=== PATIENT | male | born 1950 | race Caucasian/White ===

== ENCOUNTER 2019-12-17 12:40 | Outpatient (CLI) | payer MEDICARE, OTHER, SELFPAY ==
--- NOTE | 2019-12-17 | ECHO_ITS ---
Patient Info Name: Aquilino Trujillo Jr Age: 69 years : 1950 Gender: Male Ht: 72 in Wt: 182 lbs BSA: 2.05 m2 HR: 65 bpm BP: 142 / 76 mmHg Heart Rhythm: Sinus Rhythm Technical Quality: Fair Exam Date: 12/17/2019 1:03 PM Exam Location: [facility] Patient Status: Outpatient Admit Date: 12/17/2019 Staff Ordering Physician: Braeden Reinoso MD Scaffold Builder: Marylin Croft RDCS Attending Provider: Braeden Reinoso MD Exam Type: CA echo doppler color flow Study Info Indications R01.1 - Cardiac murmur, unspecified Complete two-dimensional, color flow and Doppler transthoracic echocardiogram is performed. Summary 1. Left ventricular chamber dimension is mildly enlarged. 2. There is moderate concentric increased left ventricular wall thickness. 3. Left ventricular systolic function is normal, estimated at 55-60%. 4. There is mild aortic valve sclerosis. 5. Very mild aortic stenosis valve area 1.7. Left Ventricle Left ventricular chamber dimension is mildly enlarged. Left ventricular systolic function is normal, estimated at 55-60%. There is moderate concentric increased left ventricular wall thickness. The left ventricular diastolic function is grade I diastolic dysfunction. Right Ventricle Right ventricular chamber dimension is normal. Left Atria Left atrial chamber dimension is mildly enlarged. Right Atria Right atrial chamber dimension is mildly enlarged. Aortic Valve The aortic valve is trileaflet. There is mild aortic valve sclerosis. Very mild aortic stenosis valve area 1.7. Pulmonic Valve The pulmonic valve is not well visualized. Mitral Valve The mitral valve has normal leaflets. Tricuspid Valve The tricuspid valve leaflets are normal. Pericardium/Pleural The pericardium appears normal. Aorta The aortic root size at the sinus of Valsalva is normal. Left Ventricular Outflow Tract Name Value Normal LVOT 2D LVOT Diameter 2.0 cm LVOT Doppler LVOT Peak Gradient 6 mmHg LVOT Mean Gradient 4 mmHg LVOT VTI 24 cm LVOT VTI/AV VTI Ratio 0.7 LVOT Stroke Volume 76 ml LVOT CO 4.5 l/min LVOT CI 2.2 l/min/m2 Pulmonic Valve Name Value Normal RVOT Doppler RVOT Peak Gradient 5 mmHg PV Doppler PV Peak Gradient 7 mmHg Mitral Valve Name Value Normal MV Doppler
== END 2019-12-17 12:41 | disposition home or self-care (01) ==
PROVIDERS: PCP Family Medicine; Visit Provider Psychiatry & Neurology Neurology
DX: R01.1 Cardiac murmur, unspecified (principal); I51.7 Cardiomegaly
CPT/HCPCS: 93306

== ENCOUNTER 2020-01-14 00:30 | Outpatient (CLI) | payer MEDICARE, OTHER, SELFPAY ==
[2020-01-14 16:39] LABS: SARS-CoV-2 RNA PCR Negative
== END 2020-01-14 00:31 | disposition home or self-care (01) ==
LOC: ANHCOVIDDT 00:31
PROVIDERS: PCP Family Medicine; Visit Provider Internal Medicine Gastroenterology
DX: Z01.812 Encounter for preprocedural laboratory examination (principal); Z11.59 Encounter for screening for other viral diseases
CPT/HCPCS: 87635; C9803; U0003

== ENCOUNTER 2020-01-16 01:31 | Day surgery (SDC) | payer MEDICARE, OTHER, SELFPAY ==
[2020-01-08 14:34] VITALS: BMI 24.5
--- NOTE | 2020-01-15 17:58 | WPDANESEPP ---
Anes - Eval Pre Procedure Procedure: Operation Date: 01/16/20 07:30 Proposed Procedures p Screening Colonoscopy - Macario Abarca MD Date/Time: 01/15/20 17:58 Pre Op Diagnosis: screening, hx of polyps Patient Data Age: 69 Gender: M Height: 6 ft Weight: 82 kg Allergies Allergy/AdvReac Type Severity Reaction Status Date / Time No Known Allergies Allergy Verified 01/08/20 14:40 Home Medications Medication Instructions Recorded Confirmed Type amlodipine 5 mg PO .BEDTIME 01/08/20 01/08/20 History aspirin [Aspirin Low Dose] 81 mg PO DAILY 01/08/20 01/08/20 History carbidopa-levodopa 1 tablet PO QID 01/08/20 01/08/20 History lisinopril 40 mg PO DAILY 01/08/20 01/08/20 History loratadine [Claritin] 10 mg PO DAILY 01/08/20 01/08/20 History Patient hx anesthesia problems: none Family hx anesthesia problems: none PMFSH Past Medical History Medical History Hypertension Kidney stones Non-Hodgkin lymphoma in remission Parkinsons Surgical History Surgical History S/P total knee arthroplasty Social History Social History Smoking status: Never smoker Alcohol intake: never Gender identity (if verbalized by the patient): Male Spiritual care concerns: No Exam Day of Procedure 01/15/20 17:58
[2020-01-16 06:24] VITALS: BP 141/94; PULSE 76; RESP 16; TEMP 36.1; O2SAT 97; BMI 24.0
[2020-01-16] MEDS: LACTATED RINGERS 1,000 ML 150 ML IV CONT (06:37)
--- NOTE | 2020-01-16 07:02 | PM.HPGS ---
History of Present Illness History of Present Illness Consent: Risks, benefits, and alternatives have been discussed and questions answered. Patient agrees to proceed with procedure. Chief complaint: screening, hx of polyps Narrative: Aquilino Trujillo Jr. is a 69 year old male For screening colonoscopy [facility] Past Medical History Medical History Hypertension Kidney stones Non-Hodgkin lymphoma in remission Parkinsons Surgical History Surgical History S/P total knee arthroplasty Social History Social History Smoking status: Never smoker Alcohol intake: never Living arrangements: with family Gender identity (if verbalized by the patient): Male Spiritual care concerns: No Meds Home Medications and Allergies Home Medications Medication Instructions Recorded Confirmed Type amlodipine 5 mg PO .BEDTIME 01/08/20 01/08/20 History aspirin [Aspirin Low Dose] 81 mg PO DAILY 01/08/20 01/08/20 History carbidopa-levodopa 1 tablet PO QID 01/08/20 01/08/20 History lisinopril 40 mg PO DAILY 01/08/20 01/08/20 History loratadine [Claritin] 10 mg PO DAILY 01/08/20 01/08/20 History Allergies Allergy/AdvReac Type Severity Reaction Status Date / Time No Known Allergies Allergy Verified 01/16/20 06:23 Vital Signs Vital Signs - 24 hr 01/16/20 06:24 Temperature 36.1 C L Pulse Rate 76 Respiratory Rate 16 Blood Pressure 141/94 H Pulse Oximetry 97 Exam Resp: Auscultation: clear to auscultation bilaterally Cardio: Rate: regular rate Rhythm: regular rhythm GI: GI Palp: Yes Soft to palpation and No Tenderness to palpation present (GI) Assessment and Plan Assessment and plan (1) Colon cancer screening: Code(s): Z12.11 - Encounter for screening for malignant neoplasm of colon Status: Acute Assessment and Plan: Colonoscopy with possible biopsy or polypectomy or cautery or injection of substances.
--- NOTE | 2020-01-16 07:11 | WPDANESEPPF ---
Anes - Initial Pre Proc Eval Procedure: Operation Date: 01/16/20 07:30 Proposed Procedures p Screening Colonoscopy - Macario Abarca MD Date/Time: 01/16/20 07:11 Surgeon: Macario Abarca MD Pre Op Diagnosis: screening, hx of polyps Patient Data Age: 69 Gender: M Height: 6 ft Weight: 80.5 kg Last Vital Signs Temp 97.0 F L 01/16/20 06:24 Pulse 76 01/16/20 06:24 Resp 16 01/16/20 06:24 BP 141/94 H 01/16/20 06:24 Pulse Ox 97 01/16/20 06:24 Allergies Allergy/AdvReac Type Severity Reaction Status Date / Time No Known Allergies Allergy Verified 01/16/20 06:23 Home Medications Medication Instructions Recorded Confirmed Type amlodipine 5 mg PO .BEDTIME 01/08/20 01/08/20 History aspirin [Aspirin Low Dose] 81 mg PO DAILY 01/08/20 01/08/20 History carbidopa-levodopa 1 tablet PO QID 01/08/20 01/08/20 History lisinopril 40 mg PO DAILY 01/08/20 01/08/20 History loratadine [Claritin] 10 mg PO DAILY 01/08/20 01/08/20 History Patient hx anesthesia problems: none Family hx anesthesia problems: none PMFSH Past Medical History Medical History Hypertension Kidney stones Non-Hodgkin lymphoma in remission Parkinsons Surgical History Surgical History S/P total knee arthroplasty Social History Social History Smoking status: Never smoker Alcohol intake: never Living arrangements: with family Gender identity (if verbalized by the patient): Male Spiritual care concerns: No Anes - Eval Final PreProcedure Day of Procedure 01/16/20 07:11 Patient weight: overweight Heart: regular rate and rhythm Lungs: clear to auscultation Airway: Mallampati scale class II Neurological: alert and oriented Last oral intake: >/= 8 hours ASA classification: III Emergent: no Anesthetic plan: proceed Anesthesia type and monitoring: general GIVS and standard monitoring Informed Consent: The patient's anesthetic plan and its attendant risks and benefits were discussed with the patient/family/POA. Questions were solicited and answers provided to the satisfaction of the patient/family/POA.
[2020-01-16 07:35] VITALS: BP 117/70; PULSE 56; RESP 15; O2SAT 97
[2020-01-16 07:45] VITALS: BP 118/72; PULSE 54; RESP 13; O2SAT 97
[2020-01-16 07:55] VITALS: BP 130/78; PULSE 54; RESP 17; O2SAT 98
== END 2020-01-16 08:05 | disposition home or self-care (01) ==
PROVIDERS: PCP Family Medicine; Visit Provider Internal Medicine Gastroenterology
PROC: 0DJD8ZZ Inspection of Lower Intestinal Tract, Via Natural or Artificial Opening Endoscopic (ICD-10-PCS; CPT 45378; principal; 2020-01-16 07:30)
DX: Z12.11 Encounter for screening for malignant neoplasm of colon (principal); Z86.010 Personal history of colon polyps; I10 Essential (primary) hypertension; G20 Parkinson's disease; Z85.72 Personal history of non-Hodgkin lymphomas
CPT/HCPCS: G0105; J2704; J7120

== ENCOUNTER 2020-02-11 01:24 | Outpatient (CLI) | payer MEDICARE, OTHER, SELFPAY ==
[2020-02-11 18:16] LABS: SARS-CoV-2 RNA PCR Negative
== END 2020-02-11 01:25 | disposition home or self-care (01) ==
LOC: ANHCOVIDDT 01:24
PROVIDERS: PCP Family Medicine; Visit Provider Internal Medicine Gastroenterology
DX: Z01.812 Encounter for preprocedural laboratory examination (principal); Z20.828 Contact with and (suspected) exposure to other viral communicable diseases
CPT/HCPCS: 87635; C9803; U0003

== ENCOUNTER 2020-02-13 01:59 | Day surgery (SDC) | payer MEDICARE, BC, SELFPAY ==
[2020-02-06 13:24] VITALS: BMI 23.9
[2020-02-13 07:26] VITALS: BP 128/74; PULSE 58; RESP 18; TEMP 36.5; O2SAT 98
[2020-02-13] MEDS: LACTATED RINGERS 1,000 ML 150 ML IV CONT (07:35)
--- NOTE | 2020-02-13 07:48 | WPDANESEPPF ---
Anes - Initial Pre Proc Eval Procedure: Operation Date: 02/13/20 08:30 Proposed Procedures p Screening Colonoscopy - Macario Abarca MD Date/Time: 02/13/20 07:48 Surgeon: Macario Abarca MD Pre Op Diagnosis: hx of polyps Patient Data Age: 69 Gender: M Height: 6 ft Weight: 81.5 kg Last Vital Signs Temp 36.5 C 02/13/20 07:26 Pulse 58 L 02/13/20 07:26 Resp 18 02/13/20 07:26 BP 128/74 02/13/20 07:26 Pulse Ox 98 02/13/20 07:26 Allergies Allergy/AdvReac Type Severity Reaction Status Date / Time No Known Allergies Allergy Verified 02/13/20 07:25 Home Medications Medication Instructions Recorded Confirmed Type amlodipine 5 mg PO .BEDTIME 01/08/20 02/13/20 History aspirin [Aspirin Low Dose] 81 mg PO DAILY 01/08/20 02/13/20 History carbidopa-levodopa 1 tablet PO QID 01/08/20 02/13/20 History lisinopril 40 mg PO DAILY 01/08/20 02/13/20 History loratadine [Claritin] 10 mg PO DAILY 01/08/20 02/13/20 History Patient hx anesthesia problems: none Family hx anesthesia problems: none PMFSH Past Medical History Medical History Hypertension Kidney stones Non-Hodgkin lymphoma in remission Parkinsons Surgical History Surgical History S/P total knee arthroplasty Social History Social History Smoking status: Never smoker Alcohol intake: never Living arrangements: with family Gender identity (if verbalized by the patient): Male Spiritual care concerns: No Anes - Eval Final PreProcedure Day of Procedure 02/13/20 07:48 Patient weight: normal Heart: regular rate and rhythm Lungs: clear to auscultation Airway: Mallampati scale class II Neurological: other (alert) Last oral intake: >/= 8 hours ASA classification: III Emergent: no Anesthetic plan: proceed Anesthesia type and monitoring: general GIVS and standard monitoring Informed Consent: The patient's anesthetic plan and its attendant risks and benefits were discussed with the patient/family/POA. Questions were solicited and answers provided to the satisfaction of the patient/family/POA.
--- NOTE | 2020-02-13 08:25 | P.HP_ITS ---
History of Present Illness History of Present Illness Consent: Risks, benefits, and alternatives have been discussed and questions answered. Patient agrees to proceed with procedure. Chief complaint: hx of polyps Narrative: Aquilino Trujillo Jr. is a 69 year old male here for colon cancer screening. He has a history of polyps removed 5 years ago [facility] Past Medical History Medical History Hypertension Kidney stones Non-Hodgkin lymphoma in remission Parkinsons Surgical History Surgical History S/P total knee arthroplasty Social History Social History Smoking status: Never smoker Alcohol intake: never Living arrangements: with family Gender identity (if verbalized by the patient): Male Spiritual care concerns: No Meds Home Medications and Allergies Home Medications Medication Instructions Recorded Confirmed Type amlodipine 5 mg PO .BEDTIME 01/08/20 02/13/20 History aspirin [Aspirin Low Dose] 81 mg PO DAILY 01/08/20 02/13/20 History carbidopa-levodopa 1 tablet PO QID 01/08/20 02/13/20 History lisinopril 40 mg PO DAILY 01/08/20 02/13/20 History loratadine [Claritin] 10 mg PO DAILY 01/08/20 02/13/20 History Allergies Allergy/AdvReac Type Severity Reaction Status Date / Time No Known Allergies Allergy Verified 02/13/20 07:25 Vital Signs Vital Signs - 24 hr 02/13/20 07:26 Temperature 36.5 C Pulse Rate 58 L Respiratory Rate 18 Blood Pressure 128/74 Pulse Oximetry 98 Exam Resp: Auscultation: clear to auscultation bilaterally Cardio: Rate: regular rate Rhythm: regular rhythm GI: GI Palp: Yes Soft to palpation and No Tenderness to palpation present (GI)
[2020-02-13 09:14] VITALS: BP 113/74; PULSE 55; RESP 18; O2SAT 96
[2020-02-13 09:24] VITALS: BP 111/71; PULSE 55; RESP 28; O2SAT 99
[2020-02-13 09:34] VITALS: BP 124/50; PULSE 55; RESP 22; O2SAT 98
--- NOTE | 2020-02-13 09:52 | SUR.PHASEII ---
0920 Pt still drowsy/ sleepy. Dr Abarca to see pt when fully awake. [id number] Dr. Seay
== END 2020-02-13 10:05 | disposition home or self-care (01) ==
PROVIDERS: PCP Family Medicine; Visit Provider Internal Medicine Gastroenterology
PROC: 0DJD8ZZ Inspection of Lower Intestinal Tract, Via Natural or Artificial Opening Endoscopic (ICD-10-PCS; CPT 45378; principal; 2020-02-13 08:30)
DX: Z12.11 Encounter for screening for malignant neoplasm of colon (principal); D12.3 Benign neoplasm of transverse colon; I10 Essential (primary) hypertension; G20 Parkinson's disease; Z85.72 Personal history of non-Hodgkin lymphomas; Z79.82 Long term (current) use of aspirin
CPT/HCPCS: 45380; 88305; J7120

== ENCOUNTER 2020-11-30 19:59 | Emergency (ER) | payer MEDICARE, BC, SELFPAY ==
--- NOTE | ~2020-11-30 | CT_ITS ---
EXAMINATION: CT brain wo con DATE: 11/30/2020 21:46 INDICATION: Syncope and fall with head injury. TECHNIQUE: Computed tomography (CT) of the head was performed without intravenous contrast. Sagittal and coronal reconstructions were performed. The mA was adjusted according to patient size. Iterative reconstruction technique was employed. The dose-length product was 605.33 mGy-cm. COMPARISON: head CT dated and brain MR dated 04/13/2012 FINDINGS: Left parietal scalp hematoma. No fracture. No acute intracranial hemorrhage, acute infarction or abno rmal extra axial fluid collection. There is mild scattered white matter hypoattenuation consistent wi th chronic small vessel ischemic disease. Ventricles are normal and symmetric. No mass/mass effect. M ild mucosal thickening in the left maxillary and right ethmoid sinuses. The orbits and mastoid air ce lls are normal. IMPRESSION: 1. No fracture or acute intracranial process. 2. Mild scattered white matter hypoattenuation consistent with chronic small vessel ischemic disease. Reviewed, dictated and finalized at location A. IMPRESSION: 1. No fracture or acute intracranial process. 2. Mild scattered white matter hypoattenuation consistent with chronic small ve ssel ischemic disease.
--- NOTE | ~2020-11-30 | XR_ITS ---
EXAMINATION: XR chest 2V DATE: 11/30/2020 21:34 INDICATION: Syncopal episode. Hypertension. TECHNIQUE: frontal and lateral views of the chest were obtained. COMPARISON: Chest radiograph dated 02/24/2016 FINDINGS: The lungs remain clear with no focal airspace opacities, pulmonary edema, pleural effusion or pneumot horax. The cardiomediastinal silhouette is normal. Visualized bones and soft tissues are unremarkable . IMPRESSION: 1. No acute cardiopulmonary disease. Reviewed, dictated and finalized at location A.
--- NOTE | ~2020-11-30 | XR_ITS ---
EXAMINATION: XR elbow LT min 3V DATE: 11/30/2020 21:35 INDICATION: Posterior elbow pain and swelling post fall TECHNIQUE: Anteroposterior, two oblique and lateral views of the left elbow were obtained. COMPARISON: None. FINDINGS: Alignment is normal. No fracture or joint effusion. Mild osteoarthritis, primarily at the ulnotrochle ar articulation. Mild soft tissue swelling posterior to the olecranon. IMPRESSION: 1. No joint effusion or acute osseous abnormality. Reviewed, dictated and finalized at location A.
[2020-11-30 20:02] VITALS: BP 129/95; PULSE 90; RESP 16; TEMP 36; O2SAT 99
--- NOTE | 2020-11-30 21:17 | ECG_ITS ---
Measurements Intervals [place] Rate: 71 P: 256 MO: 197 QRS: -55 QRSD: 143 T: 152 QT: 435 QTc: 476 Interpretive Statements SINUS OR ECTOPIC ATRIAL RHYTHM LEFT BUNDLE BRANCH BLOCK BASELINE ARTIFACT- I, II, III, AVR, AVL, AVF, V1-V6 ABNORMAL ECG Electronically Signed On 12-01-2020 6:19:17 CDT by Virgil Lindsey D.O.
[2020-11-30 22:03] LABS: Basophils Percent Auto 0.3 % (0.2-1.2); Eosinophils Absolute Auto 0.1 K/mm3 (0-0.3); Eosinophils Percent Auto 0.9 % (0-4.4); Hematocrit 37.2 % (42.0-52.0); Hemoglobin 12.3 g/dL (14.0-18.0); Immature Granulocyte Absolute 0.02 K/mm3 (0.00-0.031); Immature Granulocyte Percent A 0.2 % (0-0.5); Lymphocytes Absolute Auto 1.78 K/mm3 (0.9-3.2); Lymphocytes Percent Auto 15.5 % (18.3-44.2); Mean Corpuscular HGB Conc 33.1 g/dl (32-36); Mean Corpuscular Hemoglobin 30.6 pg (26-34); Mean Corpuscular Volume 92.5 fl (80-100); Mean Platelet Volume 10.3 fl (7.4-10.4); Monocytes Absolute Auto 1.2 K/mm3 (0.1-0.6); Monocytes Percent Auto 10.8 % (2.6-8.5); Neutrophils Absolute Auto 8.3 K/mm3 (1.3-6.7); Neutrophils Percent Auto 72.3 % (45.5-73.1); Platelet Count Result 196 k/mm3 (150-375); Red Blood Count 4.02 M/mm3 (4.6-6.20); Red Cell Distribution Width 12.3 % (11.5-14.5); White Blood Count 11.5 K/mm3 (4.5-10.0)
[2020-11-30 22:12] VITALS: BP 119/78; PULSE 74; RESP 26; O2SAT 100
[2020-11-30 22:14] LABS: Anion Gap 9 mmol/L (8-16); Blood Urea Nitrogen 24 mg/dL (9-20); Calcium 9.5 mg/dL (8.4-10.2); Carbon Dioxide 27 mmol/L (22-30); Chloride 103 mmol/L (98-107); Estimated CRCL calculation 81 ml/min; Estimated Glomerular Filt Rate > 60; Glucose 101 mg/dL (65-110); Potassium 4.1 mmol/L (3.4-5.0); Sodium 139 mmol/L (137-145)
[2020-11-30] MEDS: SODIUM CHLORIDE 0.9% IV 1,000 ML 999 ML IV CONT (22:15)
[2020-11-30 22:26] LABS: Troponin I < 0.012 ng/mL (0.000-0.034)
--- NOTE | 2020-11-30 23:08 | ED.SYNCOPE ---
HPI - Syncope General Chief Complaint: Syncope Stated Complaint: blacked out - ams - did hit head Time Seen by Provider: 11/30/20 21:05 History of Present Illness HPI narrative: Patient is a 70-year-old male who presents ER with concerns for syncope. Occurred at around 6 PM. Patient was using the restroom at the [facility]. He reports waking up on the ground. Unknown how long he was unconscious but reports she went to check on him and he was walking out of the bathroom so it must not been very long. He has some pain and swelling to his left elbow. He is not on a blood thinner. No headache/nausea/vomiting/dizziness at this time. Related Data Home Medications Medication Instructions Recorded Confirmed aspirin [Aspirin Low Dose] 81 mg PO DAILY 01/08/20 10/14/20 loratadine [Claritin] 10 mg PO DAILY 01/08/20 10/14/20 Allergies Allergy/AdvReac Type Severity Reaction Status Date / Time diphenhydramine Allergy Unknown palpatation Verified 11/30/20 20:16 s Review of Systems Review of Systems: All systems reviewed & are unremarkable except as noted in HPI and below Constitutional: Constitutional: Denies chills, Denies fever(s) and Denies weakness Eyes: Eyes: Denies change in vision and Denies photophobia Respiratory: Respiratory: Denies cough and Denies dyspnea Gastrointestinal: Gastrointestinal: Denies abdominal pain, Denies nausea and Denies vomiting Musculoskeletal: Musculoskeletal: Reports arthralgias Neurologic: Reports syncope, Denies headache(s), Denies focal weakness and Denies numbness PMF Past Medical History Medical History Hypertension Kidney stones Non-Hodgkin lymphoma in remission Parkinson disease Parkinsons Surgical History Surgical History S/P total knee arthroplasty Social History Social History (Updated 10/14/20 @ 09:20 by Melania Lomax) Smoking status: Never smoker Second hand tobacco smoke exposure: No Alcohol intake: never Substance use: never Substance use type: does not use Gender identity (if verbalized by the patient): Male Spiritual care concerns: No Exam Narrative: GENERAL: Well-appearing, well-nourished, and in no acute distress. HEAD: Normocephalic, atraumatic. EYES: PERRL and EOMI. ENT: Mucous membranes moist. CHEST: Clear to auscultation. No respiratory distress. HEART: Regular rate and rhythm. Normal peripheral pulses. ABDOMEN: Soft, nontender, nondistended. EXTREMITIES: Normal range of motion. No edema. Swelling over left elbow with small abrasion, tender in this area. SKIN: Warm, dry, no rash. NEURO: No focal deficits. Resting tremor. Alert and oriented x3. PSYCH: Normal mood and affect. Course Course Emergency Course: Patient resting comfortably. BUN elevated. Likely dry causing micturition syncope. Old left bundle branch block. Asymptomatic here. Discharge home. Vital Signs Vital signs: Vital Signs Temperature 96.8 F L 11/30/20 20:02 Pulse Rate 90 11/30/20 20:02 Respiratory Rate 16 11/30/20 20:02 Blood Pressure 129/95 H 11/30/20 20:02 Pulse Oximetry 99 11/30/20 20:02 Temperature 96.8 F L 11/30/20 20:02 Pulse Rate 74 11/30/20 22:12 Respiratory Rate 26 H 11/30/20 22:12 Blood Pressure 119/78 11/30/20 22:12 Pulse Oximetry 100 11/30/20 22:12 MDM - Syncope Lab Data Result diagrams: 11/30/20 21:57 11/30/20 21:57 Labs: Lab Results 11/30/20 11/30/20 Range/Units 21:57 21:57 WBC 11.5 H (4.5-10.0) K/mm3 RBC 4.02 L (4.6-6.20) M/mm3 Hgb 12.3 L (14.0-18.0) g/dL Hct 37.2 L (42.0-52.0) % MCV 92.5 (80-100) fl MCH 30.6 (26-34) pg MCHC 33.1 (32-36) g/dl RDW 12.3 (11.5-14.5) % Plt Count 196 (150-375) k/mm3 MPV 10.3 (7.4-10.4) fl Immature Gran % (Auto) 0.2 (0-0.5) % Neut % (Auto) 72.3 (45.5
[2020-11-30 23:13] VITALS: BP 141/73; PULSE 66; RESP 16; O2SAT 99
[2020-11-30 23:32] VITALS: BP 136/77; PULSE 67; RESP 26; O2SAT 99
== END 2020-11-30 23:36 | disposition home or self-care (01) ==
PROVIDERS: Emergency Provider Emergency Medicine; PCP Family Medicine
DX: R55 Syncope and collapse (principal); E86.0 Dehydration; I10 Essential (primary) hypertension; Z87.442 Personal history of urinary calculi; G20 Parkinson's disease; Z85.72 Personal history of non-Hodgkin lymphomas; Z96.659 Presence of unspecified artificial knee joint; I44.7 Left bundle-branch block, unspecified
CPT/HCPCS: 36415; 70450; 71046; 73080; 80048; 84484; 85025; 93005; 96360; 99284; J7030

== ENCOUNTER 2020-12-09 15:59 | Emergency (ER) | payer MEDICARE, BC, SELFPAY ==
--- NOTE | ~2020-12-09 | XR_ITS ---
EXAMINATION: XR hand LT min 3V DATE: 12/09/2020 21:46 INDICATION: Hand pain and abrasions post fall TECHNIQUE: Posteroanterior, oblique and lateral views of the left hand were obtained. COMPARISON: None. FINDINGS: Alignment is normal. No fracture. Polyarticular osteoarthritis, moderate to severe at the first carpo metacarpal joint, moderate severity at the fifth proximal interphalangeal joint and mild at the dista l radioulnar, wrist and multiple additional interphalangeal joints. Soft tissues are unremarkable wit h no radiopaque foreign bodies. IMPRESSION: 1. 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 No acute osseous abnormal ity. Reviewed, dictated and finalized at location A. IMPRESSION: 1. 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 No acute osseous abnormality.
--- NOTE | ~2020-12-09 | CT_ITS ---
EXAMINATION: CT brain wo con DATE: 12/09/2020 17:27 INDICATION: Head injury. TECHNIQUE: Computed tomography (CT) of the head was performed without intravenous contrast. The mA wa s adjusted according to patient size. Iterative reconstruction technique was employed. The dose-lengt h product was 605.33 mGy-cm. COMPARISON: Head CT 11/30/2020 FINDINGS: There are scattered areas of low attenuation in the cerebral white matter. There is no intr acranial hemorrhage, acute infarction, or abnormal intracranial mass lesion. The ventricles are trevor l in size. The orbits are normal. There are fractures of the bilateral nasal bones. There is mild muc osal thickening in the paranasal sinuses. There is left posterior scalp soft tissue swelling. IMPRESSION: 1. Stable mild nonspecific cerebral white matter disease, which likely represents chronic small vesse l ischemic disease. 2. Acute bilateral nasal bone fractures. Reviewed, dictated and finalized at location A. IMPRESSION: 1. Stable mild nonspecific cerebral white matter disease, which likely represen ts chronic small vessel ischemic disease. 2. Acute bilateral nasal bone fractures.
--- NOTE | ~2020-12-09 | XR_ITS ---
EXAMINATION: XR wrist RT min 3V DATE: 12/09/2020 21:46 INDICATION: Right hand wounds post fall TECHNIQUE: Posteroanterior, ulnar deviation, oblique, and lateral views of the right wrist were obtai steve. COMPARISON: none FINDINGS: Bone alignment is normal. No fracture. Polyarticular osteoarthritis, mild to moderate severity at the first carpometacarpal and third metacarpophalangeal joints and mild at the distal radioulnar, trisca phe and second metacarpophalangeal joints. Soft tissues are unremarkable. No radiopaque foreign chinedu s. IMPRESSION: 1. Mild to moderate polyarticular osteoarthritis. No acute osseous abnormality. Reviewed, dictated and finalized at location A.
--- NOTE | ~2020-12-09 | CT_ITS ---
EXAMINATION: CT facial bones wo con DATE: 12/09/2020 17:27 INDICATION: Face injury. TECHNIQUE: Computed tomography (CT) of the facial bones and maxillofacial region was performed withou t intravenous contrast. Automated exposure control and iterative reconstruction technique were employ ed. The dose-length product was 287.02 mGy-cm. COMPARISON: Head CT 11/30/2020, neck CT 09/18/2018 FINDINGS: The orbits are normal. There is mild mucosal thickening in the paranasal sinuses. There are acute fractures of the nasal bones. There is a laceration of the ridge of the nose. There is a trans verse fracture of the alveolar process between the maxillary central incisors. The maxillary central incisors are displaced anteriorly within their sockets and are not covered by bone anteriorly. There are periapical lucencies of tooth 5. A right maxillary molar is broken. IMPRESSION: 1. Acute bilateral nasal bone fractures. 2. Fracture involving the sockets of the maxillary central incisors, which are loosened within their sockets. Reviewed, dictated and finalized at location A.
--- NOTE | ~2020-12-09 | XR_ITS ---
EXAMINATION: XR chest 2V DATE: 12/09/2020 21:46 INDICATION: Fall. Tachypnea. TECHNIQUE: frontal and lateral views of the chest were obtained. COMPARISON: Chest radiograph dated 11/30/2020 FINDINGS: The lungs remain clear with no focal airspace opacities, pulmonary edema, pleural effusion or pneumot horax. The cardiomediastinal silhouette is normal. Tortuous thoracic aorta. IMPRESSION: 1. No acute cardiopulmonary disease. Reviewed, dictated and finalized at location A.
[2020-12-09 16:11] VITALS: BP 124/66; PULSE 44; RESP 16; TEMP 36.2; O2SAT 94
[2020-12-09 18:40] VITALS: BP 122/65; PULSE 88; TEMP 36.8; O2SAT 99
--- NOTE | 2020-12-09 18:43 | PC.NURSE ---
pts up to desk numerous times. very rude to this rn about wait time. made aware of dept status on multiple occasions. propellant charge loader notified of her displeasure.
[2020-12-09 21:00] VITALS: BP 131/84; PULSE 82; RESP 16; RESP 25; O2SAT 99
--- NOTE | 2020-12-09 22:10 | ED.FALL ---
HPI - Fall General Chief Complaint: Fall Stated Complaint: fall/face injury Time Seen by Provider: 12/09/20 21:00 Source: patient and RN notes reviewed Mode of arrival: ambulatory Limitations: no limitations History of Present Illness HPI Narrative: This is a 70 year old male with history of Parkinson;s disease who presents for evaluation after a fall. Patient states he accidentally slipped on wet porch , and this caused him to fall face forward. He thinks he lost consciousness. He has a nose laceration and pain to his upper teeth. Patient denies neck pain. He reports left hand soreness , right wrist soreness and rib soreness. She denies nausea, vomiting or leg pain. He reports his last tetanus was several years ago. Related Data Home Medications Medication Instructions Recorded Confirmed aspirin [Aspirin Low Dose] 81 mg PO DAILY 01/08/20 10/14/20 loratadine [Claritin] 10 mg PO DAILY 01/08/20 10/14/20 Allergies Allergy/AdvReac Type Severity Reaction Status Date / Time diphenhydramine Allergy Unknown palpatation Verified 12/09/20 21:32 s Review of Systems Review of Systems: All systems reviewed & are unremarkable except as noted in HPI and below PMFSH Past Medical History Medical History Hypertension Kidney stones Non-Hodgkin lymphoma in remission Parkinson disease Parkinsons Surgical History Surgical History S/P total knee arthroplasty Social History Social History (Updated 10/14/20 @ 09:20 by Melania Lomax) Smoking status: Never smoker Second hand tobacco smoke exposure: No Alcohol intake: never Substance use: never Substance use type: does not use Gender identity (if verbalized by the patient): Male Spiritual care concerns: No Exam Const: General: alert Orientation/consciousness: patient oriented x3 HENMT: Head: other (abrasion to mid forehead) Ears: TM's normal bilaterally General nose exam: Other nasal findings present (irregular nasal bridge laceration, ) Face and sinus: other (upper lip swelling) Mouth: Yes moist mucous membranes and No trismus Teeth and gingiva: other (displaced tooth at 8) Eyes: Pupils: Equal, round and reactive pupils present EOM: EOMs intact bilaterally Neck: Neck: normal visual inspection Chest: Chest palpation & inspection: normal inspection of the chest Resp: Effort & Inspection: normal respiratory effort and no retractions Auscultation: clear to auscultation bilaterally Cardio: Rate: regular rate Rhythm: regular rhythm Heart sounds: no murmurs GI: GI Palp: Yes Soft to palpation, No Tenderness to palpation present (GI) and No Guarding due to palpation present (GI) Auscultation: normal bowel sounds Skin: Other: 2 cm nasal bridge laceration, abrasion to right forehead. abrasion to upper lip Neuro: General: patient oriented x3, moves all extremities and CN's II-XI intact bilaterally Other: moves all extremities Psych: Mental Status: mental status grossly normal Affect: normal affect Course Reevaluation(s) Reevaluation #1: I have discussed with patient and Ct findings of dental fracture he can follow up with oral surgery Date: 12/09/20 Time: 23:42 Vital Signs Vital signs: Vital Signs Temperature 97.1 F L 12/09/20 16:11 Pulse Rate 44 L 12/09/20 16:11 Respiratory Rate 16 12/09/20 16:11 Blood Pressure 124/66 12/09/20 16:11 Pulse Oximetry 94 12/09/20 16:11 Temperature 98.3 F 12/09/20 18:40 Pulse Rate 97 12/10/20 00:30 Respiratory Rate 14 12/10/20 00:30 Blood Pressure 135/79 12/10/20 00:30 Pulse Oximetry 98 12/10/20 00:30 MDM - Fall Imaging Data Radiologist's impression: ITS Impressions Head CT 12/09/20 17:31 IMPRESSION: 1. Stable mild nonspecific cerebral white matter disease, which likely represents chronic small vessel ischemic disease. 2. Acute bi
[2020-12-09] MEDS: ACETAMINOPHEN 500 MG TABLET 1000 MG PO (22:26)
[2020-12-09] MEDS: TETANUS,DIPHTHERIA,AC PERTUSSIS ADULT (0.5 ML) BOOSTRIX IM (22:27)
[2020-12-09 22:46] VITALS: BP 111/85; PULSE 75; RESP 13; O2SAT 98
[2020-12-10 00:30] VITALS: BP 135/79; PULSE 97; RESP 14; O2SAT 98
== END 2020-12-10 00:30 | disposition home or self-care (01) ==
PROVIDERS: Emergency Provider General Practice; PCP Family Medicine
DX: S02.2XXB Fracture of nasal bones, initial encounter for open fracture (principal); S02.42XA Fracture of alveolus of maxilla, initial encounter for closed fracture; S00.81XA Abrasion of other part of head, initial encounter; S02.5XXA Fracture of tooth (traumatic), initial encounter for closed fracture; I10 Essential (primary) hypertension; G20 Parkinson's disease; Z85.72 Personal history of non-Hodgkin lymphomas; Z79.82 Long term (current) use of aspirin; Z23 Encounter for immunization; M18.9 Osteoarthritis of first carpometacarpal joint, unspecified; M19.031 Primary osteoarthritis, right wrist; W01.0XXA Fall on same level from slipping, tripping and stumbling without subsequent striking against object, initial encounter
CPT/HCPCS: 70450; 70486; 71046; 73110; 73130; 90471; 90715; 99284; A9270

== ENCOUNTER 2021-10-29 00:53 | Day surgery (SDC) | payer MEDICARE, BC, SELFPAY ==
[2021-10-16 09:06] VITALS: BMI 25.4
--- NOTE | 2021-10-27 12:55 | PM.HPGS ---
History of Present Illness History of Present Illness Consent: Risks, benefits, and alternatives have been discussed and questions answered. Patient agrees to proceed with procedure. Chief complaint: hx of colon polyps Narrative: Aquilino Trujillo Jr. is a 71 year old male Referred for colon cancer screening. He has had polyps removed in a couple of occasions, including 2 polyps removed about 7 years ago Review of Systems Review of Systems: All systems reviewed & are unremarkable except as noted in HPI and below PMFSH Past Medical History Medical History Hypertension Kidney stones Non-Hodgkin lymphoma in remission Parkinson disease Parkinsons Surgical History Surgical History S/P total knee arthroplasty Social History Social History Smoking status: Never smoker Second hand tobacco smoke exposure: No Alcohol intake: never Substance use: never Substance use type: does not use Living arrangements: with family Gender identity (if verbalized by the patient): Male Sexual Orientation (if Verbalized by the Patient): Straight or Heterosexual Spiritual care concerns: No Meds Home Medications and Allergies Home Medications Medication Instructions Recorded Confirmed Type aspirin 81 mg tablet,delayed 81 mg PO DAILY 01/08/20 10/29/21 History release (Sherwin Low Dose Aspirin) loratadine 10 mg tablet (Claritin) 10 mg PO DAILY 01/08/20 10/29/21 History carbidopa 25 mg-levodopa 100 mg 1 tablet PO QID #120 tabs 10/14/20 10/16/21 Rx tablet (Sinemet) chlorhexidine gluconate 0.12 % 15 ml buccal BID #1,500 mL 12/09/20 10/29/21 Rx mouthwash (Peridex) lisinopril 40 mg tablet 40 mg PO DAILY #90 tabs 05/08/21 10/29/21 Rx amlodipine 5 mg tablet 5 mg PO .BEDTIME #90 tabs 05/22/21 10/29/21 Rx pravastatin 80 mg tablet 80 mg PO QHS #90 tabs 06/08/21 10/29/21 Rx polyethylene glycol 3350 17 17 g PO DAILY #238 grams 10/05/21 10/29/21 Rx gram/dose oral powder (Miralax) Allergies Allergy/AdvReac Type Severity Reaction Status Date / Time diphenhydramine Allergy Unknown palpatation Verified 10/29/21 09:26 s Exam Resp: Auscultation: clear to auscultation bilaterally Cardio: Rate: regular rate Rhythm: regular rhythm GI: GI Palp: Yes Soft to palpation and No Tenderness to palpation present (GI) Assessment and Plan Assessment and plan (1) Colon cancer screening: Code(s): Z12.11 - Encounter for screening for malignant neoplasm of colon Status: Acute Assessment and Plan: Colonoscopy with possible biopsy or polypectomy or cautery or injection of substances.
[2021-10-29 09:28] VITALS: BP 105/66; PULSE 71; RESP 16; TEMP 36.2; O2SAT 99; BMI 24.5
[2021-10-29] MEDS: LACTATED RINGERS 1,000 ML 150 ML IV CONT (09:30)
--- NOTE | 2021-10-29 09:49 | P.PNAN_ITS ---
Anes - Initial Pre Proc Eval Procedure: Operation Date: 10/29/21 10:30 Proposed Procedures p Screening Colonoscopy - Macario Abarca MD Date/Time: 10/29/21 09:49 Surgeon: Macario Abarca MD Pre Op Diagnosis: hx of colon polyps Patient Data Age: 71 Gender: M Height: 1.83 m Weight: 82 kg Last Vital Signs Temp 36.2 C L 10/29/21 09:28 Pulse 71 10/29/21 09:28 Resp 16 10/29/21 09:28 BP 105/66 10/29/21 09:28 Pulse Ox 99 10/29/21 09:28 O2 Del Method Room Air 10/29/21 09:28 Allergies Allergy/AdvReac Type Severity Reaction Status Date / Time diphenhydramine Allergy Unknown palpatation Verified 10/29/21 09:26 s Home Medications Medication Instructions Recorded Confirmed Type aspirin 81 mg tablet,delayed 81 mg PO DAILY 01/08/20 10/29/21 History release (Sherwin Low Dose Aspirin) loratadine 10 mg tablet (Claritin) 10 mg PO DAILY 01/08/20 10/29/21 History carbidopa 25 mg-levodopa 100 mg 1 tablet PO QID #120 tabs 10/14/20 10/16/21 Rx tablet (Sinemet) chlorhexidine gluconate 0.12 % 15 ml buccal BID #1,500 mL 12/09/20 10/29/21 Rx mouthwash (Peridex) lisinopril 40 mg tablet 40 mg PO DAILY #90 tabs 05/08/21 10/29/21 Rx amlodipine 5 mg tablet 5 mg PO .BEDTIME #90 tabs 05/22/21 10/29/21 Rx pravastatin 80 mg tablet 80 mg PO QHS #90 tabs 06/08/21 10/29/21 Rx polyethylene glycol 3350 17 17 g PO DAILY #238 grams 10/05/21 10/29/21 Rx gram/dose oral powder (Miralax) Patient hx anesthesia problems: none Family hx anesthesia problems: none Results Review: All pre-operative results and documents have been reviewed as part of the pre- operative evaluation. [facility] Past Medical History Medical History Hypertension Kidney stones Non-Hodgkin lymphoma in remission Parkinson disease Parkinsons Surgical History Surgical History S/P total knee arthroplasty Social History Social History Smoking status: Never smoker Second hand tobacco smoke exposure: No Alcohol intake: never Substance use: never Substance use type: does not use Living arrangements: with family Gender identity (if verbalized by the patient): Male Sexual Orientation (if Verbalized by the Patient): Straight or Heterosexual Spiritual care concerns: No Anes - Eval Final PreProcedure Day of Procedure 10/29/21 09:49 Patient weight: normal Heart: regular rate and rhythm Lungs: clear to auscultation Airway: Mallampati scale class II Neurological: alert and oriented Last oral intake: >/= 8 hours ASA classification: III Emergent: no Anesthetic plan: proceed Anesthesia type and monitoring: general GIVS and standard monitoring Results Review: All pre-operative results and documents have been reviewed as part of the pre- operative evaluation. Informed Consent: The patient's anesthetic plan and its attendant risks and benefits were discussed with the patient/family/POA. Questions were solicited and answers provided to the satisfaction of the patient/family/POA.
[2021-10-29 10:31] VITALS: BP 126/72; PULSE 53; RESP 13; O2SAT 100
[2021-10-29 10:41] VITALS: BP 142/88; PULSE 55; RESP 18; O2SAT 100
[2021-10-29 10:51] VITALS: BP 135/64; PULSE 61; RESP 20; O2SAT 100
== END 2021-10-29 11:01 | disposition home or self-care (01) ==
PROVIDERS: PCP Family Medicine; Visit Provider Internal Medicine Gastroenterology
PROC: 0DJD8ZZ Inspection of Lower Intestinal Tract, Via Natural or Artificial Opening Endoscopic (ICD-10-PCS; CPT 45378; principal; 2021-10-29 10:30)
DX: Z12.11 Encounter for screening for malignant neoplasm of colon (principal); D12.5 Benign neoplasm of sigmoid colon; C85.80 Other specified types of non-Hodgkin lymphoma, unspecified site; Z79.82 Long term (current) use of aspirin; I10 Essential (primary) hypertension; G20 Parkinson's disease
CPT/HCPCS: 45385; 88305; J2704; J7120

== ENCOUNTER 2022-09-05 19:34 | Observation (INO) | payer MEDICARE, BC, SELFPAY ==
--- NOTE | ~2022-09-05 | CT_ITS ---
EXAMINATION: CT brain wo con DATE: 09/05/2022 20:35 INDICATION: Mental status change. Weakness. TECHNIQUE: Computed tomography (CT) of the head was performed without intravenous contrast. The mA wa s adjusted according to patient size. Iterative reconstruction technique was employed. The dose-lengt h product was 681.00 mGy-cm. COMPARISON: Head CT 12/09/2020 FINDINGS: There are scattered areas of low attenuation in the cerebral white matter. There is no intr acranial hemorrhage, acute infarction, or abnormal intracranial mass lesion. The ventricles are trevor l in size. There is mild mucosal thickening in the paranasal sinuses. The orbits are normal. The mast oid air cells are normal. IMPRESSION: 1. Stable mild nonspecific cerebral white matter disease, which likely represents chronic small vesse l ischemic disease. Reviewed, dictated and finalized at location A. IMPRESSION: 1. Stable mild nonspecific cerebral white matter disease, which likely represen ts chronic small vessel ischemic disease.
--- NOTE | ~2022-09-05 | CT_ITS ---
EXAMINATION: CTA brain carotid DATE: 09/06/2022 10:17 INDICATION: Left facial weakness. TECHNIQUE: Computed tomographic angiography (CTA) of the head was performed without and with 100 mL O mnipaque-350 intravenous contrast. CTA of the neck was performed with intravenous contrast. Automated exposure control and iterative reconstruction technique were employed. The dose-length product was 1 688.43 mGy-cm. Maximum intensity projection and volume rendered 3D-reconstructions were created by violeta camarillo technologist on a separate workstation. COMPARISON: Head CT 09/05/2022 FINDINGS: HEAD CTA: There are scattered areas of low attenuation in the cerebral white matter. There is no intr acranial hemorrhage, acute infarction, or abnormal intracranial mass lesion. The ventricles are trevor l in size. There is mild mucosal thickening in the paranasal sinuses. The orbits are normal. The mast oid air cells are normal. The vertebral arteries are codominant. There is no significant stenosis of basilar artery or the posterior cerebral arteries. There is no significant stenosis of the intracrani al internal carotid arteries or anterior or middle cerebral arteries. Anterior communicating artery i s normal. The posterior communicating arteries are normal. There is no aneurysm. NECK CTA: There are no pathologically enlarged lymph nodes. There is no significant stenosis of the v ertebral arteries. There is plaque in the proximal internal carotid arteries. There is 0% stenosis of the proximal right internal carotid artery relative to normal distal artery lumen diameter (NASCET c riteria). There is 0% stenosis of the proximal left internal carotid artery relative to normal distal artery lumen diameter. There is severe cervical spondylosis. IMPRESSION: 1. Stable mild nonspecific cerebral white matter disease, which likely represents chronic small vesse l ischemic disease. 2. No aneurysm or significant intracranial internal stenosis. 3. 0% stenosis of the proximal internal carotid arteries relative to normal distal artery lumen diame ters (NASCET criteria). Reviewed, dictated and finalized at location A. IMPRESSION: 1. Stable mild nonspecific cerebral white matter disease, which likely represen ts chronic small vessel ischemic disease. 2. No aneurysm or significant intracranial internal stenosis. 3. 0% stenosis of the proximal internal carotid arteries relative to normal dis carol artery lumen diameters (NASCET criteria).
--- NOTE | ~2022-09-05 | MR_ITS ---
EXAMINATION: MR brain/brain stem wo/w con DATE: 09/06/2022 10:47 INDICATION: Altered mental status. Transient ischemic attack. TECHNIQUE: Magnetic resonance imaging (MRI) of the brain and brainstem was performed without and with 18 mL MultiHance intravenous contrast. COMPARISON: Brain MRI 04/13/2012, and CT 09/06/2022 FINDINGS: There are scattered areas of nonspecific increased T2-weighted signal intensity in the cere bral white matter. There is no intracranial hemorrhage, acute infarction, or abnormal intracranial ma ss lesion. The ventricles are normal in size. The paranasal sinuses are clear. Orbits are normal. The re is a trace left mastoid effusion. IMPRESSION: 1. Mild nonspecific cerebral white matter disease, which likely represents chronic small vessel ische kimberly disease. Reviewed, dictated and finalized at location A. IMPRESSION: 1. Mild nonspecific cerebral white matter disease, which likely represents roasterman jude small vessel ischemic disease.
[2022-09-05 19:45] VITALS: BP 126/68; PULSE 86; RESP 16; TEMP 37; O2SAT 98
[2022-09-05 20:13] VITALS: PULSE 83
[2022-09-05 20:21] LABS: Basophils Percent Auto 0.8 % (0.2-1.2); Eosinophils Percent Auto 0.4 % (0-4.4); Hematocrit 36.6 % (42.0-52.0); Hemoglobin 12.2 g/dL (14.0-18.0); Immature Granulocyte Absolute 0.02 K/mm3 (0.00-0.031); Immature Granulocyte Percent A 0.4 % (0-0.5); Lymphocytes Absolute Auto 0.67 K/mm3 (0.9-3.2); Lymphocytes Percent Auto 12.8 % (18.3-44.2); Mean Corpuscular HGB Conc 33.3 g/dl (32-36); Mean Corpuscular Hemoglobin 30.9 pg (26-34); Mean Corpuscular Volume 92.7 fl (80-100); Mean Platelet Volume 10.1 fl (7.4-10.4); Monocytes Absolute Auto 0.6 K/mm3 (0.1-0.6); Neutrophils Absolute Auto 3.9 K/mm3 (1.3-6.7); Neutrophils Percent Auto 73.6 % (45.5-73.1); Platelet Count Result 180 k/mm3 (150-375); Red Blood Count 3.95 M/mm3 (4.6-6.20); Red Cell Distribution Width 12.3 % (11.5-14.5); White Blood Count 5.3 K/mm3 (4.5-10.0)
[2022-09-05 20:32] LABS: INR 1.1; Prothrombin Time 14.3 Seconds (11.1-14.7)
[2022-09-05 20:33] LABS: Partial Thromboplastin Time 29.2 SECONDS (22.3-36.8)
[2022-09-05 20:37] LABS: Lactic Acid Reflex 1.4 mmol/L (0.7-2.0)
[2022-09-05 20:39] LABS: Alanine Aminotransferase 14 U/L (6-50); Albumin Level 4.4 g/dL (3.5-5.1); Alkaline Phosphatase 56 U/L (38-126); Anion Gap 9 mmol/L (8-16); Aspartate Amino Transferase 29 U/L (17-59); Bilirubin,Total 0.7 mg/dL (0.2-1.3); Blood Urea Nitrogen 22 mg/dL (9-20); Carbon Dioxide 26 mmol/L (22-30); Chloride 100 mmol/L (98-107); Estimated CRCL calculation 102 ml/min; Estimated Glomerular Filt Rate > 60; Glucose 115 mg/dL (65-110); Magnesium 1.9 mg/dL (1.6-2.3); Sodium 135 mmol/L (137-145)
[2022-09-05 20:48] LABS: Appearance Urine Clear (Clear); Bilirubin Urine Negative (Negative); Blood Urine Negative (Negative); Color Urine Yellow (Yellow); Glucose Urine UA Negative (Negative); Ketones Urine Trace mg/dL (Negative); Leukocyte Esterase Ur Negative LEU/UL (Negative); Nitrate Urine Negative (Negative); Protein Urine Negative (Negative); Specific Grav Ur 1.013 (1.001-1.035); pH Urine 5.5 (5.0-9.0)
[2022-09-05 20:51] LABS: Troponin I < 0.012 ng/mL (0.000-0.034)
[2022-09-05 20:54] LABS: Add Urine Microscopic? NO
[2022-09-05 20:55] LABS: Procalcitonin 0.1 ng/mL
--- NOTE | 2022-09-05 21:57 | ED.GENADULT ---
HPI - General Adult General Chief complaint: Neuro Symptoms/Deficit Stated complaint: disoriented X24 hours Time Seen by Provider: 09/05/22 20:01 History of Present Illness HPI narrative: Patient 72-year-old gentleman who presents the emergency department with chief complaint of altered mental status. Patient has history of Parkinson's and per the family since Tuesday he has been having some episodes where he becomes confused to where he is not fully able to identify things including losing his briefly the also noticed today he had an episode where his left eyelid was droopy or than normal but subsequently that symptoms lasted for about 45 minutes and have returned to normal at this time. He also notes he had some urinary frequency they deny fever family was concerned that he may have a UTI or may have worsening of his Parkinson's or could have had a stroke. Related Data Home Medications Medication Instructions Recorded Confirmed loratadine 10 mg tablet (Claritin) 10 mg PO DAILY 01/08/20 07/27/22 Allergies Allergy/AdvReac Type Severity Reaction Status Date / Time diphenhydramine Allergy Unknown palpatation Verified 09/05/22 20:30 s Review of Systems Review of Systems: A 10 system review of systems was completed on the patient and is negative except for what is stated in the HPI. Nursing and ancillary documentation was reviewed. [facility] Past Medical History Medical History Hypertension Kidney stones Non-Hodgkin lymphoma in remission Parkinson disease Parkinsons Surgical History Surgical History S/P total knee arthroplasty Social History Social History Smoking status: Never smoker Second hand tobacco smoke exposure: No Alcohol intake: never Substance use: never Substance use type: does not use Lack of Transportation: No Lack of Food: Never True Current Housing: I Have Housing Concerned About Future Housing: No Difficulty Paying Gas/Electric Bills: No Difficulty Paying for Meds: No Currently Unemployed: No Education: Trade/Vocational Certificate Difficulty w/ Childcare or Family Care: No Living arrangements: with family Occupation/Education: retired Gender identity (if verbalized by the patient): Male Sexual Orientation (if Verbalized by the Patient): Straight or Heterosexual Spiritual care concerns: No Exam Narrative: GENERAL: Well-appearing, well-nourished, and in no acute distress. HEAD: Normocephalic, atraumatic. EYES: PERRLA and EOMI. ENT: Nares clear, no rhinorrhea or epistaxis. Mucous membranes moist. NECK: Supple. CHEST: Clear to auscultation. No respiratory distress. HEART: Regular rate and rhythm. No murmur heard. Normal peripheral pulses. ABDOMEN: Soft, nontender, nondistended, normal active bowel sounds. EXTREMITIES: Normal range of motion. No edema. SKIN: Warm, dry, no rash. NEURO: No focal deficits. Alert and oriented x3. Parkinsonian tremor PSYCH: Normal mood and affect. Course Vital Signs Vital signs: Vital Signs Temperature 37.0 C 09/05/22 19:45 Pulse Rate 86 09/05/22 19:45 Respiratory Rate 16 09/05/22 19:45 Blood Pressure 126/68 09/05/22 19:45 Pulse Oximetry 98 09/05/22 19:45 Oxygen Delivery Room Air 09/05/22 19:45 Temperature 37.0 C 09/05/22 19:45 Pulse Rate 83 09/05/22 20:13 Respiratory Rate 16 09/05/22 19:45 Blood Pressure 126/68 09/05/22 19:45 Pulse Oximetry 98 09/05/22 19:45 Oxygen Delivery Room Air 09/05/22 19:45 Medical Decision Making [facility] Narrative Medical decision making narrative: Differential diagnosis includes UTI, metabolic encephalopathy, CVA, TIA CT head was obtained that showed no evidence of acute abnormality. Oratory studies were obtained which showed a no
--- NOTE | 2022-09-05 22:05 | PM.IMHP ---
H&P: HPI History of Present Illness Date/Time: 09/05/22 22:05 Chief Complaint: Face droop Narrative: This is a 72-year-old male with past medical history significant for Parkinson's disease, hypertension, dyslipidemia. Patient was brought to the emergency room for evaluation after he was noted to have left-sided drooping of his eyelid, intermittent episodes of confusion for the last 2 days or so. Patient has been in his usual state of health, denies any vision changes, no headaches, no syncope, no near syncope, no fevers, no rigors, no chills, no nausea, no vomiting, no diarrhea ,no abdominal pain, no leg swelling, no shortness of breath, no cough. Preliminary workup has been essentially nonrevealing. EXAMINATION: CT brain wo con DATE: 09/05/2022 20:35 INDICATION: Mental status change. Weakness. TECHNIQUE: Computed tomography (CT) of the head was performed without intravenous contrast. The mA was adjusted according to patient size. Iterative reconstruction technique was employed. The dose-length product was 681.00 mGy-cm. COMPARISON: Head CT 12/09/2020 FINDINGS: There are scattered areas of low attenuation in the cerebral white matter. There is no intracranial hemorrhage, acute infarction, or abnormal intracranial mass lesion. The ventricles are normal in size. There is mild mucosal thickening in the paranasal sinuses. The orbits are normal. The mastoid air cells are normal. IMPRESSION: 1. Stable mild nonspecific cerebral white matter disease, which likely represents chronic small vessel ischemic disease. Patient has been placed in observation for further evaluation management and treatment Review of Systems Review of Systems: Left eyelid drooping Constitutional: Constitutional: Denies chills, Denies fatigue, Denies fever(s), Denies frequent falls, Denies lethargy, Denies malaise, Denies night sweats, Denies poor appetite and Denies weakness Eyes: Eyes: Denies change in vision ENT: Denies dysphagia, Denies vertigo, Denies dizziness and Denies odynophagia Cardiovascular: Cardiovascular: Denies chest pain, Denies leg edema and Denies radiating jaw, neck or arm pain Respiratory: Respiratory: Denies cough and Denies excessive phlegm production Gastrointestinal: Gastrointestinal: Denies abdominal pain, Denies dyspepsia, Denies heartburn, Denies diarrhea, Denies nausea and Denies vomiting Genitourinary: Genitourinary: Denies dysuria Musculoskeletal: Musculoskeletal: Denies arthralgias and Denies muscle weakness Integumentary/Breasts: Skin/Breast: Denies rash Neurologic: Denies dizziness, Denies focal weakness, Denies Sensory deficit (Neuro) and Reports tremor(s) Psychiatric: Psychiatric: Reports no additional psychiatric complaints and Reports as per HPI Endocrine: Endocrine: Denies cold intolerance, Denies flushing, Denies heat intolerance, Denies polyphagia, Denies polydipsia and Denies palpitations Hematologic/Lymphatic: Hematologic/Lymphatic: Reports no additional hematologic/lymphatic complaints and Reports as per HPI Allergic/Immunologic: Allergic/Immunologic: Reports no additional allergic/immunologic complaints and Reports as per HPI PMFSH Past Medical History Medical History Hypertension Kidney stones Non-Hodgkin lymphoma in remission Parkinson disease Parkinsons Surgical History Surgical History S/P total knee arthroplasty Social History Social History Smoking status: Never smoker Second hand tobacco smoke exposure: No Alcohol intake: never Substance use: never Substance use type: does not use Lack of Transportation: No Lack of Food: Never True Current Housing: I Have Housing Concerned About Future Housing: No Difficulty Paying Gas/Electric Bills: No Difficulty Paying for Meds: No Curren
[2022-09-05 22:58] VITALS: BP 128/73; PULSE 80; RESP 18; O2SAT 97
[2022-09-05 23:36] VITALS: PULSE 80; RESP 18; O2SAT 97; BMI 26.3
[2022-09-06] VITALS: BP 146/76; PULSE 76; PULSE 81; RESP 18; TEMP 36.6; O2SAT 97
[2022-09-06 01:01] LABS: Troponin I < 0.012 ng/mL (0.000-0.034)
[2022-09-06 04:00] VITALS: PULSE 73
[2022-09-06 07:02] VITALS: BP 122/81; PULSE 77; RESP 21; TEMP 36.3; O2SAT 100
[2022-09-06 08:00] VITALS: PULSE 89
--- NOTE | 2022-09-06 08:18 | PM.IMPN ---
Progress Note: A&P Assessment and Plan (1) Brain TIA: Code(s): G45.9 - Transient cerebral ischemic attack, unspecified Status: Acute Assessment and Plan: Presented with left sided facial droop, and intermittent confusion Head CT did not show any acute findings CTA of head and neck 0% stenosis of the proximal internal carotid arteries Lipid panel cholesterol 156, triglycerides 186, LDL 83, HDL 30 Neuro checks Q4H MRI no specific cerebral white matter disease Neurology consulted Echo A1c 6.6 Consider PT/OT Start aspirin (2) Acute metabolic encephalopathy: Code(s): G93.41 - Metabolic encephalopathy Status: Acute Assessment and Plan: Reports of intermittent confusion appears resolved Could be from TIA UA appears ok Trend neuro status Neuro checks Q4H (3) HTN (hypertension), benign: Code(s): I10 - Essential (primary) hypertension Status: Acute Assessment and Plan: Current BP 122/81 Resume home meds amlodipine and lisinopril Trend BP Adjust therapy as indicated (4) Parkinson disease: Code(s): G20 - Parkinson's disease Status: Acute Assessment and Plan: Continue home carbidopa levodopa Supportive care Time Spent With Patient Time: 48 minutes Time with patient: Greater than 35 minutes Subjective Date/time seen: 09/06/22 113 Interval history: 09/06/221129 Patient is doing lot better today. states that his left eye is still slightly drooping. is also stated patient does have intermittent confusion and the other day he was confused for greater than 2 hours and did know where was. He did state that he is so weak and his knees to his ankles have been tingling however has not been doing that today. He currently denies any chest pain, shortness a breath, nausea, vomiting, diarrhea or constipation. 09/05/222204 This is a 72-year-old male with past medical history significant for Parkinson's disease, hypertension, dyslipidemia.? Patient was brought to the emergency room for evaluation after he was noted to have left-sided drooping of his eyelid, intermittent episodes of confusion for the last 2 days or so.? Patient has been in his usual state of health, denies any vision changes, no headaches, no syncope, no near syncope, no fevers, no rigors, no chills, no nausea, no vomiting, no diarrhea ,no abdominal pain, no leg swelling, no shortness of breath, no cough. Review of Systems Review of Systems: All systems reviewed & are unremarkable except as noted in HPI and below Exam Narrative: General: well-nourished, well-appearing 72-year-old male, laying in bed, comfortable, NARD Neuro: awake, alert and oriented x4, speech clear, no focal neuro deficits noted HEENMT: normocephalic, atraumatic, EOMI, sclerae anicteric, moist oral mucosa Respiratory: Clear to auscultation bilaterally without crackles, rhonchi or wheezes, nonlabored breathing Cardio: regular rate, regular rhythm with S1-S2 Abdomen: nondistended, normoactive bowel sounds, soft, nontender to palpation Extremities: no edema, erythema, or tenderness to palpation, DP pulses 2+ bilaterally Skin: no rashes or lesions, warm and dry Psych: appropriate mood and affect, judgment and insight intact Objective Data Vital Signs Vital Signs: Vital Signs - 24 hr 09/05/22 19:45 09/05/22 20:13 09/05/22 22:58 Temperature 98.6 F Pulse Rate 86 83 80 Respiratory Rate 16 18 Blood Pressure 126/68 128/73 Pulse Oximetry 98 97 Oxygen Delivery Room Air 09/05/22 23:36 09/06/22 00:00 09/06/22 00:00 Temperature 97.8 F Pulse Rate 80 81 76 Respiratory Rate 18 18 Blood Pressure 146/76 H Pulse Oximetry 97 97 Oxygen Delivery Room Air 09/06/22 04:00 09/06/22 07:02 Temperature 97.4 F L Pulse Rate 73 77 Respiratory Rate 21 H Blood Pressure 122/81 Pulse Oximetry 100 Oxygen Delivery
[2022-09-06] MEDS: ESCITALOPRAM OXALATE 10 MG TABLET PO (08:42)
[2022-09-06] MEDS: lisinopriL 20 MG TABLET 40 MG BY MOUTH (08:42)
[2022-09-06] MEDS: CARBIDOPA/LEVODOPA 25/100 MG TABLET 3 TABLET PO ×3 (08:42→16:28)
[2022-09-06] MEDS: CARBIDOPA/LEVODOPA 12.5/50 MG TABLET 1 TABLET PO ×3 (08:43→16:28)
[2022-09-06 09:12] LABS: Cholesterol 156 mg/dL (0-200); HDL Direct 30 mg/dL; Triglycerides 186 mg/dL (<150)
[2022-09-06 09:23] LABS: LDL Cholesterol Direct 83 mg/dL
[2022-09-06 09:38] LABS: Hemoglobin A1C 5.9 % (<5.7)
--- NOTE | 2022-09-06 11:12 | WPDNEURCNPN ---
Assessment and Plan Assessment and plan (1) Brain TIA: Code(s): G45.9 - Transient cerebral ischemic attack, unspecified Status: Acute (2) Parkinson disease: Code(s): G20 - Parkinson's disease Status: Acute (3) HTN (hypertension), benign: Code(s): I10 - Essential (primary) hypertension Status: Acute (4) IFG (impaired fasting glucose): Code(s): R73.01 - Impaired fasting glucose Status: Acute Plan Aquilino Trujillo Jr. is a 72 year old male with a history of Parkinson's disease, hyperlipidemia, prediabetes presenting for evaluation of confusion and left facial droop. Concern for possible TIA. MRI barin negative. - Surface echocardiogram - LDL is 83, goal is <70; adjust accordingly - Start Aspirin 81mg daily Consult date: 09/06/22 Reason for consult: TIA HPI: Aquilino Trujillo Jr. is a 72 year old male with a history of Parkinson's disease, hyperlipidemia, prediabetes presenting for evaluation of confusion and left facial droop. Family reports that patient has been having intermittent episodes of confusion for the past three days where he is unable to identify things and people that he would typically know. On the day of presentation, they also noted an episode of left eyelid drooping, which lasted about 45 minutes and self-resolved. Patient was taken to [place] ED where he had a CT head that showed no acute process. CTA showed no significant stenosis or occlusion. Blood pressure has been mostly in the 120s systolic. His EKG showed sinus or atrial rhythm. LDL is 83 and A1c is 5.9. He takes pravastatin 80mg daily. He takes Sinemet 25-100mg 3.5 tablets QID. MRI brain is negative. Family and patient both feel that he is back to his baseline. He denies any other complaints. Review of Systems Constitutional: Constitutional: Denies chills, Denies fever(s) and Denies weight loss Eyes: Eyes: Denies diplopia and Denies loss of vision ENT: Denies dizziness, Denies hearing loss and Denies tinnitus Cardiovascular: Cardiovascular: Denies chest pain, Denies syncope and Denies dyspnea Respiratory: Respiratory: Denies cough, Denies dyspnea and Denies wheezing Gastrointestinal: Gastrointestinal: Denies abdominal pain, Denies change in bowel habits and Denies vomiting Genitourinary: Genitourinary: Denies urinary incontinence Musculoskeletal: Musculoskeletal: Denies arthralgias and Denies joint swelling Integumentary/Breasts: Skin/Breast: Denies new lesions and Denies rash Neurologic: Reports as per HPI, Denies dizziness, Denies syncope and Denies loss of vision Psychiatric: Psychiatric: Denies anxiety and Denies depression Endocrine: Endocrine: Denies cold intolerance and Denies heat intolerance Hematologic/Lymphatic: Hematologic/Lymphatic: Denies easy bleeding and Denies easy bruising Allergic/Immunologic: Allergic/Immunologic: Denies no additional allergic/immunologic complaints and Denies wheezing PMFSH Past Medical History Medical History Hypertension Kidney stones Non-Hodgkin lymphoma in remission Parkinson disease Parkinsons Surgical History Surgical History S/P total knee arthroplasty Social History Social History Smoking status: Never smoker Second hand tobacco smoke exposure: No Alcohol intake: never Substance use: never Substance use type: does not use Lack of Transportation: No Lack of Food: Never True Current Housing: I Have Housing Concerned About Future Housing: No Difficulty Paying Gas/Electric Bills: No Difficulty Paying for Meds: No Currently Unemployed: No Education: Trade/Vocational Certificate Difficulty w/ Childcare or Family Care: No Living arrangements: with family Occupation/Education: retired Gender identity (if verbalized by the patient): Male Sexual Orientation (if Verb
--- NOTE | 2022-09-06 11:30 | PM.DS ---
DS: Admitting Diagnosis Discharge Date 09/06/22 1130 Admitting Diagnosis TIA DS: Discharge Diagnosis Discharge Diagnosis (1) Brain TIA: Code(s): G45.9 - Transient cerebral ischemic attack, unspecified Status: Acute Assessment and Plan: Presented with left sided facial droop, and intermittent confusion Head CT did not show any acute findings CTA of head and neck 0% stenosis of the proximal internal carotid arteries Lipid panel cholesterol 156, triglycerides 186, LDL 83, HDL 30 Neuro checks Q4H MRI no specific cerebral white matter disease Neurology consulted Echo A1c 6.6 Consider PT/OT Start aspirin No plavix per neurology (2) Acute metabolic encephalopathy: Code(s): G93.41 - Metabolic encephalopathy Status: Acute Assessment and Plan: Reports of intermittent confusion appears resolved Could be from TIA UA appears ok Trend neuro status Neuro checks Q4H (3) HTN (hypertension), benign: Code(s): I10 - Essential (primary) hypertension Status: Acute Assessment and Plan: Current BP 122/81 Resume home meds amlodipine and lisinopril Trend BP Adjust therapy as indicated (4) Parkinson disease: Code(s): G20 - Parkinson's disease Status: Acute Assessment and Plan: Continue home carbidopa levodopa Supportive care DS: Summary Hospital Course Hospital Course: Patient is a 72-year-old male with past medical history of Parkinson's disease, hypertension, hyperlipidemia who presented to the ED after it was noted that he had left-sided drooping of his eyelid and intermittent confusion for the last 2 [address] Head CT was performed and showed no acute findings. MRI was also performed and showed no strokes. CTA of the head and neck was done which did not show any stenosis bilaterally. Neurology was consulted and it was confirmed the patient denied have a stroke. Currently patient is stable and denies any chest pain, shortness a breath, nausea, vomiting, diarrhea constipation. Patient will follow-up with neurology in a couple weeks. Lipid panel did indicate LDLs higher than 70 and his statin drug has been changed to atorvastatin 80 mg. Aspirin has been also started as well. PT and OT as work with the patient the patient has been able to walk around well as well. Currently patient is stable for discharge for labs and vital signs. Patient for both okay with discharge at this time. Time Spent with Patient Time attestation: Total time spent providing and/or coordinating discharge services: Exam Narrative: General: well-nourished, well-appearing 72-year-old male, laying in bed, comfortable, NARD Neuro: awake, alert and oriented x4, speech clear, no focal neuro deficits noted HEENMT: normocephalic, atraumatic, EOMI, sclerae anicteric, moist oral mucosa Respiratory: Clear to auscultation bilaterally without crackles, rhonchi or wheezes, nonlabored breathing Cardio: regular rate, regular rhythm with S1-S2 Abdomen: nondistended, normoactive bowel sounds, soft, nontender to palpation Extremities: no edema, erythema, or tenderness to palpation, DP pulses 2+ bilaterally Skin: no rashes or lesions, warm and dry Psych: appropriate mood and affect, judgment and insight intact DS: Data Data Completed and Pending Labs on day of discharge: Labs from last 24 hours 09/06/22 09/06/22 09/05/22 00:26 00:25 20:43 WBC RBC Hgb Hct MCV MCH MCHC RDW Plt Count MPV Immature Gran % (Auto) Neut % (Auto) Lymph % (Auto) Preston % (Auto) Eos % (Auto) Baso % (Auto) Lymph # (Auto) Preston # (Auto) Eos # (Auto) Baso # (Auto) Abs Immat Gran (auto) Absolute Neuts (auto) Absolute Nucleated RBC Nucleated RBC % PT INR APTT Sodium Potassium Chloride Carbon Dioxide Anion Gap BUN
[2022-09-06 12:00] VITALS: PULSE 68
[2022-09-06 14:00] VITALS: BP 103/70; PULSE 66; RESP 16; TEMP 36.8; O2SAT 99
== END 2022-09-06 16:40 | disposition home or self-care (01) ==
LOC: ANHED 22:10 → ANH2MED 23:00
PROVIDERS: Nurse Practitioner; Admitting Provider Internal Medicine; Emergency Provider Emergency Medicine; PCP Family Medicine; Visit Provider Chiropractor
DX: G45.9 Transient cerebral ischemic attack, unspecified (principal); G93.41 Metabolic encephalopathy; I10 Essential (primary) hypertension; G20 Parkinson's disease; R73.01 Impaired fasting glucose; R41.82 Altered mental status, unspecified; H02.402 Unspecified ptosis of left eyelid; R35.0 Frequency of micturition; R73.03 Prediabetes; E78.5 Hyperlipidemia, unspecified; R53.1 Weakness; R90.82 White matter disease, unspecified; Z85.72 Personal history of non-Hodgkin lymphomas; Z79.899 Other long term (current) drug therapy
CPT/HCPCS: 36415; 70450; 70496; 70498; 70553; 80053; 80061; 81003; 83036; 83605; 83735; 84145; 84484; 85025; 85610; 85730; 99285; A9270; A9577; G0378; Q9967

== ENCOUNTER 2022-09-17 10:00 | Emergency (ER) | payer MEDICARE, BC, SELFPAY ==
[2022-09-17 10:12] VITALS: BP 121/68; PULSE 62; RESP 16; TEMP 36.4; O2SAT 99
--- NOTE | 2022-09-17 10:40 | ED.EYEPROB ---
HPI - Eye Problem General Chief complaint: Eye Problems Stated complaint: Bilateral Eye Irritation Time Seen by Provider: 09/17/22 10:35 Source: patient, family () and RN notes reviewed Mode of arrival: ambulatory Limitations: no limitations History of Present Illness HPI Narrative: Patient and present today with bilateral eye redness, itching, and irritation with yellow purulent discharge. Symptoms began in the right eye 5 days ago and spread to the left eye 2 days ago. Patient also has some nasal congestion and coughing for the past 2 days. They have been applying warm compresses to the eyes. Patient also has dry eye lubricating drops that he uses daily. He has also been taking DayQuil and Ofelia-[place] Plus for his congestion and cough symptoms. Related Data Home Medications Medication Instructions Recorded Confirmed loratadine 10 mg tablet (Claritin) 10 mg PO DAILY PRN Allergy Symptoms 01/08/20 09/17/22 carbidopa 25 mg-levodopa 100 mg 3.5 tablet PO QID 09/05/22 09/17/22 tablet (Sinemet) Allergies Allergy/AdvReac Type Severity Reaction Status Date / Time diphenhydramine AdvReac Intermediate palpatation Verified 09/17/22 10:06 s Review of Systems Review of Systems: CONSTITUTIONAL: Denies body aches, fever, chills, or sweats. EYES: Denies visual changes.+ bilateral eye redness, itching, irritation, drainage ENT: Denies rhinorrhea, sore throat, or otalgia.+ congestion CARDIOVASCULAR: Denies chest pain, palpitations, or edema. RESPIRATORY: Denies dyspnea.+ cough GASTROINTESTINAL: Denies abdominal pain, nausea, vomiting, or diarrhea. GENITOURINARY: Denies dysuria or hematuria. SKIN: Denies rash, itching, or wounds. MUSCULOSKELETAL: Denies back pain, joint pain, or myalgia. NEUROLOGIC: Denies headache, numbness, tingling, or weakness. PSYCH: Denies depression or anxiety. [facility] Past Medical History Medical History Hypertension Kidney stones Non-Hodgkin lymphoma in remission Parkinson disease Parkinsons Surgical History Surgical History S/P total knee arthroplasty Social History Social History Smoking status: Never smoker Second hand tobacco smoke exposure: No Alcohol intake: never Substance use: never Substance use type: does not use Lack of Transportation: No Lack of Food: Never True Current Housing: I Have Housing Concerned About Future Housing: No Difficulty Paying Gas/Electric Bills: No Difficulty Paying for Meds: No Currently Unemployed: No Education: Trade/Vocational Certificate Difficulty w/ Childcare or Family Care: No Living arrangements: with family Occupation/Education: retired Gender identity (if verbalized by the patient): Male Sexual Orientation (if Verbalized by the Patient): Straight or Heterosexual Spiritual care concerns: No Comments At time of signature, I have reviewed and agree with nursing past medical, surgical, social and family history unless otherwise noted. Please see nursing chart for further information. There is no relevant family history pertinent to the presenting complaint Exam Narrative: GENERAL: Well-appearing, well-nourished, and in no acute distress. HEAD: Normocephalic, atraumatic. EYES: EOMI. PERRL. Bilateral injected conjunctiva with mild chemosis and yellow purulent drainage and matting eye lashes. ENT: Mucous membranes pink and moist. Nares mildly congested No rhinorrhea. NECK: Normal AROM. CHEST: No respiratory distress. Clear to auscultation. HEART: Regular rate and rhythm. No murmur appreciated. Normal peripheral pulses. EXTREMITIES: Normal range of motion. No edema. SKIN: Warm, dry, no rash. Capillary refill normal. Normal skin turgor. NEURO: Alert and oriented x3. Parkinsonian tremors PSYCH: Normal affect
== END 2022-09-17 10:47 | disposition home or self-care (01) ==
PROVIDERS: Emergency Provider Nurse Practitioner; PCP Family Medicine
DX: H10.33 Unspecified acute conjunctivitis, bilateral (principal); I10 Essential (primary) hypertension; G20 Parkinson's disease; Z85.72 Personal history of non-Hodgkin lymphomas
CPT/HCPCS: 99213; G0463

== ENCOUNTER 2023-01-15 13:01 | Emergency (ER) | payer MEDICARE, BC, SELFPAY ==
--- NOTE | 2023-01-15 13:05 | ED.ABDPAIN ---
HPI - Abdominal Pain General Chief Complaint: Abdominal Pain Stated Complaint: eliot abd pain Time Seen by Provider: 01/15/23 13:05 Source: patient Mode of arrival: ambulatory Limitations: no limitations History of Present Illness HPI narrative: Guicho is a 72-year-old male patient presenting to the clinic today with complaints right lower abdomen pain/flank pain since about 3:00 a.m. this morning. He reports he got up to void and was only able to get out a little bit of urine. Also reports that he there may have been some blood in his urine. Last bowel movement was 2 hours prior to arrival and he states that the stool was very dark. No fever or chills. Denies any nausea, bloating, or vomiting. History of kidney stone in the past stool. States the pain is similar. Reports the pain is sharp and stabbing that comes and goes and rates it a 5/10 currently Related Data Home Medications Medication Instructions Recorded Confirmed loratadine 10 mg tablet (Claritin) 10 mg PO DAILY PRN Allergy Symptoms 01/08/20 09/17/22 carbidopa 25 mg-levodopa 100 mg 3.5 tablet PO QID 09/05/22 01/15/23 tablet (Sinemet) Allergies Allergy/AdvReac Type Severity Reaction Status Date / Time diphenhydramine AdvReac Intermediate palpatation Verified 01/15/23 13:12 s Review of Systems Review of Systems: Pertinent positives per HPI. Patient denies any fever, chills, rash, headache, visual changes, dizziness, cough, runny nose, sore throat, shortness of breath, chest pain, palpitations, nausea, vomiting, diarrhea, constipation PMFSH Past Medical History Medical History Hypertension Kidney stones Non-Hodgkin lymphoma in remission Parkinson disease Parkinsons Surgical History Surgical History S/P total knee arthroplasty Social History Social History Smoking status: Never smoker Second hand tobacco smoke exposure: No Alcohol intake: never Substance use: never Substance use type: does not use Lack of Transportation: No Lack of Food: Never True Current Housing: I Have Housing Concerned About Future Housing: No Difficulty Paying Gas/Electric Bills: No Difficulty Paying for Meds: No Currently Unemployed: No Education: Associate Degree Difficulty w/ Childcare or Family Care: No Living arrangements: with family Occupation/Education: retired Gender identity (if verbalized by the patient): Male Sexual Orientation (if Verbalized by the Patient): Straight or Heterosexual Spiritual care concerns: No Comments At the time of my signature, I reviewed and agree with the nursing past medical, surgical, social, and family history. There is no relevant family history pertinent to the patient complaint. Exam Narrative: General: Well-developed, well nourished, in no apparent distress. Head: Normocephalic, atraumatic. Cardio: Regular rate and rhythm, s1 and s2 normal, no murmur appreciated. Resp: Clear to auscultation bilaterally, no rhonchi, rales, wheezing or rubs. Abdomen: Soft, pliable, bowel sounds present in all quadrants, RUQ and RLQ tender to palpation, no organomegly, + right CVAT tenderness. Course Course Emergency Course: Portions of this record may have been created with voice recognition software. Level of Care: Express Care Visit Vital Signs Vital signs: Vital signs reviewed Transfer Transfered to: [place] Transportation: Other (Private car) Transfer rationale: Right upper quadrant and right lower quadrant abdominal pain with CVAT tenderness Accepting physician: Dr. Banks Transfer comments: Transfer via private car MDM - Abdominal Pain MDM Narrative Medical decision making narrative: At the time of visit patient is resting comfortably on exam table. Patient has right upper quadrant right lower q
[2023-01-15 13:14] VITALS: BP 113/74; PULSE 66; RESP 18; TEMP 36.3; O2SAT 99
== END 2023-01-15 13:49 | disposition short-term general hospital (02) ==
LOC: EXPTROY 13:07
PROVIDERS: Emergency Provider Nurse Practitioner Family; PCP Family Medicine
DX: R10.31 Right lower quadrant pain (principal); R10.12 Left upper quadrant pain; I10 Essential (primary) hypertension; G20 Parkinson's disease; Z85.72 Personal history of non-Hodgkin lymphomas; Z96.652 Presence of left artificial knee joint
CPT/HCPCS: 81003; 99212; G0463

== ENCOUNTER 2023-01-15 14:03 | Emergency (ER) | payer MEDICARE, BC, SELFPAY ==
[2023-01-15] VITALS (7 sets, daily range): BP systolic 116–148; BP diastolic 60–92; PULSE 59–68; RESP 15–28; TEMP 37; O2SAT 98–100
--- NOTE | ~2023-01-15 | XR_ITS ---
EXAMINATION: XR chest 2V DATE: 01/15/2023 14:47 INDICATION: Chest pain TECHNIQUE: PA and lateral views of the chest were obtained. COMPARISON: Chest radiograph dated 12/09/2020 FINDINGS: The lungs remain clear with no focal airspace opacities, pulmonary edema, pleural effusion or pneumot horax. Heart size is normal. Tortuous thoracic aorta. Mild to moderate degenerative skeletal changes in the thoracic spine and bilateral shoulders. IMPRESSION: 1. No acute cardiopulmonary disease. Reviewed, dictated and finalized at location A.
--- NOTE | ~2023-01-15 | CT_ITS ---
EXAMINATION: CT abdomen pelvis w con DATE: 01/15/2023 17:05 INDICATION: Right upper quadrant abdominal pain TECHNIQUE: Computed tomography (CT) of the abdomen and pelvis was performed with 100 mL Omnipaque-350 intravenous contrast. Automated exposure control and iterative reconstruction technique were employe d. The dose-length product was 532.29 mGy-cm. COMPARISON: None FINDINGS: Respiratory motion and mild dependent atelectasis in the bilateral lower lungs. Heart size is normal. Aortic valve calcification. No pericardial or pleural effusion. Liver, decompressed gallbladder, love creas and bilateral adrenal glands are normal. A few splenic calcifications and calcified small calci fications of a portacaval lymph node consistent with old granulomatous disease. A couple 1-2 mm calci fications at the lower pole the left kidney positioned peripheral to the renal calyx appearing to lie along the renal branch artery and favor atherosclerotic calcification is over nephrolithiasis. Mild bilateral caliectasis without baylee hydronephrosis or evident obstructing stone or mass. Mild urothel ial enhancement at the left renal pelvis which can be seen with ascending urinary tract infection. Bl adder is normal. Mild prostatomegaly measuring 4.6 x 3.4 cm. Moderate to large amount of scattered co lonic stool. Small bowel and appendix are normal. No free intraperitoneal gas or fluid. No pathologic ally enlarged abdominal or pelvic lymphadenopathy. There is scattered mild calcified atherosclerosis of the aorta and many of the other arteries without evident hemodynamically significant stenosis. Lik savanna physiologic mild anterior wedging at T11-L1. Moderate to severe lumbar and lower thoracic spondyl osis. IMPRESSION: 1. Bilateral mild caliectasis without baylee hydronephrosis or evident obstructing stone or mass which could be related to outlet obstruction from the enlarged prostate. There appears be mild urothelial enhancement at the left renal pelvis and could not exclude ascending urinary tract infection. Correla te with urinalysis. 2. A couple 1-2 mm calcifications at the lower pole of the right kidney which appear more likely athe rosclerotic than nephrolithiasis. Reviewed, dictated and finalized at location A. IMPRESSION: 1. Bilateral mild caliectasis without baylee hydronephrosis or evident obstructi ng stone or mass which could be related to outlet obstruction from the enlarged prostate. There appears be mild urothelial enhancement at the left renal pelvi s and could not exclude ascending urinary tract infection. Correlate with urina lysis. 2. A couple 1-2 mm calcifications at the lower pole of the right kidney which a ppear more likely atherosclerotic than nephrolithiasis.
--- NOTE | 2023-01-15 14:04 | ECG_ITS ---
Measurements Intervals [place] Rate: 55 P: 20 WA: 248 QRS: -55 QRSD: 153 T: 144 QT: 473 QTc: 454 Interpretive Statements SINUS BRADYCARDIA WITH FIRST DEGREE AV BLOCK LEFT AXIS DEVIATION LEFT BUNDLE BRANCH BLOCK BASELINE ARTIFACT- I, II, III, AVR, AVL, AVF, V1 ABNORMAL ECG COMPARED TO ECG 11/30/2020 22:04:38 SINUS BRADYCARDIA NOW PRESENT FIRST DEGREE AV BLOCK NOW PRESENT LEFT-AXIS DEVIATION NOW PRESENT Electronically Signed On 01-15-2023 17:02:24 CDT by Virgil Lindsey D.O.
[2023-01-15 14:49] LABS: Basophils Absolute Auto 0.1 K/mm3 (0.0-0.1); Basophils Percent Auto 0.7 % (0.2-1.2); Eosinophils Absolute Auto 0.1 K/mm3 (0-0.3); Eosinophils Percent Auto 1.2 % (0-4.4); Hematocrit 37.8 % (42.0-52.0); Hemoglobin 12.8 g/dL (14.0-18.0); Immature Granulocyte Absolute 0.02 K/mm3 (0.00-0.031); Immature Granulocyte Percent A 0.3 % (0-0.5); Lymphocytes Absolute Auto 1.54 K/mm3 (0.9-3.2); Lymphocytes Percent Auto 23.1 % (18.3-44.2); Mean Corpuscular HGB Conc 33.9 g/dl (32-36); Mean Corpuscular Hemoglobin 31.1 pg (26-34); Mean Platelet Volume 10.5 fl (7.4-10.4); Monocytes Absolute Auto 0.7 K/mm3 (0.1-0.6); Monocytes Percent Auto 10.9 % (2.6-8.5); Neutrophils Absolute Auto 4.3 K/mm3 (1.3-6.7); Neutrophils Percent Auto 63.8 % (45.5-73.1); Platelet Count Result 203 k/mm3 (150-375); Red Blood Count 4.11 M/mm3 (4.6-6.20); White Blood Count 6.7 K/mm3 (4.5-10.0)
[2023-01-15] MEDS: ASPIRIN 81 MG CHEWABLE TABLET 324 MG PO (14:59)
[2023-01-15 15:00] LABS: INR 1.1; Partial Thromboplastin Time 27.8 SECONDS (22.3-36.8); Prothrombin Time 14.2 Seconds (11.1-14.7)
[2023-01-15 15:03] LABS: Alanine Aminotransferase 11 U/L (6-50); Albumin Level 4.4 g/dL (3.5-5.1); Alkaline Phosphatase 63 U/L (38-126); Anion Gap 8 mmol/L (8-16); Aspartate Amino Transferase 28 U/L (17-59); Bilirubin,Total 0.5 mg/dL (0.2-1.3); Blood Urea Nitrogen 14 mg/dL (9-20); Carbon Dioxide 30 mmol/L (22-30); Chloride 95 mmol/L (98-107); Estimated CRCL calculation 102 ml/min; Estimated Glomerular Filt Rate > 60; Glucose 96 mg/dL (65-110); Lipase 21 U/L (23-300); Potassium 3.9 mmol/L (3.4-5.0); Sodium 133 mmol/L (137-145)
--- NOTE | 2023-01-15 15:04 | ED.CHESTPAIN ---
HPI - Chest Pain General Chief Complaint: Chest Pain Stated Complaint: Chest pain Time Seen by Provider: 01/15/23 14:50 Source: patient and family Mode of arrival: ambulatory Limitations: no limitations History of Present Illness HPI narrative: 72 years old white male came to the emergency room because of pain at the right lower ribs and right upper quadrant started at 3 AM associated with nausea and chills. He denies any vomiting, diarrhea, constipation. History of Parkinson and hypertension. Patient does not smoke or drink or uses drugs. Patient denies trouble breathing or radiation of pain. Patient denies aggravating or relieving factors, pain is intermittent last maximum 5 seconds at a time. Related Data Home Medications Medication Instructions Recorded Confirmed loratadine 10 mg tablet (Claritin) 10 mg PO DAILY PRN Allergy Symptoms 01/08/20 09/17/22 carbidopa 25 mg-levodopa 100 mg 3.5 tablet PO QID 09/05/22 01/15/23 tablet (Sinemet) Allergies Allergy/AdvReac Type Severity Reaction Status Date / Time diphenhydramine AdvReac Intermediate palpatation Verified 01/15/23 13:12 s Review of Systems Review of Systems: All systems reviewed & are unremarkable except as noted in HPI and below PMFSH Past Medical History Medical History Hypertension Kidney stones Non-Hodgkin lymphoma in remission Parkinson disease Parkinsons Surgical History Surgical History S/P total knee arthroplasty Social History Social History Smoking status: Never smoker Second hand tobacco smoke exposure: No Alcohol intake: never Substance use: never Substance use type: does not use Lack of Transportation: No Lack of Food: Never True Current Housing: I Have Housing Concerned About Future Housing: No Difficulty Paying Gas/Electric Bills: No Difficulty Paying for Meds: No Currently Unemployed: No Education: Associate Degree Difficulty w/ Childcare or Family Care: No Living arrangements: with family Occupation/Education: retired Gender identity (if verbalized by the patient): Male Sexual Orientation (if Verbalized by the Patient): Straight or Heterosexual Spiritual care concerns: No Exam Narrative: General appearance: Well-developed, well-nourished Skin: Normal color Head: Normocephalic, nontraumatic Eyes: Clear conjunctiva ENT: Oropharynx normal, ears normal, nose normal Neck: Supple, nontender Chest and respiratory: Airway patent, no respiratory distress, no accessory muscle use Heart: Regular rate/rhythm Abdomen: Soft, slight tenderness right upper quadrant and epigastric area, negative George sign, no guarding or rebound, no organomegaly, quiet bowel sounds Vascular: Normal peripheral pulses, normal capillary refill. Musculoskeletal: Normal range of motion, nontender back Neurologic: Alert and oriented ?3, CORE OV[employer] TENDER is normal as tested, no gross motor deficit, tremors Course Vital Signs Vital signs: Vital Signs Temperature 37.0 C 01/15/23 14:11 Pulse Rate 59 L 01/15/23 14:11 Respiratory Rate 20 01/15/23 14:11 Blood Pressure 124/73 01/15/23 14:11 Pulse Oximetry 100 01/15/23 14:11 Oxygen Delivery Room Air 01/15/23 14:11 Temperature 37.0 C 01/15/23 14:11 Pulse Rate 68 01/15/23 17:31 Respiratory Rate 18 01/15/23 17:31 Blood Pressure 146/87 H 01/15/23 17:31 Pulse Oximetry 98 01/15/23 17:31 Oxygen Delivery Room Air 01/15/23 14:11 MDM - Chest Pain MDM Narrative Medical decision making narrative: [place]
[2023-01-15 15:13] LABS: Troponin I < 0.012 ng/mL (0.000-0.034)
[2023-01-15] MEDS: SODIUM CHLORIDE 0.9% IV 1,000 ML 999 ML IV CONT (15:52)
[2023-01-15 17:42] LABS: Troponin I < 0.012 ng/mL (0.000-0.034)
[2023-01-15 18:40] LABS: Appearance Urine Clear (Clear); Bilirubin Urine Negative (Negative); Blood Urine Negative (Negative); Color Urine Yellow (Yellow); Glucose Urine UA Negative (Negative); Ketones Urine Negative (Negative); Leukocyte Esterase Ur Negative LEU/UL (Negative); Nitrate Urine Negative (Negative); Protein Urine Negative (Negative); Specific Grav Ur 1.019 (1.001-1.035); Urobilinogen Urine 0.2 mg/dL (<2.0)
[2023-01-15 18:44] LABS: Add Urine Microscopic? NO
== END 2023-01-15 19:29 | disposition home or self-care (01) ==
PROVIDERS: Emergency Provider Emergency Medicine; PCP Family Medicine
DX: R10.11 Right upper quadrant pain (principal); N28.89 Other specified disorders of kidney and ureter; R94.31 Abnormal electrocardiogram [ECG] [EKG]; I10 Essential (primary) hypertension; G20 Parkinson's disease; Z85.72 Personal history of non-Hodgkin lymphomas
CPT/HCPCS: 36415; 71046; 74177; 80053; 81003; 83690; 84484; 85025; 85610; 85730; 93005; 96360; 99284; A9270; J7030; Q9967

== ENCOUNTER → 2023-02-21 09:10 | Outpatient (CLI) | payer MEDICARE, BC, SELFPAY ==
--- NOTE | ~2023-02-21 | US_ITS ---
US retroperitoneal comp 02/21/2023 09:34 Procedure: Realtime transabdominal ultrasound of the kidneys and bladder. Indication: Hydronephrosis Comparison: CT dated 01/15/2023. Findings: Renal echotexture is normal bilaterally without hydronephrosis, contour deforming mass or r enal calculus. The right kidney measures 12.3 cm and left kidney measures 10.5 cm. Bladder within no rmal limits. Impression: 1: Unremarkable renal ultrasound. No stones, masses or hydronephrosis. Reviewed, dictated and finalized at location B. Impression: 1: Unremarkable renal ultrasound. No stones, masses or hydronephrosis.
== END ==
PROVIDERS: PCP Family Medicine; Visit Provider Urology
DX: N13.30 Unspecified hydronephrosis (principal)
CPT/HCPCS: 76770

== ENCOUNTER 2023-10-10 13:22 | Outpatient (CLI) | payer MEDICARE, SELFPAY ==
--- NOTE | ~2023-10-10 | PE_ITS ---
EXAMINATION: PET_PETPSMAST_PT DATE: 10/10/2023 15:34 INDICATION: Prostate cancer TECHNIQUE: 5.32 mCi of Locametz Ga-68([id number]) was administered i.v. Low dose computed portillo graphy (CT) images were acquired from the base of the brain to the base of the brain to the proximal thighs for attenuation correction and anatomic localization. Positron emission tomography (PET) image s were acquired in the same distribution beginning 99 minutes after injection. Images including fused PET/CT images were reconstructed in axial, coronal, and sagittal planes. Automated exposure control technique was employed. The dose-length product was 1026.15mGy-cm. COMPARISON: CT abdomen pelvis dated 01/15/2023, chest dated 03/19/[address] dated 09/06/2022 FINDINGS: Head/neck: Typical pattern of symmetric physiologic increased activity in the lacrimal, parotid and submandibula r glands as well as along the mucosa of the nasal and oral cavities, pharynx and hypopharynx. No path ologically enlarged cervical lymphadenopathy or suspicious foci of increased uptake in the visualized head or neck. Left otomastoiditis effusion new since 09/06/2022. Chest: Chronic small left upper lobe nodule consistent with old granulomatous disease. No new or enlarging p ulmonary nodules, pneumonia, pulmonary edema or pleural effusion. No interval change in a chronic lik savanna benign 6 mm nodules in the infrahilar left lower lobe which can be seen dating back to 2014. No n ew pulmonary nodules, pneumonia, pulmonary edema or pleural effusion. Heart size is normal. Small chi unt of atherosclerotic coronary artery calcific location. No pericardial effusion. Thoracic aorta is normal in caliber. No pathologically enlarged or PSMA avid thoracic lymphadenopathy. Abdomen/pelvis/proximal thighs: Physiologic renal accumulation and excretion of activity in the kidneys, bladder and along portions o f ureters. There is a small focus of still relatively mild uptake slightly to the right of midline at the anterior aspect of the enlarged prostate with maximal SUV of 4.1 which likely corresponds to the reported primary prostate cancer. Normal degree and slightly heterogenous pattern of increased uptak e throughout the liver and spleen without radiologic correlate or dominant PSMA avid lesion. Chronic splenic calcification consistent with old granulomatous disease. The gallbladder, pancreas and bilate ral adrenal glands are normal. Moderate uptake scattered throughout the bowels with typical duodenal and proximal jejunal predominance and without radiologic correlate, also likely physiologic. Normal a ppendix. No other abnormal foci of increased uptake or pathologically enlarged lymphadenopathy in the abdomen, pelvis or proximal thighs. Musculoskeletal: Moderate to severe spondylosis in the cervical and lumbar spine with mild to moderate intervening tho racic spondylosis. No suspicious lytic, blastic or abnormally PSMA avid bone lesions to suggest osseo us metastatic disease. IMPRESSION: 1. Small focus of relatively mild PSMA uptake at the anterior aspect the enlarged prostate which like ly represents the biopsy-proven primary prostate cancer. No evident metastatic disease. It is unclear whether the relatively low activity in the prostate reflects either limited amount of malignant tiss ue versus relatively low PSMA uptake, the latter which could decrease sensitivity for metastatic dise ase. Reviewed, dictated and finalized at location A. IMPRESSION: 1. Small focus of relatively mild PSMA uptake at the anterior aspect the enlarg ed prostate which likely represents the biopsy-proven primary prostate cancer. No evident metastatic disease. It is unclear whether the relatively low activit y in the prostate reflects either limited amount of malignant tissue
== END 2023-10-10 13:23 | disposition home or self-care (01) ==
PROVIDERS: PCP Family Medicine; Visit Provider Urology
DX: C61 Malignant neoplasm of prostate (principal)
CPT/HCPCS: 78815; A9596

== ENCOUNTER 2024-01-15 09:38 | Inpatient (IN) | payer MEDICARE, SELFPAY ==
[2024-01-15] VITALS (14 sets, daily range): BP systolic 80–141; BP diastolic 37–95; PULSE 29–116; RESP 9–19; TEMP 35.9–37.3; O2SAT 95–100; BMI 24.2
--- NOTE | ~2024-01-15 | XR_ITS ---
EXAMINATION: XR chest 1V portable DATE: 01/19/2024 10:06 INDICATION: Hypotension. TECHNIQUE: A single frontal view of the chest was obtained. COMPARISON: Chest 2 views 01/17/24 FINDINGS: There is no pneumonia, pleural effusion, or pneumothorax. The heart size is normal. There i s a left chest wall pacer with leads in the right atrium and right ventricle. IMPRESSION: 1. No acute cardiopulmonary disease. Reviewed, dictated and finalized at location A.
--- NOTE | ~2024-01-15 | XR_ITS ---
EXAMINATION: XR chest 1V portable DATE: 01/16/2024 13:38 INDICATION: Pacer placement. TECHNIQUE: A single frontal view of the chest was obtained. COMPARISON: Chest single view 01/15/2024 FINDINGS: There is no pneumonia, pleural effusion, or pneumothorax. The heart size is normal. There i s a left chest wall pacer with leads in the right atrium and right ventricle. IMPRESSION: 1. No acute cardiopulmonary disease. Reviewed, dictated and finalized at location A.
--- NOTE | ~2024-01-15 | XR_ITS ---
EXAMINATION: XR chest 2V DATE: 01/17/2024 13:09 INDICATION: Pacer placement. TECHNIQUE: Frontal and lateral views of the chest were obtained. COMPARISON: Chest single view 01/16/2024 FINDINGS: There is no pneumonia, pleural effusion, or pneumothorax. The heart size is normal. There i s a left chest wall pacer with leads in the right atrium and right ventricle. IMPRESSION: 1. No acute cardiopulmonary disease. Reviewed, dictated and finalized at location A.
--- NOTE | ~2024-01-15 | XR_ITS ---
EXAMINATION: XR chest 1V portable DATE: 01/15/2024 10:47 INDICATION: Loss of consciousness with multiple recent falls. Parkinson's disease. TECHNIQUE: frontal view of the chest was obtained. COMPARISON: Chest radiograph dated 01/15/2023 FINDINGS: The lungs remain clear with no focal airspace opacities, pulmonary edema, pleural effusion or pneumot horax. Heart size is normal. Tortuous thoracic aorta. IMPRESSION: 1. No acute cardiopulmonary disease. Reviewed, dictated and finalized at location A.
--- NOTE | ~2024-01-15 | CT_ITS ---
EXAMINATION: CT cervical spine wo con DATE: 01/15/2024 11:10 INDICATION: Fall with loss of consciousness TECHNIQUE: Computed tomography (CT) of the cervical spine was performed without intravenous contrast. Automated exposure control and iterative reconstruction technique were employed. The dose-length pro duct was 519.44 mGy-cm. COMPARISON: None FINDINGS: 2 mm anterolisthesis C2 on C3. Straightening of the normal cervical lordosis. Vertebral body heights are normal. No fracture. Severe disc height loss with degenerative endplate changes and severe uncove rtebral osteoarthritis at C5-C6. Moderate disc height loss also severe uncovertebral osteoarthritis a t C4-C5. Moderate disc height loss with severe left-sided and moderate right-sided uncovertebral oste oarthritis at C6-C7. Mild disc height loss at C2-C3 and C3-C4. There is severe facet osteoarthritis b ilaterally at C2-C3 and on the left at C3-C4. There is additional moderate and mild facet osteoarthri tis throughout the remainder of the cervical spine. Posterior endplate osteophytes contributing to mi ld central canal stenosis at C5-C6, minimal at C4-C5 and C6-C7. Moderate neural foraminal stenosis bi laterally at C5-C6 and on the right at C6-C7. Mild neural from stenosis at many of the remaining cerv ical levels. Visualized apices of lungs are clear. Small CHRONIC calcific location at the bilateral c arotid bulbs. Cervical soft tissues are otherwise unremarkable. IMPRESSION: 1. Moderate to severe cervical spondylosis with no acute osseous abnormality. Reviewed, dictated and finalized at location A.
--- NOTE | ~2024-01-15 | CT_ITS ---
EXAMINATION: CT brain wo con DATE: 01/15/2024 11:10 INDICATION: Loss of consciousness with multiple recent falls. Parkinson's disease. TECHNIQUE: Computed tomography (CT) of the head was performed without intravenous contrast. Sagittal and coronal reconstructions were performed. The mA was adjusted according to patient size. Iterative reconstruction technique was employed. The dose-length product was 605.33 mGy-cm. COMPARISON: head CT dated 09/05/2022 and MRI dated 09/06/2022 FINDINGS: No fracture. No acute intracranial hemorrhage, acute infarction or abnormal extra axial fluid collect ion. Unchanged mild scattered white matter hypoattenuation consistent with chronic small vessel ische kimberly disease. Ventricles are normal and symmetric. No mass/mass effect. Left otomastoiditis effusion. The orbits, paranasal sinuses and right mastoid air cells are normal. IMPRESSION: 1. No fracture or acute intracranial process. 2. Stable mild nonspecific scattered cerebral white matter hypoattenuation consistent with chronic sm all vessel ischemic disease. 2. Left otomastoiditis effusion. Reviewed, dictated and finalized at location A. IMPRESSION: 1. No fracture or acute intracranial process. 2. Stable mild nonspecific scattered cerebral white matter hypoattenuation cons istent with chronic small vessel ischemic disease. 2. Left otomastoiditis effusion.
--- NOTE | 2024-01-15 09:44 | ECG_ITS ---
Test Date: 2024-01-15 09:44:09 Measurements Intervals [place] Rate: 29 P: 0 [place]: 0 QRS: -78 QRSD: 144 T: -77 QT: 628 QTc: 438 Interpretive Statements SIGNIFICANT BASELINE ARTIFACT AFFECTS INTERPRETATION SLOW SINUS BRADYCARDIA RIGHT BUNDLE BRANCH BLOCK LEFT ANTERIOR FASCICULAR BLOCK ST-T WAVE ABNORMALITY IN ANTEROLATERAL LEADS- CONSIDER ISCHEMIA BASELINE ARTIFACT- I, II, III, AVR, AVL, AVF, V1-V6 ABNORMAL ECG No previous ECG available for comparison Electronically Signed On 01-15-2024 15:30:10 CDT by Virgil Lindsey D.O.
--- NOTE | 2024-01-15 09:54 | ECG_ITS ---
Test Date: 2024-01-15 10:28:56 Measurements Intervals [place] Rate: 29 P: 0 [place]: 0 QRS: -54 QRSD: 135 T: -87 QT: 612 QTc: 429 Interpretive Statements SINUS RHYTHM WITH COMPLETE HEART BLOCK SLOW JUNCTIONAL ESCAPE RHYTHM RIGHT BUNDLE BRANCH BLOCK LEFT ANTERIOR FASCICULAR BLOCK ST-T WAVE ABNORMALITY IN ANTEROLAT/INF LEADS- CONSIDER ISCHEMIA BASELINE ARTIFACT- I, II, III, AVR, AVL, AVF, V1-V6 ABNORMAL ECG No previous ECG available for comparison NO SIGNIFICANT CHANGE Electronically Signed On 01-15-2024 15:19:55 CDT by Virgil Lindsey D.O.
--- NOTE | 2024-01-15 10:03 | ED.FALL ---
HPI - Fall General Chief Complaint: Fall Stated Complaint: mult. falls, bradycardic Time Seen by Provider: 01/15/24 10:04 History of Present Illness HPI Narrative: 73-year-old Male presenting after multiple falls. history of Parkinson's and does sometimes fall but it was different today because he felt lightheaded and felt like he passed out. Complains of bilateral foot pain. States that he has been feeling a bit short of breath over the last couple days and he did have some chest pain earlier. Also complains of a cough. No fevers, vomiting. Currently undergoing radiation treatment for prostate cancer. Related Data Home Medications Medication Instructions Recorded Confirmed loratadine 10 mg tablet (Claritin) 10 mg PO DAILY PRN Allergy Symptoms 01/08/20 01/16/24 carbidopa 25 mg-levodopa 100 mg 3 tablet PO QID 09/05/22 01/16/24 tablet (Sinemet) oxybutynin chloride 15 mg 15 mg PO DAILY 03/29/23 01/16/24 tablet,extended release 24 hr amlodipine 5 mg tablet 15 mg PO .BEDTIME 01/15/24 01/16/24 lisinopril 40 mg tablet 40 mg PO HS 01/15/24 01/16/24 Allergies Allergy/AdvReac Type Severity Reaction Status Date / Time diphenhydramine AdvReac Intermediate palpatation Verified 01/05/24 14:25 s Review of Systems Review of Systems: All systems reviewed & are unremarkable except as noted in HPI and below PMFSH Past Medical History Medical History BPH w urinary obs/LUTS Hypertension Kidney stones Non-Hodgkin lymphoma in remission Parkinson disease Parkinsons Prostate cancer Surgical History Surgical History H/O prostate biopsy S/P total knee arthroplasty left Social History Social History Social History: Smoking status: Never smoker Second hand tobacco smoke exposure: No Alcohol intake: never Substance use: never Substance use type: does not use Do You Feel Safe in your Home?: Yes Lack of Transportation: No Lack of Food: Never True Current Housing: I Have Housing Concerned About Future Housing: No Difficulty Paying Gas/Electric Bills: No Difficulty Paying for Meds: No Currently Unemployed: No Education: Associate Degree Difficulty w/ Childcare or Family Care: No Living arrangements: with family Occupation/Education: retired Additional occupation/education comments: [employer], [employer] Gender identity (if verbalized by the patient): Male Sexual Orientation (if Verbalized by the Patient): Straight or Heterosexual Spiritual care concerns: No Exam Narrative: GENERAL: Chronically ill-appearing, no acute distress, pleasant cooperative, +Parkinsonian tremor HEAD: Normocephalic, atraumatic. EYES: PERRLA and EOMI. ENT: Mucous membranes dry NECK: Supple. CHEST: Clear to auscultation. No respiratory distress. HEART: Bradycardic, regular rhythm ABDOMEN: Soft, nontender, nondistended EXTREMITIES: Normal range of motion. No edema. SKIN: Warm, dry, no rash. NEURO: Alert and oriented x3. PSYCH: Normal mood and affect. Course Vital Signs Vital signs: Vital Signs Temperature 96.7 F L 01/15/24 09:44 Pulse Rate 29 L 01/15/24 09:44 Respiratory Rate 14 01/15/24 09:44 Blood Pressure 102/47 L 01/15/24 09:44 Pulse Oximetry 97 01/15/24 09:44 Temperature 99.4 F 01/17/24 12:05 Pulse Rate 81 01/17/24 12:05 Respiratory Rate 20 01/17/24 12:05 Blood Pressure 114/63 01/17/24 12:05 Pulse Oximetry 97 01/17/24 12:05 Oxygen Delivery Room Air 01/17/24 11:58 Fraction of Inspired Oxygen 01/17/24 08:34 MDM - Fall MDM Narrative Medical decision making narrative: 73-year-old male presenting with lightheadedness and falls. Sounds like he had a syncopal episode which caused fall earlier. On arrival, patient is bradycardic in the 20s to 30s. Initial
[2024-01-15] MEDS: SODIUM CHLORIDE 0.9% IV 1,000 ML 999 ML IV CONT (10:12)
[2024-01-15] MEDS: ATROPINE SULFATE 1 MG/10 ML SYRINGE IV PUSH (10:18)
[2024-01-15] MEDS: DOPamine 400 MG/D5W 250 ML 400 MG/250 ML BAG 7.82 MG IV CONT (10:38)
[2024-01-15 10:52] LABS: Basophils Percent Auto 0.5 % (0.2-1.2); Eosinophils Absolute Auto 0.1 K/mm3 (0-0.3); Eosinophils Percent Auto 1.4 % (0-4.4); Hemoglobin 11.6 g/dL (14.0-18.0); Immature Granulocyte Absolute 0.04 K/mm3 (0.00-0.031); Immature Granulocyte Percent A 0.7 % (0-0.5); Lymphocytes Absolute Auto 0.19 K/mm3 (0.9-3.2); Lymphocytes Percent Auto 3.3 % (18.3-44.2); Mean Corpuscular HGB Conc 33.1 g/dl (32-36); Mean Corpuscular Hemoglobin 31.8 pg (26-34); Mean Corpuscular Volume 95.9 fl (80-100); Mean Platelet Volume 8.9 fl (7.4-10.4); Monocytes Absolute Auto 0.8 K/mm3 (0.1-0.6); Neutrophils Absolute Auto 4.6 K/mm3 (1.3-6.7); Neutrophils Percent Auto 80.1 % (45.5-73.1); Platelet Count Result 160 k/mm3 (150-375); Red Blood Count 3.65 M/mm3 (4.6-6.20); Red Cell Distribution Width 13.5 % (11.5-14.5); White Blood Count 5.8 K/mm3 (4.5-10.0)
[2024-01-15 11:03] LABS: Alanine Aminotransferase 11 U/L (6-50); Albumin Level 3.7 g/dL (3.5-5.1); Alkaline Phosphatase 64 U/L (38-126); Anion Gap 8 mmol/L (4-12); Aspartate Amino Transferase 26 U/L (17-59); Bilirubin,Total 0.3 mg/dL (0.2-1.3); Blood Urea Nitrogen 18 mg/dL (9-20); Calcium 8.2 mg/dL (8.4-10.2); Carbon Dioxide 27 mmol/L (22-30); Chloride 101 mmol/L (98-107); Estimated CRCL calculation 88 ml/min; Estimated Glomerular Filt Rate > 60; Glucose 107 mg/dL (65-110); Potassium 3.7 mmol/L (3.4-5.0); Sodium 136 mmol/L (137-145)
[2024-01-15 11:04] LABS: Lactic Acid Reflex 1.5 mmol/L (0.7-2.0)
[2024-01-15 11:06] LABS: INR 1.1; Magnesium 1.9 mg/dL (1.6-2.3); Partial Thromboplastin Time 25.8 Seconds (22.3-36.8); Phosphorus 2.9 mg/dL (2.5-4.5); Prothrombin Time 14.3 Seconds (11.1-14.7)
[2024-01-15 11:19] LABS: Troponin I < 0.012 ng/mL (0.000-0.034)
[2024-01-15] MEDS: DOPamine 400 MG/D5W 250 ML 400 MG/250 ML BAG 31.28 MG IV CONT (11:56)
--- NOTE | 2024-01-15 11:57 | PC.NURSE ---
Verbal order from Dr. Ritter to increase rate of Dopamine to 10mcg.
--- NOTE | 2024-01-15 12:01 | PC.NURSE ---
Dr. Albright at bedside and verified Dopamine at [facility].
--- NOTE | 2024-01-15 12:11 | WPDCNINT ---
Assessment and Plan Assessment and plan (1) Complete heart block: Code(s): I44.2 - Atrioventricular block, complete Status: Acute Assessment and Plan: Patient presented with complete heart block. Heart rate was in high 20s. Cardiology was consulted ER. Patient was started on dopamine infusion and is at currently at 10 mics with heart rate above 30. Blood pressure is adequate at this time Cardiology is following and on standby for transvenous pacemaker Patient will likely need for also permanent pacemaker ICU monitoring (2) Prostate cancer: Code(s): C61 - Malignant neoplasm of prostate Status: Acute Assessment and Plan: On radiation therapy (3) Urinary retention: Code(s): R33.9 - Retention of urine, unspecified Status: Acute Assessment and Plan: Secondary to BPH. Patient also has prostate cancer Replace Vela at this time (4) BPH w urinary obs/LUTS: Code(s): N40.1 - Benign prostatic hyperplasia with lower urinary tract symptoms; N13.8 - Other obstructive and reflux uropathy Status: Acute Assessment and Plan: See above (5) Parkinson disease: Code(s): G20 - Parkinson's disease Status: Acute Assessment and Plan: Continue Sinemet (6) Chest pain: Code(s): R07.9 - Chest pain, unspecified Status: Acute Assessment and Plan: Cardiac versus noncardiac. Troponin time was negative. Continue serial troponin\ Chest x-ray negative EKG as above with no ST elevation Cardiology has been consulted and evaluated the patient Check echo (7) Fall: Code(s): W19.XXXA - Unspecified fall, initial encounter Status: Acute Assessment and Plan: Secondary to syncope PT OT evaluation eventually CT C-spine and head reviewed (8) Syncope: Code(s): R55 - Syncope and collapse Status: Inactive Assessment and Plan: Secondary to bradycardia Bedrest at this time Plan DVT prophylaxis -Lovenox Nutrition -npo Code Status - Full Code Total Critical Care Time - 35 minutes Due to a high probability of clinically significant, life threatening deterioration, the patient required my highest level of preparedness to intervene emergently and I personally spent this critical care time directly and personally managing the patient. This critical care time included obtaining a history; examining the patient; pulse oximetry; ordering and review of studies; arranging urgent treatment with development of a management plan; evaluation of patient's response to treatment; frequent reassessment; and discussions with other providers. It was exclusive of separately billable procedures and treating other patients and teaching time. Please see Assessment and Plan section and the rest of the note for further information on patient assessment and treatment Wheelabrator Operator Consult Note Consult date: 01/15/24 Reason for consult: Complete heart block HPI: Aquilino Trujillo Jr. is a 73 year old male with past medical history of Parkinson's disease, hypertension, hyperlipidemia, IFG, TIA, prostate cancer on radiation therapy presented after sustaining 2 falls today this. He felt lightheaded and passed out. No history of head trauma. Patient also is complaining abdominal discomfort but unable to provide any further details. He her last bowel movement yesterday. No dysuria hematuria. He does have difficulty urinating. Be he also complains of chest pain and states it is uncomfortable and points to midline of the chest. He is unable to provide any further severity and states that it soreness. No change with deep breathing coughing. Review of system was positive for chronic tremors. All other systems were reviewed and were negative Workup in the ER showed WBC normal at 5.8 hemoglobin 11.6 normal platelets, normal coags., sodium 136 potassium 3.7 normal creatinine. Lactic acid 1.5 calcium 8.2 Mag 1.9 and negative troponin. Normal TSH EKG s
--- NOTE | 2024-01-15 12:12 | PM.CNCAR ---
Assessment and Plan Assessment and plan (1) Complete heart block: Code(s): I44.2 - Atrioventricular block, complete Status: Acute Assessment and Plan: Continue Dopamine for now. Keep pacer pads on. Echocardiogram ordered and pending, will be done tomorrow morning. Avoid AV nikko blocking agents. If he becomes hemodynamically unstable or his bradycardia worsens then will plan for emergent transvenous pacer in the botany laboratory assistant. NPO at midnight for possible permanent pacemaker placement with Dr. Pretty tomorrow. (2) HTN (hypertension), benign: Code(s): I10 - Essential (primary) hypertension Status: Acute Assessment and Plan: Stable. (3) HLD (hyperlipidemia): Qualifiers: Hyperlipidemia type: unspecified Qualified Code(s): E78.5 - Hyperlipidemia, unspecified Code(s): E78.5 - Hyperlipidemia, unspecified Status: Acute Assessment and Plan: Not on statin at home. (4) Prostate cancer: Code(s): C61 - Malignant neoplasm of prostate Status: Acute Assessment and Plan: Undergoing radiation therapy currently (5) Parkinson disease: Code(s): G20 - Parkinson's disease Status: Acute Assessment and Plan: On Sinemet at home. Plan Recommendations and plan discussed with International Travel Consultant. History of Present Illness History of Present Illness Consult date/time: 01/15/24 12:12 Requesting physician: Carmella Reynoso MD Consult reason: Other (Complete heart block ) Reason For Visit: Complete Heart Block Narrative: This is a 73 year old male with Parkinson's disease, prostate cancer currently undergoing radiation therapy, hypertension, hyperlipidemia, history of TIA who presented to [place] ER with multiple falls. Majority of history provided by patient's , who was at bedside. Patient did lose consciousness after the second fall. reports that he has had falls in the past due to his Parkinson's, however, he has not lost consciousness before. He does report chest tightness as well. In the ED, he was noted to be bradycardia with heart rates in the 20s to 30s. Initial EKG was difficult to interpret due to significant baseline artifact from his Parkinson's, however, second EKG shows complete heart block. Hemodynamically stable. Started on Dopamine and will be admitted to the ICU. Initial troponin is negative. TSH level normal. CXR with no acute findings. Head CT with no acute findings, chronic small vessel ischemic disease, left otomastoiditis effusion. Patient is full code. Review of Systems Review of Systems: All systems reviewed & are unremarkable except as noted in HPI and below (HPI) [facility] Past Medical History Medical History BPH w urinary obs/LUTS Hypertension Kidney stones Non-Hodgkin lymphoma in remission Parkinson disease Parkinsons Prostate cancer Surgical History Surgical History H/O prostate biopsy S/P total knee arthroplasty left Social History Social History Social History: Smoking status: Never smoker Second hand tobacco smoke exposure: No Alcohol intake: never Substance use: never Substance use type: does not use Do You Feel Safe in your Home?: Yes Lack of Transportation: No Lack of Food: Never True Current Housing: I Have Housing Concerned About Future Housing: No Difficulty Paying Gas/Electric Bills: No Difficulty Paying for Meds: No Currently Unemployed: No Education: Associate Degree Difficulty w/ Childcare or Family Care: No Living arrangements: with family Occupation/Education: retired Additional occupation/education comments: [employer], [employer] Gender identity (if verbalized by the patient): Male Sexual Orientation (if Verbalized by the Patient): Straight or Heterosexual
--- NOTE | 2024-01-15 12:14 | PM.IMHP ---
H&P: HPI History of Present Illness Date/Time: 01/15/24 12:14 Chief Complaint: Fall, Lightheadedness Narrative: 73 y/o M presents here with multiple falls and lightheadedness with PMH of BPH. HTN, kidney stones, non-hogkins lymphoma in remission, Parkinson's, and prostate cancer (undergoing radiation). The patient presents here from home via EMS from for further evaluation of lightheadedness and multiple falls. Patient reports he has had frequent falls over the last 3 weeks, estimates he has had 3 falls. Most recent falls were this morning. The patient reports he had gotten out of bed and was walking to the kitchen, he had only made it around the bed when he lost his balance and fell. Patient reported no injuries, able to get back up and eat breakfast. Patient had second fall while he was up getting ice. Patient began to feel like someone turned out the light and his chest felt empty . Then had syncopal episode. He reports that he fell onto his two knees and then fell onto his left side. Unsure if he had a head strike. The patient's reported she heard a loud boom from the other room. She went to investigate and she reports that the patient was unresponsive for 1-2 minutes. When patient came to she felt the patient had a right facial droop and no confusion noted. reports the facial droop only lasted a few seconds, may have been due to laying on his side or the tongue tremors due to his Parkinson's. No reoccurrence. The then called EMS and upon their arrival the patient's heart rate was in the 30s. Atropine was administered and heart rate increased into the 60s. Patient arrived to the ED with a HR of 29. No previous hx of syncope or bradycardia, was born with a heart murmur. Initial VS at presentation: 96.7? F, HR 29, RR 14, 102/47, and 97% on RA. ED workup showed: No leukocytosis, hemoglobin 11.6 (previously 13.4 on 10/26/2023), sodium 136, creatinine 0.7 and GFR >60, calcium 8.2, initial troponin negative, TSH 1.15. CXR showed no acute cardiopulmonary disease. Head CT showed chronic small-vessel ischemic disease, left otomastoiditis effusion, no fracture acute intracranial process. C-spine CT showed moderate to severe cervical spondylosis without acute osseous abnormality. initial EKG showed idioventricular rhythm and prolonged QT interval, rate 29. Review of Systems Review of Systems: All systems reviewed & are unremarkable except as noted in HPI and below PMFSH Past Medical History Medical History BPH w urinary obs/LUTS Hypertension Kidney stones Non-Hodgkin lymphoma in remission Parkinson disease Parkinsons Prostate cancer Surgical History Surgical History H/O prostate biopsy S/P total knee arthroplasty left Social History Social History Social History: Smoking status: Never smoker Second hand tobacco smoke exposure: No Alcohol intake: never Substance use: never Substance use type: does not use Do You Feel Safe in your Home?: Yes Lack of Transportation: No Lack of Food: Never True Current Housing: I Have Housing Concerned About Future Housing: No Difficulty Paying Gas/Electric Bills: No Difficulty Paying for Meds: No Currently Unemployed: No Education: Associate Degree Difficulty w/ Childcare or Family Care: No Living arrangements: with family Occupation/Education: retired Additional occupation/education comments: [employer], [employer] Gender identity (if verbalized by the patient): Male Sexual Orientation (if Verbalized by the Patient): Straight or Heterosexual Spiritual care concerns: No Meds Home Medications and Allergies Home Medications Medication Instructions Recorded Confirmed Type loratadine 10 mg tablet (Claritin) 10 mg PO DAILY PRN Allergy Symptoms
--- NOTE | 2024-01-15 12:53 | ADMGEN ---
This patient, Aquilino Trujillo Jr., was admitted to Intensive Care Unit-6 at 1230. Patient/family oriented to hospital policies and general routines including ID bracelet, bed and alarms, visiting hours, pain management, procedures, bathroom and other care routines, personal items, smoking policy, room service/diet, and visiting hours. Information on how to activate the Rapid Response Team has been discussed. Patient/Family are encouraged to report perceived risks to care and to ask questions if they do not understand what they are told or what they should do.
--- NOTE | 2024-01-15 13:19 | ECG_ITS ---
Test Date: 2024-01-15 13:21:43 Measurements Intervals [place] Rate: 122 P: 3 [place]: 232 QRS: -37 QRSD: 152 T: 136 QT: 357 QTc: 511 Interpretive Statements SIGNIFICANT BASELINE ARTIFACT SINUS OR ECTOPIC ATRIAL TACHYCARDIA LEFT AXIS DEVIATION LEFT BUNDLE BRANCH BLOCK BASELINE ARTIFACT- I, II, III, AVR, AVL, AVF, V1-V6 Compared to ECG 01/15/2024 10:28:56 HEART RATE HAS INCREASED LEFT BUNDLE BRANCH BLOCK NOW PRESENT Electronically Signed On 01-15-2024 15:35:10 CDT by Virgil Lindsey D.O.
[2024-01-15] MEDS: LACTATED RINGERS 1,000 ML 100 ML IV CONT ×2 (13:41→23:16)
[2024-01-15] MEDS: PANTOPRAZOLE SODIUM IV 40 MG VIAL IV PUSH (13:42)
[2024-01-15] MEDS: ENOXAPARIN 40 MG/0.4 ML SYRINGE SUB-Q (13:42)
[2024-01-15 13:58] LABS: Add Urine Microscopic? YES; Appearance Urine Clear (Clear); Bacteria Urine None Seen /hpf; Bilirubin Urine Negative (Negative); Blood Urine Negative (Negative); Calcium Oxalate Crystals Urine Present /hpf; Color Urine Yellow (Yellow); Glucose Urine UA Negative (Negative); Ketones Urine Trace mg/dL (Negative); Leukocyte Esterase Ur Negative LEU/UL (Negative); Nitrate Urine Negative (Negative); Protein Urine 1+ mg/dL (Negative); Specific Grav Ur 1.022 (1.001-1.035); Squamous Epithelial Cell Urine None Seen /hpf (Few); WBC Urine 0-5 /hpf (0-3)
[2024-01-15] MEDS: LACTATED RINGERS 1,000 ML 999 ML IV CONT (14:06)
[2024-01-15 14:26] LABS: MRSA (PCR) NOT DETECTED (NOT DETECTE)
[2024-01-15 14:30] LABS: Troponin I 0.013 ng/mL (0.000-0.034)
[2024-01-15] MEDS: OFLOXACIN 0.3% OPHTH SOLN 5 ML BTL 1 DROP EACH EYE ×2 (16:18→20:25)
[2024-01-15] MEDS: CARBIDOPA/LEVODOPA 25/100 MG TABLET 3 TABLET PO ×2 (16:18→20:25)
[2024-01-15 17:19] LABS: Troponin I 0.041 ng/mL (0.000-0.034)
[2024-01-15] MEDS: ACETAMINOPHEN 325 MG TABLET 650 MG PO (23:21)
[2024-01-16] VITALS (19 sets, daily range): BP systolic 121–168; BP diastolic 58–104; PULSE 56–84; RESP 15–20; TEMP 36.9–37.3; O2SAT 94–100
--- NOTE | 2024-01-16 | ECHO_ITS ---
Patient Info Name: Aquilino Trujillo Age: 73 years : 1950 Gender: Male Ht: 72 in Wt: 170 lbs BSA: 1.98 m2 HR: 67 bpm BP: 131 / 58 mmHg Heart Rhythm: Sinus Rhythm Technical Quality: Good Exam Date: 01/16/2024 9:08 AM Exam Location: Echo Lab Patient Status: Inpatient Admit Date: 01/15/2024 Staff Ordering Physician: Ludy Albright MD (amirah/sergei) Inspector Glass Or Mirror: Fay Francis RDCS Attending Provider: Dann Paul MD Referring Physician: Jose Ramon CROCKETT; Exam Type: CA echo dop color flow w con Study Info Indications - complete heart block Complete two-dimensional, color flow and Doppler transthoracic echocardiogram is performed with contrast to opacify the left ventricle and to improve the deliniation of the left ventricle endocardial borders. Summary 1. Technically somewhat challenging exam, definity contrast used to improve visualization. 2. Normal left ventricular size with mild concentric LVH and preserved systolic function. 3. Grade 1 diastolic noncompliance. 4. Trivial aortic and pulmonic regurgitation. Left Ventricle Left ventricular chamber dimension is normal. Left ventricular systolic function is normal, estimated at 55-60%. The left ventricular diastolic function is grade I diastolic dysfunction. Right Ventricle Right ventricular chamber dimension is normal. Left Atria Left atrial chamber dimension is normal. Right Atria Right atrial chamber dimension is normal. Aortic Valve The aortic valve is normal. There is trace aortic valve regurgitation. Pulmonic Valve The pulmonic valve is normal. There is trace pulmonic regurgitation. Mitral Valve The mitral valve has normal leaflets. The mitral valve annulus is mildly calcified. Tricuspid Valve The tricuspid valve leaflets are normal. Pericardium/Pleural The pericardium appears normal. Aorta The aortic root size at the sinus of Valsalva is normal. Left Ventricular Outflow Tract Name Value Normal LVOT 2D LVOT Diameter 2.07 cm LVOT Doppler LVOT Peak Gradient 5 mmHg LVOT Mean Gradient 3 mmHg LVOT VTI 23.80 cm LVOT VTI/AV VTI Ratio 0.52 LVOT Stroke Volume 79.89 ml LVOT CO 4.38 l/min LVOT CI 2.21 L/min/m2 Pulmonic Valve Name Value Normal PV Doppler PV Peak Gradient 5 mmHg PV Regurgitation Doppler NH Peak End Diastolic Velocity 103.42 cm/s Mitral Valve Name Value Normal MV Doppler MV Decel Slop
[2024-01-16 04:00] LABS: Basophils Percent Auto 0.4 % (0.2-1.2); Eosinophils Absolute Auto 0.1 K/mm3 (0-0.3); Eosinophils Percent Auto 1.8 % (0-4.4); Hematocrit 34.6 % (42.0-52.0); Hemoglobin 11.6 g/dL (14.0-18.0); Immature Granulocyte Absolute 0.04 K/mm3 (0.00-0.031); Immature Granulocyte Percent A 0.5 % (0-0.5); Lymphocytes Absolute Auto 0.22 K/mm3 (0.9-3.2); Lymphocytes Percent Auto 2.9 % (18.3-44.2); Mean Corpuscular HGB Conc 33.5 g/dl (32-36); Mean Corpuscular Hemoglobin 31.6 pg (26-34); Mean Corpuscular Volume 94.3 fl (80-100); Mean Platelet Volume 9.2 fl (7.4-10.4); Monocytes Absolute Auto 1.1 K/mm3 (0.1-0.6); Monocytes Percent Auto 13.8 % (2.6-8.5); Neutrophils Absolute Auto 6.2 K/mm3 (1.3-6.7); Neutrophils Percent Auto 80.6 % (45.5-73.1); Platelet Count Result 163 k/mm3 (150-375); Red Blood Count 3.67 M/mm3 (4.6-6.20); Red Cell Distribution Width 13.5 % (11.5-14.5); White Blood Count 7.7 K/mm3 (4.5-10.0)
[2024-01-16 04:11] LABS: Alanine Aminotransferase 11 U/L (6-50); Albumin Level 3.7 g/dL (3.5-5.1); Alkaline Phosphatase 67 U/L (38-126); Anion Gap 8 mmol/L (4-12); Aspartate Amino Transferase 29 U/L (17-59); Bilirubin,Total 0.6 mg/dL (0.2-1.3); Blood Urea Nitrogen 18 mg/dL (9-20); Calcium 8.6 mg/dL (8.4-10.2); Carbon Dioxide 27 mmol/L (22-30); Chloride 101 mmol/L (98-107); Cholesterol 191 mg/dL (0-200); Estimated CRCL calculation 101 ml/min; Estimated Glomerular Filt Rate > 60; Glucose 98 mg/dL (65-110); HDL Direct 35 mg/dL; Magnesium 1.9 mg/dL (1.6-2.3); Potassium 3.7 mmol/L (3.4-5.0); Sodium 136 mmol/L (137-145); Triglycerides 160 mg/dL (<150)
[2024-01-16 04:21] LABS: Platelet Estimate Adequate (Adequate)
[2024-01-16 04:23] LABS: LDL Cholesterol Direct 114 mg/dL; Large Platelets Present; Platelet Clumps Present
[2024-01-16 04:24] LABS: Anisocytosis 1+; Ovalocytes 1+; Schistocytes None Seen
[2024-01-16] MEDS: CARBIDOPA/LEVODOPA 25/100 MG TABLET 3 TABLET PO ×4 (08:06→21:24)
[2024-01-16] MEDS: LACTATED RINGERS 1,000 ML 100 ML IV CONT (08:06)
[2024-01-16] MEDS: OFLOXACIN 0.3% OPHTH SOLN 5 ML BTL 1 DROP EACH EYE ×4 (08:08→21:26)
[2024-01-16] MEDS: PANTOPRAZOLE SODIUM IV 40 MG VIAL IV PUSH (08:08)
--- NOTE | 2024-01-16 08:10 | ECG_ITS ---
Test Date: 2024-01-16 08:35:58 Measurements Intervals [place] Rate: 65 P: 17 TN: 247 QRS: -43 QRSD: 161 T: 133 QT: 470 QTc: 492 Interpretive Statements SINUS RHYTHM WITH FIRST DEGREE AV BLOCK LEFT AXIS DEVIATION LEFT BUNDLE BRANCH BLOCK BASELINE ARTIFACT- I, AVR, AVL, V4-V5 ABNORMAL ECG Compared to ECG 01/15/2024 13:21:43 HEART RATE HAS DECREASED Electronically Signed On 01-16-2024 08:57:42 CDT by Virgil Lindsey D.O.
--- NOTE | 2024-01-16 08:36 | WPDINTPN ---
Progress Note: A&P Assessment and Plan (1) Complete heart block: Code(s): I44.2 - Atrioventricular block, complete Status: Acute Assessment and Plan: Patient presented with complete heart block. Heart rate was in high 20s. Cardiology was consulted ER. Patient was started on dopamine infusion and eventually developed sinus tachycardia. Dopamine was discontinued. Patient currently Sinus with bundle-branch block. Blood pressure is adequate at this time Cardiology is following and plan for permanent pacemaker today Continue telemetry monitoring Replace low magnesium and potassium (2) Prostate cancer: Code(s): C61 - Malignant neoplasm of prostate Status: Acute Assessment and Plan: On radiation therapy (3) Urinary retention: Code(s): R33.9 - Retention of urine, unspecified Status: Acute Assessment and Plan: Secondary to BPH. Patient also has prostate cancer Replace Vela at this time (4) BPH w urinary obs/LUTS: Code(s): N40.1 - Benign prostatic hyperplasia with lower urinary tract symptoms; N13.8 - Other obstructive and reflux uropathy Status: Acute Assessment and Plan: See above (5) Parkinson disease: Code(s): G20 - Parkinson's disease Status: Chronic Assessment and Plan: Continue Sinemet (6) Chest pain: Code(s): R07.9 - Chest pain, unspecified Status: Acute Assessment and Plan: Cardiac versus noncardiac. Troponin very mildly elevated Chest x-ray negative EKG as above with no ST elevation Cardiology has been consulted and evaluated the patient Echo pain (7) Fall: Code(s): W19.XXXA - Unspecified fall, initial encounter Status: Acute Assessment and Plan: Secondary to syncope PT OT evaluation eventually CT C-spine and head reviewed (8) Syncope: Code(s): R55 - Syncope and collapse Status: Inactive Assessment and Plan: Secondary to bradycardia Bedrest at this time Plan DVT prophylaxis -SCD Nutrition -npo Code Status - Full Code Total Critical Care Time - 30 minutes Due to a high probability of clinically significant, life threatening deterioration, the patient required my highest level of preparedness to intervene emergently and I personally spent this critical care time directly and personally managing the patient. This critical care time included obtaining a history; examining the patient; pulse oximetry; ordering and review of studies; arranging urgent treatment with development of a management plan; evaluation of patient's response to treatment; frequent reassessment; and discussions with other providers. It was exclusive of separately billable procedures and treating other patients and teaching time. Please see Assessment and Plan section and the rest of the note for further information on patient assessment and treatment Subjective Date/time seen: 01/16/24 Overnight events reviewed. Afebrile Patient yesterday was on dopamine and became tachycardic and dopamine was discontinued. Patient has been off dopamine night there sinus rhythm branch block. Blood pressure has been adequate. Good urine output. He states he feels better than yesterday. He still complains of some chest discomfort. Which she points it out and diffusely over his chest. No aggravating or relieving factors. Constant. No radiation. No other symptoms. All other systems were reviewed and were negative. Other Vitals acceptable Review of Systems Review of Systems: All systems reviewed & are unremarkable except as noted in HPI and below (HPI) Exam Narrative: General: Pt is alert awake and in NAD Lungs/Chest: Trachea central Clear BS B/L, No crackles or wheezing. Cardiac: RRR. Normal S1 S2. No murmurs. Mild tenderness on palpation of sternum, Systolic murmur Circulation: Pedal pulses are intact and symmetrical. Abdomen: Normal bowel sounds.. Soft. Mild tenderness to palpation
--- NOTE | 2024-01-16 08:40 | WPDMODSED ---
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 Present Complaint: no complaints this morning Procedure to be performed/Plan: implantation of permanent pacemaker Allergies Allergy/AdvReac Type Severity Reaction Status Date / Time diphenhydramine AdvReac Intermediate palpatation Verified 01/05/24 14:25 s Home Medications Medication Instructions Recorded Confirmed Type loratadine 10 mg tablet (Claritin) 10 mg PO DAILY PRN Allergy Symptoms 01/08/20 01/15/24 History carbidopa 25 mg-levodopa 100 mg 3 tablet PO QID 09/05/22 01/15/24 History tablet (Sinemet) ofloxacin 0.3 % eye drops 1 drp EACH EYE QID #10 mL 09/17/22 01/15/24 Rx oxybutynin chloride 15 mg 15 mg PO DAILY 03/29/23 01/15/24 History tablet,extended release 24 hr amlodipine 5 mg tablet 15 mg PO .BEDTIME 01/15/24 01/15/24 History lisinopril 40 mg tablet 40 mg PO HS 01/15/24 01/15/24 History Current Medications: Active Medications Acetaminophen (Acetaminophen 325 Mg Tablet) 650 mg PO Q4H PRN PRN Reason: Mild Pain (1-3) or Fever Last Admin: 01/15/24 23:21 Dose: 650 mg Carbidopa/Levodopa (Carbidopa/Levodopa 25/100 Mg Tablet) 3 tablet PO QID [facility] Last Admin: 01/16/24 08:06 Dose: 3 tablet Lactated Ringer's (Lr - Lactated Ringers Iv) 1,000 mls @ 100 mls/hr IV CONT .Q10H [facility] Last Admin: 01/16/24 08:06 Dose: 100 mls/hr Magnesium Sulfate/Dextrose (Magnesium Sulf 1 Gm/D5w 100 Ml) 1 gm in 100 mls @ 100 mls/hr IVPB ONCE ONE Stop: 01/16/24 09:29 Ofloxacin (Ofloxacin 0.3% Ophth Soln 5 Ml Btl) 1 drop EACH EYE QID [facility] Last Admin: 01/16/24 08:08 Dose: 1 drop Pantoprazole Sodium (Pantoprazole Sodium Iv 40 Mg Vial) 40 mg IV PUSH QAM [facility] Last Admin: 01/16/24 08:08 Dose: 40 mg Perflutren Lipid Microsphere (Perflutren Lipid Microspheres 1.5 Ml Vial Diluted To 10 Ml Total Volume) 0 ml IV PUSH ONCE PRN; Protocol PRN Reason: adequate visualization Stop: 01/18/24 12:19 Sedation/Anesthesia: No previous sedation/anesthesia problems (including family history). [facility] Past Medical History Medical History BPH w urinary obs/LUTS Hypertension Kidney stones Non-Hodgkin lymphoma in remission Parkinson disease Parkinsons Prostate cancer Surgical History Surgical History H/O prostate biopsy S/P total knee arthroplasty left Social History Social History Social History: Smoking status: Never smoker Second hand tobacco smoke exposure: No Alcohol intake: never Substance use: never Substance use type: does not use Do You Feel Safe in your Home?: Yes Lack of Transportation: No Lack of Food: Never True Current Housing: I Have Housing Concerned About Future Housing: No Difficulty Paying Gas/Electric Bills: No Difficulty Paying for Meds: No Currently Unemployed: No Education: Associate Degree Difficulty w/ Childcare or Family Care: No Living arrangements: with family Occupation/Education: retired Additional occupation/education comments: [employer], [employer] Gender identity (if verbalized by the patient): Male Sexual Orientation (if Verbalized by the Patient): Straight or Heterosexual Spiritual care concerns: No Mod Sed Physical Exam Physical Exam Pre Procedural Exam: Normal: Appearance, Neck, Throat, Airway, Lungs, Heart Size, Heart Rate, Heart Rhythm and Extremities and Variation: Neuro Exam ( parkinsonian tremor in the upper extremities) Hours since solid foods: 12 Hours since liquid intake: 12 Mallampati Classification: class II Internal Medicine - PN: Obj Da Vital Signs Vital Signs: Vital Signs - 24 hr 01/15/24 09:44 01/15/24 10:38 01/15/24 11:24 Temperature 35.9 C L Pulse Rate 29 L 29 L 31 L Respiratory Rate 14
[2024-01-16 08:58] LABS: Troponin I 0.025 ng/mL (0.000-0.034)
[2024-01-16] MEDS: PERFLUTREN LIPID MICROSPHERES 1.5 ML VIAL DILUTED TO 10 ML TOTAL VOLUME IV PUSH (09:20)
[2024-01-16] MEDS: POTASSIUM CHLORIDE 20 MEQ ER TABLET 40 MEQ PO (09:35)
[2024-01-16] MEDS: MAGNESIUM SULF 1 GM/D5W 100 ML 1 GM/100 ML BAG IVPB (09:35)
--- NOTE | 2024-01-16 11:55 | IVDEFINITY ---
Prior to administration of IV Definity the patient was educated on the risks and benefits of the imaging enhancing agent including potential adverse side effects. The patient verbalized understanding. Allergies were verified. No exclusion criteria were identified and at least one of the following inclusion criteria were met: 1) physician request, 2) patient technically difficult to image (per the [place] [employer] guidelines of two or more segments not discernable within the apical view), or 3) questionable left ventricular function. ?
--- NOTE | 2024-01-16 12:59 | ECG_ITS ---
Test Date: 2024-01-16 13:29:54 Measurements Intervals [place] Rate: 70 P: 29 SD: 242 QRS: -39 QRSD: 165 T: 128 QT: 465 QTc: 504 Interpretive Statements SINUS RHYTHM WITH FIRST DEGREE AV BLOCK LEFT BUNDLE BRANCH BLOCK BASELINE ARTIFACT- I, II, III, AVR, AVL, AVF, V4 ABNORMAL ECG Compared to ECG 01/16/2024 08:35:58 NO SIGNIFICANT CHANGE Electronically Signed On 01-16-2024 13:36:40 CDT by Virgil Lindsey D.O.
--- NOTE | 2024-01-16 13:01 | WPDCARDPROC ---
Cardiac Cath Procedure Note Date of procedure:: 01/16/24 Performing physician:: Tomy Pretty MD Indication:: syncope with complete heart block Brief clinical history:: this is a 73-year-old man with Parkinson's disease but no prior cardiac history he entered the hospital with syncope and has complete heart block with evidence of trifascicular disease for which implantation of permanent pacemaker has been recommended Procedure Procedure performed:: permanent dual-chamber pacemaker implantation Sedation/Medication given:: Versed 2 will Access site:: left subclavian Estimated blood loss:: minimal Procedure note:: patient was brought to the cardiac catheterization lab in the postabsorptive state where the left anterior chest wall was prepped and draped in the normal fashion. I did use IV in the left upper extremity to perform a venogram prior to performing the case to ensure the vein was of suitable quality as the patient had previous chemotherapy port in that site. Following this 1% lidocaine was infiltrated below will about 1 in below the clavicle an incision was then made from the midclavicular line to the deltopectoral groove. Sharp and blunt dissection was used to separate the subcutaneous tissue electrocautery was used to provide hemostasis. Using blunt dissection a pacemaker pocket was created along the fascial plane inferior to the incision. This was packed with antibiotic soaked 4 x 4. Following this attention was turned to venous access. I punctured the left subclavian vein twice using modified Seldinger technique advanced the J wires under fluoroscopic visualization to the level of the right atrium. The 2 pacemaker safe sheaths were then used to access the vein and placed the 2 pacemaker leads detailed below into the venous circulation were visualized and advanced to the right atrial position. Attention was then turned to the ventricular lead. I removed the stylet informed a J-tip stylet using a 3 cc syringe use this to steer the lead through the right ventricle out to the PA position. The lead was withdrawn and placed into the right ventricle and appropriate lead performance was demonstrated however fluoroscopically I felt the lead was too close to the tricuspid valve and withdrew the screw and reposition the lead further out into the apex of the right ventricle. The fixation screw was then deployed and the lead was again tested using the analyzer once again with good pacing and sensing performance and a 10 volt stimulus failed to show any evidence of extracardiac stimulation. Attention was then turned to the atrial lead. The stylet was withdrawn and a preformed atrial J was placed into the lead. It was maneuvered into the right atrium in more of a lateral position but there was excellent lead movement. The fixation screw was deployed and they analyzed was used to test the lead once again very good pacing and sensing performance was demonstrated and a 10 volts stimulation showed no evidence of extracardiac stimulation. Following this the leads were sutured to the base of the pocket using the suture sleeves and 2-0 silk ties. The retained sponge was removed pocket was then irrigated with Ancef infused saline. The pacemaker generator detailed below was then connected to the leads using the torque wrench in the entire assembly was placed into the newly created pocket. The incision then closed in layers using 3-0 Vicryl in interrupted fashion for the subcutaneous tissue and 4-0 Vicryl in a running subcuticular fashion for the skin. The wound was dressed with an Aquacel dressing on the left arm placed in an immobilizer. Postop antibiotics analgesics chest x-ray and ECG were ordered. The procedure was well tolerated and uncomplicated. Findings:: Patient received a permanent [employer]ron[employer] dual-chamber pacemaker model Amvia Edge [id number]. serial number [id number]. device is programmed in the DDDR mode lower rate limit 60 uppe
--- NOTE | 2024-01-16 13:36 | PM.IMPN ---
Progress Note: A&P Assessment and Plan (1) Complete heart block: Code(s): I44.2 - Atrioventricular block, complete Status: Acute Assessment and Plan: s/p permanent dual-chamber pacemaker implantation Patient presented with complete heart block. Heart rate was in high 20s. Cardiology was consulted ER. Patient was started on dopamine infusion and eventually developed sinus tachycardia. Dopamine was discontinued. Cardiology is following Continue telemetry monitoring Replace low magnesium and potassium (2) Prostate cancer: Code(s): C61 - Malignant neoplasm of prostate Status: Acute Assessment and Plan: On radiation therapy (3) Urinary retention: Code(s): R33.9 - Retention of urine, unspecified Status: Acute Assessment and Plan: Secondary to BPH. Patient also has prostate cancer Replace Vela at this time (4) BPH w urinary obs/LUTS: Code(s): N40.1 - Benign prostatic hyperplasia with lower urinary tract symptoms; N13.8 - Other obstructive and reflux uropathy Status: Acute Assessment and Plan: See above (5) Parkinson disease: Code(s): G20 - Parkinson's disease Status: Chronic Assessment and Plan: Continue Sinemet (6) Chest pain: Code(s): R07.9 - Chest pain, unspecified Status: Acute Assessment and Plan: Cardiac versus noncardiac. Troponin very mildly elevated Chest x-ray negative EKG as above with no ST elevation Cardiology has been consulted and evaluated the patient Echo performed:Left ventricular systolic function is normal, estimated at 55-60%. (7) Fall: Code(s): W19.XXXA - Unspecified fall, initial encounter Status: Acute Assessment and Plan: Secondary to syncope PT OT evaluation eventually CT C-spine and head reviewed (8) Syncope: Code(s): R55 - Syncope and collapse Status: Inactive Assessment and Plan: Secondary to bradycardia Bedrest at this time Subjective Date/time seen: 01/16/24 13:36 Interval history: Patient underwent a permanent dual-chamber pacemaker implantation. As per chart review no prior cardiac history. Patient was admitted because of the syncope and complete heart block with evidence of trifascicular disease. During the evaluation patient was at bedside. She reports patient was initially diagnosed with non-Hodgkin's lymphoma the year 2007 and underwent chemotherapy until 2010. Patient was recently diagnosed with prostatic cancer for which he underwent radiation therapy. Lately he has been experiencing episodes of syncope. Review of Systems Review of Systems: All systems reviewed & are unremarkable except as noted in HPI and below (HPI) Exam Narrative: General: Pt is alert awake and in NAD Lungs/Chest: Trachea central Clear BS B/L, No crackles or wheezing. Cardiac: RRR. Normal S1 S2. No murmurs. Mild tenderness on palpation of sternum, Systolic murmur Circulation: Pedal pulses are intact and symmetrical. Abdomen: Normal bowel sounds.. Soft. Mild tenderness to palpation in hypogastric area Extremities: No clubbing, cyanosis or edema. Warm : Vela in place Neurologic: Follows commands. Moves all 4 extremities PERRL AO x3 bilateral tremors resting, flat facial expression, abnormal voice Skin: No Rash Const: General: comfortable and no acute distress Other: , male, elderly, nontoxic appearance HENMT: Face/Nose/Sinus: Normal nares present Mouth: Yes moist mucous membranes Eyes: General: appearance normal, both eyes and all related structures Sclera: sclerae normal Pupils: Equal, round and reactive pupils present EOM: EOMs intact bilaterally Resp: Effort & Inspection: normal respiratory effort Auscultation: clear to auscultation bilaterally Cardio: Rate: tachycardic (33 -> 120) Other: +whooshing murmur GI: Other: Abdomen soft, nondistended, nontender. Urinary Catheter: Urina
[2024-01-16] MEDS: SODIUM CHLORIDE 0.9% IV 1,000 ML 50 ML IV CONT (14:07)
[2024-01-16] MEDS: ceFAZolin 1 GM/NS 50 ML 1 GM/50 ML BAG IVPB (17:29)
[2024-01-17] VITALS (18 sets, daily range): BP systolic 114–174; BP diastolic 63–97; PULSE 68–82; RESP 18–20; TEMP 36.4–37.4; O2SAT 96–98
[2024-01-17] MEDS: ceFAZolin 1 GM/NS 50 ML 1 GM/50 ML BAG IVPB (02:59)
[2024-01-17 05:18] LABS: Basophils Percent Auto 0.3 % (0.2-1.2); Eosinophils Absolute Auto 0.1 K/mm3 (0-0.3); Eosinophils Percent Auto 1.5 % (0-4.4); Hematocrit 34.5 % (42.0-52.0); Hemoglobin 11.8 g/dL (14.0-18.0); Immature Granulocyte Absolute 0.03 K/mm3 (0.00-0.031); Immature Granulocyte Percent A 0.4 % (0-0.5); Lymphocytes Absolute Auto 0.23 K/mm3 (0.9-3.2); Lymphocytes Percent Auto 3.4 % (18.3-44.2); Mean Corpuscular HGB Conc 34.2 g/dl (32-36); Mean Corpuscular Hemoglobin 32.2 pg (26-34); Mean Platelet Volume 9.3 fl (7.4-10.4); Monocytes Absolute Auto 0.9 K/mm3 (0.1-0.6); Monocytes Percent Auto 13.9 % (2.6-8.5); Neutrophils Absolute Auto 5.4 K/mm3 (1.3-6.7); Neutrophils Percent Auto 80.5 % (45.5-73.1); Platelet Count Result 155 k/mm3 (150-375); Red Blood Count 3.67 M/mm3 (4.6-6.20); Red Cell Distribution Width 13.3 % (11.5-14.5); White Blood Count 6.7 K/mm3 (4.5-10.0)
[2024-01-17 05:41] LABS: Alanine Aminotransferase 8 U/L (6-50); Albumin Level 3.8 g/dL (3.5-5.1); Alkaline Phosphatase 67 U/L (38-126); Anion Gap 9 mmol/L (4-12); Aspartate Amino Transferase 35 U/L (17-59); Bilirubin,Total 0.8 mg/dL (0.2-1.3); Blood Urea Nitrogen 13 mg/dL (9-20); Calcium 8.2 mg/dL (8.4-10.2); Carbon Dioxide 27 mmol/L (22-30); Chloride 99 mmol/L (98-107); Estimated CRCL calculation 90 ml/min; Estimated Glomerular Filt Rate > 60; Glucose 104 mg/dL (65-110); Potassium 3.4 mmol/L (3.4-5.0); Sodium 135 mmol/L (137-145)
[2024-01-17] MEDS: OFLOXACIN 0.3% OPHTH SOLN 5 ML BTL 1 DROP EACH EYE ×4 (08:46→22:37)
[2024-01-17] MEDS: PANTOPRAZOLE SODIUM IV 40 MG VIAL IV PUSH (08:46)
[2024-01-17] MEDS: CARBIDOPA/LEVODOPA 25/100 MG TABLET 3 TABLET PO ×4 (08:46→22:37)
--- NOTE | 2024-01-17 11:18 | PM.PNCARD ---
Progress Note: A&P Assessment and Plan (1) Complete heart block: Code(s): I44.2 - Atrioventricular block, complete Status: Acute Assessment and Plan: Now s/p permanent pacemaker implantation yesterday. Awaiting follow up CXR Normal functioning device If CXR clear he can be discharged from a cardiac perspective. (2) HTN (hypertension), benign: Code(s): I10 - Essential (primary) hypertension Status: Acute Assessment and Plan: Stable. (3) HLD (hyperlipidemia): Qualifiers: Hyperlipidemia type: unspecified Qualified Code(s): E78.5 - Hyperlipidemia, unspecified Code(s): E78.5 - Hyperlipidemia, unspecified Status: Chronic Assessment and Plan: Not on statin at home. (4) Prostate cancer: Code(s): C61 - Malignant neoplasm of prostate Status: Acute Assessment and Plan: Undergoing radiation therapy currently (5) Parkinson disease: Code(s): G20 - Parkinson's disease Status: Chronic Assessment and Plan: On Sinemet at home. Subjective Date/time seen: 01/17/24 11:18 Interval history: Cardiology follow up for complete heart block, pacemaker implantation He is feeling well today and does not have any complaints. He denies any chest pain, shortness of breath, or discomfort at the pacemaker incision site. Review of Systems Review of Systems: All systems reviewed & are unremarkable except as noted in HPI and below (HPI) Exam Const: General: comfortable and no acute distress HENMT: Mouth: Yes dry mucous membranes Eyes: General: appearance normal, both eyes and all related structures Sclera: sclerae normal Chest: Other: Left pectoral incision covered with sterile dressing. Dressing clean, dry, intact. No bleeding, drainage, or hematoma. Resp: Effort & Inspection: normal respiratory effort Cardio: Rate: regular rate Rhythm: regular rhythm Heart sounds: no murmurs Urinary Catheter: Urinary Catheter: patent and draining Skin: General skin exam: normal color Neuro: Other: Movement of his extremities due to Parkinson's Psych: Mental Status: mental status grossly normal Affect: normal affect Objective Data Vital Signs Vital Signs: Vital Signs - 24 hr 01/16/24 13:26 01/16/24 13:30 01/16/24 13:45 Temperature 37.1 C 37.1 C 37.1 C Pulse Rate 68 68 70 Respiratory Rate 18 20 19 Blood Pressure 162/91 H 158/100 H 166/90 H Pulse Oximetry 98 99 98 Oxygen Delivery Room Air Room Air Fraction of Inspired Oxygen 01/16/24 13:35 01/16/24 14:00 01/16/24 13:30 Temperature 37.0 C Pulse Rate 76 71 Respiratory Rate 18 Blood Pressure 158/100 H Pulse Oximetry 97 Oxygen Delivery Room Air Fraction of Inspired Oxygen 01/16/24 13:45 01/16/24 14:00 01/16/24 14:15 Temperature Pulse Rate 70 70 75 Respiratory Rate 19 19 19 Blood Pressure 166/90 H 140/104 H 163/89 H Pulse Oximetry 98 97 99 Oxygen Delivery Fraction of Inspired Oxygen 01/16/24 14:30 01/16/24 15:00 01/16/24 15:30 Temperature Pulse Rate 69 67 63 Respiratory Rate 20 19 20 Blood Pressure 136/74 133/75 145/79 H Pulse Oximetry 96 96 94 Oxygen Delivery Fraction of Inspired Oxygen 01/16/24 16:00 01/16/24 16:00 01/16/24 16:00 Temperature 37.1 C Pulse Rate 62 63 Respiratory Rate 20 Blood Pressure 147/87 H Pulse Oximetry 98 Oxygen Delivery Room Air Fraction of Inspired Oxygen 01/16/24 20:00 01/16/24 21:09 01/16/24 20:00 Temperature 37.0 C Pulse Rate 82 82 82 Respiratory Rate 20 20 Blood Pressure 168/87 H Pulse Oximetry 98 98 Oxygen Delivery Room Air Fraction of Inspired Oxygen 01/16/24 22:00 01/17/24 00:52 01/17/24 00:00 Temperature 36.6 C Pulse Rate 84 82 82 Respiratory Rate 20 20 Blood Pressure 148/97 H Pulse Oximetry 98 98 Oxygen Delivery Room Air Fraction of Inspired Oxygen 01/17/24 04:03 01/17/24 04:00 01/17/24 00:00 T
--- NOTE | 2024-01-17 16:56 | PM.IMPN ---
Progress Note: A&P Assessment and Plan (1) Complete heart block: Code(s): I44.2 - Atrioventricular block, complete Status: Acute Assessment and Plan: s/p permanent dual-chamber pacemaker implantation Patient presented with complete heart block. Heart rate was in high 20s. Monitor. (2) Prostate cancer: Code(s): C61 - Malignant neoplasm of prostate Status: Acute Assessment and Plan: On radiation therapy (3) Urinary retention: Code(s): R33.9 - Retention of urine, unspecified Status: Acute Assessment and Plan: Secondary to BPH. Patient also has prostate cancer Voiding trial today. If patient fails voiding trial will discharge her Vela. (4) BPH w urinary obs/LUTS: Code(s): N40.1 - Benign prostatic hyperplasia with lower urinary tract symptoms; N13.8 - Other obstructive and reflux uropathy Status: Acute Assessment and Plan: See above (5) Parkinson disease: Code(s): G20 - Parkinson's disease Status: Chronic Assessment and Plan: Continue Sinemet (6) Chest pain: Code(s): R07.9 - Chest pain, unspecified Status: Acute Assessment and Plan: Cardiac versus noncardiac. Troponin very mildly elevated Chest x-ray negative EKG as above with no ST elevation Cardiology has been consulted and evaluated the patient Echo performed:Left ventricular systolic function is normal, estimated at 55-60%. (7) Fall: Code(s): W19.XXXA - Unspecified fall, initial encounter Status: Acute Assessment and Plan: Secondary to syncope PT OT evaluation eventually CT C-spine and head reviewed (8) Syncope: Code(s): R55 - Syncope and collapse Status: Inactive Assessment and Plan: Secondary to bradycardia Bedrest at this time Plan DVT prophylaxis subQ Lovenox. PT/OT for discharge disposition. Subjective Date/time seen: 01/17/24 16:56 Interval history: Status post pacemaker placement. Review of Systems Review of Systems: All systems reviewed & are unremarkable except as noted in HPI and below (HPI) Exam Narrative: General: Pt is alert awake and in NAD Lungs/Chest: Trachea central Clear BS B/L, No crackles or wheezing. Cardiac: RRR. Normal S1 S2. No murmurs. Mild tenderness on palpation of sternum, Systolic murmur Circulation: Pedal pulses are intact and symmetrical. Abdomen: Normal bowel sounds.. Soft. Mild tenderness to palpation in hypogastric area Extremities: No clubbing, cyanosis or edema. Warm : Vela in place Neurologic: Follows commands. Moves all 4 extremities PERRL AO x3 bilateral tremors resting, flat facial expression, abnormal voice Skin: No Rash Const: General: comfortable and no acute distress Other: , male, elderly, nontoxic appearance HENMT: Face/Nose/Sinus: Normal nares present Mouth: Yes moist mucous membranes Eyes: General: appearance normal, both eyes and all related structures Sclera: sclerae normal Pupils: Equal, round and reactive pupils present EOM: EOMs intact bilaterally Resp: Effort & Inspection: normal respiratory effort Auscultation: clear to auscultation bilaterally Cardio: Rate: tachycardic (33 -> 120) Other: +whooshing murmur GI: Other: Abdomen soft, nondistended, nontender. Urinary Catheter: Urinary Catheter: patent and draining Skin: General skin exam: normal color and no rashes or lesions noted Wounds: no wounds Neuro: Cranial nerves: Yes Equal, round and reactive pupils present Other: A&O x4, gross tremor at rest to bilateral upper extremities, masklike facial expressions Extrem: Other: Mild edema to left elbow, no peripheral edema Psych: Mental Status: mental status grossly normal Other: Blunted affect, fair insight and judgment, pleasant. Objective Data Vital Signs Vital Signs: Vital Signs - 24 hr 01/16/24 20:00 01/16/24 21:09 01/16/24 20:00 Temperature
[2024-01-17] MEDS: MELATONIN 5 MG TABLET PO (22:37)
[2024-01-18] VITALS (16 sets, daily range): BP systolic 113–184; BP diastolic 68–91; PULSE 62–83; RESP 18–22; TEMP 36.4–37; O2SAT 94–100
[2024-01-18 05:35] LABS: Basophils Percent Auto 0.5 % (0.2-1.2); Eosinophils Absolute Auto 0.1 K/mm3 (0-0.3); Eosinophils Percent Auto 1.8 % (0-4.4); Hematocrit 35.4 % (42.0-52.0); Hemoglobin 11.8 g/dL (14.0-18.0); Immature Granulocyte Absolute 0.03 K/mm3 (0.00-0.031); Immature Granulocyte Percent A 0.5 % (0-0.5); Lymphocytes Absolute Auto 0.28 K/mm3 (0.9-3.2); Lymphocytes Percent Auto 4.7 % (18.3-44.2); Mean Corpuscular HGB Conc 33.3 g/dl (32-36); Mean Corpuscular Hemoglobin 31.4 pg (26-34); Mean Corpuscular Volume 94.1 fl (80-100); Mean Platelet Volume 9.2 fl (7.4-10.4); Monocytes Percent Auto 16.4 % (2.6-8.5); Neutrophils Absolute Auto 4.5 K/mm3 (1.3-6.7); Neutrophils Percent Auto 76.1 % (45.5-73.1); Platelet Count Result 156 k/mm3 (150-375); Red Blood Count 3.76 M/mm3 (4.6-6.20); Red Cell Distribution Width 13.4 % (11.5-14.5)
[2024-01-18 05:52] LABS: Alanine Aminotransferase 7 U/L (6-50); Albumin Level 3.7 g/dL (3.5-5.1); Alkaline Phosphatase 69 U/L (38-126); Anion Gap 8 mmol/L (4-12); Aspartate Amino Transferase 35 U/L (17-59); Bilirubin,Total 0.6 mg/dL (0.2-1.3); Blood Urea Nitrogen 12 mg/dL (9-20); Calcium 8.6 mg/dL (8.4-10.2); Carbon Dioxide 29 mmol/L (22-30); Chloride 99 mmol/L (98-107); Estimated CRCL calculation 89 ml/min; Estimated Glomerular Filt Rate > 60; Glucose 110 mg/dL (65-110); Magnesium 2.1 mg/dL (1.6-2.3); Potassium 3.5 mmol/L (3.4-5.0); Sodium 136 mmol/L (137-145)
[2024-01-18] MEDS: CARBIDOPA/LEVODOPA 25/100 MG TABLET 3 TABLET PO ×4 (08:21→20:04)
[2024-01-18] MEDS: ENOXAPARIN 40 MG/0.4 ML SYRINGE SUB-Q (08:21)
[2024-01-18] MEDS: PANTOPRAZOLE SODIUM IV 40 MG VIAL IV PUSH (08:22)
[2024-01-18] MEDS: OFLOXACIN 0.3% OPHTH SOLN 5 ML BTL 1 DROP EACH EYE ×4 (08:22→20:10)
[2024-01-18] MEDS: SENNOSIDES 8.6 MG TABLET PO (09:07)
--- NOTE | 2024-01-18 16:53 | PM.IMPN ---
Progress Note: A&P Assessment and Plan (1) Complete heart block: Code(s): I44.2 - Atrioventricular block, complete Status: Acute Assessment and Plan: s/p permanent dual-chamber pacemaker implantation Patient presented with complete heart block. Heart rate was in high 20s. Monitor. (2) Prostate cancer: Code(s): C61 - Malignant neoplasm of prostate Status: Acute Assessment and Plan: On radiation therapy (3) Urinary retention: Code(s): R33.9 - Retention of urine, unspecified Status: Acute Assessment and Plan: Secondary to BPH. Patient also has prostate cancer Voiding trial (4) BPH w urinary obs/LUTS: Code(s): N40.1 - Benign prostatic hyperplasia with lower urinary tract symptoms; N13.8 - Other obstructive and reflux uropathy Status: Acute Assessment and Plan: See above (5) Parkinson disease: Code(s): G20 - Parkinson's disease Status: Chronic Assessment and Plan: Continue Sinemet (6) Chest pain: Code(s): R07.9 - Chest pain, unspecified Status: Acute Assessment and Plan: Cardiac versus noncardiac. Troponin very mildly elevated Chest x-ray negative EKG as above with no ST elevation Cardiology has been consulted and evaluated the patient Echo performed:Left ventricular systolic function is normal, estimated at 55-60%. (7) Fall: Code(s): W19.XXXA - Unspecified fall, initial encounter Status: Acute Assessment and Plan: Secondary to syncope PT OT evaluation eventually CT C-spine and head reviewed (8) Syncope: Code(s): R55 - Syncope and collapse Status: Inactive Assessment and Plan: Secondary to bradycardia Bedrest at this time Plan DVT prophylaxis subQ Lovenox. PT/OT recommends Rehab placement Subjective Date/time seen: 01/18/24 16:53 Interval history: Status post pacemaker placement. Patient evaluated by PT/OT and recommends rehab Review of Systems Review of Systems: All systems reviewed & are unremarkable except as noted in HPI and below (HPI) Exam Narrative: General: Pt is alert awake and in NAD Lungs/Chest: Trachea central Clear BS B/L, No crackles or wheezing. Cardiac: RRR. Normal S1 S2. No murmurs. Mild tenderness on palpation of sternum, Systolic murmur Circulation: Pedal pulses are intact and symmetrical. Abdomen: Normal bowel sounds.. Soft. Mild tenderness to palpation in hypogastric area Extremities: No clubbing, cyanosis or edema. Warm : Vela in place Neurologic: Follows commands. Moves all 4 extremities PERRL AO x3 bilateral tremors resting, flat facial expression, abnormal voice Skin: No Rash Const: General: comfortable and no acute distress Other: , male, elderly, nontoxic appearance HENMT: Face/Nose/Sinus: Normal nares present Mouth: Yes moist mucous membranes Eyes: General: appearance normal, both eyes and all related structures Sclera: sclerae normal Pupils: Equal, round and reactive pupils present EOM: EOMs intact bilaterally Resp: Effort & Inspection: normal respiratory effort Auscultation: clear to auscultation bilaterally Cardio: Rate: tachycardic (33 -> 120) Other: +whooshing murmur GI: Other: Abdomen soft, nondistended, nontender. Urinary Catheter: Urinary Catheter: patent and draining Skin: General skin exam: normal color and no rashes or lesions noted Wounds: no wounds Neuro: Cranial nerves: Yes Equal, round and reactive pupils present Other: A&O x4, gross tremor at rest to bilateral upper extremities, masklike facial expressions Extrem: Other: Mild edema to left elbow, no peripheral edema Psych: Mental Status: mental status grossly normal Other: Blunted affect, fair insight and judgment, pleasant. Objective Data Vital Signs Vital Signs: Vital Signs - 24 hr 01/17/24 18:00 01/17/24 21:11 01/17/24 20:00 Temperature 98.2 F Pul
[2024-01-18] MEDS: MELATONIN 5 MG TABLET PO (20:04)
[2024-01-18] MEDS: QUEtiapine FUMARATE 25 MG TABLET PO (20:10)
[2024-01-19] VITALS (16 sets, daily range): BP systolic 95–165; BP diastolic 50–100; PULSE 60–74; RESP 16–18; TEMP 36.3–36.9; O2SAT 98–100
[2024-01-19 05:31] LABS: Basophils Percent Auto 0.6 % (0.2-1.2); Eosinophils Absolute Auto 0.2 K/mm3 (0-0.3); Eosinophils Percent Auto 3.3 % (0-4.4); Hematocrit 35.4 % (42.0-52.0); Immature Granulocyte Absolute 0.04 K/mm3 (0.00-0.031); Immature Granulocyte Percent A 0.8 % (0-0.5); Lymphocytes Absolute Auto 0.35 K/mm3 (0.9-3.2); Lymphocytes Percent Auto 6.7 % (18.3-44.2); Mean Corpuscular HGB Conc 33.9 g/dl (32-36); Mean Corpuscular Hemoglobin 32.1 pg (26-34); Mean Corpuscular Volume 94.7 fl (80-100); Mean Platelet Volume 9.6 fl (7.4-10.4); Monocytes Absolute Auto 0.9 K/mm3 (0.1-0.6); Monocytes Percent Auto 16.3 % (2.6-8.5); Neutrophils Absolute Auto 3.8 K/mm3 (1.3-6.7); Neutrophils Percent Auto 72.3 % (45.5-73.1); Platelet Count Result 159 k/mm3 (150-375); Red Blood Count 3.74 M/mm3 (4.6-6.20); Red Cell Distribution Width 13.5 % (11.5-14.5); White Blood Count 5.2 K/mm3 (4.5-10.0)
[2024-01-19 05:52] LABS: Alanine Aminotransferase 16 U/L (6-50); Albumin Level 3.7 g/dL (3.5-5.1); Alkaline Phosphatase 66 U/L (38-126); Anion Gap 5 mmol/L (4-12); Aspartate Amino Transferase 34 U/L (17-59); Bilirubin,Total 0.5 mg/dL (0.2-1.3); Blood Urea Nitrogen 11 mg/dL (9-20); Calcium 8.8 mg/dL (8.4-10.2); Carbon Dioxide 33 mmol/L (22-30); Chloride 99 mmol/L (98-107); Estimated CRCL calculation 78 ml/min; Estimated Glomerular Filt Rate > 60; Glucose 97 mg/dL (65-110); Magnesium 2.2 mg/dL (1.6-2.3); Potassium 3.3 mmol/L (3.4-5.0); Sodium 137 mmol/L (137-145)
[2024-01-19] MEDS: PANTOPRAZOLE SODIUM IV 40 MG VIAL IV PUSH (09:27)
[2024-01-19] MEDS: OFLOXACIN 0.3% OPHTH SOLN 5 ML BTL 1 DROP EACH EYE ×4 (09:27→21:00)
[2024-01-19] MEDS: SENNOSIDES 8.6 MG TABLET PO (09:27)
[2024-01-19] MEDS: ENOXAPARIN 40 MG/0.4 ML SYRINGE SUB-Q (09:27)
[2024-01-19] MEDS: CARBIDOPA/LEVODOPA 25/100 MG TABLET 3 TABLET PO ×4 (09:27→20:59)
[2024-01-19 10:07] LABS: Lactic Acid Reflex 2.7 mmol/L (0.7-2.0)
[2024-01-19] MEDS: polyethylene glycoL 3350 17 GM POWD.PACK PO (10:18)
[2024-01-19] MEDS: POTASSIUM CHLORIDE 20 MEQ ER TABLET 40 MEQ PO (10:18)
[2024-01-19] MEDS: POTASSIUM CHLORIDE INJ 40 MEQ in SODIUM CHLORIDE 0.9% IV 500 ML 130 MEQ IVPB (10:18)
[2024-01-19 12:56] LABS: Reflex Lactic Acid Yes or No Add Lactic
[2024-01-19] MEDS: SODIUM CHLORIDE 0.9% IV 500 ML IV CONT (14:22)
[2024-01-19 14:37] LABS: Lactic Acid 1.4 mmol/L (0.7-2.0)
--- NOTE | 2024-01-19 15:42 | PM.IMPN ---
Progress Note: A&P Assessment and Plan (1) Complete heart block: Code(s): I44.2 - Atrioventricular block, complete Status: Acute Assessment and Plan: s/p permanent dual-chamber pacemaker implantation Patient presented with complete heart block. Heart rate was in high 20s. patient had an episode of hypotension this morning, thus monitoring one more day CXR following hypotension unremarkable (2) Prostate cancer: Code(s): C61 - Malignant neoplasm of prostate Status: Acute Assessment and Plan: On radiation therapy (3) Urinary retention: Code(s): R33.9 - Retention of urine, unspecified Status: Acute Assessment and Plan: Secondary to BPH. Patient also has prostate cancer Voiding trial (4) BPH w urinary obs/LUTS: Code(s): N40.1 - Benign prostatic hyperplasia with lower urinary tract symptoms; N13.8 - Other obstructive and reflux uropathy Status: Acute Assessment and Plan: See above (5) Parkinson disease: Code(s): G20 - Parkinson's disease Status: Chronic Assessment and Plan: Continue Sinemet (6) Chest pain: Code(s): R07.9 - Chest pain, unspecified Status: Acute Assessment and Plan: Cardiac versus noncardiac. Troponin very mildly elevated Chest x-ray negative EKG as above with no ST elevation Cardiology has been consulted and evaluated the patient Echo performed:Left ventricular systolic function is normal, estimated at 55-60%. (7) Fall: Code(s): W19.XXXA - Unspecified fall, initial encounter Status: Acute Assessment and Plan: Secondary to syncope PT OT evaluation eventually CT C-spine and head reviewed (8) Syncope: Code(s): R55 - Syncope and collapse Status: Inactive Assessment and Plan: Secondary to bradycardia Bedrest at this time Plan DVT prophylaxis subQ Lovenox. PT/OT recommends Rehab placement Possible discharge tomorrow Subjective Date/time seen: 01/19/24 15:42 Interval history: Patient had a episode of hypotension this morning thus patient being monitored overnight Review of Systems Review of Systems: All systems reviewed & are unremarkable except as noted in HPI and below (HPI) Exam Narrative: General: Pt is alert awake and in NAD Lungs/Chest: Trachea central Clear BS B/L, No crackles or wheezing. Cardiac: RRR. Normal S1 S2. No murmurs. Mild tenderness on palpation of sternum, Systolic murmur Circulation: Pedal pulses are intact and symmetrical. Abdomen: Normal bowel sounds.. Soft. Mild tenderness to palpation in hypogastric area Extremities: No clubbing, cyanosis or edema. Warm : Vela in place Neurologic: Follows commands. Moves all 4 extremities PERRL AO x3 bilateral tremors resting, flat facial expression, abnormal voice Skin: No Rash Const: General: comfortable and no acute distress Other: , male, elderly, nontoxic appearance HENMT: Face/Nose/Sinus: Normal nares present Mouth: Yes moist mucous membranes Eyes: General: appearance normal, both eyes and all related structures Sclera: sclerae normal Pupils: Equal, round and reactive pupils present EOM: EOMs intact bilaterally Resp: Effort & Inspection: normal respiratory effort Auscultation: clear to auscultation bilaterally Cardio: Rate: tachycardic (33 -> 120) Other: +whooshing murmur GI: Other: Abdomen soft, nondistended, nontender. Urinary Catheter: Urinary Catheter: patent and draining Skin: General skin exam: normal color and no rashes or lesions noted Wounds: no wounds Neuro: Cranial nerves: Yes Equal, round and reactive pupils present Other: A&O x4, gross tremor at rest to bilateral upper extremities, masklike facial expressions Extrem: Other: Mild edema to left elbow, no peripheral edema Psych: Mental Status: mental status grossly normal Other: Blunted affect, fair insight and judgment, pleas
--- NOTE | 2024-01-19 16:46 | PC.NURSE ---
500 ML NS stopped early due tue lactic acid normalizing. TORB dr grider
[2024-01-19] MEDS: HYDROcodone/acetaminophen (*CRX) 5-325 MG TABLET 1 TAB PO (20:58)
[2024-01-19] MEDS: MELATONIN 5 MG TABLET PO (20:59)
[2024-01-19] MEDS: QUEtiapine FUMARATE 25 MG TABLET PO (20:59)
[2024-01-20] VITALS (10 sets, daily range): BP systolic 128–175; BP diastolic 71–88; PULSE 61–77; RESP 16–20; TEMP 36.2–36.6; O2SAT 96–100
[2024-01-20 07:47] LABS: Basophils Percent Auto 0.5 % (0.2-1.2); Eosinophils Absolute Auto 0.2 K/mm3 (0-0.3); Eosinophils Percent Auto 3.8 % (0-4.4); Hematocrit 36.1 % (42.0-52.0); Immature Granulocyte Absolute 0.04 K/mm3 (0.00-0.031); Lymphocytes Absolute Auto 0.26 K/mm3 (0.9-3.2); Lymphocytes Percent Auto 6.2 % (18.3-44.2); Mean Corpuscular HGB Conc 33.2 g/dl (32-36); Mean Corpuscular Hemoglobin 31.9 pg (26-34); Mean Platelet Volume 9.7 fl (7.4-10.4); Monocytes Absolute Auto 0.7 K/mm3 (0.1-0.6); Monocytes Percent Auto 17.7 % (2.6-8.5); Neutrophils Percent Auto 70.8 % (45.5-73.1); Platelet Count Result 172 k/mm3 (150-375); Red Blood Count 3.76 M/mm3 (4.6-6.20); Red Cell Distribution Width 13.6 % (11.5-14.5); White Blood Count 4.2 K/mm3 (4.5-10.0)
[2024-01-20 08:02] LABS: Alanine Aminotransferase 17 U/L (6-50); Alkaline Phosphatase 64 U/L (38-126); Anion Gap 8 mmol/L (4-12); Aspartate Amino Transferase 39 U/L (17-59); Bilirubin,Total 0.5 mg/dL (0.2-1.3); Blood Urea Nitrogen 15 mg/dL (9-20); Carbon Dioxide 29 mmol/L (22-30); Chloride 93 mmol/L (98-107); Estimated CRCL calculation 94 ml/min; Estimated Glomerular Filt Rate > 60; Glucose 93 mg/dL (65-110); Magnesium 2.1 mg/dL (1.6-2.3); Potassium 3.6 mmol/L (3.4-5.0); Sodium 130 mmol/L (137-145)
[2024-01-20 08:48] LABS: Lactic Acid Reflex 1.6 mmol/L (0.7-2.0)
[2024-01-20] MEDS: CARBIDOPA/LEVODOPA 25/100 MG TABLET 3 TABLET PO (09:19)
[2024-01-20] MEDS: PANTOPRAZOLE SODIUM IV 40 MG VIAL IV PUSH (09:24)
[2024-01-20] MEDS: ENOXAPARIN 40 MG/0.4 ML SYRINGE SUB-Q (09:24)
[2024-01-20] MEDS: OFLOXACIN 0.3% OPHTH SOLN 5 ML BTL 1 DROP EACH EYE (09:25)
--- NOTE | 2024-01-20 13:10 | PM.DS ---
DS: Admitting Diagnosis Discharge Date 01/20/24 Admitting Diagnosis Multiple falls and lightheadedness DS: Discharge Diagnosis Discharge Diagnosis (1) Complete heart block: Code(s): I44.2 - Atrioventricular block, complete Status: Acute DS: Summary Hospital Course Hospital Course: 73 y/o M presents here with multiple falls and lightheadedness with PMH of BPH. HTN, kidney stones, non-hogkins lymphoma in remission, Parkinson's, and prostate cancer (undergoing radiation). The patient presents here from home via EMS from for further evaluation of lightheadedness and multiple falls. Patient reports he has had frequent falls over the last 3 weeks, estimates he has had 3 falls. Most recent falls were this morning. The patient reports he had gotten out of bed and was walking to the kitchen, he had only made it around the bed when he lost his balance and fell. Patient reported no injuries, able to get back up and eat breakfast. Patient had second fall while he was up getting ice. Patient began to feel like someone turned out the light and his chest felt empty . Then had syncopal episode. He reports that he fell onto his two knees and then fell onto his left side. Unsure if he had a head strike. The patient's reported she heard a loud boom from the other room. She went to investigate and she reports that the patient was unresponsive for 1-2 minutes. When patient came to she felt the patient had a right facial droop and no confusion noted. reports the facial droop only lasted a few seconds, may have been due to laying on his side or the tongue tremors due to his Parkinson's. No reoccurrence. The then called EMS and upon their arrival the patient's heart rate was in the 30s. Atropine was administered and heart rate increased into the 60s. Patient arrived to the ED with a HR of 29. No previous hx of syncope or bradycardia, was born with a heart murmur. Initial VS at presentation: 96.7? F, HR 29, RR 14, 102/47, and 97% on RA. ED workup showed: No leukocytosis, hemoglobin 11.6 (previously 13.4 on 10/26/2023), sodium 136, creatinine 0.7 and GFR >60, calcium 8.2, initial troponin negative, TSH 1.15. CXR showed no acute cardiopulmonary disease. Head CT showed chronic small-vessel ischemic disease, left otomastoiditis effusion, no fracture acute intracranial process. C-spine CT showed moderate to severe cervical spondylosis without acute osseous abnormality. initial EKG showed idioventricular rhythm and prolonged QT interval, rate 29. Patient underwent pacemaker placement. Symptoms resolved afterwards. Evalauted by PT/OT and recommended Rehab placement. Patient discharged today to rehab Assessment and Plan (1) Complete heart block: Code(s): I44.2 - Atrioventricular block, complete Status: Acute Assessment and Plan: s/p permanent dual-chamber pacemaker implantation Patient presented with complete heart block. Heart rate was in high 20s. patient had an episode of hypotension this morning, thus monitoring one more day had an episode of hypotension yesterday but blood pressure has been stable and wnl since then CXR and lactic acid normal (2) Prostate cancer: Code(s): C61 - Malignant neoplasm of prostate Status: Acute Assessment and Plan: On radiation therapy continue follow up with oncology (3) Urinary retention: Code(s): R33.9 - Retention of urine, unspecified Status: Acute Assessment and Plan: Secondary to BPH. Patient also has prostate cancer s/p Vela, patient now micturating on his own coNTINUE FOLLOW UP WITH UROLOGY (4) BPH w urinary obs/LUTS: Code(s): N40.1 - Benign prostatic hyperplasia with lower urinary tract symptoms; N13.8 - Other obstructive and reflux uropathy Status: Acute Assessment and Plan: See above (5) Parkinson disease: Code(s): G20 - Parkinson's disease Status: Chronic Assessm
== END 2024-01-20 14:37 | disposition home or self-care (01) | DRG 243 ==
LOC: ANHED 10:24 → ANHICU 12:19 → ANHIMU 01-16 17:15
PROVIDERS: Emergency Medicine; Internal Medicine; Specialist; Student in an Organized Health Care Education/Training Program; Admitting Provider General Practice; Emergency Provider Emergency Medicine; PCP Family Medicine; Visit Provider Internal Medicine
PROC: 0JH606Z Insertion of Pacemaker, Dual Chamber into Chest Subcutaneous Tissue and Fascia, Open Approach (ICD-10-PCS; CPT 33208; principal; 2024-01-16 11:30)
DX: I44.2 Atrioventricular block, complete (principal); E87.1 Hypo-osmolality and hyponatremia; N13.8 Other obstructive and reflux uropathy; I10 Essential (primary) hypertension; I95.9 Hypotension, unspecified; C61 Malignant neoplasm of prostate; G20.A1 Parkinson's disease without dyskinesia, without mention of fluctuations; N40.1 Benign prostatic hyperplasia with lower urinary tract symptoms; R33.8 Other retention of urine; R07.9 Chest pain, unspecified; R29.6 Repeated falls; Z96.652 Presence of left artificial knee joint; Z85.72 Personal history of non-Hodgkin lymphomas; Z79.82 Long term (current) use of aspirin
CPT/HCPCS: 33208; 36415; 70450; 71045; 71046; 72125; 80053; 80061; 81001; 83605; 83735; 84100; 84443; 84484; 85025; 85610; 85730; 87641; 93005; 96361; 96375; 97110; 97116; 97161; 97165; 97530; 97535; 99285; A9270; C1779; C1785; C8929; G0378; J0461; J0690; J1265; J1650; J2250; J2470; J3010; J3475; J3480; J7030; J7040; J7120; Q9957

== ENCOUNTER 2024-06-07 07:36 | Outpatient (CLI) | payer MEDICARE, SELFPAY ==
--- NOTE | ~2024-06-07 | PE_ITS ---
EXAMINATION: PET_PETPSMAST_PT DATE: 06/07/2024 09:47 INDICATION: Prostate cancer. TECHNIQUE: 4.936 mCi of Ga-68 gozetotide was administered intravenously. Low dose computed tomography (CT) images were acquired from the base of the brain to the proximal thighs for attenuation correcti on and anatomic localization. Automated exposure control was employed. Dose-length product (DLP) was 1082 mGy-cm. Positron emission tomography (PET) images were acquired in the same distribution. COMPARISON: PET CT 10/10/2023 FINDINGS: Head/neck: There are no pathologically enlarged lymph nodes. There is a left otomastoid effusion. Chest: The lungs demonstrate mild atelectasis. No pleural effusion. There is left atrial and left earnest tricular enlargement of the heart. There are coronary artery calcifications. No pericardial effusion. There is a left chest wall pacer with leads in the right atrium and right ventricle. There is a mixe d lytic is chronic lesion of left sixth rib with increased activity. There are 4 foci of increased ac tivity in thoracic vertebral bodies, the largest of which demonstrates a lytic lesion by CT. Abdomen/pelvis/proximal thighs: Calcifications in the liver and spleen are consistent with old granul omatous disease. The gallbladder, pancreas, and adrenal glands are normal. Right kidney is normal. Th ere is 11 mm cyst in left kidney. The prostate is mildly enlarged without significantly increased act ivity. There are brachytherapy seeds in the prostate. There are no dilated loops of bowel. The append ix is normal. There are no pathologically enlarged lymph nodes. There is no free intraperitoneal flui d. There is focal increased activity in L5 vertebral body associated with a lytic lesion by CT. There is focal increased activity in right sacral ala. IMPRESSION: 1. 6 foci of increased activity in bone, consistent with metastatic disease, new from 10/10/23. Reviewed, dictated and finalized at location A. OL PSYCHOLOGIST IMPRESSION: 1. 6 foci of increased activity in bone, consistent with metastatic disease, ne w from 10/10/23.
--- OUTSIDE RECORDS SUMMARY | 2024-06-07 07:44 | XMS_ITS | Data Portability ---
Author Organization [place] [facility] [place] [facility], Main Office Address [address] [place] [address] Care Team Providers Care Nnp Name Role Phone JANELLE HAWKINS Primary Care Provider [phone] JANELLE HAWKINS Referring Provider Assessment Encounter Date Assessment Date Assessment LastModified by Organization Details LastModified Time 09/15/2023 09/15/2023 The patient has moderately severe primary osteoarthritis of the right knee joint under sterile conditions I injected the patient's right knee joint in the office today with Orthovisc injection 2. I will see him back next week for 3rd injection. He voiced understanding agrees above plan call for any further problems difficulties or questions. Not available 09/15/2023 10:36:13 09/22/2023 09/22/2023 Patient has moderately severe primary osteoarthritis right knee joint under sterile conditions I injected the patient's right knee joint in the office today with Orthovisc injection number 3. I will see him back as needed we can do this again in 6 months versus cortisone in between if necessary he voiced understanding agrees with the above plan will call for any further problems difficulties or questions. Not available 09/22/2023 10:26:35 04/02/2024 04/02/2024 The patient has moderately severe primary osteoarthritis right knee joint. His left total knee arthroplasty is doing well. We talked about treatment options today in detail he wanted proceed with Orthovisc therefore under sterile conditions I injected the patient's right knee joint in the office today with Orthovisc injection number 1. I will see him back next week for the 2nd injection right knee. The patient and his are wondering about other things they can do to help with his knee pain we talked about knee compression sleeve they had been asking about this and we are thinking about it they wanted to know my opinion I think this would possibly give him some better comfort and support he could try this we talked about where to get this online or cvum-kax-bqcsrbk. We also talked in detail about different fpto-iko-bchugnh treatment including Tylenol Arthritis extended relief and also things like capsaicin creams or Biofreeze gels, he could try these as well. They will talk to the pharmacist about things that are available there. Typically he gets pretty good relief from the gel shots I will see him back next week see how he is doing slow gradual improvement as to be expected. The patient and his voiced understanding and agreed with the above plan they will call for any further problems difficulties or questions. Not available 04/02/2024 10:46:40 04/09/2024 04/09/2024 The patient has severe primary osteoarthritis right knee joint. Under sterile conditions I injected the patient's right knee joint in the office today with Orthovisc injection number 2. I will see him back next week for the 3rd injection right knee voiced understanding agrees with the above plan he will call for any further problems difficulties or questions. Not available 04/09/2024 10:29:58 04/16/2024 04/16/2024 The patient has severe primary osteoarthritis right knee joint as described. Under sterile conditions I injected the patient's right knee joint in the office with Orthovisc injection number 3. The patient tolerated the procedure well. I will see him back as needed we can do this again in 6 months if necessary or cortisone in between he is getting good relief from the Orthovisc so far and has done well with it in the past. The patient and his voiced understanding and agreed with the above plan they will call for any further problems difficulties or questions. Not available 04/16/2024 10:38:59 Plan of Treatment Reminders Order Date Submit Date Provider Last Modified By Organization Details Last Modified Time Details Appointments None recorded. Lab None recorded. Referral None recorded. Procedures knee aspiration /injection (PROC) 2023 024 [email or web address] In-Office Order, Internal Use Only DO Not Attach Compendium DO Not Attach Compendium, Do Not Delete/merge, [id number] 10:21:40 knee aspiration /injection (PROC) 2023 024 [email or web address] In-Office Order, Internal Use Only DO Not Attach Compendium DO Not Attach Compendium, Do Not Delete/merge, [id number] 10:14:47 knee aspiration /injection (PROC) 2023 024 [email or web address] In-Office Order, Internal Use Only DO Not Attach Compendium DO Not Attach Compendium, Do Not Delete/merge, [id number] 10:27:12 knee aspiration /injection (PROC) 2023 024 [email or web address] In-Office Order, Internal Use Only DO Not Attach Compendium DO Not Attach Compendium, Do Not Delete/merge, [id number] 10:19:53 knee aspiration /injection (PROC) 2023 024 [email or web address] In-Office Order, Internal Use Only DO Not Attach Compendium DO Not Attach Compendium, Do Not Delete/merge, [id number] 10:18:42 Surgeries None recorded. Imaging None recorded. Medication Orders ORTHOVISC 30 mg/2 mL intra-ranjit cular syringe 2023 024 [email or web address] [facility] [address], [address], 4 11:31:11 ORTHOVISC 30 mg/2 mL intra-ranjit cular syringe 2023 024 [email or web address] [facility] [address] In [place] [address] [facility], [place], [address], 4 11:55:37 ORTHOVISC 30 mg/2 mL intra-ranjit cular syringe 2023 024 [email or web address] [facility] [address] In [facility] [address] [place], [address], 4 11:11:12 ORTHOVISC 30 mg/2 mL intra-ranjit cular syringe 2023 024 [email or web address] [facility] [address] In [facility], [address] , [place], [address], 4 11:28:24 ORTHOVISC 30 mg/2 mL intra-ranjit cular syringe 2023 024 [email or web address] [facility] [address] In [facility], [address], [place], [address], 4 10:39:47 Patient TargetsNo targets recorded. Patient InstructionsNo instructions recorded. Reason for Referral None Reported. Results Created Date Observation Date Name Description Value Unit Range Abnormal Flag Note LastModifiedBy Organization Detail LastModifiedTime 09/08/19 24 XR, knee No observ ation record ed. [email or web address] [facility] [address], [place], [address], 09/08/2023 11:19:04 Result Notes None recorded. Problems Name Problem SNOMED Code Status Onset Date Resolution Date Notes Provider Name and Address Organization Details Recorded Time Contusion of right shoulder 5972367625988 9100 Active 2021 Not Available [facility] 3 02:54:41 Pain of right shoulder joint 0683857801783 9100 Active 2021 Not Available [facility] 3 02:54:41 Osteoarthr itis of knee 266187955 Active Not Available [facility] 3 02:54:42 Osteoarthr itis of right knee joint 2301276975763 00 Active 2021 Not Available [facility] 3 02:54:42 Osteoarthr itis 547825328 Active Not Available [facility] 3 02:54:42 Pain of right knee joint 9516069189687 00 Active 2021 Not Available [facility] 3 02:54:42 Spinal stenosis in cervical region 21465168 Active Not Available [facility] 3 02:54:42 Problem Notes None recorded. Procedures Surgical History Date Name Laterality Status Provider Name and Address Organization Details Recorded Time Knee Replacement completed Not Available [facility] 06/30/2022 02:45:24 Imaging Results Imaging Date Name Status LastModified by Organiz ation Details LastModified Time 09/08/2023 XR, knee completed [email or web address] [facility] [place] [address], [place], [address], 09/08/2023 11:19:04 Procedure Notes None recorded. Medical Equipment None Reported. Allergies No known drug allergies Medications Name Sig Start Date Stop Date Status Note LastModified by Organization Details LastModified Time quetiapine 25 mg tablet TAKE ONE-HALF TABLET BY MOUTH EVERY EVENING active Not Available Not Available No t Available glycopyrrol ate 1 mg tablet 03/05 completed Not Available Not Available Not Available atorvastati n 40 mg tablet TAKE 2 TABLETS BY MOUTH DAILY 09/07 completed Not Available Not Available Not Available buspirone 5 mg tablet TAKE 1 TABLET BY MOUTH THREE TIMES A DAY NEEDED FOR ANXIETY active Not Available Not Available No t Available primidone 50 mg tablet active Not Available Not Available Not Available oxybutynin chloride ER 15 mg tablet,exte nded release 24 hr TAKE 1 TABLET BY MOUTH EVERY DAY active Not Available Not Available No t Available trazodone 50 mg tablet TAKE 1 TABLET BY MOUTH EVERY DAY AT BEDTIME NEEDED FOR INSOMNIA active Not Available Not Available No t Available pravastatin 40 mg tablet TAKE 1 TABLET BY MOUTH AT BEDTIME active Not Available Not Available No t Available ofloxacin 0.3 % eye drops INSTILL 1 DROP INTO EACH EYE FOUR TIMES DAILY active Not Available Not Available No t Available carbidopa 25 mg-levodopa 250 mg tablet TAKE ONE TABLET BY MOUTH FOUR TIMES A DAY 03/05 completed Not Available Not Available Not Available amlodipine 5 mg tablet TAKE 1 TABLET BY MOUTH AT BEDTIME active Not Available Not Available No t Available tramadol 50 mg tablet TAKE 1 TO 2 EVERY 6 HOURS NEEDED FOR PAIN active Not Available Not Available No t Available pravastatin 80 mg tablet TAKE 1 TABLET BY MOUTH EVERY DAY AT BEDTIME 09/07 completed Not Available Not Available Not Available aspirin 81 mg chewable tablet CHEW 1 TABLET BY MOUTH DAILY AT 0800 active Not Available Not Available No t Available amoxicillin 250 mg capsule 03/05 completed Not Available Not Available Not Available lorazepam 1 mg tablet 03/05 completed Not Available Not Available Not Available methylpredn isolone 4 mg tablets in a dose pack TAKE 6 TABLETS ON DAY 1 DIRECTED ON PACKAGE AND DECREASE BY 1 TAB EACH DAY FOR A TOTAL OF 6 DAYS 09/07 completed Not Available Not Available Not Available trihexyphen idyl 2 mg tablet 03/05 completed Not Available Not Available Not Available carbidopa 25 mg-levodopa 100 mg tablet TAKE 4 TABLETS BY MOUTH EVERY 4 HOURS active Not Available Not Available No t Available lisinopril 40 mg tablet TAKE 1 TABLET BY MOUTH AT BEDTIME active Not Available Not Available No t Available amoxicillin 875 mg-potassiu m clavulanate 125 mg tablet 08/03 completed Not Available Not Available Not Available neomycin 3.5 mg/g-polymy jeanne B 10,000 unit/g-dexa meth 0.1 % eye oint APPLY A SMALL AMOUNT ON EYELID TWICE A DAY DIRECTED 03/05 completed Not Available Not Available Not Available escitalopra m 10 mg tablet TAKE 1 TABLET BY MOUTH EVERY DAY 09/07 completed Not Available Not Available Not Available ORTHOVISC 30 mg/2 mL intra-artic ular syringe Inject 2 mL every week by intra-art icular route. 2023 active Not Available Not Available Not Avai lable chlorhexidi ne gluconate 0.12 % mouthwash 08/03 completed Not Available Not Available Not Available rasagiline 0.5 mg tablet 08/03 completed Not Available Not Available Not Available carbidopa 50 mg-levodopa 200 mg-entacapo ne 200 mg tablet TAKE 1 TABLET BY MOUTH FOUR TIMES A DAY active Not Available Not Available No t Available Senexon-S 8.6 mg-50 mg tablet TAKE 2 TABLETS BY MOUTH TWICE DAILY active Not Available Not Available No t Available Suprep Bowel Prep Kit 17.5 gram-3.13 gram-1.6 gram oral solution active Not Available Not Available Not Available Supartz FX 10 mg/mL intra-artic ular syringe Injection s given in the office by the doctor 08/03 completed [facility]: [id number] -1 Not Available Not Available Not Available Fluzone High-Dose Quad (PF) 240 mcg/0.7 mL IM syringe TO BE ADMINISTE RED BY PHARMACIS T FOR IMMUNIZAT ION 03/05 completed Not Available Not Available Not Available Vitals Date Recorded Body height Body mass index (BMI) Body weight Provider Name and Address Organization Details Last Updated DateTime 09/15/2023 182.88 cm 24.7 kg/m2 66449.81 g Nela Laura [facility] [employer] [facility] 09/15/2023 10:19:29 Date Recorded Body height Body mass index (BMI) Body weight Provider Name and Address Organization Details Last Updated DateTime 09/22/2023 182.88 cm 24.3 kg/m2 63545.03 g Dasia Kumar [employer] [facility] [employer] [facility] 09/22/2023 10:13:15 Date Recorded Body height Body mass index (BMI) Body weight Provider Name and Address Organization Details Last Updated DateTime 04/02/2024 182.88 cm 24.4 kg/m2 02000.63 g Dasia Kumar [facility] [employer] [facility] 04/02/2024 10:25:50 Date Recorded Body height Body mass index (BMI) Body weight Provider Name and Address Organization Details Last Updated DateTime 04/09/2024 182.88 cm 24.7 kg/m2 61134.81 g Dasia Kumar [facility] [email or web address] [facility] [employer] [facility] 04/09/2024 10:18:38 Date Recorded Body height Provider Name an d Address Organization Details Last Updated DateTime 04/16/2024 182.88 cm Anel Hernandez [facility] [employer] [facility] 04/16/2024 10:15:29 Social History Question Answer Notes LastModified by Organizat ion Details LastModified Time Tobacco Smoking Status Never Smoker Not Available [employer] 06/30/2022 02:37:04 What Is Your Level Of Alcohol Consumption? None [id number] Information not available 06/30/2022 What Was The Date Of Your Most Recent Tobacco Screening? 09/08/2023 [email or web address] Information not available 09/08/2023 Sex: Unknown Functional Status None recorded. Mental Status None recorded. Family History Relationship Description Onset Age of this Age Resolved Age Notes LastModified by Organization Details LastModified Time Mother Hypertensive disorder Not available 09/07 10:53:44 Medical History Condition Response ARTHRITIS Y CANCER: SPECIFY Y URINARY/BLADDER/KIDNEY PROBLEMS Y HYPERTENSION Y Past Encounters Encounter ID Performer Location Encounter Start Date Encounter Closed Date Diagnosis/Indication Diagnosis SNOMED-CT Code Diagnosis ICD10 Code Diagnosis Note [id number] _[facility] I[facility]ATION_ DEFAULT_1 _1 , 08/04/2020 00:00:00 08/04/2020 11:49:03 [id number] _[facility] IGRATION_ DEFAULT_1 _1 , 08/18/2020 00:00:00 08/18/2020 10:52:14 [id number] _[facility]UN[facility]am IGRATION_ DEFAULT_1 _1 , 08/25/2020 00:00:00 08/25/2020 10:56:37 [id number] _[facility] IGRATION_ DEFAULT_1 _1 , 09/01/2020 00:00:00 09/01/2020 11:31:31 [id number] _[facility] IGRATION_ DEFAULT_1 _1 , 09/08/2020 00:00:00 09/08/2020 11:58:14 [id number] [facility] [address] [place] [address] 03/05/2021 00:00:00 03/05/2021 13:37:43 [id number] [facility] [address] [place] [address] 03/12/2021 00:00:00 03/12/2021 10:19:13 [id number] [facility] [address] [place] [address] 03/19/2021 00:00:00 03/19/2021 11:31:06 [id number] [facility] [address] [place], [place] [address] 03/24/2021 00:00:00 03/24/2021 15:45:32 [id number] [facility] [address] [place] [address] 03/31/2021 00:00:00 03/31/2021 16:31:36 [id number] [facility] [address] [place] [address] 11/05/2021 00:00:00 11/05/2021 10:23:40 [id number] [facility] [address] [place] [address] 11/12/2021 00:00:00 11/12/2021 10:25:26 [id number] [facility] [address] [place] [address] 11/19/2021 00:00:00 11/19/2021 10:12:51 [id number] FERNANDO Hogue [facility] [address] [place] [address] 08/03/2022 14:22:16 08/03/2022 15:39:58 Osteoarthritis of right knee joint 0616966133 24308 M17.11 Pain of ri ght knee joint 1676442224 65422 M25.561 [id number] FERNANDO Hogue [facility] [address] [place] [address] 08/10/2022 15:22:35 08/10/2022 16:02:52 Pain of right knee joint 0672885953 74769 M25.561 Osteoarthr itis of right knee joint 3028687252 53608 M17.11 [id number] FERNANDO Hogue [facility] [address] [place] [address] 08/17/2022 15:28:35 08/17/2022 16:08:32 Osteoarthritis of right knee joint 8521526548 53338 M17.11 Pain of ri ght knee joint 8788977284 21136 M25.622 [id number] FERNANDO Hogue [facility] [address] [place] [address] 02/17/2023 11:53:58 02/17/2023 13:20:03 Osteoarthritis of right knee joint 4472994992 48243 M17.11 Pain of ri ght knee joint 3065617098 53728 M25.018 [id number] FERNANDO Hogue [facility] [address] [place] [address] 02/24/2023 11:46:41 02/24/2023 12:00:25 Osteoarthritis of right knee joint 4949153072 83333 M17.11 Pain of ri ght knee joint 3567579804 43114 M25.233 [id number] FERNANDO Hogue [facility] [address] [place] [address] 03/03/2023 11:55:17 03/03/2023 13:23:12 Osteoarthritis of right knee joint 3312711637 08029 M17.11 Pain of ri ght knee joint 0585666637 71497 M25.222 [id number] FERNANDO Hogue [facility] [address] [place] [address] 09/08/2023 10:33:30 09/08/2023 11:21:21 Osteoarthritis of right knee joint 5818763745 68790 M17.11 History of left total knee replacement 4934839605 783137 Z96.261 [id number] FERNANDO Hogue [facility] [address] [place] [address] 09/15/2023 10:14:45 09/15/2023 11:01:53 Osteoarthritis of right knee joint 8493689771 15920 M17.11 History of left total knee replacement 5561009426 273966 Z96.990 [id number] FERNANDO Hogue [facility] [address] [place] [address] 09/22/2023 10:11:03 09/22/2023 10:30:30 Osteoarthritis of right knee joint 5114084802 06511 M17.11 Pain of ri ght knee joint 7796208479 62483 M25.648 [id number] FERNANDO Hogue [facility] [address] [place] [address] 04/02/2024 10:21:08 04/02/2024 11:21:08 Osteoarthritis of right knee joint 0048958432 21203 M17.11 Pain of ri ght knee joint 7434205092 28477 M25.349 [id number] FERNANDO Hogue [facility] [address] [place] [address] 04/09/2024 10:17:01 04/09/2024 11:13:23 Osteoarthritis of right knee joint 8370340927 75490 M17.11 Pain of ri ght knee joint 9533662593 83576 M25.206 [id number] FERNANDO Hogue [facility] [address] [place] [address] 04/16/2024 10:12:43 04/16/2024 10:32:33 Osteoarthritis of right knee joint 7975733311 65707 M17.11 Pain of ri ght knee joint 3303886584 85655 M25.561 Health Concerns Section Related Observation LastModified by Organization Detai ls LastModified Time None Recorded Concern Status LastModified by Organization Details LastModified Time None Recorded Advance Directives Directive None Recorded Payers Encounter Date Sequence Insurance Name Policy Number Policy Mix Covered Member ID Mix Member ID Guarantor Name 09/15/2023 1 [place] Aquilino Trujillo Jr [id number] Aquilino Ronnie 09/15/2023 2 [employer] (MEDICARE SUPPLEMENT) Aquilinoraiba Trujillo [id number] Aquilino Ronnie 09/22/2023 1 [place] Aquil[place] Trujillo Jr [id number] Aquilino Ronnie 09/22/2023 2 [employer] (MEDICARE SUPPLEMENT) Aquilino Ronnie [id number] Aquilino Ronnie 04/02/2024 1 [place] Aquil[place] Trujillo Jr [id number] Aquilino Ronnie 04/02/2024 2 [employer] (MEDICARE SUPPLEMENT) Aquilino Ronnie [id number] Aquilino Ronnie 04/09/2024 1 [place] Aquilino Trujillo Jr [id number] Aquilino Ronnie 04/09/2024 2 [employer] (MEDICARE SUPPLEMENT) Aquilino Ronnie [id number] Aquilino Ronnie 04/16/2024 1 [place] Aquilino Trujillo Jr [id number] Aquilino Trujillo 04/16/2024 2 [facility] (MEDICARE SUPPLEMENT) Aquilino Trujillo [id number] Aquilino Trujillo Notes Date Note Type Note Provider Name and Address Organization Details Recorded Time 09/15/2023 text/html Patient returns for Orthovisc injection number 2 right knee. The patient has moderately severe primary osteoarthritis already starting to get some good relief from the 1st injection last week. Denies any erythema effusion or signs of infection. X-rays last week showed narrowing in the medial compartment moderately severe in nature patellofemoral articulation also shows moderate narrowing. He has a mild varus deformity and a left total knee arthroplasty is functioning well and in good alignment. FERNANDO Hogue [address], [place], [address], [employer] 09/15/2023 10:36:40 09/22/2023 text/html patient returns for Orthovisc injection number 3 right knee. He is getting good relief from the 1st 2 rounds of injections. Denies any problems with the knee today no effusion or swelling he has mild varus deformity of the right knee with moderately severe primary osteoarthritis. FERNANDO Hgoue [address], [place], [address], [employer] 09/22/2023 10:26:47 04/02/2024 text/html The patient retu rns with right knee pain. The patient has moderately severe primary osteoarthritis right knee joint not a good candidate for total knee arthroplasty due to other multiple medical issues recently has undergone prostate radiation for cancer also recently had a dual chamber pacemaker surgery on January 15. The patient has severe Parkinson's disease but otherwise gets around pretty well states he does better in the day then has more pain at night after an active day. The patient and his feel that his right knee pain maybe a bit more severe and flaring up again because of all he has been through recently with his pacemaker and cancer treatment. He does stay active and does daily exercises but has noted that his knee has been bothering him more and more at night keeping him awake. Denies any new/different problems with his knee it has been 6 months since his last gel shot series he would like to repeat those today he is going to have Orthovisc injection number 1 right knee. He has a left total knee arthroplasty that is functioning well. The patient states the pain is about a 7 on a scale of 1-10 in the right knee. Occasionally he does take ipic-htn-ncaakkd anti-inflammatory medication this helps somewhat. Has had no recent trauma or injury to the knee denies any effusion or swelling no erythema heat or other signs of infection.The patient's past medical history changes are noted above otherwise he has been fairly stable. Has been doing well with his recent pacemaker. FERNANDO Hogue [address], [address], [place], [address], [employer] 04/02/2024 10:48:50 04/09/2024 text/html The patient retu rns for Orthovisc injection number 2 right knee. He is doing to get some good relief from the 1st injection already. Denies any problems today the patient has severe primary osteoarthritis of the right knee joint and not a good candidate for total knee arthroplasty due to multiple medical issues. He has severe Parkinson's but gets around okay with a cane. He would like to proceed with the 2nd injection today. FERNANDO Hogue [address], [address], [place], [address], [employer] 04/09/2024 10:30:08 04/16/2024 text/html Patient returns for Orthovisc injection number 3 right knee. The patient has severe primary osteoarthritis of the right knee joint not a good candidate for total knee arthroplasty due to medical issues. States he is getting along well with the 1st 2 rounds of injections and getting good relief. Denies any complaints or problems today with the right knee. FERNANDO Hogue [address], [place], [address], [employer] 04/16/2024 10:39:10
--- OUTSIDE RECORDS SUMMARY | 2024-06-07 07:44 | XMS_ITS | Patient Health Summary ---
Author Organization [facility] Address [address] [place] [address] Care Team Providers Care Neurological Surgeon Name Role Phone Sanket Isbell MD Primary Care Provider [phone] Note from [facility],non-owned Affiliates and Associated Physician Practices is amultiple site organization consisting of ambulatory clinics and hospital sitesin [place], [place], [place] and [place]. This disclosure is being madepursuant to the Care Everywhere program and may not contain all information available regarding this patient. Last updated 18.[facility] Allergies No known active allergies Medications * Be aware that medications may not be up to date on this document. Alwaysverify current medications with the patient. * carbidopa-levodopa (SINEMET) 25-250 MG tablet(Started 01/18/2018) Take 25-250 tablets by mouth 3 times daily * lisinopril (PRINIVIL; ZESTRIL) 40 MG tablet Take 40 mg by mouth once daily * amLODIPine (NORVASC) 5 MG tablet Take 5 mg by mouth once daily * pravastatin (PRAVACHOL) 80 MG tablet Take 80 mg by mouth at bedtime Social History Tobacco Use Types Packs/Day Years Used Date Smoking Tobacco: Never Smokeless Tobacco: Never Alcohol Use Standard Drinks/Week Comments No 0 (1 standard drink = 0.6 oz pur e alcohol) Sex and Gender Information Value Date Recorded Sex Assigned at Not on file Gender Identity Not on file Sexual Orientation Not on file Last Filed Vital Signs Vital Sign Reading Time Taken Comments Blood Pressure 126/72 04/10/2018 12:37 PM MANAGER RETENTION Pulse 71 04/10/2018 12:37 PM MANAGER RETENTION Temperature - - Respiratory Rate 18 04/10/2018 12:37 PM MANAGER RETENTION Oxygen Saturation 96% 04/10/2018 12:37 PM MANAGER RETENTION Inhaled Oxygen Concentration - - Weight 91.6 kg (202 lb) 04/10/2018 12:37 PM MANAGER RETENTION Height 182.9 cm (6') 04/10/2018 12:37 PM MANAGER RETENTION Body Mass Index 27.4 04/10/2018 12:37 PM MANAGER RETENTION Care Teams Neurological Surgeon Relationship Specialty Start Date End Date Sanket Isbell MD [address] [place] [address] PCP - General Family Medicine 01/19/18
--- OUTSIDE RECORDS SUMMARY | 2024-06-07 07:44 | XMS_ITS | Referral Summary ---
Author Organization [facility] [address] Address [address] [place] [address] Care Team Providers Care Coal Gasification Technician Name Role Phone Sanket Isbell MD Primary Care Provider Encounters Date Type Department Care Team Description 06/05/2024 Orders Only [facility] Cardiology [address] [place] [phone] Tomy Pretty MD NICM (nonischemic cardiomyopathy) (CMS/HCC) ([facility]) (Primary Dx); ICD (implantable cardioverter-defibri llator) in place; Ventricular fibrillation (CMS/HCC) ([facility]); NSVT (nonsustained ventricular tachycardia) ([facility]) 06/05/2024 9:00 AM POTATO SORTER Ancillary Procedure [facility] Cardiology [address] [place] [address] [place] [phone] Complete heart block (CMS/HCC) ([facility]); Cardiac pacemaker in situ from Last 3 Months Allergies Active Allergy Reactions Criticality Noted Date Comments Diphenhydramine Hallucinations Medium 04/05/2023 Medications lisinopril (PRINIVIL,ZESTR [place]) 40 mg tablet Take 1 tablet (40 mg total) by mouth daily Active amLODIPine (NORVASC) 5 mg tablet Take 1 tablet (5 mg total) by mouth nightly Active aspirin 81 mg tablet Take 1 tablet (81 mg total) by mouth daily Active busPIRone (BUSPAR) 5 mg tablet Take 1 tablet (5 mg total) by mouth 2 (two) times a day 07/01/2022 Active escitalopram (LEXAPRO) 10 mg tablet Take 1 tablet (10 mg total) by mouth daily 5 mg bid 07/09/2022 Active pravastatin (PRAVACHOL) 80 mg tablet Take 1 tablet (80 mg total) by mouth nightly 40 mg at bedtime 06/07/2022 Active oxyBUTYnin XL (DITROPAN XL) 15 mg 24 hr tablet Take 1 tablet (15 mg total) by mouth daily 03/15/2023 Active carbidopa-levod opa (SINEMET) 25-100 mg per tabletIndicatio ns:PD (Parkinson's disease) (HCC) Take 4 tablets by mouth every 4 (four) hours 2160 tablet 3 09/06/2023 Active ofloxacin (OCUFLOX) 0.3 % ophthalmic solution INSTILL 1 DROP INTO EACH EYE FOUR TIMES DAILY 01/27/2024 Active QUEtiapine (SEROquel) 25 mg tablet Take 1 tablet (25 mg total) by mouth nightly 01/27/2024 Active Senexon-S 8.6-50 mg Take 2 tablets by mouth 2 (two) times a day 01/27/2024 Active Active Problems Problem Noted Date Diagnosed Date Complete heart block (CMS/HCC) 02/23/2024 Cardiac pacemaker in situ 01/16/2024 Overview (01/16/2024): [employer] Amvia Edge Dual Pacemaker. Dx; Sinus Node Disease. DOI 01/16/2024- Maria De Jesus. [employer] home monitoring. Parkinson's disease without dyskinesia, with fluctuating manifestations 03/26/2020 Assessment & Plan (08/05/2023 2:05 PM CDT): Mr. August King Jr is a 73 y.o. male, who presents for follow-up for Parkinson's disease (PD). He was having more tremor and slowing down per and they increased his c/l to 4 tabs every 4 hours which was helpful. He was having some more dyskinesia since the increase. They have reviewed about MRI-FUS to control the tremor and would like to proceed with it. He does not feel DBS is something he would like to consider and it was discussed in the past for additional tremor control. We briefly discussed the possible benefits and side effects with the procedure. They are very interested in moving forward with it. We will obtain a CT Stealth as recommended by Dr Osborne and based on the results refer to Dr Ospina. Plan: Continue carbidopa-levodopa at the same dose. Will order CT stealth Based on the results will send referral to Dr Ospina Fall precautions NPT today Potential medication side effects were discussed during the encounter. Assessment & Plan (04/06/2023 9:45 AM POTATO SORTER): Mr. August King Jr is a 72 y.o. male, who presents for follow-up for Parkinson's disease (PD). He is transitioning from Dr. Fox's clinic. He is well controlled since the last visit. He had a fall in August and there was a suspicion of having had a TIA. Otherwise, he has been stable without much problems. He continues to have tremor, but it is not functionally impairing. His mouth tremor can be distracting at times. Levodopa continues to help and motor fluctuations are mild. He does not have dyskinesias. Overall, he is stable and does not require medication adjustments. They asked about MRI-FUS to control the tremor. He does not feel DBS is something he would like to consider and it was discussed in the past for additional tremor control. We talked about the limited info about thalamotomy and improvement of facial/tongue tremor. He would likely have to have bilateral procedure to minimize it. Additionally, tremor is not functionally impairing, so it may not be a good timing for the procedure. Will send them info about MRI-FUS. They also inquired about research in facial tremor and we talked there was not a specific study happening in our institution about it. Plan: Continue carbidopa-levodopa at the same dose. Clinicaltrials.gov. Information about MRI-focused ultrasound. Potential medication side effects were discussed during the encounter. Assessment & Plan (08/02/2022 1:03 PM CDT): He has stage 2.5 PD with some early wearing off even at a moderate dose of levodopa. While he has had some dyskinesia in the past, we will try gently increasing to 3.5 tabs QID to see if this is tolerated. If not, then adding an adjunctive agent like entacapone, or increasing dose frequency would be reasonable. He decided against DBS but this could be broached again in the future if medical optimization is insufficient as he would be a good candidate. He is interested in FU in the future . He was very active and part of support group , encouraged to continue that. 1. Increase CD/LD to 3.5 tabs QID 2. Continue regular exercise 3. NPT next visit 4. Return as scheduled for ROV with Dr Osborne * Potential side effects discussed during this encounter Assessment & Plan (07/15/2021 8:37 PM CDT): He has stage 2.5 PD with some early wearing off even at a moderate dose of levodopa. While he has had some dyskinesia in the past, we will try gently increasing to 3.5 tabs QID to see if this is tolerated. If not, then adding an adjunctive agent like entacapone, or increasing dose frequency would be reasonable. He decided against DBS but this could be broached again in the future if medical optimization is insufficient as he would be a good candidate. 1. Increase CD/LD to 3.5 tabs QID 2. Continue regular exercise 3. RTC 6 months Assessment & Plan (01/01/2021 1:00 PM CDT): August King Jr is a 70 y.o. old male with Joyce & Yahr stage 2.5 characterized by asymmetric resting tremor, bradykinesia, rigidity and postural instability. In addition he had hypomimia, micrographia, difficulty arising from chairs and hypophonia. He first developed asymmetric resting tremor in 2013 followed over the next few years by resting tremor, bradykinesia, rigidity and postural instability. He was diagnosed with IPD in 2013 and was prescribed on carbidopa/levodopa IR. with good response. In 2019, he developed motor fluctuations with wearing off that affected his ADLs and ability to work. 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 The natural history of the illness and the treatment options (including the surgical ones) were extensively discussed with the patient and his . At the time of this evaluation, the motor benefit from each dose of carbidopa/levodopa IR 25/100 tablets (that he took every 5 hours) lasted for gautam about 3.5 hours. He did not tolerate the addition of more dopaminergic therapy which caused dyskinesia. We also added ropinirole today, though this is unlikely to improve motor fluctuations sufficiently to control his symptoms. He had resting tremor, bradykinesia, rigidity, postural instability, hypomimia, micrographia, difficulty arising from chairs and hypophonia which affect his ADLs in the OFF state. Increasing medications has not been tolerable secondary to dyskinesia, while decreasing any of them will worsen her already bothersome resting tremor, bradykinesia, rigidity, postural instability, hypomimia, micrographia, difficulty arising from chairs and hypophonia. Accordingly, he has failed medical treatment and would be a good candidate for bilateral deep brain stimulation (DBS) of the subthalamic nucleus (STN) , especially given his predominant symptoms of resting tremor, bradykinesia, rigidity, postural instability, hypomimia, micrographia, difficulty arising from chairs and hypophonia . Indeed, he has no major medical illness and has little cognitive deficit by history and bedside exam. He will still need a pre-operative motor evaluation on and off medication and formal neuropsychological evaluation to establish his motor response to levodopa and the absence of a significant subclinical cognitive deficit. I discussed with him and his for over 60 minutes (1600 to 1700) all aspects of this procedure (including its preoperative evaluation with possible neuropsychological and in-patient mtor evaluation, the actual performance of the procedure, the potential benefits and complications and the post-surgical programming sessions and medication changes). I answered all their questions and handed them our written description and [id number] pertaining to the procedure. He would like to proceed with further evaluation for subthalamic nucleus (STN) DBS Surgery. I discussed using 2 single channel Alcala neurostimulators with the patient. Recommendations: 1. Refer to Dr. Arriaza for bilateral subthalamic nucleus (STN) for Parkinson disease. 2. Refer to Dr. Polo for presurgical neuropsychological testing. 3. Plan for outpatient levodopa ON/OFF evaluation. 4. Send subthalamic nucleus (STN) DBS packet. 5. Continue current therapy. Adithya Fox MD Assessment & Plan (09/24/2020 4:41 PM CDT): He has stage 2.5 PD with motor fluctuations and prominent jaw opening dystonia worse with increased levodopa. This has prevented him from further increasing the max dose of levodopa. We will thus try increasing frequency of levodopa doses to every 4 hours. Failing this, adjunct therapy to prolong the effect of levodopa would be the next step, such as rasagiline. If medical treatment for PD continues to be insufficient, he would likely be a good DBS candidate. We will schedule an evaluation for this in 3 months if medications are not sufficient at that stage. He will continue regular exercise to improve mobility and reduce disability. 1. CD/LD to every 4 hours at 2.5 tabs QID 2. If increasing frequency ineffective, may add rasagiline in 2 weeks 3. Return in 3 months for DBS discussion if needed Assessment & Plan (03/26/2020 12:46 PM POTATO SORTER): This is a 69 year old man with stage 2.5 parkinsonism with an approximately 7 year course to date, characterized by prominent rest tremor of BUE + head and jaw, bradykinesia, rigidity, and some gait abnormality with very mild postural instability. He has a very good response to levodopa and no other red flags to suggest other parkinsonian disorders, so the diagnosis of idiopathic PD is almost certainly correct. He is wearing off a little before his next dose is due and does have some degree of levodopa-resistant tremor, though this is not bothersome to him unless he gets very stressed (like for our appointment today). Currently my impression is that he has not been medically optimized and his dose amount and frequency have not been adequately increased, and he has not hit any side effect thresholds that would limit further medical management. Options include increasing each dose, increasing frequency of doses (e.g to q4 hours), and adding a MAO-B or COMT inhibitor. We will work on trying these out for now, and will consider DBS, likely of the STN, in the future should medical management not be sufficient for him. 1. Change to CD/LD 25/100 and increase to 3 tabs at each dose (7, 12, 5, qhs). Will call with any intolerable SE, or in 1 month if doing OK (or simply not effective enough). Future options detailed above. 2. Return in 6 months for reassessment. Social History Tobacco Use Types Packs/Day Years Used Date Smoking Tobacco: Never Smokeless Tobacco: Never Tobacco Cessation:Counseling Given: Not Answered Alcohol Use Standard Drinks/Week Comments No 0 (1 standard drink = 0.6 oz pur e alcohol) AUDIT-C Answer Date Recorded Q1: How often do you have a drink containing alc ohol? Never 03/02/2021 Average Number of Drinks Not on file 021 Frequency of Binge Drinking Not on file 05/2020 Personal Safety Answer Date Recorded Getting School Help Needed Not on file 04/12 Sex and Gender Information Value Date Recorded Sex Assigned at Not on file Legal Sex Male 3:51 AM POTATO SORTER Gender Identity Not on file Sexual Orientation Not on file Last Filed Vital Signs Vital Sign Reading Time Taken Comments Blood Pressure 138/74 02/23/2024 9:00 AM CDT Pulse 60 02/23/2024 9:00 AM CDT Temperature 36.7 C (98 F) 07/15/2021 2:47 PM CDT Respiratory Rate - - Oxygen Saturation 98% 02/23/2024 9:00 AM CDT Inhaled Oxygen Concentration - - Weight 82.6 kg (182 lb) 02/23/2024 9:00 AM CDT Height 180.3 cm (5' 11 ) 02/23/2024 9:00 AM CDT Body Mass Index 25.38 02/23/2024 9:00 AM CDT Plan of Treatment Not on file Insurance MEDICARE [facility] MEDICARE [facility] Care Teams Coal Gasification Technician Relationship Specialty Start Date End Date Sanket Isbell MD [address] [place] [address] PCP - General 02/24/15
--- OUTSIDE RECORDS SUMMARY | 2024-06-07 07:44 | XMS_ITS | Clinical Summary ---
Author Organization [facility] [employer] Address [address] [place] [address] Care Team Providers Care Clinical Psychologist Licensed Name Role Phone Sanket Isbell MD Primary Care Provider [phone] Source Comments [facility] [employer],non-owned Affiliates and Associated Physician Practices is amultiple site organization consisting of ambulatory clinics and hospital sitesin [place], [place], [place] and [place]. This disclosure is being madepursuant to the Care Everywhere program and may not contain all information available regarding this patient. Last updated 18.[facility] [employer] Allergies No known active allergies Medications * Be aware that medications may not be up to date on this document. Alwaysverify current medications with the patient. Medication Sig Dispensed Refills Start Date End Date Status carbidopa-levodopa (SINEMET) 25-250 MG tablet Take 25-250 tablets by mouth 3 times daily 01/18/2018 Active lisinopril (PRINIVIL; ZESTRIL) 40 MG tablet Take 40 mg by mouth once daily Active amLODIPine (NORVASC) 5 MG tablet Take 5 mg by mouth once daily Active pravastatin (PRAVACHOL) 80 MG tablet Take 80 mg by mouth at bedtime Active Family History Medical History Relation Name Comments Cancer - Stomach Father Cancer - Bladder Mother Cataract Mother Relation Name Status Comments Brother Alive Father Mother Alive Sister Alive Social History Tobacco Use Types Packs/Day Years [...] Comments Blood Pressure 126/72 04/10/2018 12:37 PM FILTER TENDER JELLY Pulse 71 04/10/2018 12:37 PM FILTER TENDER JELLY Temperature - - Respiratory Rate 18 04/10/2018 12:37 PM FILTER TENDER JELLY Oxygen Saturation 96% 04/10/2018 12:37 PM FILTER TENDER JELLY Inhaled Oxygen Concentration - - Weight 91.6 kg (202 lb) 04/10/2018 12:37 PM FILTER TENDER JELLY Height 182.9 cm (6') 04/10/2018 12:37 PM FILTER TENDER JELLY Body Mass Index 27.4 04/10/2018 12:37 PM FILTER TENDER JELLY Plan of Treatment Health Maintenance Due Date Last Done Comments COLOGUARD (AGES 45-75) - COL ON CA SCREENING 1950 COLON MONITORING 1950 COLONOSCOPY - COLON CA SCREENING 1949 CT COLONOGRAPHY - COLON CA SCREENING 1950 Colorectal Cancer Screening 1950 FIT - COLON CA SCREENING 1949 FLEX SIG - COLON CA SCREENING 1950 MEDICARE AWV 12 MONTHS 1949 HEPATITIS C SCREENING 06/25/1967 DTAP/TDAP/TD VACCINES (1 - Tdap) 1968 PNEUMOCOCCAL VACCINE 50+ (1 of 1 - PCV) 1999 ZOSTER VACCINE (1 of 2) 1999 SCREENING FOR DIABETES 01/19/2018 COVID-19 VACCINE (1 - 2023-2 5 season) 2024 INFLUENZA VACCINE (#1) 2024 DEPRESSION SCREENING 05/02/2024 Respiratory Syncytial Virus (RSV) Vaccine Pt: or over 60 yrs (1 - 1-dose 75+ series) 2024 HEPATITIS B VACCINE Aged Out No longe r eligible based on patient's age to complete this topic HIB VACCINE Aged Out No longer eligi ble based on patient's age to complete this topic HPV VACCINE Aged Out No longer eligi ble based on patient's age to complete this topic MENINGOCOCCAL (Group B) VACCINE Aged Out No longer eligible based on patient's age to complete this topic MENINGOCOCCAL VACCINE Aged Out No elton coco eligible based on patient's age to complete this topic Care Teams Clinical Psychologist Licensed Relationship Specialty Start Date End Date Sanket Isbell MD [address] [place] [address] PCP - General Family Medicine 01/19/18
--- OUTSIDE RECORDS SUMMARY | 2024-06-07 07:44 | XMS_ITS | Clinical Summary ---
Author Organization [facility] [address] Address [address] [place] [address] Care Team Providers Care Transition Assistant Name Role Phone Sanket Isbell MD Primary Care Provider Allergies Active Allergy Reactions Criticality Noted Date [...] encounter. Assessment & Plan (04/06/2023 9:45 AM LOADING MACHINE TOOL SETTER): Mr. August King Jr is a 72 [...] and handed them our written description and [id number] pertaining to the procedure. He would like [...] needed Assessment & Plan (03/26/2020 12:46 PM LOADING MACHINE TOOL SETTER): This is a 69 year old man [...] 2. Return in 6 months for reassessment. Encounters Date Type Department Care Team Description 06/05/2024 9:00 AM LOADING MACHINE TOOL SETTER Ancillary Procedure [facility] Cardiology [address] [place] [phone] Complete heart block (CMS/HCC) (HCC); Cardiac pacemaker in situ 06/05/2024 Orders Only [facility] Cardiology [address] [place] [phone] Tomy Pretty MD NICM (nonischemic cardiomyopathy) (CMS/HCC) (HCC) (Primary Dx); ICD (implantable cardioverter-defibri llator) in place; Ventricular fibrillation (CMS/HCC) (HCC); NSVT (nonsustained ventricular tachycardia) (HCC) from Last 3 Months Medical History Medical History Date Comments Parkinson disease (HCC) Hypertension Lymphoma (HCC) Osteoarthritis Family History Medical History Relation Name Comments Cancer Father Heart disease Mother Relation Name Status Comments Father Mother Social History Tobacco Use Types Packs/Day Years [...] on file Legal Sex Male 3:51 AM LOADING MACHINE TOOL SETTER Gender Identity Not on file Sexual Orientation Not on file Obstetrics History Last Filed Vital Signs Vital Sign Reading [...] 02/23/2024 9:00 AM CDT Plan of Treatment Health Maintenance Due Date Last Done Comments Colon Cancer Screening-Colonoscopy 1950 Fall Risk Assessment 1949 Hepatitis C Screening 1949 DTaP/Tdap/Td Vaccine (1 - Tdap) 1960 Hepatitis B Screening 1967 Zoster Vaccine (1 of 2) 1999 Pneumococcal vaccine 65+ (1 of 1 - PCV) 2014 Well Visit 65+ 2014 Covid-19 Vaccine (2 - season) 2024 Influenza Vaccine (#1) 2024 Depression Screening 08/04/2024 08/05/2023 Insurance MEDICARE [facility] MEDICARE [facility] Care Teams Transition Assistant Relationship Specialty Start Date End Date Sanket Isbell MD [address] [facility] [address] [place] [address] PCP - General 02/24/15
--- OUTSIDE RECORDS SUMMARY | 2024-06-07 07:44 | XMS_ITS | Referral Summary ---
Author Organization [facility] [employer] Address [address] [place] [address] Care Team Providers Care Information And Referral Director Name Role Phone Sanket Isbell MD Primary Care Provider Source Comments [facility] [employer],non-owned Affiliates and Associated Physician Practices is amultiple site organization consisting of ambulatory clinics and hospital sitesin [place], [place], [place] and [place]. This disclosure is being madepursuant to the Care Everywhere program and may not contain all information available regarding this patient. Last updated 18.[facility] [employer] Allergies No known active allergies Medications * [...] 80 mg by mouth at bedtime Active Social History Tobacco Use Types Packs/Day Years [...] Comments Blood Pressure 126/72 04/10/2018 12:37 PM SHOP GIRL Pulse 71 04/10/2018 12:37 PM SHOP GIRL Temperature - - Respiratory Rate 18 04/10/2018 12:37 PM SHOP GIRL Oxygen Saturation 96% 04/10/2018 12:37 PM SHOP GIRL Inhaled Oxygen Concentration - - Weight 91.6 kg (202 lb) 04/10/2018 12:37 PM SHOP GIRL Height 182.9 cm (6') 04/10/2018 12:37 PM SHOP GIRL Body Mass Index 27.4 04/10/2018 12:37 PM SHOP GIRL Plan of Treatment Not on file Care Teams Information And Referral Director Relationship Specialty Start Date End Date Sanket Isbell MD [address] [place], [place] [id number] PCP - General Family Medicine 01/19/18
== END 2024-06-07 07:37 | disposition home or self-care (01) ==
PROVIDERS: PCP Family Medicine; Visit Provider Urology
DX: C61 Malignant neoplasm of prostate (principal)
CPT/HCPCS: 78815; A9596

== ENCOUNTER 2024-08-15 15:33 | Emergency (ER) | payer MEDICARE, SELFPAY ==
[2024-08-15] VITALS (10 sets, daily range): BP systolic 114–172; BP diastolic 62–97; PULSE 62–89; RESP 15–22; TEMP 36.6; O2SAT 94–100
--- NOTE | ~2024-08-15 | XR_ITS ---
XR chest 2V Ordering provider: Renita Dixon MD History: 74 years Male with . CP-faint feeling . Comparison: January 19, 2024 FINDINGS: MEDIASTINUM: The cardiac silhouette is slightly enlarged. Left bipolar pacemaker. LUNGS: No infiltrates, effusions or pneumothorax. OTHER: No free air under the diaphragm. IMPRESSION: No acute cardiopulmonary pathology. Reviewed, dictated and finalized at location A.
--- NOTE | 2024-08-15 15:37 | ECG_ITS ---
Test Date: 2024-08-15 15:59:58 Measurements Intervals Russell Rate: 71 P: 23 AK: 240 QRS: -23 QRSD: 158 T: 160 QT: 454 QTc: 493 Interpretive Statements ATRIAL SENSE- ELECTRONIC VENTRICULAR PACEMAKER BASELINE ARTIFACT- I, II, III, AVR, AVL, AVF, V4-V6 NO FURTHER INTERPRETATION IS POSSIBLE ATYPICAL ECG Compared to ECG 01/16/2024 13:29:54 ELECTRONIC VENTRIUCLAR PACEMAKER NOW PRESENT Electronically Signed On 08-15-2024 16:11:39 CDT by Virgil Lindsey D.O.
[2024-08-15 16:19] LABS: Basophils Percent Auto 0.6 % (0.2-1.2); Eosinophils Absolute Auto 0.1 K/mm3 (0-0.3); Eosinophils Percent Auto 1.6 % (0-4.4); Immature Granulocyte Absolute 0.03 K/mm3 (0.00-0.031); Immature Granulocyte Percent A 0.6 % (0-0.5); Lymphocytes Absolute Auto 0.44 K/mm3 (0.9-3.2); Lymphocytes Percent Auto 8.7 % (18.3-44.2); Mean Corpuscular HGB Conc 33.3 g/dl (32-36); Mean Corpuscular Hemoglobin 31.2 pg (26-34); Mean Corpuscular Volume 93.5 fl (80-100); Mean Platelet Volume 10.3 fl (7.4-10.4); Monocytes Absolute Auto 0.8 K/mm3 (0.1-0.6); Monocytes Percent Auto 14.8 % (2.6-8.5); Neutrophils Absolute Auto 3.7 K/mm3 (1.3-6.7); Neutrophils Percent Auto 73.7 % (45.5-73.1); Platelet Count Result 174 k/mm3 (150-375); Red Blood Count 3.85 M/mm3 (4.6-6.20); Red Cell Distribution Width 13.2 % (11.5-14.5); White Blood Count 5.1 K/mm3 (4.5-10.0)
[2024-08-15 16:30] LABS: Alanine Aminotransferase 10 U/L (6-50); Albumin Level 4.3 g/dL (3.5-5.1); Alkaline Phosphatase 57 U/L (38-126); Anion Gap 10 mmol/L (4-12); Aspartate Amino Transferase 24 U/L (17-59); Bilirubin,Total 0.4 mg/dL (0.2-1.3); Blood Urea Nitrogen 22 mg/dL (9-20); Carbon Dioxide 27 mmol/L (22-30); Chloride 97 mmol/L (98-107); Estimated CRCL calculation 75 ml/min; Estimated Glomerular Filt Rate > 60; Glucose 105 mg/dL (65-110); Lipase 15 U/L (23-300); Potassium 4.2 mmol/L (3.4-5.0); Sodium 134 mmol/L (137-145)
--- OUTSIDE RECORDS SUMMARY | 2024-08-15 16:40 | XMS_ITS ---
Author Organization [facility] Address [address] [place], [place] [id number] Care Team Providers Care Tuckpointer Name Role Phone YANNI DOMINGUEZ Unavailable [phone] Sanket Isbell Unavailable Unavailable Allergies No Known Allergies REASON FOR VISIT Patient presents for at-risk foot care . The patient has painful toenails that cause difficulty with ambulation and shoegear. The onset is gradual Encounters Encounter Location Date Provider Diagnosis [facility] [address] [place], [place] [id number] 12/26/2023 YANNI DOMINGUEZ Tinea unguium B35.1 ; Pain in right toe(s) M79.674 ; Pain in left toe(s) M79.675 and Atherosclerosis of [place] arteries of extremities with intermittent claudication, bilateral legs I70.213 Assessments Encounter Date Diagnosis (ICD Code) Assessment Notes Treatment Notes Treatment Clinical Notes Section Notes 12/26/2023 Tinea unguium (ICD-10 - B35.1) FUNGAL TOENAILS: Discussed various treatment options for fungal toenails including debridement, topical antifungals, oral antifungals, toenail avulsion, or toenail matrixectomy. NAIL DEBRIDEMENT: Nails 1-5 Bilateral were debrided extensively with nail nippers and emery board, reducing length and girth to pink healthy tissue with any subungual debris and necrotic tissue removed 12/26/2023 Pain in right toe(s) (ICD-10 - M79.674) 12/26/2023 Pain in left toe(s) (ICD-10 - M79.675) 12/26/2023 Atherosclerosis of [place] arteries of extremities with intermittent claudication, bilateral legs (ICD-10 - I70.213) Plan Of Treatment Treatment Notes Assessment Notes Tinea unguium FUNGAL TOENAILS: Discussed various treatment options for fungal toenails including debridement, topical antifungals, oral antifungals, toenail avulsion, or toenail matrixectomy. NAIL DEBRIDEMENT: Nails 1-5 Bilateral were debrided extensively with nail nippers and emery board, reducing length and girth to pink healthy tissue with any subungual debris and necrotic tissue removed Next Appt Details Follow Up: 10-12 Weeks, Reas on: At Risk Foot care, sooner if problems arise Provider Name:YANNI DOMINGUEZ, 03:20:00 PM, [address], [address], [id number], Progress Notes * [place]IA K[place] JROB: 0 (73 yo M)Acc No.[id number]:12/26/2023 Patient: AUGUST AGUILLON JR Provider: Cat Dominguez DPM :1950 A ge:73 Y S ex:Male Date:12/26/2023 Address:[address] [place], [place] [id number] Subjective: * Chief Complaints: * 1 . Patient presents for at-risk foot care . The patient has painful toenails that cause difficulty with ambulation and shoegear. The onset is gradual. * HPI: H PI: General care P atient presents to the office for at risk foot care. Patient states that their nails are thickened, elongated and painful. Patient states that it is aggravated by shoe gear. Onset is gradual. Patient denies being diabetic.,Patient denies taking prescription blood thinners but does take a daily aspirin, Date last seen by Dr. Isbell was October 2023., Initials LB. * Medical History: * Social History: M igrated Social History: M igrated Social History: History of tobacco use : , Smoking Status : Never smoked. * Allergies: N .K.D.A. Objective: * Examination: C onstitutional: Constitutional T he patient is awake, alert, well developed, well groomed and well nourished.. D ermatologic: Skin findings: S kin is thin, atrophic and lacking pedal hair.. Nail pathology: N ails 1-5 bilateral are elongated, thick, discolored, and dystrophic with subungual debris. They are painful to palpation. ? V ascular: Dorsalis pedis pulse: 0 /4, bilateral. Posterior tibial pulse: 1 /4, bilaterally. Capillary refill: g reater than 3 seconds. Edema: N o edema, bilateral. N eurologic: Gross sensation G ross sensation is intact to light touch..? M usculoskeletal: Muscle Strength M uscle strength is 5/5 in regards to dorsiflexion, plantarflexion, inversion, and eversion in bilateral lower extremities.. ? Assessment: * Assessment: 1. T inea unguium - B35.1 (Primary) 2 . P ain in right toe(s) - M79.674 3 . P ain in left toe(s) - M79.675 4 . A therosclerosis of [place] arteries of extremities with intermittent claudication, bilateral legs - I70.213 Plan: * Treatment: * Procedure Codes: 1 1721 DEBRIDE NAIL, 6 OR MORE, Modifiers: Q8 * Follow Up: 1 0-12 Weeks (Reason: At Risk Foot care, sooner if problems arise) * Billing Information: * Visit Code: * Procedure Codes: 77267 DEBRIDE NAIL, 6 OR MORE. Modifiers: Q8 * Sign off status: Completed true * Provider: Cat Dominguez DPM Date: 0 12/26/2023 Generated for Cleo mi/Chris/Javier on: 0 08/15/2024 04:40 PM CDT History and Physical Notes * HPI (History of Present Illness) Category Sub-Category Detail Notes Category Not es HPI General care Patient presents to the office for at risk foot care. Patient states that their nails are thickened, elongated and painful. Patient states that it is aggravated by shoe gear. Onset is gradual. Patient denies being diabetic.,Patient denies taking prescription blood thinners but does take a daily aspirin, Date last seen by Dr. Isbell was October 2023., Initials LB Examination Category Sub-Category Detail Notes Category Not es Dermatologic Skin findings: Skin is thin, at rophic and lacking pedal hair. Nail pathology: Nails 1-5 bilateral are elongated, thick, discolored, and dystrophic with subungual debris. They are painful to palpation Neurologic Gross sensation Gross sensation is intact to light touch. Vascular Dorsalis pedis pulse: 0/4, bilateral Edema: No edema, bilateral Capillary refill: greater than 3 secon ds Posterior tibial pulse: 1/4, bilaterally Musculoskeletal Muscle Strength Muscle strength is 5/5 in regards to dorsiflexion, plantarflexion, inversion, and eversion in bilateral lower extremities. Constitutional Constitutional The patient is a wake, alert, well developed, well groomed and well nourished.
[2024-08-15 16:41] LABS: Troponin I < 0.012 ng/mL (0.000-0.034)
--- OUTSIDE RECORDS SUMMARY | 2024-08-15 16:41 | XMS_ITS | Encounter Summary ---
Author Organization [facility] Address [address] [place] [address] Care Team Providers Care Web Site Manager Name Role Phone Sanket Isbell MD Primary Care Provider Encounter Details Date Type Department Care Team (Late st Contact Info) Description 08/15/2024 Telephone [facility] Medical Group Cardiology [address] [place] [address] Tomy Pretty MD [address] [place] [address] Social History Tobacco Use Types Packs/Day Years [...] on file Legal Sex Male 3:51 AM [employer] Gender Identity Not on file Sexual Orientation Not on file documented as of this encounter Miscellaneous Notes * Telephone Encounter - Leonor Hopper RN - 08/15/2024 2:57 PM CDT Spoke with pts spouse, she states that pt is having dizzy spells and low bp readings despite holding lisinopril x 2 days with no improvement. Pt denies any sob. We do not manage pts bp medications, advised to call PCP or go to the ER for worsening symptoms. Pts spouse verbalizes understanding and appreciative of return call. She states that she will reach out to PCP and if pt has any other dizzy spells she will take pt to the ER. * Telephone Encounter - Quynh Collazo - 08/15/2024 2:41 PM CDT Pts called stating the pt has been having dizzy spells and his BP has been low. She said they went to his physical therapists today and when they took his BP it was 88/51 with a pulse of 74 and oxygen level of 87. The therapist said that his BP has been low the last three days and they recommended they go to the ER but they would like to see what MJF has to say before they do that. Please advise she is requesting a call back frankie Thank you Contact: documented in this encounter Plan of Treatment Not on file documented as of this encounter Visit Diagnoses Not on filedocumented in this encounter Care Teams Web Site Manager Relationship Specialty Start Date End Date Sanket Isbell MD [address] [facility] [address] [place] [address] PCP - General 02/24/15 documented as of this encounter
--- OUTSIDE RECORDS SUMMARY | 2024-08-15 16:41 | XMS_ITS | Data Portability ---
Author Organization [place] [facility], Main Office Address [address] [place] [address] Care Team Providers Care Catering Coordinator Name Role Phone JANELLE HAWKINS Primary Care Provider JANELLE HAWKINS Referring Provider [phone] Assessment Encounter Date Assessment Date Assessment LastModified [...] about where to get this online or ahyz-swd-nmjwrup. We also talked in detail about different zcub-wsn-yfybdtq treatment including Tylenol Arthritis extended relief and [...] Organization Details Last Modified Time Details Appointments Any 2024 10:00A M FERNANDO Hogue Not available Not available Not available Any 2024 10:00A M FERNANDO Hogue Not available Not available Not available Any 2024 10:00A M FERNANDO Hogue Not available Not available Not available Lab None recorded. Referral None recorded. Procedures knee aspiratio n/injecti on (PROC) 2023 024 [email or web address] In-Office Order, Internal Use Only DO Not Attach Compendium DO Not Attach Compendium, Do Not Delete/merge, [id number] 04/16/2024 10:18:42 knee aspiratio n/injecti on (PROC) 2023 024 [email or web address] In-Office Order, Internal Use Only DO Not Attach Compendium DO Not Attach Compendium, Do Not Delete/merge, [id number] 04/09/2024 10:19:53 knee aspiratio n/injecti on (PROC) 2023 024 [email or web address] In-Office Order, Internal Use Only DO Not Attach Compendium DO Not Attach Compendium, Do Not Delete/merge, [id number] 04/02/2024 10:27:12 knee aspiratio n/injecti on (PROC) 2023 024 [email or web address] In-Office Order, Internal Use Only DO Not Attach Compendium DO Not Attach Compendium, Do Not Delete/merge, [id number] 09/22/2023 10:14:47 knee aspiratio n/injecti on (PROC) 2023 024 [email or web address] In-Office Order, Internal Use Only DO Not Attach Compendium DO Not Attach Compendium, Do Not Delete/merge, [id number] 09/15/2023 10:21:40 Surgeries None recorded. Imaging None recorded. Medication Orders ORTHOVISC 30 mg/2 mL intra-art icular syringe 2023 024 [email or web address] [id number], [address] , [place], [address], 04/16/2024 10:39:47 ORTHOVISC 30 mg/2 mL intra-art icular syringe 2023 024 [email or web address] [facility], [address] , [place], [address], 04/09/2024 11:28:24 ORTHOVISC 30 mg/2 mL intra-art icular syringe 2023 024 [email or web address] [facility], [address] [facility], [place], [address], 04/02/2024 11:11:12 ORTHOVISC 30 mg/2 mL intra-art icular syringe 2023 024 [email or web address] [facility], [address] [facility], [place], [address], 09/22/2023 11:55:37 ORTHOVISC 30 mg/2 mL intra-art icular syringe 2023 024 [email or web address] [facility], [address] [facility], [place], [address], 09/15/2023 11:31:11 Patient TargetsNo targets recorded. Patient InstructionsNo instructions recorded. Reason for Referral None Reported. Results Created Date Observation Date Name Description Value Unit Range Abnormal Flag Note LastModifiedBy Organization Detail LastModifiedTime 09/08/19 24 XR, knee No observ ation record ed. [email or web address] [facility] [address], [place], [address], 09/08/2023 11:19:04 Result Notes None recorded. Problems Name Problem SNOMED Code Status Onset Date Resolution Date Notes Provider Name and Address Organization Details Recorded Time Contusion of right shoulder 1603859728552 9100 Active 2021 Not Available [facility] 3 02:54:41 Pain of right shoulder joint 0746862856752 9100 Active 2021 Not Available [facility] 3 02:54:41 Osteoarthr itis of knee 575046755 Active Not Available [facility] 3 02:54:42 Osteoarthr itis of right knee joint 3967268096591 00 Active 2021 Not Available [facility] 3 02:54:42 Osteoarthr itis 031940083 Active Not Available [facility] 3 02:54:42 Pain of right knee joint 4736034021394 00 Active 2021 Not Available [facility] 3 02:54:42 Spinal stenosis in cervical region 26263073 Active Not Available [facility] 3 02:54:42 Problem Notes None recorded. Procedures Surgical History Date Name Laterality Status Provider Name and Address Organization Details Recorded Time Knee Replacement completed Not Available [facility] 06/30/2022 02:45:24 Imaging Results Imaging Date Name Status LastModified by Organiz ation Details LastModified Time 09/08/2023 XR, knee completed [email or web address] [facility] [place] [address], [place], [address], 09/08/2023 11:19:04 Procedure Notes None recorded. Medical [...] the office by the doctor 08/03 completed [facility]: [phone] Not Available Not Available Not Available Fluzone High-Dose Quad 2020-21 (PF) 240 mcg/0.7 mL IM syringe TO BE ADMINISTE RED BY PHARMACIS T FOR IMMUNIZAT ION 03/05 completed Not Available Not Available Not Available Vitals Date Recorded Body height Body mass index (BMI) Body weight Provider Name and Address Organization Details Last Updated DateTime 09/15/2023 182.88 cm 24.7 kg/m2 03784.81 g Nela Valentín [facility] [employer] 09/15/2023 10:19:29 Date Recorded Body height Body mass index (BMI) Body weight Provider Name and Address Organization Details Last Updated DateTime 09/22/2023 182.88 cm 24.3 kg/m2 57242.03 g Dasia Ellistalat [facility] [place] [facility] [employer] 09/22/2023 10:13:15 Date Recorded Body height Body mass index (BMI) Body weight Provider Name and Address Organization Details Last Updated DateTime 04/02/2024 182.88 cm 24.4 kg/m2 34854.63 g Dasia José, [facility] [employer] [facility] [employer] 04/02/2024 10:25:50 Date Recorded Body height Body mass index (BMI) Body weight Provider Name and Address Organization Details Last Updated DateTime 04/09/2024 182.88 cm 24.7 kg/m2 31562.81 g Dasia Ellistalat [facility] [place] [facility] [employer] 04/09/2024 10:18:38 Date Recorded Body height Provider Name an d Address Organization Details Last Updated DateTime 04/16/2024 182.88 cm Anel Hernandez [facility] [employer] 04/16/2024 10:15:29 Social History Question Answer Notes LastModified by Organizat ion Details LastModified Time Tobacco Smoking Status Never Smoker Not Available [facility] 06/30/2022 02:37:04 What Is Your Level Of Alcohol Consumption? None [id number] Information not available 06/30/2022 What Was The Date Of Your Most Recent Tobacco Screening? 09/08/2023 [email or web address] Information not available 09/08/2023 Sex: Unknown Functional Status None recorded. Mental Status None recorded. Family History Relationship Description Onset Age of this Age Resolved Age Notes LastModified by Organization Details LastModified Time Mother Hypertensive disorder [email or web address] Not available 09/07 10:53:44 Medical History Condition Response ARTHRITIS Y CANCER: SPECIFY Y URINARY/BLADDER/KIDNEY PROBLEMS Y HYPERTENSION Y Past Encounters Encounter ID Performer Location Encounter Start Date Encounter Closed Date Diagnosis/Indication Diagnosis SNOMED-CT Code Diagnosis ICD10 Code Diagnosis Note [id number] _REYNAENA_M IGRATION_ DEFAULT_1 _1 , 08/04/2020 00:00:00 08/04/2020 11:49:03 [id number] _ATHENA_M IGRATION_ DEFAULT_1 _1 , 08/18/2020 00:00:00 08/18/2020 10:52:14 [id number] _ATHENA_M IGRATION_ DEFAULT_1 _1 , 08/25/2020 00:00:00 08/25/2020 10:56:37 [id number] _ATHENA_M IGRATION_ DEFAULT_1 _1 , 09/01/2020 00:00:00 09/01/2020 11:31:31 [id number] _ATHENA_M IGRATION_ DEFAULT_1 _1 , 09/08/2020 00:00:00 09/08/2020 11:58:14 [id number] [facility] [address] [place] [address] 03/05/2021 00:00:00 03/05/2021 13:37:43 [id number] [facility] [address] [place] [address] 03/12/2021 00:00:00 03/12/2021 10:19:13 [id number] [facility] [address] [place] [address] 03/19/2021 00:00:00 03/19/2021 11:31:06 [id number] [facility] [address] [place] [address] 03/24/2021 00:00:00 03/24/2021 15:45:32 [id number] [facility] [address] [place] [address] 03/31/2021 00:00:00 03/31/2021 16:31:36 [id number] [facility] [address] [place] [address] 11/05/2021 00:00:00 11/05/2021 10:23:40 [id number] [facility] [address] [place] [address] 11/12/2021 00:00:00 11/12/2021 10:25:26 [id number] [facility] [address] [place] [address] 11/19/2021 00:00:00 11/19/2021 10:12:51 [id number] FERNANDO Hogue [facility] [address] [place] [address] 08/03/2022 14:22:16 08/03/2022 15:39:58 Osteoarthritis of right knee joint 7081989295 65976 M17.11 Pain of ri ght knee joint 2961849863 94469 M25.561 [id number] FERNANDO Hogue [facility] [address] [place] [address] 08/10/2022 15:22:35 08/10/2022 16:02:52 Pain of right knee joint 5093587357 31849 M25.561 Osteoarthr itis of right knee joint 0214116576 24971 M17.11 [id number] FERNANDO Hogue [facility] [address] [place] [address] 08/17/2022 15:28:35 08/17/2022 16:08:32 Osteoarthritis of right knee joint 9422203596 84690 M17.11 Pain of ri ght knee joint 4362866626 14224 M25.207 [id number] FERNANDO Hogue [facility] [address] [place] [address] 02/17/2023 11:53:58 02/17/2023 13:20:03 Osteoarthritis of right knee joint 9614207055 61214 M17.11 Pain of ri ght knee joint 9785397328 72400 M25.722 [id number] FERNANDO Hogue [facility] [address] [place] [address] 02/24/2023 11:46:41 02/24/2023 12:00:25 Osteoarthritis of right knee joint 8570058305 31611 M17.11 Pain of ri ght knee joint 7734128848 81240 M25.730 [id number] FERNANDO Hogue [facility] [address] [place] [address] 03/03/2023 11:55:17 03/03/2023 13:23:12 Osteoarthritis of right knee joint 3115545234 59300 M17.11 Pain of ri ght knee joint 8269650552 59865 M25.275 [id number] FERNANDO Hogue [facility] [address] [place] [address] 09/08/2023 10:33:30 09/08/2023 11:21:21 Osteoarthritis of right knee joint 7037688366 21950 M17.11 History of left total knee replacement 3363207395 695171 Z96.997 [id number] FERNANDO Hogue [facility] [address] [place] [address] 09/15/2023 10:14:45 09/15/2023 11:01:53 Osteoarthritis of right knee joint 6345677368 34761 M17.11 History of left total knee replacement 6614011384 683083 Z96.956 [id number] FERNANDO Hogue [facility] [address] [place] [address] 09/22/2023 10:11:03 09/22/2023 10:30:30 Osteoarthritis of right knee joint 3064940592 38141 M17.11 Pain of ri ght knee joint 7699170205 91254 M25.980 [id number] FERNANDO Hogue [facility] [address] [place] [address] 04/02/2024 10:21:08 04/02/2024 11:21:08 Osteoarthritis of right knee joint 5891523501 27912 M17.11 Pain of ri ght knee joint 6792568750 88997 M25.871 [id number] FERNANDO Hogue [facility] [address] [place] [address] 04/09/2024 10:17:01 04/09/2024 11:13:23 Osteoarthritis of right knee joint 2767212345 46871 M17.11 Pain of ri ght knee joint 5946367186 32859 M25.285 [id number] FERNANDO Hogue [facility] [address] [place] [address] 04/16/2024 10:12:43 04/16/2024 10:32:33 Osteoarthritis of right knee joint 0252562011 42005 M17.11 Pain of ri ght knee joint 4116631348 06449 M25.561 Health Concerns Section Related Observation LastModified by Organization Detai ls LastModified Time None Recorded Concern Status LastModified by Organization Details LastModified Time None Recorded Advance Directives Directive None Recorded Payers Encounter Date Sequence Insurance Name Policy Number Policy Mix Covered Member ID Mix Member ID Guarantor Name 09/15/2023 1 [place] Aquilino Trujillo Jr [id number] Aquilino Trujillo 09/15/2023 2 [employer] (MEDICARE SUPPLEMENT) Aquilino Trujillo [id number] Aquilino Trujillo 09/22/2023 1 [place] Aquilino Trujillo Jr [id number] Aquilino Trujillo 09/22/2023 2 [employer] (MEDICARE SUPPLEMENT) Aquilino Trujillo [id number] Aquilino Trujillo 04/02/2024 1 [place] Aquilino Trujillo Jr [id number] Aqu[place]orab[place] Trujillo 04/02/2024 2 [employer] (MEDICARE SUPPLEMENT) Aquilino Trujillo [id number] Aquilino Trujillo 04/09/2024 1 [place] Aquilino Trujillo Jr [id number] [place] Trujillo 04/09/2024 2 [employer] (MEDICARE SUPPLEMENT) Aquilino Trujillo [id number] Aquilino Trujillo 04/16/2024 1 [place] Aquilino Trujillo Jr [id number] Aquilino Trujillo 04/16/2024 2 [employer] (MEDICARE SUPPLEMENT) Aquilino Trujillo [id number] Aquilino Trujillo Notes Date Note Type Note [...] and in good alignment. FERNANDO Hogue [address], [place], [address], [employer] 09/15/2023 10:36:40 09/22/2023 text/html patient returns for Orthovisc injection number 3 right knee. He is getting good relief from the 1st 2 rounds of injections. Denies any problems with the knee today no effusion or swelling he has mild varus deformity of the right knee with moderately severe primary osteoarthritis. FERNANDO Hogue [address], [address], [place], [address], [employer] 09/22/2023 10:26:47 04/02/2024 text/html The patient retu [...] the right knee. Occasionally he does take unos-fan-wjrnkqp anti-inflammatory medication this helps somewhat. Has had no recent trauma or injury to the knee denies any effusion or swelling no erythema heat or other signs of infection.The patient's past medical history changes are noted above otherwise he has been fairly stable. Has been doing well with his recent pacemaker. FERNANDO Hogue [address], [place], [address], [place] [employer] 04/02/2024 10:48:50 04/09/2024 text/html The patient retu [...] the 2nd injection today. FERNANDO Hogue [address], [address], [place], [address], [place] [employer] 04/09/2024 10:30:08 04/16/2024 text/html Patient returns for [...] with the right knee. FERNANDO Hogue [address] [facility], [facility] [address], [place], [address], [facility] [employer] 04/16/2024 10:39:10
--- OUTSIDE RECORDS SUMMARY | 2024-08-15 16:41 | XMS_ITS | Clinical Summary ---
Author Organization [facility] [address] Address [address] [place] [address] Care Team Providers Care Grease Man Name Role Phone Sanket Isbell MD Primary [...] Noted Date Diagnosed Date Complete heart block 02/23/2024 Cardiac pacemaker in situ 01/16/2024 Overview [...] encounter. Assessment & Plan (04/06/2023 9:45 AM RUBBER STAMPS AND DIES SUPERVISOR): Mr. August King Jr is a 72 [...] and handed them our written description and aswcjmrlvw-kxjby-tdwtjnwrn pertaining to the procedure. He would like [...] needed Assessment & Plan (03/26/2020 12:46 PM RUBBER STAMPS AND DIES SUPERVISOR): This is a 69 year old man [...] Encounters Date Type Department Care Team Description 08/15/2024 Telephone [facility] Cardiology [address] [facility] [facility] [address] [place] [address] Tomy Pretty MD 06/05/2024 9:00 AM RUBBER STAMPS AND DIES SUPERVISOR Ancillary Procedure [facility] Cardiology [address] [place] [address] [place] [address] Sinus node dysfunction (HCC) (Primary Dx); Complete heart block (HCC); Cardiac pacemaker in situ 06/05/2024 Orders Only [facility] Cardiology [address] [place] [address] [place] [address] Tomy Pretty MD NICM (nonischemic cardiomyopathy) (HCC) (Primary Dx); ICD (implantable cardioverter-defibri llator) in place; Ventricular fibrillation (HCC); NSVT (nonsustained ventricular tachycardia) (HCC) from [...] on file Legal Sex Male 3:51 AM RUBBER STAMPS AND DIES SUPERVISOR Gender Identity Not on file Sexual Orientation [...] - Tdap) 1960 Hepatitis B Screening 1967 Pneumococcal vaccine 65+ (1 of 1 - PCV) 1999 Zoster Vaccine (1 of 2) 1999 Well Visit 65+ 2014 Covid-19 Vaccine (2 - season) 01/01/20241 Depression Screening 08/04/2024 08/05/2023 Influenza Vaccine (Season Ended) 2024 Procedures Procedure Name Priority Date/Time Associated Diagnosis Comments DEVICE CHECK - REMOTE Routine 06/05/2024 3:05 PM RUBBER STAMPS AND DIES SUPERVISOR Complete heart block (HCC) Cardiac pacemaker in situ from Last 3 Months Results * DEVICE CHECK - REMOTE (06/05/2024 3:05 PM RUBBER STAMPS AND DIES SUPERVISOR) Anatomical Region Laterality Modality Other Narrative 07/03/2024 10:30 AM RUBBER STAMPS AND DIES SUPERVISOR Bi[employer]ronik Amvia Edge Dual Pacemaker. Dx; Sinus Node Disease. DOI 01/16/2024-Maria De Jesus. [employer] home monitoring. Routine DDDR Pacemaker Remote. Transmission attached. Battery status: OK, 100% remaining battery life to [place]. Stable lead impedances, pacing and sensing thresholds. Presenting rhythm: A paced/V paced AP-25%, DATA ACQUISITION TECHNICIAN-61% No AT/AF episodes noted. No Ventricular high rate episodes detected. Medications: ASA 81 mg, amlodipine 5 mg, lisinopril 40 mg See scanned report. Office pacemaker follow up: 05/29/25 [employer] remote f/u 09/04/24. Mani Shetty RN Tomy Pretty MD [facility] PROC EDURES Final Result from Last 3 Months Insurance MEDICARE [employer] [facility] Care Teams Grease Man Relationship Specialty Start Date End Date Sanket Isbell MD [address] [address] PCP - General 02/24/15
--- OUTSIDE RECORDS SUMMARY | 2024-08-15 16:41 | XMS_ITS | Referral Summary ---
Author Organization [facility] [address] [place] [address] [address] [place] [address] Care Team Providers Care Track Surfacing Machine Operator Name Role Phone Sanket Isbell MD Primary Care Provider Encounters Date Type Department Care Team Description 08/15/2024 Telephone [facility] Cardiology [address] [place] [address] Tomy Pretty MD 06/05/2024 Orders Only [facility] Cardiology [address] [place] [address] [place] [address] Tomy Pretty MD NICM (nonischemic cardiomyopathy) (HCC) (Primary Dx); ICD (implantable cardioverter-defibri llator) in place; Ventricular fibrillation (HCC); NSVT (nonsustained ventricular tachycardia) (HCC) 06/05/2024 9:00 AM SODA TESTER Ancillary Procedure [facility] Cardiology [address] [place] [address] [place] [address] Sinus node dysfunction (HCC) (Primary Dx); Complete heart block (HCC); Cardiac pacemaker in situ from Last 3 [...] encounter. Assessment & Plan (04/06/2023 9:45 AM SODA TESTER): Mr. August King Jr is a 72 [...] and handed them our written description and eurdpxmlig-wzdnh-tvulsfhkk pertaining to the procedure. He would like [...] needed Assessment & Plan (03/26/2020 12:46 PM SODA TESTER): This is a 69 year old man [...] on file Legal Sex Male 3:51 AM SODA TESTER Gender Identity Not on file Sexual Orientation [...] CDT Plan of Treatment Not on file Procedures Procedure Name Priority Date/Time Associated Diagnosis Comments DEVICE CHECK - REMOTE Routine 06/05/2024 3:05 PM SODA TESTER Complete heart block (HCC) Cardiac pacemaker in situ from Last 3 Months Results * DEVICE CHECK - REMOTE (06/05/2024 3:05 PM SODA TESTER) Anatomical Region Laterality Modality Other Narrative 07/03/2024 10:30 AM SODA TESTER [employer] Amvia Edge Dual Pacemaker. Dx; Sinus Node Disease. DOI 01/16/2024-Maria De Jesus. [employer] home monitoring. Routine DDDR Pacemaker Remote. Transmission attached. Battery status: OK, 100% remaining battery life to [place]. Stable lead impedances, pacing and sensing thresholds. Presenting rhythm: A paced/V paced AP-25%, GOLF CADDY-61% No AT/AF episodes noted. No Ventricular high rate episodes detected. Medications: ASA 81 mg, amlodipine 5 mg, lisinopril 40 mg See scanned report. Office pacemaker follow up: 05/29/25 [employer] remote f/u 09/04/24. Mani Shetty RN Tomy Pretty MD [facility] PROC EDURES Final Result from Last 3 Months Insurance MEDICARE [facility] MEDICARE [facility] Care Teams Track Surfacing Machine Operator Relationship Specialty Start Date End Date Sanket Isbell MD [address] [facility] [address] [place] [address] PCP - General 02/24/15
--- OUTSIDE RECORDS SUMMARY | 2024-08-15 16:41 | XMS_ITS ---
Author Organization [facility] Address [address] [place], [place] [address] Care Team Providers Care Manager Asset Management Name Role Phone YANNI DOMINGUEZ Unavailable [phone] Sanket Isbell Unavailable Unavailable REASON FOR VISIT Patient presents for at-risk foot care . The patient has painful toenails that cause difficulty with ambulation and shoegear. The onset is gradual Encounters Encounter Location Date Provider Diagnosis [facility] [place] [address] [place], [place] [id number] 03/05/2024 YANNI DOMINGUEZ Tinea unguium B35.1 ; Pain in right toe(s) M79.674 ; Pain in left toe(s) M79.675 and Atherosclerosis of kake arteries of extremities with intermittent claudication, bilateral legs I70.213 Assessments Encounter Date Diagnosis (ICD Code) Assessment Notes Treatment Notes Treatment Clinical Notes Section Notes 03/05/2024 Tinea unguium (ICD-10 - B35.1) FUNGAL TOENAILS: Discussed various treatment options for fungal toenails including debridement, topical antifungals, oral antifungals, toenail avulsion, or toenail matrixectomy. NAIL DEBRIDEMENT: Nails 1-5 Bilateral were debrided extensively with nail nippers and emery board, reducing length and girth to pink healthy tissue with any subungual debris and necrotic tissue removed 03/05/2024 Pain in right toe(s) (ICD-10 - M79.674) 03/05/2024 Pain in left toe(s) (ICD-10 - M79.675) 03/05/2024 Atherosclerosis of kake arteries of extremities with intermittent claudication, bilateral [...] Name:YANNI DOMINGUEZ, 03:20:00 PM, [address], [address], [id number], Progress Notes * INDIA KING JROB: 0 (73 yo M)Acc No.[id number]:03/05/2024 Patient: AUGUST AGUILLON JR Provider: Cat Dominguez DPM :1950 A ge:73 Y S ex:Male Date:03/05/2024 Address:[address] [place], [place] [address] Subjective: * Chief Complaints: * Malina hook presents for at-risk foot care . The patient has painful toenails that cause difficulty with ambulation and shoegear. The onset is gradual * HPI: H PI: General care P monster presents to the office for at risk foot care. Patient states that their nails are thickened, elongated and painful. Patient states that it is aggravated by shoe gear. Onset is gradual. Patient denies being diabetic., Patient denies taking blood thinners., Date last seen by Dr. Isbell was March 2024., Initials HG. sample. * Medical History: * Surgical History: * Hospitalization/Major Diagno stic Procedure: * Medications: Objective: * Vitals: * Examination: C onstitutional: Constitutional T he patient is awake, alert, well developed, well groomed and well nourished. D ermatologic: Skin findings: S kin is thin, atrophic and lacking pedal hair. Nail pathology: N ails 1, 2, 3, 4, and 5 bilateral are elongated, thick, discolored, and dystrophic with subungual debris. They are painful to palpation. ? V ascular: Dorsalis pedis pulse: 1 /4 b ilateral. Posterior tibial pulse: 0 /4 b ilateral. Capillary refill: g reater than 3 seconds. Edema: N o edema, bilateral. N eurologic: Gross sensation G ross sensation is intact to light touch.? M usculoskeletal: Muscle Strength M uscle strength is 5/5 in regards to dorsiflexion, plantarflexion, inversion, and eversion in bilateral lower extremities. ? Assessment: * Assessment: 1. T inea unguium - B35.1 (Primary) 2 . P ain in right toe(s) - M79.674? 3. P ain in left toe(s) - M79.675 4 . A therosclerosis of kake arteries of extremities with intermittent claudication, bilateral legs - I70.213 Plan: * Treatment: * Procedure Codes: 1 1721 DEBRIDE NAIL, 6 OR MORE, Modifiers: Q8 * Follow Up: 1 0-12 Weeks (Reason: At Risk Foot care, sooner if problems arise) * Billing Information: * Visit Code: * Procedure Codes: 82134 DEBRIDE NAIL, 6 OR MORE. Modifiers: Q8 * FACTURING LEADER Sign off status: Completed true * Provider: Cat Dominguez DPM Date: 05/05/2023 Generated for Cleo mi/Chris/Javier on: 0 08/15/2024 [...] gear. Onset is gradual. Patient denies being diabetic., Patient denies taking blood thinners., Date last seen by Dr. Isbell was March 2024., Initials HG sample Examination Category Sub-Category Detail Notes Category Not es Dermatologic Skin findings: Skin is thin, at rophic and lacking pedal hair Nail pathology: Nails 1, 2, 3, 4, an d 5 bilateral are elongated, thick, discolored, and dystrophic with subungual debris. They are painful to palpation Neurologic Gross sensation Gross sensation is intact to light touch Vascular Dorsalis pedis pulse: 1/4 bilateral Edema: No edema, bilateral Capillary refill: greater than 3 secon ds Posterior tibial pulse: 0/4 bilateral Musculoskeletal Muscle Strength Muscle strength is 5/5 in regards to dorsiflexion, plantarflexion, inversion, and eversion in bilateral lower extremities Constitutional Constitutional The patient is a wake, alert, well developed, well groomed and well nourished
--- OUTSIDE RECORDS SUMMARY | 2024-08-15 16:41 | XMS_ITS | Patient Health Record ---
Author Organization [facility] Address [address] [facility] [address] [place], [place] [address] Care Team Providers Care Metal Wire Technician Name Role Phone YANNI DOMINGUEZ Unavailable [phone] Sanket Isbell Unavailable Unavailable Allergies No Known Allergies Reason For Referral No Information Immunizations Vaccine Route Administration Date Status Comme nts Influenza, high dose seasonal Unknown 02/21/2023 Admini stered Encounters Encounter Location Date Provider Diagnosis [facility] [place] [address] [place], [place] [id number] 10/17/2023 YANNI SNOOK Tinea unguium B35.1 ; Pain in right toe(s) M79.674 ; Pain in left toe(s) M79.675 and Intermittent claudication of both lower extremities due to atherosclerosis I70.213 [facility] [place] [address] [place] [id number] 12/26/2023 YANNI SNOOK Tinea unguium B35.1 ; Pain in right toe(s) M79.674 ; Pain in left toe(s) M79.675 and Atherosclerosis of yankton arteries of extremities with intermittent claudication, bilateral legs I70.213 [facility] [address] [place], [place] [id number] 03/05/2024 YANNI SNOOK Tinea unguium B35.1 ; Pain in right toe(s) M79.674 ; Pain in left toe(s) M79.675 and Atherosclerosis of yankton arteries of extremities with intermittent claudication, bilateral legs I70.213 [facility] [address] [place], [place] [id number] 06/11/2024 YANNI DOMINGUEZ Tinea unguium B35.1 ; Pain in right foot M79.671 ; Pain in left foot M79.672 ; Atherosclerosis of yankton arteries of extremities with intermittent claudication, bilateral legs I70.213 and Acquired keratosis [keratoderma] palmaris et plantaris L85.1 Assessments Encounter Date Diagnosis (ICD Code) Assessment Notes Treatment Notes Treatment Clinical Notes Section Notes 10/17/2023 Tinea unguium (ICD-10 - B35.1) FUNGAL TOENAILS: Discussed various treatment options for fungal toenails including debridement, topical antifungals, oral antifungals, toenail avulsion, or toenail matrixectomy. NAIL DEBRIDEMENT: Nails 1-5 Bilateral were debrided extensively with nail nippers and emery board, reducing length and girth to pink healthy tissue with any subungual debris and necrotic tissue removed 10/17/2023 Pain in right toe(s) (ICD-10 - M79.674) 12/26/2023 Tinea unguium (ICD-10 - B35.1) FUNGAL [...] in right toe(s) (ICD-10 - M79.674) 03/05/2024 Tinea unguium (ICD-10 - B35.1) FUNGAL [...] Pain in right toe(s) (ICD-10 - M79.674) 06/11/2024 Tinea unguium (ICD-10 - B35.1) Nails 1-5 Bilateral were debrided extensively with nail nippers and emery board, reducing length and girth to pink healthy tissue with any subungual debris and necrotic tissue removed 06/11/2024 Pain in right foot (ICD-10 - M79.671) 06/11/2024 Pain in left foot (ICD-10 - M79.672) 03/05/2024 Pain in left toe(s) (ICD-10 - M79.675) 12/26/2023 Pain in left toe(s) (ICD-10 - M79.675) 10/17/2023 Pain in left toe(s) (ICD-10 - M79.675) 10/17/2023 Intermittent claudication of both lower extremities due to atherosclerosis (ICD-10 - I70.213) 12/26/2023 Atherosclerosis of yankton arteries of extremities with intermittent claudication, bilateral legs (ICD-10 - I70.213) 03/05/2024 Atherosclerosis of yankton arteries of extremities with intermittent claudication, bilateral legs (ICD-10 - I70.213) 06/11/2024 Atherosclerosis of yankton arteries of extremities with intermittent claudication, bilateral legs (ICD-10 - I70.213) 06/11/2024 Acquired keratosis [keratoderma] palmaris et plantaris (ICD-10 - L85.1) A total of 2 corns or calluses, as described in the note above, were cut and pared utilizing a #15 blade Plan Of Treatment Next Appt Details Provider Name:YANNI DOMINGUEZ, 03:20:00 PM, [address], [facility], [place], [place], [id number], Insurance Providers Payer Name Payer Address Payer Phone Subscriber Number Group Number Insured Name Patient Relationship to Insured Coverage Start Date Coverage End Date Medicare Part B [facility] [address] [phone] [id number] AUGUST KING JR Self - patient is the insured [facility] [address] [facility] [id number] AUGUST KING JR Self - patient is the insured 4
--- OUTSIDE RECORDS SUMMARY | 2024-08-15 16:42 | XMS_ITS | Clinical Summary ---
Author Organization [facility] Address [address] [place] [address] Care Team Providers Care Relocation Associate Name Role Phone Sanket Isbell MD Primary Care Provider [phone] Source Comments [facility],non-owned Affiliates and Associated Physician Practices is amultiple site organization consisting of ambulatory clinics and hospital sitesin [place], [place], [place] and [place]. This disclosure is being madepursuant to the Care Everywhere program and may not contain all information available regarding this patient. Last updated 18.[facility] Allergies No known active allergies Medications * Be aware that medications may not be up to date on this document. Alwaysverify current medications with the patient. carbidopa-levod opa (SINEMET) 25-250 MG tablet Take 25-250 tablets [...] at Not on file Legal Sex Male 1:58 PM CDT Gender Identity Not on file Sexual Orientation Not on file Last Filed Vital Signs Vital Sign Reading Time Taken Comments Blood Pressure 126/72 04/10/2018 12:37 PM RECORDS TECH Pulse 71 04/10/2018 12:37 PM RECORDS TECH Temperature - - Respiratory Rate 18 04/10/2018 12:37 PM RECORDS TECH Oxygen Saturation 96% 04/10/2018 12:37 PM RECORDS TECH Inhaled Oxygen Concentration - - Weight 91.6 kg (202 lb) 04/10/2018 12:37 PM RECORDS TECH Height 182.9 cm (6') 04/10/2018 12:37 PM RECORDS TECH Body Mass Index 27.4 04/10/2018 12:37 PM RECORDS TECH Plan of Treatment Health Maintenance Due Date Last Done Comments COLOGUARD (AGES 45-75) - COL ON CA SCREENING 1950 COLON MONITORING 1950 COLONOSCOPY - COLON CA SCREENING 1949 CT COLONOGRAPHY - COLON CA SCREENING 1950 Colorectal Cancer Screening 1950 FIT - COLON CA SCREENING 1950 FLEX SIG - COLON CA SCREENING 1950 HEPATITIS C SCREENING 06/25/1967 DTAP/TDAP/TD VACCINES (1 - Tdap) 1968 PNEUMOCOCCAL VACCINE 50+ (1 of 1 - PCV) 1999 ZOSTER VACCINE (1 of 2) 1999 SCREENING FOR DIABETES 01/19/2018 COVID-19 VACCINE ( - 2023-2 5 season) 2024 DEPRESSION SCREENING 05/02/2024 Respiratory Syncytial Virus (RSV) Vaccine Pt: or over 60 yrs (1 - 1-dose 75+ series) 2024 INFLUENZA VACCINE (Season Ended) 2024 HEPATITIS B VACCINE Aged Out No longe r eligible based on patient's age to complete this topic HIB VACCINE Aged Out No longer eligi ble based on patient's age to complete this topic HPV VACCINE Aged Out No longer eligi ble based on patient's age to complete this topic MENINGOCOCCAL (Group B) VACC INE SHARED DECISION-MAKING Aged Out No longer eligibl e based on patient's age to complete this topic MENINGOCOCCAL GROUPS A/C/Y/W VACCINE Aged Out No longer eligible b ased on patient's age to complete this topic Insurance MEDICARE [facility] MEDICARE [facility] Care Teams Relocation Associate Relationship Specialty Start Date End Date Sanket Isbell MD [address] [place] [address] PCP - General Family Medicine 01/19/18
--- OUTSIDE RECORDS SUMMARY | 2024-08-15 16:42 | XMS_ITS ---
Author Organization [facility] Address [address] [place], [place] [address] Care Team Providers Care Electrician Aircraft Name Role Phone BRYANYANNI Tapia Unavailable [phone] Sanket Isbell Unavailable Unavailable REASON FOR VISIT Patient presents for at-risk foot care . The patient has painful toenails and calluses that are causing difficulty with ambulation and shoegear. The onset is gradual Encounters Encounter Location Date Provider Diagnosis [facility] [place] [address] [place], [place] [id number] 06/11/2024 YANNI DOMINGUEZ Tinea unguium B35.1 ; Pain in right foot M79.671 ; Pain in left foot M79.672 ; Atherosclerosis of stebbins arteries of extremities with intermittent claudication, bilateral legs I70.213 and Acquired keratosis [keratoderma] palmaris et plantaris L85.1 Assessments Encounter Date Diagnosis (ICD Code) Assessment Notes Treatment Notes Treatment Clinical Notes Section Notes 06/11/2024 Tinea unguium (ICD-10 - B35.1) Nails 1-5 Bilateral were debrided extensively with nail nippers and emery board, reducing length and girth to pink healthy tissue with any subungual debris and necrotic tissue removed 06/11/2024 Pain in right foot (ICD-10 - M79.671) 06/11/2024 Pain in left foot (ICD-10 - M79.672) 06/11/2024 Atherosclerosis of stebbins arteries of extremities with intermittent claudication, bilateral legs (ICD-10 - I70.213) 06/11/2024 Acquired keratosis [keratoderma] palmaris et plantaris (ICD-10 - L85.1) A total of 2 corns or calluses, as described in the note above, were cut and pared utilizing a #15 blade Plan Of Treatment Treatment Notes Assessment Notes Tinea unguium Nails 1-5 Bilateral were debrided extensively with nail nippers and emery board, reducing length and girth to pink healthy tissue with any subungual debris and necrotic tissue removed Acquired keratosis [keratode rma] palmaris et plantaris A total of 2 corns or calluses, as described in the note above, were cut and pared utilizing a #15 blade Next Appt Details Follow Up: 10 - 12 weeks, Re ason: At-Risk Foot care, sooner if problems develop. Provider Name:YANNI DOMINGUEZ, 03:20:00 PM, [address], [address], [phone], Progress Notes * INDIA KING JROB: 0 (73 yo M)Acc No.[id number]:06/11/2024 Patient: Jeremy AUGUST MEDINA JR Provider: Cat Dominguez DPM :1950 A ge:73 Y S ex:Male Date:06/11/2024 Address:[address] [place], [place] [id number] Subjective: * Chief Complaints: * Malina hook presents for at-risk foot care . The patient has painful toenails and calluses that are causing difficulty with ambulation and shoegear. The onset [...] Date last seen by Dr. Isbell was 06/2024., Initials mf. * Medical History: * Surgical History: * Hospitalization/Major Diagno stic Procedure: * Social History: M igrated Social History: M igrated Social History: History of tobacco use : , Smoking Status : Never smoked. * Medications: Objective: * Vitals: * Examination: P hysical Examination: General appearance: A lert, pleasant, well-nourished and in no acute distress. D ermatologic: Skin findings: S kin is thin, atrophic and lacking pedal hair. Hypertrophic / hyperkeratotic lesion: p lantar aspect of the left and right 5th metatarsal head. Nail pathology: N ails 1, 2, 3, 4, and 5 bilateral are elongated, thick, discolored, and dystrophic with subungual debris. They are painful to palpation. ? V ascular: Dorsalis pedis pulse: 1 /4 b ilateral. Posterior tibial pulse: 0 /4 bilateral. Capillary refill: g reater than 3 seconds. Edema: N o edema bilateral. N eurologic: Gross sensation G rossly intact to light touch. There is negative Tinel's sign. M usculoskeletal: Muscle Strength M uscle strength is 5/5 in regards to dorsiflexion, plantarflexion, inversion, and eversion in bilateral lower extremities. ? Assessment: * Assessment: 1. T inea unguium - B35.1 (Primary) 2 . P ain in right foot - M79.671 ? 3 . P ain in left foot - M79.672 4 . A therosclerosis of stebbins arteries of extremities with intermittent claudication, bilateral legs - I70.213 5 . Acquired keratosis [keratoderma] palmaris et plantaris - L85.1 Plan: * Treatment: 2. A cquired keratosis [keratoderma] palmaris et plantaris Notes: A total of 2 corns or calluses, as described in the note above, were cut and pared utilizing a #15 blade * Procedure Codes: 1 1056 TRIM SKIN LESIONS, 2 TO 4, Modifiers: Q8 14068 DEBRIDE NAIL, 6 OR MORE, Modifiers: 59 , Q8 * Follow Up: 1 0 - 12 weeks (Reason: At-Risk Foot care, sooner if problems develop.) * Billing Information: * Visit Code: * Procedure Codes: 67364 TRIM SKIN LESIONS, 2 TO 4. Modifiers: Q8 68971 DEBRIDE NAIL, 6 OR MORE. Modifiers: 59, Q8 * UNICATIONS ELECTRICIAN SUPERVISOR Sign off status: Completed true * Provider: Cat Dominguez DPM Date: 0 06/11/2024 Generated for Cleo mi/Chris/Javier on: 0 08/15/2024 04:41 PM CDT History and Physical Notes * [...] Date last seen by Dr. Isbell was 06/2024., Initials mf Examination Category Sub-Category Detail Notes Category Not es Dermatologic Skin findings: Skin is thin, at rophic and lacking pedal hair Nail pathology: Nails 1, 2, 3, 4, an d 5 bilateral are elongated, thick, discolored, and dystrophic with subungual debris. They are painful to palpation Hypertrophic / hyperkeratotic lesion: pl val aspect of the left and right 5th metatarsal head Neurologic Gross sensation Grossly intact t o light touch. There is negative Tinel's sign Vascular Dorsalis pedis pulse: 1/4 bilateral Edema: No edema bilateral Capillary refill: greater than 3 secon ds Posterior tibial pulse: 0/4 bilateral Physical Examination General appearance: Alert, pleasant, well-nourished and in no acute distress Musculoskeletal Muscle Strength Muscle strength is 5/5 in regards to dorsiflexion, plantarflexion, inversion, and eversion in bilateral lower extremities
[2024-08-15 16:47] LABS: Prothrombin Time 13.9 Seconds (11.1-14.7)
[2024-08-15 16:48] LABS: Partial Thromboplastin Time 26.1 Seconds (22.3-36.8)
--- OUTSIDE RECORDS SUMMARY | 2024-08-15 17:03 | XMS_ITS | Referral Summary ---
Author Organization [facility] [address] [place] [address] [address] [place] [address] Care Team Providers Care Airport Operations Duty Manager Name Role Phone Sanket Isbell MD Primary Care Provider Encounters Date Type Department Care Team Description 08/15/2024 Telephone [facility] Cardiology [address] [place] [address] Tomy Pretty MD 06/05/2024 Orders Only [facility] Cardiology [address] [place] [address] [place] [phone] Tomy Pretty MD NICM (nonischemic cardiomyopathy) (HCC) (Primary Dx); ICD (implantable cardioverter-defibri llator) in place; Ventricular fibrillation (HCC); NSVT (nonsustained ventricular tachycardia) (HCC) 06/05/2024 9:00 AM IT TECHNICAL SUPPORT SPECIALIST Ancillary Procedure [facility] Cardiology [address] [place] [address] [place] [phone] Sinus node dysfunction (HCC) (Primary Dx); [...] encounter. Assessment & Plan (04/06/2023 9:45 AM IT TECHNICAL SUPPORT SPECIALIST): Mr. August King Jr is a 72 [...] and handed them our written description and rjefxuvmwh-zjkxd-ugzlvkist pertaining to the procedure. He would like [...] needed Assessment & Plan (03/26/2020 12:46 PM IT TECHNICAL SUPPORT SPECIALIST): This is a 69 year old man [...] on file Legal Sex Male 3:51 AM IT TECHNICAL SUPPORT SPECIALIST Gender Identity Not on file Sexual Orientation [...] CHECK - REMOTE Routine 06/05/2024 3:05 PM IT TECHNICAL SUPPORT SPECIALIST Complete heart block (HCC) Cardiac pacemaker in situ from Last 3 Months Results * DEVICE CHECK - REMOTE (06/05/2024 3:05 PM IT TECHNICAL SUPPORT SPECIALIST) Anatomical Region Laterality Modality Other Narrative 07/03/2024 10:30 AM IT TECHNICAL SUPPORT SPECIALIST Bi[employer]ik Amvia Edge Dual Pacemaker. Dx; Sinus Node Disease. DOI 01/16/2024-Maria De Jesus. Biotronik home monitoring. Routine DDDR Pacemaker Remote. Transmission attached. Battery status: OK, 100% remaining battery life to ILIA. Stable lead impedances, pacing and sensing thresholds. Presenting rhythm: A paced/V paced AP-25%, GPS FIELD DATA COLLECTOR-61% No AT/AF episodes noted. No Ventricular high rate episodes detected. Medications: ASA 81 mg, amlodipine 5 mg, lisinopril 40 mg See scanned report. Office pacemaker follow up: 05/29/25 [employer] remote f/u 09/04/24. Mani Shetty RN Tomy Pretty MD [facility] PROC EDURES Final Result from Last 3 Months Insurance MEDICARE [facility] MEDICARE [facility] Care Teams Airport Operations Duty Manager Relationship Specialty Start Date End Date Sanket Isbell MD [address] [facility] [address] [place] [address] PCP - General 02/24/15
--- OUTSIDE RECORDS SUMMARY | 2024-08-15 17:03 | XMS_ITS | Clinical Summary ---
Author Organization [facility] Address [address] [place] [address] Care Team Providers Care Business Development Coordinator Name Role Phone Sanket Isbell MD Primary Care Provider [phone] Source Comments [facility],non-owned Affiliates and Associated Physician Practices is amultiple site organization consisting of ambulatory clinics and hospital sitesin [place], [place], [place] and [place]. This disclosure is being madepursuant to the Care Everywhere program and may not contain all information available regarding this patient. Last updated 18.[facility] Allergies No known active allergies Medications * [...] Comments Blood Pressure 126/72 04/10/2018 12:37 PM MARBLE RUBBER Pulse 71 04/10/2018 12:37 PM MARBLE RUBBER Temperature - - Respiratory Rate 18 04/10/2018 12:37 PM MARBLE RUBBER Oxygen Saturation 96% 04/10/2018 12:37 PM MARBLE RUBBER Inhaled Oxygen Concentration - - Weight 91.6 kg (202 lb) 04/10/2018 12:37 PM MARBLE RUBBER Height 182.9 cm (6') 04/10/2018 12:37 PM MARBLE RUBBER Body Mass Index 27.4 04/10/2018 12:37 PM MARBLE RUBBER Plan of Treatment Health Maintenance Due Date [...] age to complete this topic Insurance MEDICARE [facility] MEDICARE [facility] Care Teams Business Development Coordinator Relationship Specialty Start Date End Date Sanket Isbell MD [address] [place] [address] PCP - General Family Medicine 01/19/18
--- OUTSIDE RECORDS SUMMARY | 2024-08-15 17:03 | XMS_ITS | Encounter Summary ---
Author Organization [facility] Address [address] [place] [address] Care Team Providers Care Taxi Truck Driver Name Role Phone Sanket Isbell MD Primary Care Provider Encounter Details Date Type Department Care Team (Late st Contact Info) Description 08/15/2024 Telephone [facility] Cardiology [address] 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
--- OUTSIDE RECORDS SUMMARY | 2024-08-15 17:03 | XMS_ITS | Clinical Summary ---
Author Organization [facility] [address] Address [address] [place] [address] Care Team Providers Care Gear Lapping Machine Operator Name Role Phone Sanket Isbell [...] encounter. Assessment & Plan (04/06/2023 9:45 AM ELEMENTARY EDUCATION TUTOR): Mr. August King Jr is a 72 [...] and handed them our written description and gtamcetzga-omoox-paqegemzo pertaining to the procedure. He would like [...] needed Assessment & Plan (03/26/2020 12:46 PM ELEMENTARY EDUCATION TUTOR): This is a 69 year old man [...] Type Department Care Team Description 08/15/2024 Telephone [facility] Cardiology [address] [place] [phone] Tomy Pretty MD 06/05/2024 9:00 AM ELEMENTARY EDUCATION TUTOR Ancillary Procedure [facility] Cardiology [address] [place] [address] [place] [phone] Sinus node dysfunction (HCC) (Primary Dx); Complete heart block (HCC); Cardiac pacemaker in situ 06/05/2024 Orders Only [facility] Cardiology [address] [place] [address] [place] [phone] Tomy Pretty MD NICM (nonischemic cardiomyopathy) [...] on file Legal Sex Male 3:51 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 Dx; Sinus Node Disease. DOI 01/16/2024-Maria De Jesus. Biotronik home monitoring. Routine DDDR Pacemaker Remote. Transmission attached. Battery status: OK, 100% remaining battery life to ILIA. Stable lead impedances, pacing and sensing thresholds. Presenting rhythm: A paced/V paced AP-25%, MOLD STAMPER-61% No AT/AF episodes noted. No Ventricular high rate episodes detected. Medications: ASA 81 mg, amlodipine 5 mg, lisinopril 40 mg See scanned report. Office pacemaker follow up: 05/29/25 Biotronik remote f/u 09/04/24. Mani Shetty RN Tomy Pretty MD [facility] PROC EDURES Final Result from Last 3 Months Insurance MEDICARE [employer] [place] [employer]ICARE [facility] Care Teams Gear Lapping Machine Operator Relationship Specialty Start Date End Date Sanket Isbell MD [address] [address] PCP - General 02/24/15
[2024-08-15] MEDS: LACTATED RINGERS 1,000 ML 999 ML IV CONT (17:52)
[2024-08-15 18:19] LABS: Add Urine Microscopic? NO; Appearance Urine Clear (Clear); Bilirubin Urine Negative (Negative); Blood Urine Negative (Negative); Color Urine Yellow (Yellow); Glucose Urine UA Negative (Negative); Ketones Urine Negative (Negative); Leukocyte Esterase Ur Negative LEU/UL (Negative); Nitrate Urine Negative (Negative); Protein Urine Negative (Negative); Specific Grav Ur 1.004 (1.001-1.035); Urobilinogen Urine 0.2 mg/dL (<2.0)
[2024-08-15 19:01] LABS: Troponin I < 0.012 ng/mL (0.000-0.034)
--- NOTE | 2024-08-15 19:18 | ECG_ITS ---
Test Date: 2024-08-15 19:44:24 Measurements Intervals [place] Rate: 72 P: 92 WI: 273 QRS: -47 QRSD: 165 T: 130 QT: 451 QTc: 496 Interpretive Statements ATRIAL SENSE- ELECTRONIC VENTRICULAR PACEMAKER BASELINE ARTIFACT- I, II, III, AVR, AVL, AVF, V1-V6 NO FURTHER INTERPRETATION IS POSSIBLE ATYPICAL ECG Compared to ECG 08/15/2024 15:59:58 No significant changes Electronically Signed On 08-15-2024 19:56:28 CDT by Virgil Lindsey D.O.
--- NOTE | 2024-08-15 19:35 | ED_ITS ---
HPI - Chest Pain General Chief Complaint: Chest Pain Stated Complaint: [place] faint-fell Low BP 88/51, 87% Time Seen by Provider: 08/15/24 16:51 History of Present Illness HPI narrative: Patient presenting here with concern for possible low blood pressure, has been intermittently low over the last few days, and he had felt lightheaded, and had fallen earlier but thankfully was mostly caught by his and did not hit his head. Related Data Home Medications ?Medication ?Instructions ?Recorded ?Confirmed ?Last Taken ?Type lisinopril 40 mg tablet 40 mg PO DAILY 06/04/24 06/04/24 Unknown History apalutamide 60 mg tablet (Erleada) 240 mg PO DAILY 07/11/24 Unknown History relugolix 120 mg tablet (Orgovyx) 120 mg PO DAILY 07/11/24 Unknown History Allergies Allergy/AdvReac Type Severity Reaction Status Date / Time diphenhydramine AdvReac Intermediate palpatation Verified 08/15/24 15:35 s Review of Systems 2 Review of Systems: All systems reviewed & are unremarkable except as noted in HPI and below PMFSH Past Medical History Medical History Prostate cancer metastatic to bone BPH w urinary obs/LUTS Non-Hodgkin lymphoma in remission Kidney stones Hypertension Parkinsons Parkinson disease Surgical History Surgical History Cardiac pacemaker H/O prostate biopsy S/P total knee arthroplasty left Social History Social History Social History: Smoking status: Never smoker Second hand tobacco smoke exposure: No Alcohol intake: never Substance use: never Substance use type: does not use Do You Feel Safe in your Home?: Yes Lack of Transportation: No Lack of Food: Never True Current Housing: I Have Housing Concerned About Future Housing: No Difficulty Paying Gas/Electric Bills: No Difficulty Paying for Meds: No Currently Unemployed: No Education: Associate Degree Difficulty w/ Childcare or Family Care: No Living arrangements: with family Occupation/Education: retired Additional occupation/education comments: [employer], [employer] Gender identity (if verbalized by the patient): Male Sexual Orientation (if Verbalized by the Patient): Straight or Heterosexual Spiritual care concerns: No Exam 2 Narrative: EXAMINATION OF ORGAN SYSTEMS/BODY AREAS: Constitutional: Vital signs per nursing GENERAL:[No acute distress, non-toxic appearing.] HEAD: Normal with no signs of head trauma. EYES: EOMI, conjunctiva normal ENT: Hearing grossly intact LUNGS: Nonlabored breathing. HEART: [Regular rate and rhythm] ABD: [Soft], [nontender to palpation] EXT: Normal range of motion SKIN: [No rashes or lesions.] NEURO: [Alert; tremulous. No gross focal sensory or strength deficits.] PSYCH: Normal affect Course Vital Signs Vital signs: Vital Signs Temperature 97.9 F 08/15/24 15:55 Pulse Rate 68 08/15/24 15:55 Respiratory Rate 20 08/15/24 15:55 Blood Pressure 122/70 08/15/24 15:55 Pulse Oximetry 99 08/15/24 15:55 Oxygen Delivery Room Air 08/15/24 15:55 Temperature 97.9 F 08/15/24 15:55 Pulse Rate 75 08/15/24 18:46 Respiratory Rate 20 08/15/24 18:46 Blood Pressure 172/85 H 08/15/24 18:46 Pulse Oximetry 99 08/15/24 18:46 Oxygen Delivery Room Air 08/15/24 16:39 MDM - Chest Pain MDM Narrative Medical decision making narrative: Patient presenting here with lightheadedness and fall, had recently been taken off his blood pressure medication due to concerns for possible low blood pressure. He is well-appearing here in no distress, but is tremulous from his Parkinson's, blood pressure has been stable here, workup including 2 troponins were both negative, EKG on my independent interpretation shows paced rhythm at 71, MA 240, QRS 158, QTC 493, no significant ST elevations or depressions or signs of acute arrhythmia or ischemia. Urinalysis is normal. He is given a L of IV fluids and on re-evaluation, feels better. Repeat EKG on my independent interpretation showing paced rhythm without any new signs of acute ischemia or arrhythmia. I do suspect he may have some autonomic instability or gait instability progressively worsening from his Parkinson's. Did have a discussion with patient and at bedside who do feel comfortable with discharge with close follow-up and return here if he feels lightheaded again and falls. They are agreeable to this plan. Will trial smaller dose of antihypertensive. Lab Data 08/15/24 16:12 08/15/24 16:12 Labs: Lab Results 08/15/24 08/15/24 08/15/24 Range/Units 16:12 18:13 18:34 WBC 5.1 (4.5-10.0) K/mm3 RBC 3.85 L (4.6-6.20) M/mm3 Hgb 12.0 L (14.0-18.0) g/dL Hct 36.0 L (42.0-52.0) % MCV 93.5 (80-100) fl MCH 31.2 (26-34) pg MCHC 33.3 (32-36) g/dl RDW 13.2 (11.5-14.5) % Plt Count 174 (150-375) k/mm3 MPV 10.3 (7.4-10.4) fl Immature Gran % (Auto) 0.6 H (0-0.5) % Neut % (Auto) 73.7 H (45.5-73.1) % Lymph % (Auto) 8.7 L (18.3-44.2) % [place] % (Auto) 14.8 H (2.6-8.5) % Eos % (Auto) 1.6 (0-4.4) % Baso % (Auto) 0.6 (0.2-1.2) % Lymph # (Auto) 0.44 L (0.9-3.2) K/mm3 [place] # (Auto) 0.8 H (0.1-0.6) K/mm3 Eos # (Auto) 0.1 (0-0.3) K/mm3 Baso # (Auto) 0.0 (0.0-0.1) K/mm3 Abs Immat Gran (auto) 0.03 (0.00-0.031) K/mm3 Absolute Neuts (auto) 3.7 (1.3-6.7) K/mm3 Absolute Nucleated RBC 0.000 (0.0-0.012) K/mm3 Nucleated RBC % 0.0 (0.0-0.2) % PT 13.9 (11.1-14.7) Seconds INR 1.0 APTT 26.1 (22.3-36.8) Seconds Sodium 134 L (137-145) mmol/L Potassium 4.2 (3.4-5.0) mmol/L Chloride 97 L (98-107) mmol/L Carbon Dioxide 27 (22-30) mmol/L Anion Gap 10 (4-12) mmol/L BUN 22 H (9-20) mg/dL Creatinine 0.89 (0.7-1.3) mg/dL Estim Creat Clear Calc 75 ml/min Estimated GFR > 60 (59 - ) Glucose 105 (65-110) mg/dL Calcium 9.0 (8.4-10.2) mg/dL Total Bilirubin 0.4 (0.2-1.3) mg/dL AST 24 (17-59) U/L ALT 10 (6-50) U/L Alkaline Phosphatase 57 (38-126) U/L Troponin I < 0.012 < 0.012 (0.000-0.034) ng/mL Total Protein 8.0 (6.3-8.2) g/dL Albumin 4.3 (3.5-5.1) g/dL Lipase 15 L (23-300) U/L Urine Color Yellow (Yellow) Urine Appearance Clear (Clear) Urine pH 7.0 (5.0-9.0) Ur Specific [place] 1.004 (1.001-1.035) Urine Protein Negative (Negative) mg/dL Urine Glucose (UA) Negative (Negative) mg/dL Urine Ketones Negative (Negative) mg/dL Ur Blood (Man) Negative (Negative) Urine Nitrate Negative (Negative) Urine Bilirubin Negative (Negative) Urine Urobilinogen 0.2 (<2.0) mg/dL Leukocyte Esterase Rfl Negative (Negative) DONNA/UL Discharge Plan Discharge Clinical Impression: HTN (hypertension), benign, Lightheadedness, Chest pain Patient Disposition: Home Condition: Stable Instructions: Chest Pain (ED), Lightheadedness (ED) Additional Instructions: Please follow up with your PCP in the next few days; come back to the Hospital if you have any further issues/symptoms. Patient Language: Vietnamese Prescriptions: New lisinopril 10 mg tablet 10 mg PO DAILY Qty: 30 0RF No Action sennosides-docusate sodium [Senokot-S] 8.6-50 mg tablet 2 tab-cap PO BID Qty: 60 5RF Erleada 60 mg tablet 240 mg PO DAILY Orgovyx 120 mg tablet 120 mg PO DAILY carbidopa-levodopa [Sinemet] 25-100 mg tablet 1 tablet PO QID Qty: 360 3RF Rx Instructions: may increase to 1/2 tablets 4 times a day khwoydmvz-waygxoct-qcqlykqgcv 50-200-200 mg tablet 1 tablet PO QID Qty: 120 12RF lisinopril 40 mg tablet 40 mg PO DAILY quetiapine 25 mg tablet See Rx Instructions .ROUTE .COMPLEX Qty: 45 1RF Dose Instruction: TAKE ONE-HALF TABLET BY MOUTH EVERY EVENING Rx Instructions: TAKE ONE-HALF TABLET BY MOUTH EVERY EVENING Follow-up/Referrals: Sanket Isbell MD [Primary Care Provider] - 2 Days
[2024-08-15] MEDS: lisinopriL 10 MG TABLET PO (19:39)
== END 2024-08-15 19:57 | disposition home or self-care (01) ==
PROVIDERS: Emergency Provider Emergency Medicine; PCP Family Medicine
DX: R07.9 Chest pain, unspecified (principal); R42 Dizziness and giddiness; I10 Essential (primary) hypertension; G20.A1 Parkinson's disease without dyskinesia, without mention of fluctuations; N40.0 Benign prostatic hyperplasia without lower urinary tract symptoms; Z87.442 Personal history of urinary calculi; Z85.46 Personal history of malignant neoplasm of prostate; Z85.72 Personal history of non-Hodgkin lymphomas
CPT/HCPCS: 36415; 71046; 80053; 81003; 83690; 84484; 85025; 85610; 85730; 93005; 96360; 99284; A9270; J7120

== ENCOUNTER 2024-11-08 08:57 | Inpatient (IN) | payer MEDICARE, SELFPAY ==
[2024-11-08] VITALS (12 sets, daily range): BP systolic 124–155; BP diastolic 77–97; PULSE 60–67; RESP 17–22; TEMP 36.4; O2SAT 94–100; BMI 25.9
--- NOTE | ~2024-11-08 | XR_ITS ---
EXAM/ PROCEDURE: XR hip RT 2V w AP pelvis - 11/08/2024 10:05 CDT HISTORY: 74 years old Male with syncope COMPARISON: None available TECHNIQUE: Three view(s) FINDINGS/ IMPRESSION: There are no fractures or dislocations.Joint space narrowing, subchondral sclerosis, subchondral cyst formation and osteophyte formation, compatible with moderate osteoarthritis. Reviewed, dictated and finalized at location A.
--- NOTE | ~2024-11-08 | XR_ITS ---
EXAM/ PROCEDURE: XR forearm RT 2V - 11/08/2024 10:05 CDT HISTORY: 74 years old Male with syncope COMPARISON: None available TECHNIQUE: Three view(s) FINDINGS/ IMPRESSION: There are no fractures or dislocations.Joint space narrowing, subchondral sclerosis, subchondral cyst formation and osteophyte formation, compatible with mild osteoarthritis. Reviewed, dictated and finalized at location A.
--- NOTE | ~2024-11-08 | CT_ITS ---
History: Syncope PROCEDURE: CT cervical spine without intravenous contrast. COMPARISON: 01/15/2024 TECHNIQUE: Multiple contiguous axial images of the cervical spine were performed without the administration of i ntravenous contrast. DLP: 425 mGy-cm FINDINGS: Grade 1 anterolisthesis of C2 onto C3, unchanged from 01/15/2024. Straightening and slight reversal of the normal curvature of the cervical spine. Significant degenerative disease most prominent at the levels of C4/C5 and C5/C6 with osteophyte form ation, disc space narrowing, endplate changes and facet arthropathy. No acute fractures are present. The bilateral lung apices are unremarkable. No soft tissue abnormality is appreciated The airway is patent. Impression: Degenerative disease, without acute fracture. Reviewed, dictated and finalized at location A. Impression: Degenerative disease, without acute fracture.
--- NOTE | ~2024-11-08 | CT_ITS ---
EXAMINATION: CTA chest abdomen pelvis DATE: 11/08/2024 10:48 INDICATION: Syncope. Chest and abdominal pain. TECHNIQUE: Computed tomographic angiography (CTA) of the abdomen and pelvis was performed with 100 mL Omnipaque-350 intravenous contrast. Additional 3D reconstructions utilizing rotating maximum intensi ty projection (MIP) were performed. Automated exposure control and iterative reconstruction technique were employed. The dose-length product was 1084.11 mGy-cm. COMPARISON: CT dated 01/15/23 and 03/19/2015 FINDINGS: Chest: Minimal dependent atelectasis in both lungs. 4 mm noncalcified granulomata in the posterior left lowe r lobe which is unchanged since 2014. No pneumonia, pulmonary edema, pleural effusion or pneumothorax . Heart size is normal. No pericardial effusion. Dual-lead cardiac pacemaker with lead tips at the ri ght atrial appendage and at the apex of the right ventricle. Thoracic aorta is normal in caliber with no dissection. No pathologically enlarged thoracic lymphadenopathy. There are several scattered scle rotic bone disease, the largest at the left posterolateral aspect of the T8 vertebral body is additio nal lesions at T9 and T11 which are new since 01/15/2023 and suspicious for metastatic disease. Abdomen and pelvis: Liver, gallbladder, spleen, pancreas, bilateral adrenal glands and kidneys are normal. Bowels includi ng the appendix are normal. Bladder is normal. Metallic densities in the prostate which could represe nt cervical clips, brachial therapy seeds or fiducials markers. No free intraperitoneal gas or fluid. No pathologically enlarged abdominal or pelvic lymphadenopathy. 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 Abdominal aorta is normal in caliber with mild nonhemodynamically significant atherosclerotic raghavendra que and no dissection. Severe lumbar spondylosis with additional new sclerotic lesions at L3 and L5. IMPRESSION: 1. No acute cardiopulmonary disease or acute intra-abdominal/pelvic process. 2. 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 Aorta is normal in caliber with no aneurysm or dissection. 3. Several new sclerotic bone lesions in the thoracic and lumbar spine suspicious for metastatic dise ase. Metallic densities in the prostate suggest treatment for prior prostate cancer suggesting a like ly etiology. Correlate with clinical/surgical history and consider further evaluation with either bon e scan or PMA PET as clinically indicated. Reviewed, dictated and finalized at location A. IMPRESSION: 1. No acute cardiopulmonary disease or acute intra-abdominal/pelvic process. 2. 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 Aorta is normal in caliber with no aneurysm or dissection. 3. Several new sclerotic bone lesions in the thoracic and lumbar spine suspicio us for metastatic disease. Metallic densities in the prostate suggest treatment for prior prostate cancer suggesting a likely etiology. Correlate with clinica l/surgical history and consider further evaluation with either bone scan or PMA PET as clinically indicated.
--- NOTE | ~2024-11-08 | CT_ITS ---
History: Syncope PROCEDURE: CT head without contrast. COMPARISON: None TECHNIQUE: Axial imaging of the head performed from the skull base to the vertex without IV contrast. Sagittal a nd coronal reformations obtained. DLP: 681 mGy-cm FINDINGS: The ventricles are normal in size, shape and position. There is no mass, mass effect or midline shift. There is no abnormal extra-axial fluid collection or intracranial hemorrhage. Retention cyst within the left maxillary sinus. Remaining paranasal sinuses are otherwise unremarkable. The mastoid air cells are well aerated. No acute displaced fractures within the overlying cranium. Impression: No acute intracranial hemorrhage or suspicious mass effect. Reviewed, dictated and finalized at location A. Impression: No acute intracranial hemorrhage or suspicious mass effect.
--- NOTE | ~2024-11-08 | XR_ITS ---
EXAM/ PROCEDURE: XR shoulder RT min 2V - 11/08/2024 10:05 CDT HISTORY: 74 years old Male with fall, syncope COMPARISON: None available TECHNIQUE: Four view(s) FINDINGS/ IMPRESSION: There are no fractures or dislocations.Joint space narrowing, subchondral sclerosis, subchondral cyst formation and osteophyte formation, compatible with mild osteoarthritis. Reviewed, dictated and finalized at location A.
--- NOTE | ~2024-11-08 | XR_ITS ---
EXAM/PROCEDURE: XR chest 2V - 11/08/2024 10:05 CDT HISTORY: 74 years old Male with syncope, PT STATES FALL THIS MORNING TECHNIQUE: Two view(s) of the chest. COMPARISON: None available. FINDINGS: LUNGS/ PLEURA: No focal consolidation. No appreciable pneumothorax or large pleural effusion. HEART/ MEDIASTINUM: Heart appears normal in size. BONES: Degenerative changes. OTHER: Visualized upper abdomen is unremarkable. Dual-lead pacemaker. IMPRESSION: No acute process. Reviewed, dictated and finalized at location A. IMPRESSION: No acute process.
--- NOTE | ~2024-11-08 | US_ITS ---
EXAMINATION: US carotid duplex BI DATE: 11/09/2024 16:15 INDICATION: Syncope TECHNIQUE: Grayscale, color Doppler, and pulsed Doppler images of the cervical carotid arteries were obtained. The degree of vessel stenosis is placed in one of the following categories: normal, <50%, 5 0-69%, >=70% but less than near-occlusion, near-occlusion, or total occlusion. Note that percent sten osis relative to normal distal artery lumen diameter is indirectly measured from velocity measurement s as described by Prudencio, et al. Radiology 2003; 229:340-346. COMPARISON: None. FINDINGS: RIGHT: The right common carotid artery (CCA) peak systolic velocity (PSV) is 67 cm/s. The right internal car otid artery (ICA) PSV is 69 cm/s. The right ICA end-diastolic velocity (EDV) is 20 cm/s. The right IC A/CCA PSV ratio is 1.0. Grayscale and color Doppler images yield an estimate of <50% diameter reducti on from plaque in the ICA. The external carotid artery (ECA) PSV is 98 cm/s. There is antegrade flow in the right vertebral artery. LEFT: The left CCA PSV is 154 cm/s. The left ICA PSV is 81 cm/s. The left ICA EDV is 27 cm/s. The left ICA/ CCA PSV ratio is 0.5. Grayscale and color Doppler images yield an estimate of <50% diameter reduction from plaque in the ICA. The ECA PSV is 125 cm/s. There is biphasic waveform in the left vertebral ar jorge. IMPRESSION: 1. <50% stenosis in the right internal carotid artery. 2. <50% stenosis in the left internal carotid artery. 2. Biphasic waveform in the left vertebral artery is of indeterminate etiology or significance with n ormal appearance of the visualized portions of the contrast opacified bilateral vertebral arteries at the base of the neck on the chest CT angiogram from one day prior. Reviewed, dictated and finalized at location A. IMPRESSION: 1. <50% stenosis in the right internal carotid artery. 2. <50% stenosis in the left internal carotid artery. 2. Biphasic waveform in the left vertebral artery is of indeterminate etiology or significance with normal appearance of the visualized portions of the contra st opacified bilateral vertebral arteries at the base of the neck on the chest CT angiogram from one day prior.
--- NOTE | 2024-11-08 09:06 | ECG_ITS ---
Test Date: 2024-11-08 08:58:53 Measurements Intervals [place] Rate: 65 P: 54 [place]: 247 QRS: -52 QRSD: 146 T: 135 QT: 453 QTc: 474 Interpretive Statements ELECTRONIC ATRIAL PACEMAKER ELECTRONIC VENTRICULAR PACEMAKER ABNORMAL RHYTHM ECG Compared to ECG 08/15/2024 19:44:24 No significant changes Electronically Signed On 11-08-2024 13:02:56 CDT by Keven Sharma M.D.
[2024-11-08 09:19] LABS: Hematocrit 34.6 % (42.0-52.0); Hemoglobin 11.7 g/dL (14.0-18.0); Immature Granulocyte Percent A 1.0 % (0-0.5); Lymphocytes Absolute Auto 0.54 K/mm3 (0.9-3.2); Mean Corpuscular HGB Conc 33.8 g/dl (32-36); Mean Corpuscular Hemoglobin 31.8 pg (26-34); Mean Corpuscular Volume 94.0 fl (80-100); Nucleated Red Blood Cells Absolute Auto 0.000 K/mm3 (0.0-0.012); Nucleated Red Blood Cells Perc 0.0 % (0.0-0.2); Platelet Count Result 202 k/mm3 (150-375); Red Blood Count 3.68 M/mm3 (4.6-6.20); White Blood Count 6.1 K/mm3 (4.5-10.0)
--- OUTSIDE RECORDS SUMMARY | 2024-11-08 09:35 | XMS_ITS ---
Author Organization [facility] Address [address] [place], [place] [id number] Care Team Providers Care Metal Trimmer Name Role Phone YANNI DOMINGUEZ Unavailable [phone] Sanket Isbell Unavailable Unavailable REASON FOR VISIT Patient presents for at-risk foot care . The patient has painful toenails that cause difficulty with ambulation and shoegear. 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 NAIL DEBRIDEMENT: Nails 1-5 Bilateral were debrided extensively with nail nippers and emery board, reducing length and girth to pink healthy tissue with any subungual debris and necrotic tissue removed Plan Of Treatment Treatment Notes Assessment Notes [...] sooner if problems arise Provider Name:YANNI DOMINGUEZ, 11:10:00 AM, [address], [address], [id number], Progress Notes * DEREK KING JREDOB: 0 (74 yo M)Acc No.[id number]:11/05/2024 Patient: Jeremy AUGUST MEDINA JR Provider: Cat Dominguez DPM :1950 A ge:74 Y S ex:Male Date:11/05/2024 Address:[address] [place] [address], [address] [place], [place] [id number] Subjective: * Chief Complaints: * 1 . [...] Date last seen by Dr. Isbell was 09/2024., Initials ma. sample. * Medical History: * Social History: M igrated Social History: M igrated Social History: History of tobacco use : , Smoking Status : Never smoked. * Medications: N one Objective: * Vitals: W t:lbs, Wt-k.63 kg, Ht: 72.00 in, Ht-cm: 182.88 cm, BMI:27.39Index, Body Surface Area: 2.16. * Examination: C onstitutional: Constitutional T he [...] lower extremities. ? Assessment: * Assessment: 1. Med cabral - B35.1 (Primary) Plan: * Treatment: * Immunizations: Immunization record has been reviewed and updated. * Follow Up: 1 0-12 Weeks (Reason: At Risk Foot care, sooner if problems arise) * Billing Information: * Visit Code: * Procedure Codes: * Electronic signature of YANNI DOMINGUEZ DPM on 11/08/2024 at 09:35 AM CDT Sign off status: Pending * Provider: Cat Dominguez DPM Date: 11/05/2024 Generated for Cleo Ruggiero/Javier on: 11/08/2024 09:35 AM CDT History and Physical Notes * HPI [...] Date last seen by Dr. Isbell was 09/2024., Initials ma sample Examination Category Sub-Category Detail Notes Category [...]
--- OUTSIDE RECORDS SUMMARY | 2024-11-08 09:35 | XMS_ITS | Data Portability ---
Author Organization [place] [facility], Main Office Address [address] [place] [address] Care Team Providers Care Vp Strategic Partnerships Name Role Phone JANELLE HAWKINS Primary Care Provider JANELLE HAWKINS Referring Provider Assessment Encounter Date Assessment Date Assessment LastModified by Organization Details LastModified Time 09/22/2023 09/22/2023 Patient has moderately severe primary [...] about where to get this online or opys-ozg-kpckuxv. We also talked in detail about different clxy-bfv-epmipou treatment including Tylenol Arthritis extended relief and [...] difficulties or questions. Not available 04/16/2024 10:38:59 10/26/2024 10/26/2024 The patient has severe primary osteoarthritis right knee joint as described. He has a new contusion to the right knee but he was having pain in the knee prior to that due to his primary osteoarthritis. He was due for gel shots but we have to get these ordered he mainly wanted to make sure there was no acute fractures from his recent fall a few days ago everything looks good on the x-ray in terms of that. He does have advanced primary osteoarthritis. At his request under sterile conditions I injected the patient's right knee joint in the office with 4 cc of 0.5% bupivacaine and 20 mg of Kenalog. Patient tolerated procedure well. I will see him back in 6-8 weeks for gel shots if necessary we will see how he does with time and cortisone. In terms of a total knee arthroplasty right now he is not a good candidate he would have to have medical clearance through his junior electrical engineer and his urologist in order to proceed. His was asking about that today. She agrees they need to give it more time to see how his prostate cancer treatment goes. The patient and his voiced understanding and agrees with the above plan they will call for any further problems difficulties or questions. Not available 10/26/2024 13:03:10 Plan of Treatment Reminders Order Date Submit Date Provider Last Modified By Organization Details Last Modified Time Details Appointments None recorded. Lab None recorded. Referral None recorded. Procedures injection/a spiration joint/bursa (PROC) 2024 025 [email or web address] In-Office Order, Internal Use Only DO Not Attach Compendium DO Not Attach Compendium, Do Not Delete/merge, [id number] 13:07:27 knee aspiration/ injection (PROC) 2023 024 [email or web address] In-Office Order, Internal Use Only DO Not Attach Compendium DO Not Attach Compendium, Do Not Delete/merge, [id number] 10:18:42 knee aspiration/ injection (PROC) 2023 024 [email or web address] In-Office Order, Internal Use Only DO Not Attach Compendium DO Not Attach Compendium, Do Not Delete/merge, [id number] 10:19:53 knee aspiration/ injection (PROC) 2023 024 [email or web address] In-Office Order, Internal Use Only DO Not Attach Compendium DO Not Attach Compendium, Do Not Delete/merge, [id number] 10:27:12 knee aspiration/ injection (PROC) 2023 024 [email or web address] In-Office Order, Internal Use Only DO Not Attach Compendium DO Not Attach Compendium, Do Not Delete/merge, [id number] 10:14:47 Surgeries None recorded. Imaging XR, knee 2024 025 [email or web address] [facility] [place], [address], [place], [address], 5 13:16:18 Medication Orders bupivacaine HCl 0.5 % (5 mg/mL) injection solution 2024 025 [email or web address] [facility] [address] [place], [address], 5 13:16:18 Kenalog 10 mg/mL suspension for injection 2024 025 [email or web address] [facility] [address], [address], 5 13:16:18 ORTHOVISC 30 mg/2 mL intra-artic ular syringe 2023 024 [email or web address] [facility] [address], [address], 5 11:25:08 ORTHOVISC 30 mg/2 mL intra-artic ular syringe 2023 024 [email or web address] [facility] [address], [address], 5 11:25:08 ORTHOVISC 30 mg/2 mL intra-artic ular syringe 2023 024 [email or web address] [facility] [address], [address], 5 11:25:08 ORTHOVISC 30 mg/2 mL intra-artic ular syringe 2023 024 [email or web address] [facility] [address], [address], 5 11:25:08 Patient TargetsNo targets recorded. Patient InstructionsNo instructions recorded. Reason for Referral None Reported. Results Created Date Observation Date Name Description Value Unit Range Abnormal Flag Note LastModifiedBy Organization Detail LastModifiedTime 09/08/19 24 XR, knee No observ ation record ed. [email or web address] [facility] [place] [address], [place], [address], 09/08/2023 11:19:04 10/27/19 25 XR, knee No observ ation record ed. [email or web address] [facility] [place] [address], [address], 10/26/2024 13:04:42 Result Notes None recorded. Problems Name Problem SNOMED Code Status Onset Date Resolution Date Notes Provider Name and Address Organization Details Recorded Time Contusion of right shoulder 1154926157343 9100 Active 2021 Not Available [facility] 3 02:54:41 Pain of right shoulder joint 0236173102062 9100 Active 2021 Not Available [facility] 3 02:54:41 Osteoarthr itis of knee 490625477 Active Not Available [facility] 3 02:54:42 Osteoarthr itis of right knee joint 6457778146768 00 Active 2021 Not Available [facility] 3 02:54:42 Osteoarthr itis 829256148 Active Not Available [facility] 3 02:54:42 Pain of right knee joint 1676716103848 00 Active 2021 Not Available [facility] 3 02:54:42 Spinal stenosis in cervical region 69365357 Active Not Available [facility] 3 02:54:42 Problem Notes None recorded. Procedures Surgical History Date Name Laterality Status Provider Name and Address Organization Details Recorded Time Knee Replacement completed Not Available [facility] 06/30/2022 02:45:24 Imaging Results None recorded. Procedure Notes None recorded. Medical Equipment None Reported. Allergies Allergen ID Allergen Name Allergen Category Reaction Reaction Severity Criticality Documentation Date Start Date Code Code System Note Provider Name and Address Organization Details Recorded Time 02398 Benadryl medicatio n Not available Not available Not available 10/26/202465724 7 RxNorm RADHA Hebert null, [place] [facility] 11:24:02 Medications Name Sig Start Date Stop Date [...] THREE TIMES A DAY NEEDED FOR ANXIETY 10/26 completed Not Available Not Available Not Available primidone 50 mg tablet active Not [...] TAKE 1 TABLET BY MOUTH AT BEDTIME 10/26 completed Not Available Not Available Not Available ofloxacin 0.3 % eye drops INSTILL 1 DROP INTO EACH EYE FOUR TIMES DAILY 10/26 completed Not Available Not Available Not Available carbidopa 25 mg-levodopa 250 mg tablet TAKE ONE TABLET BY MOUTH FOUR TIMES A DAY 03/05 completed Not Available Not Available Not Available bupivacaine HCl 0.5 % (5 mg/mL) injection solution Take 4 mL by injection route. 2024 active Not Available Not Available Not Avai lable amlodipine 5 mg tablet TAKE 1 TABLET BY MOUTH AT BEDTIME 10/26 completed Not Available Not Available Not Available tramadol 50 mg tablet TAKE 1 TO 2 EVERY 6 HOURS NEEDED FOR PAIN active Not Available Not Available No t Available pravastatin 80 mg tablet TAKE 1 TABLET BY MOUTH EVERY DAY AT BEDTIME 09/07 completed Not Available Not Available Not Available Kenalog 10 mg/mL suspension for injection Take 2 mL by injection route. 2024 active [facility]: 0003- 0494- 20 Not Available Not Available Not Available lisinopril 10 mg tablet TAKE 1 TABLET BY MOUTH EVERY DAY 10/26 completed Not Available Not Available Not Available aspirin 81 mg chewable tablet CHEW 1 TABLET BY MOUTH DAILY AT 0800 10/26 completed Not Available Not Available Not Available amoxicillin 250 mg capsule 03/05 completed [...] TAKE 1 TABLET BY MOUTH AT BEDTIME 10/26 completed Not Available Not Available Not Available amoxicillin 875 mg-potassiu m clavulanate 125 [...] mL every week by intra-art icular route. 10/26 completed Not Available Not Available Not Available chlorhexidi ne gluconate 0.12 % mouthwash 08/03 [...] the office by the doctor 08/03 completed NDC: [address] -1 Not Available Not Available Not Available Fluzone High-Dose Quad 2020-21 (PF) 240 mcg/0.7 mL IM syringe TO BE ADMINISTE RED BY PHARMACIS T FOR IMMUNIZAT ION 03/05 completed Not Available Not Available Not Available Orgovyx 120 mg tablet Take 1 tablet every day by oral route. active Not Available Not Available No t Available Vitals Date Recorded Body height Body mass index (BMI) Body weight Provider Name and Address Organization Details Last Updated DateTime 09/22/2023 182.88 cm 24.3 kg/m2 38604.03 g Dasia Ellistalat [facility] 09/22/2023 10:13:15 Date Recorded Body height Body mass index (BMI) Body weight Provider Name and Address Organization Details Last Updated DateTime 10/26/2024 182.88 cm 25.4 kg/m2 04647.77 g Chacha Daley [facility] 10/26/2024 11:23:27 Date Recorded Body height Body mass index (BMI) Body weight Provider Name and Address Organization Details Last Updated DateTime 04/02/2024 182.88 cm 24.4 kg/m2 03917.63 g Dasia Ellistalat [facility] [employer] [facility] 04/02/2024 10:25:50 Date Recorded Body height Body mass index (BMI) Body weight Provider Name and Address Organization Details Last Updated DateTime 04/09/2024 182.88 cm 24.7 kg/m2 14474.81 g Dasia Ellistalat [facility] 04/09/2024 10:18:38 Date Recorded Body height Provider Name an d Address Organization Details Last Updated DateTime 04/16/2024 182.88 cm [facility] 04/16/2024 10:15:29 Social History Question Answer Notes LastModified by Organizat ion Details LastModified Time Tobacco Smoking Status Never Smoker Not Available [facility] 06/30/2022 02:37:04 What Was The Date Of Your Most Recent Tobacco Screening? 10/26/2024 [email or web address] Information not available 10/26/2024 Sex: Unknown Functional Status Question Answer Note LastModified by Organizat ion Details LastModified Time What is your level of alcohol consumption? None [id number] Information not available 06/30/2022 Mental Status None recorded. Family History Relationship Description Onset Age of this Age Resolved Age Notes LastModified by Organization Details LastModified Time Mother Hypertensive disorder [email or web address] Not available 09/07 10:53:44 Mother Diabetes mellitus [email or web address] Not available 2024 11:26:19 Medical History Condition Response ARTHRITIS Y CANCER: SPECIFY Y URINARY/BLADDER/KIDNEY PROBLEMS Y HYPERTENSION Y Past Encounters Encounter ID Performer Location Encounter Start Date Encounter Closed Date Diagnosis/Indication Diagnosis SNOMED-CT Code Diagnosis ICD10 Code Diagnosis Note [id number] [facility]_ DEFAULT_1 _1 , 08/04/2020 00:00:00 08/04/2020 11:49:03 [id number] [facility]_ DEFAULT_1 _1 , 08/18/2020 00:00:00 08/18/2020 10:52:14 [id number] [facility]_ DEFAULT_1 _1 , 08/25/2020 00:00:00 08/25/2020 10:56:37 [id number] [facility]_ DEFAULT_1 _1 , 09/01/2020 00:00:00 09/01/2020 11:31:31 [id number] [facility]_ DEFAULT_1 _1 , 09/08/2020 00:00:00 09/08/2020 11:58:14 [id number] Eric Arechiga MD [facility] [place] [address] [place] [address] 03/05/2021 00:00:00 03/05/2021 13:37:43 [id number] MD SUMEET [facility] [place] [address] [place] [address] 03/12/2021 00:00:00 03/12/2021 10:19:13 [id number] Peter Hawk, MD [facility] [place] [address] [place] [address] 03/19/2021 00:00:00 03/19/2021 11:31:06 [id number] Eric Arechiga MD [facility] [place] [address] [place] [address] 03/24/2021 00:00:00 03/24/2021 15:45:32 [id number] Eric Arechiga MD [facility] [place] [address] [place] [address] 03/31/2021 00:00:00 03/31/2021 16:31:36 [id number] Eric Arechiga MD [facility] [place] [address] [place] [address] 11/05/2021 00:00:00 11/05/2021 10:23:40 [id number] Eric Arechiga MD [facility] [place] [address] [place] [address] 11/12/2021 00:00:00 11/12/2021 10:25:26 [id number] Eric Arechiga MD [facility] [place] [address] [place] [address] 11/19/2021 00:00:00 11/19/2021 10:12:51 [id number] Eric Arechiga MD [facility] [place] [address] [place] [address] 08/03/2022 14:22:16 08/03/2022 15:39:58 Osteoarthritis of right knee joint 6121430137 52768 M17.11 Pain of ri ght knee joint 2215687710 28461 M25.561 [id number] Eric Arechiga MD [facility] [place] [address] [place] [address] 08/10/2022 15:22:35 08/10/2022 16:02:52 Pain of right knee joint 3784829973 87564 M25.561 Osteoarthr itis of right knee joint 9880546660 80871 M17.11 [id number] Eric Arechiga MD [facility] [place] [address] [place] [address] 08/17/2022 15:28:35 08/17/2022 16:08:32 Osteoarthritis of right knee joint 2595330068 51696 M17.11 Pain of ri ght knee joint 4319617574 05319 M25.155 [id number] Humberto Clark MD [facility] [place] [address] [place] [address] 02/17/2023 11:53:58 02/17/2023 13:20:03 Osteoarthritis of right knee joint 0565333117 22072 M17.11 Pain of ri ght knee joint 4483855142 22466 M25.154 [id number] Humberto Clark MD [facility] [place] [address] [place] [address] 02/24/2023 11:46:41 02/24/2023 12:00:25 Osteoarthritis of right knee joint 2108664939 54464 M17.11 Pain of ri ght knee joint 5821377645 65433 M25.299 [id number] Humberto Clark MD [facility] [place] [address] [place] [address] 03/03/2023 11:55:17 03/03/2023 13:23:12 Osteoarthritis of right knee joint 0957312523 57328 M17.11 Pain of ri ght knee joint 0596881551 90904 M25.695 [id number] Farrukh Rico MD [facility] [place] [address] [place] [address] 09/08/2023 10:33:30 09/08/2023 11:21:21 Osteoarthritis of right knee joint 6253338865 42074 M17.11 History of left total knee replacement 9715540378 315621 Z96.600 [id number] Farrukh Rico MD [facility] [place] [address] [place] [address] 09/15/2023 10:14:45 09/15/2023 11:01:53 Osteoarthritis of right knee joint 0375990873 57156 M17.11 History of left total knee replacement 1934731976 758133 Z96.592 [id number] Farrukh Rico MD [facility] [place] [address] [place] [address] 09/22/2023 10:11:03 09/22/2023 10:30:30 Osteoarthritis of right knee joint 8004388609 38324 M17.11 Pain of ri ght knee joint 2572020375 91594 M25.922 [id number] Farrukh Rico MD [facility] [place] [address] [place] [address] 04/02/2024 10:21:08 04/02/2024 11:21:08 Osteoarthritis of right knee joint 7422320697 05000 M17.11 Pain of ri ght knee joint 1684337233 90694 M25.334 [id number] Farrukh Rico MD [facility] [place] [address] [place] [address] 04/09/2024 10:17:01 04/09/2024 11:13:23 Osteoarthritis of right knee joint 5400937242 50366 M17.11 Pain of ri ght knee joint 4265371954 08007 M25.830 [id number] Farrukh Rico MD [facility] [place] [address] [place] [address] 04/16/2024 10:12:43 04/16/2024 10:32:33 Osteoarthritis of right knee joint 8183843355 63632 M17.11 Pain of ri ght knee joint 5435629272 55508 M25.302 [id number] Farrukh Rico MD [facility] [place] [address] [place] [address] 10/26/2024 10:54:44 10/26/2024 12:47:23 Osteoarthritis of right knee joint 0284819695 67922 M17.11 Pain of ri ght knee joint 2846389484 32566 M25.561 History of operative procedure on knee 881712820 Z96.652 Health Concerns Section Related Observation LastModified by Organization Detai ls LastModified Time None Recorded Concern Status LastModified by Organization Details LastModified Time None Recorded Advance Directives Directive None Recorded Payers Insurance Date Sequence Insurance Name Policy Number Policy Mix Covered Member ID Mix Member ID Guarantor Name 10/23/2024 2 [employer] [place] (MEDICARE SUPPLEMENT) Aquilino Trujillo [id number] Aquilino Ronnie 10/24/2024 1 [place] Aquilino Ronnie Jr [id number] Aquilino Trujillo 10/23/2024 2 [place] [id number] Aquilino Laurag [id number] Aquilino Ronnie Notes Date Note Type Note Provider Name and Address Organization Details Recorded Time 09/22/2023 text/html patient returns for Orthovisc injection number 3 right knee. He is getting good relief from the 1st 2 rounds of injections. Denies any problems with the knee today no effusion or swelling he has mild varus deformity of the right knee with moderately severe primary osteoarthritis. FERNANDO Hogue [address] [place] [address], [facility] [address], [place], [address], [facility] [employer] 09/22/2023 10:26:47 04/02/2024 text/html The patient retu [...] the right knee. Occasionally he does take yrel-hvl-eorxxwf anti-inflammatory medication this helps somewhat. Has had no recent trauma or injury to the knee denies any effusion or swelling no erythema heat or other signs of infection.The patient's past medical history changes are noted above otherwise he has been fairly stable. Has been doing well with his recent pacemaker. FERNANDO Hogue [address], [place], [address], [employer] [facility] 04/02/2024 10:48:50 04/09/2024 text/html The patient retu [...] the 2nd injection today. FERNANDO Hogue [address], [place], [address], [employer] 04/09/2024 10:30:08 04/16/2024 text/html Patient returns for [...] with the right knee. FERNANDO Hogue [address], [place], [address], [employer] [facility] 04/16/2024 10:39:10 10/26/2024 text/html The patient retu rns with right knee pain. I have seen him for this chronically. He has severe primary osteoarthritis of the right knee joint. He has multiple medical issues not really a good candidate for total knee arthroplasty at this time. 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 He has had radiation in his now on hormone therapy. He is due to follow up with his urologist in the near future. He also underwent cataract surgery recently. This was noted on his intake sheet today which was discussed with him in detail. Six months ago he had gel shots. He came in today asking for cortisone right knee. Denies any new problems with the knee other than falling on it recently. He does have some bruising over the anterior knee little bit of puffiness but no dysfunction or new pain with weight-bearing. He was having more and more pain after the gel shot has worn off last time. Today the pain is about a 7 on a scale of 1-10. We are going to get new x-rays. He has a left total knee arthroplasty that is functioning well. New past medical history sheet was reviewed and signed on the intake sheet of today's date drug allergies current medications family social history previous surgical history 10 point review of systems was reviewed and discussed in detail today with the patient and his . FERNANDO Hogue [address] [place] [address], [facility] [address], [place], [address], [place] [facility] 10/26/2024 13:16:15
--- OUTSIDE RECORDS SUMMARY | 2024-11-08 09:35 | XMS_ITS | Clinical Summary ---
Author Organization [facility] [address] Address [address] [place] [address] Care Team Providers Care Chili Powder Mixer Name Role Phone Sanket Isbell MD Primary [...] encounter. Assessment & Plan (04/06/2023 9:45 AM TERRAZZO MECHANIC HELPER): Mr. August King Jr is a 72 [...] and handed them our written description and mzhryqdbfz-pkmnc-ladbvtvio pertaining to the procedure. He would like [...] needed Assessment & Plan (03/26/2020 12:46 PM TERRAZZO MECHANIC HELPER): This is a 69 year old man [...] Encounters Date Type Department Care Team Description 10/08/2024 Telephone [facility] [address] [facility] [address] [place] [address] Tomy Pretty MD 09/04/2024 9:30 AM CDT Ancillary Procedure [facility] [address] [facility] [address] [place] [address] Complete heart block (HCC); Cardiac pacemaker in situ 08/15/2024 Telephone [facility] [address] [place] [address] Tomy Pretty MD from Last 3 Months Medical History Medical [...] on file Legal Sex Male 3:51 AM TERRAZZO MECHANIC HELPER Gender Identity Not on file Sexual Orientation [...] 9:00 AM CDT Height 180.3 cm (5' 11) 02/23/2024 9:00 AM CDT Body Mass Index [...] 2014 Covid-19 Vaccine (2 - season) 2024 Depression Screening 08/04/2024 08/05/2023 Influenza Vaccine (Season Ended) 2024 Procedures Procedure Name Priority Date/Time Associated Diagnosis Comments DEVICE CHECK - REMOTE Routine 09/04/2024 10:29 AM CDT Complete heart block (HCC) Cardiac pacemaker in situ from Last 3 Months Results * DEVICE CHECK - REMOTE (09/04/2024 10:29 AM CDT) Anatomical Region Laterality Modality Other Narrative 09/14/2024 10:38 AM CDT Bi[employer]ronik Amvia Edge Dual Pacemaker. Dx; Sinus Node Disease. DOI 01/16/2024-Maria De Jesus. Biotronik home monitoring. Routine DDD Pacemaker Remote. Transmission attached. Battery status: Ok, 100% remaining battery life to [place]IA. Stable lead impedances, pacing and sensing thresholds. Presenting rhythm: PERSONALIZED LIVING MANAGER. AP-19%, PERSONALIZED LIVING MANAGER-55%. No AT/AF episodes noted. No Ventricular high rate episodes detected. Medications: ASA 81 mg. See scanned report. Office pacemaker follow up: 05/29/2025. Bi[employer]ronik remote f/u 12/11/2024. Rosemary Guerrero RN Tomy Pretty MD [facility] PROC EDURES Final Result from Last 3 Months Insurance [facility]IC[facility] MEDICARE [facility] Care Teams Chili Powder Mixer Relationship Specialty Start Date End Date Sanket Isbell MD [address] [facility] [address] [place] [address] PCP - General 02/24/15
--- OUTSIDE RECORDS SUMMARY | 2024-11-08 09:35 | XMS_ITS | Patient Health Record ---
Author Organization [facility] Address [address] [place], [place] [id number] Care Team Providers Care Residential Living Assistant Name Role Phone YANNI DOMINGUEZ Unavailable [phone] Sanket Isbell Unavailable Unavailable Allergies No Known Allergies Reason For Referral No Information Immunizations Vaccine Route Administration Date Status Comme nts Influenza, high dose seasonal Unknown 02/21/2023 Admini stered Vital Signs Height-cm 182.88 cm 11/05/2024 Weight-kg 91.63 kg 11/05/2024 Height 72.00 in 11/05/2024 Weight 202 lbs 11/05/2024 BMI 27.39 kg/m2 11/05/2024 Encounters Encounter Location Date Provider Diagnosis [facility] [address] [place], [place] [id number] 11/05/2024 YANNI SNOOK Tinea unguium B35.1 [facility] [address] [place], [place] [id number] 12/26/2023 YANNI SNOOK Tinea unguium B35.1 ; Pain in right toe(s) M79.674 ; Pain in left toe(s) M79.675 and Atherosclerosis of [place] arteries of extremities with intermittent claudication, bilateral legs I70.213 [facility] [address] [place], [place] [id number] 03/05/2024 YANNI SNOOK Tinea unguium B35.1 ; Pain in right toe(s) M79.674 ; Pain in left toe(s) M79.675 and Atherosclerosis of [place] arteries of extremities with intermittent claudication, bilateral legs I70.213 [facility] [address] [place] [id number] 06/11/2024 YANNI SNOOK Tinea unguium B35.1 ; Pain in right foot M79.671 ; Pain in left foot M79.672 ; Atherosclerosis of [place] arteries of extremities with intermittent claudication, bilateral legs I70.213 and Acquired keratosis [keratoderma] palmaris et plantaris L85.1 [facility] [address] [place] [id number] 08/20/2024 YANNI SNOOK Tinea unguium B35.1 ; Pain in right toe(s) M79.674 ; Pain in left toe(s) M79.675 and Atherosclerosis of [place] arteries of extremities with intermittent claudication, bilateral [...] Pain in right foot (ICD-10 - M79.671) 08/20/2024 Tinea unguium (ICD-10 - B35.1) FUNGAL TOENAILS: Discussed various treatment options for fungal toenails including debridement, topical antifungals, oral antifungals, toenail avulsion, or toenail matrixectomy. NAIL DEBRIDEMENT: Nails 1-5 Bilateral were debrided extensively with nail nippers and emery board, reducing length and girth to pink healthy tissue with any subungual debris and necrotic tissue removed 08/20/2024 Pain in right toe(s) (ICD-10 - M79.674) 11/05/2024 Tinea unguium (ICD-10 - B35.1) FUNGAL TOENAILS: Discussed various treatment options for fungal toenails including debridement, topical antifungals, oral antifungals, toenail avulsion, or toenail matrixectomy. NAIL DEBRIDEMENT: Nails 1-5 Bilateral were debrided extensively with nail nippers and emery board, reducing length and girth to pink healthy tissue with any subungual debris and necrotic tissue removed 08/20/2024 Pain in left toe(s) (ICD-10 - M79.675) 06/11/2024 Pain in left foot (ICD-10 - M79.672) 03/05/2024 Pain in left toe(s) (ICD-10 - M79.675) 12/26/2023 Pain in left toe(s) (ICD-10 - M79.675) 12/26/2023 Atherosclerosis of [place] arteries of extremities with intermittent claudication, bilateral legs (ICD-10 - I70.213) 03/05/2024 Atherosclerosis of [place] arteries of extremities with intermittent claudication, bilateral legs (ICD-10 - I70.213) 06/11/2024 Atherosclerosis of [place] arteries of extremities with intermittent claudication, bilateral legs (ICD-10 - I70.213) 08/20/2024 Atherosclerosis of [place] arteries of extremities with intermittent claudication, bilateral legs (ICD-10 - I70.213) 06/11/2024 Acquired keratosis [keratoderma] palmaris et plantaris (ICD-10 - L85.1) A total of 2 corns or calluses, as described in the note above, were cut and pared utilizing a #15 blade Plan Of Treatment Next Appt Details Provider Name:YANNI DOMINGUEZ, 11:10:00 AM, [address] [facility], [place], [place], [id number], Insurance Providers Payer Name Payer Address Payer Phone Subscriber Number Group Number Insured Name Patient Relationship to Insured Coverage Start Date Coverage End Date Medicare Part B [facility] [address] [place] [phone] [id number] AUGUST KING JR Self - patient is the insured [facility] Insurance [address] [facility] [place] [phone] [id number] AUGUST KING JR Self - patient is the insured 4
--- OUTSIDE RECORDS SUMMARY | 2024-11-08 09:35 | XMS_ITS | Referral Summary ---
Author Organization [place] [address] Address [address] [facility] [address] [place] [address] Care Team Providers Care Palliative Senior Np Name Role Phone Sanket Isbell MD Primary Care Provider Encounters Date Type Department Care Team Description 10/08/2024 Telephone [facility] Cardiology [address] [place] [address] [address] [place] [address] Tomy Pretty MD 09/04/2024 9:30 AM CDT Ancillary Procedure [facility] Cardiology [address] [facility] [address] [place] [phone] Complete heart block (HCC); Cardiac pacemaker in situ 08/15/2024 Telephone [facility] Cardiology [address] [place] [address] [address] [place] [address] Tomy Pretty MD from Last 3 Months Allergies Active Allergy [...] encounter. Assessment & Plan (04/06/2023 9:45 AM AGENT BROKER): Mr. August King Jr is a 72 [...] and handed them our written description and [id number] pertaining to the procedure. He would like [...] needed Assessment & Plan (03/26/2020 12:46 PM AGENT BROKER): This is a 69 year old man [...] on file Legal Sex Male 3:51 AM AGENT BROKER Gender Identity Not on file Sexual Orientation [...] impedances, pacing and sensing thresholds. Presenting rhythm: RESPIRATORY THERAPIST. AP-19%, RESPIRATORY THERAPIST-55%. No AT/AF episodes noted. No Ventricular high rate episodes detected. Medications: ASA 81 mg. See scanned report. Office pacemaker follow up: 05/29/2025. [employer] remote f/u 12/11/2024. Rosemary Guerrero RN us Tomy Pretty MD [facility] PROC EDURES Final Result from Last 3 Months Insurance MEDICARE MEDICARE [facility] Care Teams Palliative Senior Np Relationship Specialty Start Date End Date Sanket Isbell MD [address] [facility] [address] [place] [address] PCP - General 02/24/15
--- OUTSIDE RECORDS SUMMARY | 2024-11-08 09:36 | XMS_ITS | Clinical Summary ---
Author Organization [facility] Address [address] [place] [address] Care Team Providers Care Media Producer Name Role Phone Sanket Isbell MD Primary Care Provider [phone] Source Comments [facility],non-owned Affiliates and Associated Physician Practices is amultiple site organization consisting of ambulatory clinics and hospital sitesin [place], [place], [place] and [place]. This disclosure is being madepursuant to the Care Everywhere program and may not contain all information available regarding this patient. Last updated 18.[facility] Allergies No known active allergies Medications * [...] Comments Blood Pressure 126/72 04/10/2018 12:37 PM ASSOCIATE QUALITY ENGINEER Pulse 71 04/10/2018 12:37 PM ASSOCIATE QUALITY ENGINEER Temperature - - Respiratory Rate 18 04/10/2018 12:37 PM ASSOCIATE QUALITY ENGINEER Oxygen Saturation 96% 04/10/2018 12:37 PM ASSOCIATE QUALITY ENGINEER Inhaled Oxygen Concentration - - Weight 91.6 kg (202 lb) 04/10/2018 12:37 PM ASSOCIATE QUALITY ENGINEER Height 182.9 cm (6') 04/10/2018 12:37 PM ASSOCIATE QUALITY ENGINEER Body Mass Index 27.4 04/10/2018 12:37 PM ASSOCIATE QUALITY ENGINEER Plan of Treatment Health Maintenance Due Date [...] (1 of 2) 1999 SCREENING FOR DIABETES 02/07/2021 02/07/2018 COVID-19 VACCINE (1 - 2023-2 5 season) 2024 DEPRESSION SCREENING 05/02/2024 Respiratory Syncytial Virus (RSV) Vaccine Pt: or over 60 yrs (1 - 1-dose 75+ series) 2024 INFLUENZA VACCINE (#1) 2024 HEPATITIS B VACCINE Aged Out No [...] age to complete this topic Insurance MEDICARE [facility] MEDICARE [facility] Member Subscriber Plan / Payer (Ef fective 2020-Present) Name:August King Jr Relation to Subscriber:Self Name:AUGUST KING Payer ID:[id number] (NAIC) Type:[facility] Address: [address] [place] [id number] Care Teams Media Producer Relationship Specialty Start Date End Date Sanket Isbell MD [address] [place] [address] PCP - General Family Medicine 01/19/18
[2024-11-08 09:48] LABS: Alanine Aminotransferase 9 U/L (6-50); Albumin Level 3.9 g/dL (3.5-5.1); Alkaline Phosphatase 50 U/L (38-126); Anion Gap 4 mmol/L (4-12); Aspartate Amino Transferase 29 U/L (17-59); Bilirubin,Total 0.3 mg/dL (0.2-1.3); Blood Urea Nitrogen 21 mg/dL (9-20); Calcium 9.2 mg/dL (8.4-10.2); Carbon Dioxide 29 mmol/L (22-30); Chloride 99 mmol/L (98-107); Estimated CRCL calculation 78 ml/min; Estimated Glomerular Filt Rate > 60; Glucose 106 mg/dL (65-110); Potassium 4.2 mmol/L (3.4-5.0); Sodium 132 mmol/L (137-145); Total Protein 6.9 g/dL (6.3-8.2)
--- NOTE | 2024-11-08 09:59 | ED.SYNCOPE ---
HPI - Syncope General Chief Complaint: Syncope Stated Complaint: glf, syncope Time Seen by Provider: 11/08/24 09:01 History of Present Illness HPI narrative: 74-year-old male with history of Parkinson's disease, hypertension, hyperlipidemia, s/p pacemaker placement due to history of complete heart block, metastatic prostate cancer presents emergency department via EMS from home with at bedside for syncope and collapse. Patient states he was eating breakfast when he stood up, felt lightheaded and dizzy, walked to the Fridge and had a syncopal event that was witnessed by his . Patient reportedly lost consciousness for about a second and fell to the ground. He landed on his right side. He reportedly did not hit his head. He states when he woke up from the syncopal event he was having sharp stabbing midsternal chest pain that lasted 3-4 minutes and has since resolved. He is also reporting diffuse abdominal pain he describes as ?gas pains?. He is complaining of pain to his right shoulder and forearm, right hip, and a slight headache. He is not anticoagulated. Patient lives at home with his . Follows with Dr. Roa for urology. Related Data Home Medications ?Medication ?Instructions ?Recorded ?Confirmed ?Last Taken ?Type apalutamide 60 mg tablet (Erleada) 60 mg PO QID 07/11/24 11/08/24 Unknown History relugolix 120 mg tablet (Orgovyx) 120 mg PO DAILY 07/11/24 11/08/24 Unknown History sennosides 8.6 mg-docusate sodium 1 tab-cap PO HS 11/08/24 11/08/24 Unknown History 50 mg tablet (Senokot-S) Allergies Allergy/AdvReac Type Severity Reaction Status Date / Time diphenhydramine AdvReac Intermediate palpatation Verified 11/08/24 09:04 s Review of Systems Review of Systems: All systems reviewed & are unremarkable except as noted in HPI and below PMFSH Past Medical History Medical History CHF (congestive heart failure) Falls frequently Prostate cancer metastatic to bone BPH w urinary obs/LUTS Non-Hodgkin lymphoma in remission Kidney stones Hypertension Parkinsons Parkinson disease Surgical History Surgical History Cardiac pacemaker H/O prostate biopsy S/P total knee arthroplasty left Social History Social History Social History: Smoking status: Never smoker Second hand tobacco smoke exposure: No Alcohol intake: never Substance use: never Substance use type: does not use Do You Feel Safe in your Home?: Yes Lack of Transportation: No Lack of Food: Never True Current Housing: I Have Housing Concerned About Future Housing: No Difficulty Paying Gas/Electric Bills: No Difficulty Paying for Meds: No Currently Unemployed: No Education: Trade/Vocational Certificate Difficulty w/ Childcare or Family Care: No Living arrangements: with family Occupation/Education: retired Additional occupation/education comments: [employer], [employer] Gender identity (if verbalized by the patient): Male Sexual Orientation (if Verbalized by the Patient): Straight or Heterosexual Spiritual care concerns: No Exam Narrative: GENERAL: Well-appearing, well-nourished, and in no acute distress. HEAD: Normocephalic, atraumatic. EYES: PERRLA and EOMI. ENT: Nares clear, no rhinorrhea or epistaxis. Mucous membranes moist. NECK: Mild tenderness to the cervical spine with no crepitus, step-offs or deformities. CHEST: Clear to auscultation. No respiratory distress. HEART: Regular rate and rhythm. No murmur heard. Normal peripheral pulses. ABDOMEN: Normoactive bowel sounds. Abdomen soft with mild tenderness to the suprapubic region. No rebound or rigidity. EXTREMITIES: Mild tenderness to the right shoulder and diffusely to the right forearm with no obvious deformity. Full range of motion of extremity. Radial pulse 2 +. Sensation intact. SKIN: Warm, dry, no rash. NEURO: No focal deficits. Alert and oriented x4. Flat affect. Resting pill-rolling tremor Course Vital Signs Vital signs: Vital Signs Temperature 97.6 F 11/08/24 08:56 Pulse Rate 66 11/08/24 08:56 Respiratory Rate 22 H 11/08/24 08:56 Blood Pressure 124/97 H 11/08/24 08:56 Pulse Oximetry 99 11/08/24 08:56 Oxygen Delivery Room Air 11/08/24 08:56 Temperature 97.6 F 11/08/24 08:56 Pulse Rate 66 11/08/24 18:00 Respiratory Rate 19 11/08/24 15:06 Blood Pressure 146/88 H 11/08/24 15:06 Pulse Oximetry 100 11/08/24 15:06 Oxygen Delivery Room Air 11/08/24 09:07 MDM - Syncope MDM Narrative Medical decision making narrative: 74-year-old with a history of complete heart block s/p pacemaker placement, metastatic prostate cancer, hyperlipidemia, hypertension presents to the emergency department via EMS from home with at bedside for syncopal event that occurred this morning. See HPI for further history. Vital signs stable. Exam is notable for the above. Pacemaker interrogated. [employer] rep reported to nursing staff the pacemaker is working appropriately and there were no events. EKG shows electronic atrial pacemaker electronic ventricular pacemaker with a rate of 65 bpm, no significant changes when compared to prior. CBC without leukocytosis. Hemoglobin is 11.7 which is near baseline. Chemistries are largely unremarkable. BNP is elevated to 730 but normal when age adjusted, patient does not appear to be acutely fluid overloaded. Chest x-ray shows no acute cardiopulmonary process. X-ray of the right shoulder forearm show no acute findings. X-ray of the right hip and pelvis shows no acute findings. CT brain shows no acute intracranial process. CT cervical spine shows degenerative disease without acute fracture. CTA chest, abdomen, pelvis IMPRESSION: 1. No acute cardiopulmonary disease or acute intra-abdominal/pelvic process. 2. 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 Aorta is normal in caliber with no aneurysm or dissection. 3. Several new sclerotic bone lesions in the thoracic and lumbar spine suspicious for metastatic disease. Metallic densities in the prostate suggest treatment for prior prostate cancer suggesting a likely etiology. Correlate with clinical/surgical history and consider further evaluation with either bone scan or PMA PET as clinically indicated. ADDENDUM: Additional correlation is made with the intervening PET/CT dated 06/07/2024. Each of the sclerotic bone lesions are evident on the PET/CT from 06/07/2024-appearing subtly lytic and with increased uptake on prior PET/CT. The more sclerotic appearance in the current study likely reflects interval response to treatment. No lesions new since the prior PET/CT identified. Patient and at bedside updated on results. Patient was given a L of fluids and Tylenol with improvement. Given cardiac history and reported chest pain and syncope, plan to admit for further evaluation and management. Patient and family are agreeable with this. Discussed with hospitalist Tiffanie CALI, who agrees to admission. Lab Data 11/08/24 09:09 11/08/24 09:09 Labs: Lab Results 11/08/24 Range/Units 09:09 WBC 6.1 (4.5-10.0) K/mm3 RBC 3.68 L (4.6-6.20) M/mm3 Hgb 11.7 L (14.0-18.0) g/dL Hct 34.6 L (42.0-52.0) % MCV 94.0 (80-100) fl MCH 31.8 (26-34) pg MCHC 33.8 (32-36) g/dl RDW 12.4 (11.5-14.5) % Plt Count 202 (150-375) k/mm3 MPV 10.0 (7.4-10.4) fl Immature Gran % (Auto) 1.0 H (0-0.5) % Neut % (Auto) 76.6 H (45.5-73.1) % Lymph % (Auto) 8.8 L (18.3-44.2) % [place] % (Auto) 12.1 H (2.6-8.5) % Eos % (Auto) 1.0 (0-4.4) % Baso % (Auto) 0.5 (0.2-1.2) % Lymph # (Auto) 0.54 L (0.9-3.2) K/mm3 [place] # (Auto) 0.7 H (0.1-0.6) K/mm3 Eos # (Auto) 0.1 (0-0.3) K/mm3 Baso # (Auto) 0.0 (0.0-0.1) K/mm3 Abs Immat Gran (auto) 0.06 H (0.00-0.031) K/mm3 Absolute Neuts (auto) 4.7 (1.3-6.7) K/mm3 Absolute Nucleated RBC 0.000 (0.0-0.012) K/mm3 Nucleated RBC % 0.0 (0.0-0.2) % PT 13.8 (11.1-14.7) Seconds INR 1.1 APTT 24.0 (22.3-36.8) Seconds Sodium 132 L (137-145) mmol/L Potassium 4.2 (3.4-5.0) mmol/L Chloride 99 (98-107) mmol/L Carbon Dioxide 29 (22-30) mmol/L Anion Gap 4 (4-12) mmol/L BUN 21 H (9-20) mg/dL Creatinine 0.76 (0.7-1.3) mg/dL Estim Creat Clear Calc 78 ml/min Estimated GFR > 60 (59 - ) Glucose 106 (65-110) mg/dL Calcium 9.2 (8.4-10.2) mg/dL Magnesium 2.0 (1.6-2.3) mg/dL Total Bilirubin 0.3 (0.2-1.3) mg/dL AST 29 (17-59) U/L ALT 9 (6-50) U/L Alkaline Phosphatase 50 (38-126) U/L Troponin I < 0.012 (0.000-0.034) ng/mL NT-Pro-B Natriuret Pep 730 H (19.9-100) pg/mL Total Protein 6.9 (6.3-8.2) g/dL Albumin 3.9 (3.5-5.1) g/dL Discharge Plan Discharge Clinical Impression: Syncope and collapse, Prostate cancer metastatic to bone Chest pain Qualifiers: Chest pain type: unspecified Qualified Code(s): R07.9 - Chest pain, unspecified Abdominal aortic aneurysm Qualifiers: Abdominal aorta location: unspecified Presence of rupture: without rupture Qualified Code(s): I71.40 - Abdominal aortic aneurysm, without rupture, unspecified Patient Disposition: Still a Patient Condition: Stable
[2024-11-08 10:20] LABS: INR 1.1; Prothrombin Time 13.8 Seconds (11.1-14.7)
[2024-11-08 10:21] LABS: Partial Thromboplastin Time 24.0 Seconds (22.3-36.8)
[2024-11-08 10:23] LABS: Magnesium 2.0 mg/dL (1.6-2.3)
[2024-11-08 10:35] LABS: NT Pro B Type Natriuretic Pept 730 pg/mL (19.9-100); Troponin I < 0.012 ng/mL (0.000-0.034)
--- NOTE | 2024-11-08 10:42 | PC.NURSE ---
pt in ct at this time. spoke with spouse about brand of pacemaker, biotronic interrogator placed at bedside.
[2024-11-08] MEDS: ACETAMINOPHEN 500 MG TABLET 1000 MG PO (11:07)
[2024-11-08] MEDS: SODIUM CHLORIDE 0.9% IV 1,000 ML 999 ML IV CONT (11:08)
--- NOTE | 2024-11-08 11:08 | PC.NURSE ---
spouse asking if patient can take the medications he normally takes at 11 at home, spoke with Nadira KING who stated it was okay to take his home meds.
--- NOTE | 2024-11-08 14:41 | ECG_ITS ---
Test Date: 2024-11-08 14:47:33 Measurements Intervals [place] Rate: 66 P: 71 MA: 247 QRS: -38 QRSD: 164 T: 145 QT: 465 QTc: 488 Interpretive Statements VENTRICULAR PACED RHYTHM Electronically Signed On 11-09-2024 10:42:43 CDT by Manoj Abreu D.O
[2024-11-08 14:46] LABS: Add Urine Microscopic? NO; Appearance Urine Clear (Clear); Glucose Urine UA Negative (Negative); Leukocyte Esterase Ur Negative LEU/UL (Negative); Nitrate Urine Negative (Negative); Specific Grav Ur 1.025 (1.001-1.035)
[2024-11-08 15:23] LABS: Troponin I 0.014 ng/mL (0.000-0.034)
--- NOTE | 2024-11-08 16:19 | PC.NURSE ---
dinner tray ordered at this time
--- NOTE | 2024-11-08 16:26 | P.HP_ITS ---
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 The states that the patient states that he did not feel right before he fell and that he was dizzy. Patient states that he just blacked out and fell. He was standing up from the refrigerator. The states that he did not his head. Patient does not believe that the fall was caused by his Parkinson's disease. He is worried that it could be cardiac or dehydration related. Liver shows anemia 11.7, sodium 132, BNP of 730, UA negative for infection, CT chest abdomen and pelvis with no new findings, CT spine no acute process, CT head with no acute process, with pelvis x-ray with no acute process, forearm x- ray with no acute process, x-ray shoulder no acute process, chest x-ray no acute process. EKG shows ventricular paced rate of 66. Review of Systems Review of Systems: 12 systems were reviewed and are negativ e except for as per HPI. [facility] Past Medical History Medical History CHF (congestive heart failure) Falls frequently Prostate cancer metastatic to bone BPH w urinary obs/LUTS Non-Hodgkin lymphoma in remission Kidney stones Hypertension Parkinsons Parkinson disease Surgical History Surgical History Cardiac pacemaker H/O prostate biopsy S/P total knee arthroplasty left Social History Social History Social History: Smoking status: Never smoker Second hand tobacco smoke exposure: No Alcohol intake: never Substance use: never Substance use type: does not use Do You Feel Safe in your Home?: Yes Lack of Transportation: No Lack of Food: Never True Current Housing: I Have Housing Concerned About Future Housing: No Difficulty Paying Gas/Electric Bills: No Difficulty Paying for Meds: No Currently Unemployed: No Education: Trade/Vocational Certificate Difficulty w/ Childcare or Family Care: No Living arrangements: with family Occupation/Education: retired 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, [employer] Gender identity (if verbalized by the patient): Male Sexual Orientation (if Verbalized by the Patient): Straight or Heterosexual Spiritual care concerns: No Meds Home Medications and Allergies Home Medications ?Medication ?Instructions ?Recorded ?Confirmed ?Type apalutamide 60 mg tablet (Erleada) 60 mg PO QID 07/11/24 11/08/24 History carbidopa 25 mg-levodopa 100 mg 1 tablet PO QID #360 tabs 07/11/24 11/08/24 Rx tablet (Sinemet) carbidopa 50 mg-levodopa 200 1 tablet PO QID #120 tabs 07/11/24 11/08/24 Rx mg-entacapone 200 mg tablet relugolix 120 mg tablet (Orgovyx) 120 mg PO DAILY 07/11/24 11/08/24 History quetiapine 25 mg tablet See Rx Instructions .Route 07/31/24 11/08/24 Rx .COMPLEX #45 tabs lisinopril 10 mg tablet 10 mg PO DAILY #90 tabs 08/23/24 11/08/24 Rx sennosides 8.6 mg-docusate sodium 1 tab-cap PO HS 11/08/24 11/08/24 History 50 mg tablet (Senokot-S) Allergies Allergy/AdvReac Type Severity Reaction Status Date / Time diphenhydramine AdvReac Intermediate palpatation Verified 11/08/24 09:04 s Vital Signs Vital Signs - 24 hr 11/08/24 08:56 11/08/24 09:07 11/08/24 09:11 Temperature 97.6 F Pulse Rate 66 66 Respiratory Rate 22 H 17 Blood Pressure 124/97 H 124/97 H Pulse Oximetry 99 99 99 Oxygen Delivery Room Air Room Air 11/08/24 12:35 11/08/24 15:06 Temperature Pulse Rate 67 66 Respiratory Rate 18 19 Blood Pressure 130/77 146/88 H Pulse Oximetry 97 100 Oxygen Delivery Exam Narrative: General: well appearing, appears stated age. HEENT: normocephalic, atraumatic. Mucous membranes moist. EOMI, PERRLA, bilateral sclera anicteric, no conjunctival injection. Neck supple without JVD, lymphadenopathy, or bruit. Respiratory: clear to ascultation bilaterally. No rales/rhonic/wheezes. Cardiovascular: Regular rate and rhythm, normal S1-S2 upon ascultation. No murmurs, rubs, or clicks. PMI is nondisplaced, capillary refill less than 3 second. Abdomen: Soft, round, no pulsatile masses, nondistended and nontender. No rebou nd, no guarding. No CVA tenderness, no hepatosplenomegaly. Bowel sounds present to all four quadrants. No high pitch or tinkling sounds, resonant to percussion. Extremities: No cyanosis, clubbing, or edema present. Pulses are palpable 2/2. Active ROM to all four extremities. Neuro: Alert and orientated x 4. PERRLA. Cranial nerves 2-12 intact without focal deficit. Skin: Warm, dry, and intact, without rash, erythema, or lesion. Psych: pleasant, cooperative, normal speech, normal affect, no hallucinations, no dysarthia H&P: Results Labs Labs: Short CBC 11/08/24 Range/Units 09:09 WBC 6.1 (4.5-10.0) K/mm3 Hgb 11.7 L (14.0-18.0) g/dL Hct 34.6 L (42.0-52.0) % Plt Count 202 (150-375) k/mm3 BMP 11/08/24 09:09 Sodium 132 L Potassium 4.2 Chloride 99 Carbon Dioxide 29 BUN 21 H Creatinine 0.76 Glucose 106 Calcium 9.2 Cardiac Enzymes 11/08/24 11/08/24 Range/Units 09:09 14:44 Troponin I < 0.012 0.014 (0.000-0.034) ng/mL Liver Function 11/08/24 Range/Units 09:09 Total Bilirubin 0.3 (0.2-1.3) mg/dL AST 29 (17-59) U/L ALT 9 (6-50) U/L Alkaline Phosphatase 50 (38-126) U/L Albumin 3.9 (3.5-5.1) g/dL Urine 11/08/24 Range/Units 14:36 Urine Color Yellow (Yellow) Urine Appearance Clear (Clear) Urine pH 6.0 (5.0-9.0) Ur Specific [place] 1.025 (1.001-1.035) Urine Protein Negative (Negative) mg/dL Urine Glucose (UA) Negative (Negative) mg/dL Assessment and Plan Assessment and plan (1) Syncope and collapse: Code(s): R55 - Syncope and collapse Status: Acute Assessment and Plan: Syncopal workup Telemetry Orthostatic vital signs PT OT evaluate and treat (2) Chest pain: Code(s): R07.9 - Chest pain, unspecified Status: Acute Assessment and Plan: Trend troponins EKG as needed Pain management (3) Hyponatremia: Code(s): E87.1 - Hypo-osmolality and hyponatremia Status: Acute Assessment and Plan: BMP in the morning (4) HTN (hypertension), benign: Code(s): I10 - Essential (primary) hypertension Status: Acute Assessment and Plan: Hold lisinopril (5) Prostate cancer metastatic to bone: Code(s): C61 - Malignant neoplasm of prostate; C79.51 - Secondary malignant neoplasm of bone Status: Acute Assessment and Plan: will bring in medications from home (6) Parkinson disease: Code(s): G20 - Parkinson's disease Status: Chronic Assessment and Plan: Continue home medications (7) CHF (congestive heart failure): Code(s): I50.9 - Heart failure, unspecified Status: Acute Assessment and Plan: Not on diuretics, patient appears to be euvolemic (8) Cardiac pacemaker: Code(s): Z95.0 - Presence of cardiac pacemaker Status: Acute Assessment and Plan: Interrogate pacemaker (9) History of non-Hodgkin's lymphoma: Code(s): Z85.72 - Personal history of non-Hodgkin lymphomas Status: Acute Assessment and Plan: In remission
[2024-11-08 18:36] LABS: Troponin I < 0.012 ng/mL (0.000-0.034)
[2024-11-08] MEDS: CARBIDOPA/LEVODOPA 25/100 MG TABLET 1 TABLET PO (23:40)
[2024-11-09] VITALS (18 sets, daily range): BP systolic 118–181; BP diastolic 42–93; PULSE 63–93; RESP 12–22; TEMP 36.4–36.9; O2SAT 95–98
--- NOTE | 2024-11-09 | ECHO_ITS ---
Patient Info Name: Aquilino Trujillo Age: 74 years : 1950 Gender: Male Ht: 71 in Wt: 185 lbs BSA: 2.06 m2 HR: 88 bpm BP: 142 / 74 mmHg Technical Quality: Good Exam Date: 11/09/2024 2:30 PM Patient Status: I Admit Date: 11/09/2024 Exam Type: CA echo dop color flow w con Complete two-dimensional, color flow and Doppler transthoracic echocardiogram is performed with contrast to opacify the left ventricle and to improve the deliniation of the left ventricle endocardial borders. Staff Referring Physician: Kathleen Goff Perianesthesia Nurse: Munira Leal Attending Provider: Silvestre Jimenez Contrast/Agitated Saline Contrast/Ag. Saline: Definity Amount: 2.00 ml Administered By: Munira Leal Summary 1. Definity contrast administered improved wall motion interpretation. 2. Left ventricular chamber dimension is mildly enlarged. 3. Left ventricular systolic function is moderately globally reduced, estimated at 40-45. 4. There is mild concentric increased left ventricular wall thickness. 5. The left ventricular diastolic function is grade I diastolic dysfunction. 6. E/e' 6 is not elevated. 7. Left atrial chamber dimension is moderately enlarged. 8. There is moderate aortic valve sclerosis. 9. There is mild aortic valve stenosis with a peak velocity of 229 cm/s, mean gradient of 7 mmHg, and aortic valve area of 1.7 cm2. 10. There is mild aortic valve regurgitation. 11. The mitral valve has a moderately calcified annulus. 12. There is mild mitral valve regurgitation. 13. There is trace tricuspid valve regurgitation. 14. No pulmonary hypertension, estimated pulmonary arterial systolic pressure is 30 mmHg. Left Ventricle E/e' 6 is not elevated. Left ventricular chamber dimension is mildly enlarged. Left ventricular systolic function is moderately globally reduced, estimated at 40-45. There is mild concentric increased left ventricular wall thickness. The left ventricular diastolic function is grade I diastolic dysfunction. Definity contrast administered improved wall motion interpretation. Right Ventricle Right ventricular chamber dimension is normal. Right ventricular systolic function is normal and with normal TAPSE 2.5 cm. Left Atria Left atrial chamber dimension is moderately enlarged. Right Atria Right atrial chamber dimension is normal. Aortic Valve The aortic valve is trileaflet. There is moderate aortic valve sclerosis. There is mild aortic valve stenosis with a peak velocity of 229 cm/s, mean gradient of 7 mmHg, and aortic valve area of 1.7 cm2. There is mild aortic valve regurgitation. Pulmonic Valve There is no pulmonic regurgitation. Mitral Valve The mitral valve has a moderately calcified annulus. There is no mitral valve stenosis. There is mild mitral valve regurgitation. Tricuspid Valve There is trace tricuspid valve regurgitation. No pulmonary hypertension, estimated pulmonary arterial systolic pressure is 30 mmHg. Pericardium/Pleural There is no pericardial effusion. Inferior Vena Cava Normal inferior vena cava with >50% collapse upon inspiration consistent with normal right atrial pressure, 5 mmHg. Aorta The aortic root size at the sinus of Valsalva is normal. Left Ventricular Outflow Tract Name Value Normal LVOT 2D LVOT Diameter 2.0 cm LVOT Doppler LVOT Peak Velocity 112 cm/s LVOT Peak Gradient 5 mmHg LVOT Mean Gradient 2 mmHg LVOT VTI 24 cm LVOT VTI/AV VTI Ratio 0.5 LVOT Stroke Volume 75 ml LVOT CO 5.8 l/min LVOT CI 2.8 l/min/m2 Pulmonic Valve Name Value Normal RVOT Doppler RVOT Peak Velocity 103 cm/s RVOT Peak Gradient 4 mmHg PV Doppler PV Peak Velocity 138 cm/s PV Peak Gradient 8 mmHg Mitral Valve Name Value Normal MV Diastolic Function MV E Peak Velocity 69 cm/s MV A Peak Velocity 125 cm/s MV E/A 0.6 MV Decel Time (PW) 399 ms MV Annular TDI MV E/e' (Septal) 6.0 MV E/e' (Lateral) 8.1 MV E/e' (Average) 7.0 Tricuspid Valve Name Value Normal TV Regurgitation Doppler TR Peak Velocity 248 cm/s TR Peak Gradient 25 mmHg Estimated PAP/RSVP RA Pressure 5 mmHg <=5 PA Systolic Pressure 30 mmHg <36 RV Systolic Pressure 30 mmHg <36 Aortic Valve Name Value Normal AV Doppler AV Peak Velocity 229 cm/s AV Peak Gradient 13 mmHg AV Mean Gradient 7 mmHg AV VTI 45 cm AV Area (Cont Eq VTI) 1.7 cm2 >=3.0 AV Area (Cont Eq Jamel) 1.5 cm2 AV DI (Jamel) 0.49 AV Regurgitation 2D LVOT Area 3.1 cm2 Ventricles Name Value Normal LV Dimensions 2D/MM IVS Diastolic Thickness (2D) 1.5 cm 0.6-1.0 LVID Diastole (2D) 5.1 cm 4.2-5.8 LVIW Diastolic Thickness (2D) 1.1 cm 0.6-1.0 LVID Systole (2D) 4.2 cm 2.5-4.0 LVOT Diameter 2.0 cm LV Mass (2D Cubed) 258.09 g 88.00-224.00 LV Mass Index (2D Cubed) 125 g/m2 49-115 Relative Wall Thickness (2D) 0.42 <=0.42 LV Fractional Shortening/Ejection Fraction 2D/MM LV Fractional Shortening (2D) 18 % 25-43 LV EF (2D Teichholz) 37 % LV Diastolic Volume (4C MOD) 141 ml LV EF (4C MOD) 36 % LV Diastolic Volume (2C MOD) 109 ml LV EF (2C MOD) 28 % LV Diastolic Volume (BP MOD) 125 ml 62-150 LV Diastolic Volume Index (BP MOD) 61 ml/m2 34-74 LV Systolic Volume (BP MOD) 85 ml 21-61 LV Systolic Volume Index (BP MOD) 41 ml/m2 11-31 LV EF (BP MOD) 32 % 52-72 LV Diastolic Length (4C) 8.5 cm LV Systolic Length (4C) 7.4 cm LV Stroke Volume (4C MOD) 51 ml Atria Name Value Normal LA Dimensions LA Volume (4C A-L) 78 ml LA Volume (BP A-L) 74 ml RA Dimensions RA Systolic Major Cocoa Length (4C) 6.1 cm 2.1-2.7 RA Area (4C) 12.7 cm2 <=18.0 Report Signatures
[2024-11-09 04:26] LABS: Hematocrit 34.5 % (42.0-52.0); Hemoglobin 11.6 g/dL (14.0-18.0); Immature Granulocyte Percent A 0.7 % (0-0.5); Lymphocytes Absolute Auto 0.54 K/mm3 (0.9-3.2); Mean Corpuscular HGB Conc 33.6 g/dl (32-36); Mean Corpuscular Hemoglobin 31.9 pg (26-34); Mean Corpuscular Volume 94.8 fl (80-100); Nucleated Red Blood Cells Absolute Auto 0.000 K/mm3 (0.0-0.012); Nucleated Red Blood Cells Perc 0.0 % (0.0-0.2); Platelet Count Result 178 k/mm3 (150-375); Red Blood Count 3.64 M/mm3 (4.6-6.20); White Blood Count 9.0 K/mm3 (4.5-10.0)
[2024-11-09 04:39] LABS: Anion Gap 6 mmol/L (4-12); Blood Urea Nitrogen 18 mg/dL (9-20); Calcium 9.0 mg/dL (8.4-10.2); Carbon Dioxide 26 mmol/L (22-30); Chloride 104 mmol/L (98-107); Estimated CRCL calculation 75 ml/min; Estimated Glomerular Filt Rate > 60; Glucose 107 mg/dL (65-110); Potassium 4.4 mmol/L (3.4-5.0); Sodium 136 mmol/L (137-145)
--- NOTE | 2024-11-09 08:56 | PM.IMPN ---
Progress Note: A&P Assessment and Plan (1) HTN (hypertension), benign: Code(s): I10 - Essential (primary) hypertension Status: Acute (2) CHF (congestive heart failure): Code(s): I50.9 - Heart failure, unspecified Status: Acute (3) Cardiac pacemaker: Code(s): Z95.0 - Presence of cardiac pacemaker Status: Acute (4) Abdominal aortic aneurysm: Qualifiers: Abdominal aorta location: unspecified Presence of rupture: without rupture Qualified Code(s): I71.40 - Abdominal aortic aneurysm, without rupture, unspecified Code(s): I71.40 - Abdominal aortic aneurysm, without rupture, unspecified Status: Acute (5) History of non-Hodgkin's lymphoma: Code(s): Z85.72 - Personal history of non-Hodgkin lymphomas Status: Acute (6) Prostate cancer metastatic to bone: Code(s): C61 - Malignant neoplasm of prostate; C79.51 - Secondary malignant neoplasm of bone Status: Acute (7) Fall: Code(s): W19.XXXA - Unspecified fall, initial encounter Status: Acute Plan Unable to complete orthostatic vital sign set x2. Patient unwilling to stand. Will restart his lisinopril 10 mg p.o. q.day which was decreased from 40 mg per the due to low blood pressures. Discussed the risk. Continue to attempt to obtain orthostatic blood pressures. PT OT. Transfer to [facility] but continue telemetry. Interrogated review pacemaker. Check carotid duplex and surface echocardiogram. Full code. Saline lock IV. Heart healthy diet. SCDs. Time Spent With Patient Time with patient: 25 - 35 minutes Subjective Date/time seen: 11/09/24 08:56 Interval history: No acute overnight events. is at bedside. Patient denies any complaints. Is a bit difficult to confirm history as a unsure what happened but the is convinced he did not faint. His eyes were open and he appeared to have lost his balance while walking up to the Fridge from a seated position. Patient also reports his feet slipped out from under him. Review of Systems Review of Systems: All systems reviewed & are unremarkable except as noted in HPI and below (Subjective) Exam Const: General: comfortable and no acute distress Other: A&O x3. Resting tremor. HENMT: Mouth: Yes moist mucous membranes Eyes: Pupils: Equal, round and reactive pupils present Neck: Neck: supple Resp: Effort & Inspection: normal respiratory effort Auscultation: clear to auscultation bilaterally Cardio: Rate: regular rate Rhythm: regular rhythm GI: GI Palp: Yes Soft to palpation Extrem: General: no edema Objective Data Vital Signs Vital Signs: Vital Signs - 24 hr 11/08/24 09:07 11/08/24 09:11 11/08/24 12:35 Temperature Pulse Rate 66 67 Respiratory Rate 17 18 Blood Pressure 124/97 H 130/77 Pulse Oximetry 99 99 97 Oxygen Delivery Room Air 11/08/24 15:06 11/08/24 18:00 11/08/24 19:35 Temperature 97.6 F Pulse Rate 66 66 62 Respiratory Rate 19 20 Blood Pressure 146/88 H 155/77 H Pulse Oximetry 100 100 Oxygen Delivery 11/08/24 20:00 11/08/24 20:00 11/08/24 21:10 Temperature Pulse Rate 60 Respiratory Rate Blood Pressure Pulse Oximetry 97 Oxygen Delivery Room Air Room Air 11/08/24 22:00 11/08/24 23:58 11/09/24 00:00 Temperature 97.6 F Pulse Rate 64 63 Respiratory Rate 18 Blood Pressure 144/80 H Pulse Oximetry 98 Oxygen Delivery Room Air 11/09/24 00:00 11/09/24 02:00 11/09/24 02:55 Temperature 97.6 F Pulse Rate 65 72 63 Respiratory Rate 22 H Blood Pressure 177/74 H Pulse Oximetry 98 Oxygen Delivery 11/09/24 03:08 11/09/24 04:00 11/09/24 06:00 Temperature Pulse Rate 64 75 Respiratory Rate Blood Pressure Pulse Oximetry Oxygen Delivery Room Air 11/09/24 07:58 11/09/24 07:59 11/09/24 08:00 Temperature 98.5 F 98.5 F Pulse Rate 77 78 77 Respiratory Rate 12 12 Blood Pressure 181/91 H 173/93 H 181/91 H Pulse Oximetry 98 97 98 Oxygen Delivery Intake/Output Intake/Output: Intake & Output 11/06/24 11/07/24 11/08/24 11/09/24 23:59 23:59 23:59 23:59 Intake Total 1240 240 Output Total 2500 Balance 1240 -2260 Meds/Results Medications: Active Medications Generic Name Dose Route Start Last Admin Trade Name Freq PRN Reason Stop Dose Admin Acetaminophen 650 mg 11/08/24 13:05 Acetaminophen 325 Mg Tablet PO Q4H PRN Mild Pain (1-3) or Fever Hydrocodone Bitart/Acetaminophen 1 tab 11/08/24 16:40 Hydrocodone/Acetaminophen (*Crx) 5-325 Mg Tablet PO Q4H PRN Moderate Pain (4-6) Al Hydrox/Mg Hydrox/Simethicone 30 ml 11/08/24 17:00 Mag Hydrox/Al Hydrox/Simeth 30 Ml Udc PO Q6H PRN Indigestion Aspirin 81 mg 11/09/24 08:00 Aspirin 81 Mg Chewable Tablet PO DAILY@0800 MELI Carbidopa/Levodopa 1 tablet 11/09/24 09:00 Carbidopa/Levodopa 25/100 Mg Tablet PO QID MLEI Docusate Sodium 100 mg 11/08/24 17:00 11/08/24 23:50 Docusate Sodium 100 Mg Capsule PO Not Given BID MELI Lisinopril 10 mg 11/09/24 09:00 Lisinopril 10 Mg Tablet PO DAILY MELI Miscellaneous Information 0 each 11/08/24 00:01 Relugolix Nonform Can Pt Bring From Home? XX 12/08/24 00:00 [facility] Miscellaneous Information 0 each 11/08/24 00:01 Apalutamide Nonform Can Pt Bring From Home? XX 12/08/24 00:00 [facility] Miscellaneous Information 0 each 11/08/24 00:01 (Pcheopkcf-Mcmaqnow-Ygrmlnmbjc 50-200-200 Mg Tablet) Nonform Can Pt Bring From Home? XX 12/08/24 00:00 [facility] Nitroglycerin 0.4 mg 11/08/24 17:00 Nitroglycerin Sl 0.4 Mg Tablet SUBLINGUAL Q5MIN PRN Chest Pain Non-Formulary Medication 60 mg 11/09/24 09:00 Apalutamide [Erleada] PO 12/09/24 08:59 QID MELI Non-Formulary Medication 1 tablet 11/09/24 09:00 Hguerookb-Ixezxozb-Fcbjdtirmf PO 12/09/24 08:59 QID MELI Non-Formulary Medication 120 mg 11/09/24 09:00 Relugolix [Orgovyx] PO 12/09/24 08:59 DAILY [facility] Ondansetron HCl 4 mg 11/08/24 17:00 Ondansetron Inj 4 Mg/2 Ml Vial IV PUSH Q6H PRN Nausea And Vomiting Perflutren Lipid Microsphere 0 ml 11/09/24 08:30 Perflutren Lipid Microspheres 1.5 Ml Vial Diluted To 10 Ml Total Volume IV PUSH 11/12/24 08:30 ONCE PRN adequate visualization Protocol Quetiapine Fumarate 12.5 mg 11/09/24 21:00 Quetiapine Fumarate 12.5 Mg Tablet PO HS MELI Senna/Docusate Sodium 1 tab 11/09/24 21:00 Senna/Docusate Sodium Tablet PO HS MELI Radiology Results: ITS Impressions Chest X-Ray 11/08/24 10:35 IMPRESSION: No acute process. Head CT 11/08/24 10:57 Impression: No acute intracranial hemorrhage or suspicious mass effect. Cervical Spine CT 11/08/24 11:01 Impression: Degenerative disease, without acute fracture. Chest/Abdomen/Pelvis CTA 11/08/24 11:03 IMPRESSION: 1. No acute cardiopulmonary disease or acute intra-abdominal/pelvic process. 2. 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 Aorta is normal in caliber with no aneurysm or dissection. 3. Several new sclerotic bone lesions in the thoracic and lumbar spine suspicious for metastatic disease. Metallic densities in the prostate suggest treatment for prior prostate cancer suggesting a likely etiology. Correlate with clinical/surgical history and consider further evaluation with either bone scan or PMA PET as clinically indicated. ADDENDUM: 11/08/24 1234 ADDENDUM: Additional correlation is made with the intervening PET/CT dated 06/07/2024. Each of the sclerotic bone lesions are evident on the PET/CT from 06/07/2024-appearing subtly lytic and with increased uptake on prior PET/CT. The more sclerotic appearance in the current study likely reflects interval response to treatment. No lesions new since the prior PET/CT identified. Labs Labs: Laboratory Results - last 24 hr 11/08/24 11/08/24 11/08/24 09:09 14:36 14:44 WBC 6.1 RBC 3.68 L Hgb 11.7 L Hct 34.6 L MCV 94.0 MCH 31.8 MCHC 33.8 RDW 12.4 Plt Count 202 MPV 10.0 Immature Gran % (Auto) 1.0 H Neut % (Auto) 76.6 H Lymph % (Auto) 8.8 L [place] % (Auto) 12.1 H Eos % (Auto) 1.0 Baso % (Auto) 0.5 Lymph # (Auto) 0.54 L [place] # (Auto) 0.7 H Eos # (Auto) 0.1 Baso # (Auto) 0.0 Abs Immat Gran (auto) 0.06 H Absolute Neuts (auto) 4.7 Absolute Nucleated RBC 0.000 Nucleated RBC % 0.0 PT 13.8 INR 1.1 APTT 24.0 Sodium 132 L Potassium 4.2 Chloride 99 Carbon Dioxide 29 Anion Gap 4 BUN 21 H Creatinine 0.76 Estim Creat Clear Calc 78 Estimated GFR > 60 Glucose 106 Calcium 9.2 Magnesium 2.0 Total Bilirubin 0.3 AST 29 ALT 9 Alkaline Phosphatase 50 Troponin I < 0.012 0.014 NT-Pro-B Natriuret Pep 730 H Total Protein 6.9 Albumin 3.9 Urine Color Yellow Urine Appearance Clear Urine pH 6.0 Ur Specific [place] 1.025 Urine Protein Negative Urine Glucose (UA) Negative Urine Ketones Negative Ur Blood (Man) Negative Urine Nitrate Negative Urine Bilirubin Negative Urine Urobilinogen 0.2 Leukocyte Esterase Rfl Negative 11/08/24 11/09/24 17:59 03:57 WBC 9.0 RBC 3.64 L Hgb 11.6 L Hct 34.5 L MCV 94.8 MCH 31.9 MCHC 33.6 RDW 12.6 Plt Count 178 MPV 10.1 Immature Gran % (Auto) 0.7 H Neut % (Auto) 82.5 H Lymph % (Auto) 6.0 L [place] % (Auto) 9.3 H Eos % (Auto) 1.1 Baso % (Auto) 0.4 Lymph # (Auto) 0.54 L [place] # (Auto) 0.8 H Eos # (Auto) 0.1 Baso # (Auto) 0.0 Abs Immat Gran (auto) 0.06 H Absolute Neuts (auto) 7.4 H Absolute Nucleated RBC 0.000 Nucleated RBC % 0.0 PT INR APTT Sodium 136 L Potassium 4.4 Chloride 104 Carbon Dioxide 26 Anion Gap 6 BUN 18 Creatinine 0.79 Estim Creat Clear Calc 75 Estimated GFR > 60 Glucose 107 Calcium 9.0 Magnesium Total Bilirubin AST ALT Alkaline Phosphatase Troponin I < 0.012 NT-Pro-B Natriuret Pep Total Protein Albumin Urine Color Urine Appearance Urine pH Ur Specific [place] Urine Protein Urine Glucose (UA) Urine Ketones Ur Blood (Man) Urine Nitrate Urine Bilirubin Urine Urobilinogen Leukocyte Esterase Rfl
--- NOTE | 2024-11-09 08:59 | PHAR ---
HOME MED VERIFICATION - UROLOGY [facility] [id number] ORGOVYX 120 MG 1 TAB DAILY & RX [id number] ERLEADA 60 MG 4 TABS DAILY
[2024-11-09] MEDS: CARBIDOPA/LEVODOPA 25/100 MG TABLET 1 TABLET PO ×4 (09:09→21:13)
[2024-11-09] MEDS: DOCUSATE SODIUM 100 MG CAPSULE PO ×2 (09:10→16:53)
[2024-11-09] MEDS: RELUGOLIX 120 MG 1 EACH PO (10:20)
[2024-11-09] MEDS: APALUTAMIDE 60 MG 1 EACH PO ×4 (12:30→21:13)
--- NOTE | 2024-11-09 13:05 | PHAR ---
Drug Name:?Carbidopa, Levodopa and Entacapone Ingredients:?Carbidopa -- 50 MG Entacapone -- 200 MG Levodopa -- 200 MG Color:?Brown Red Shape:?Oval Imprint:??S200 Form:?Oral Tablet
--- NOTE | 2024-11-09 13:09 | PHAR ---
Drug Name:Carbidopa, Levodopa and Entacapone Ingredients:?Carbidopa -- 50 MG Entacapone -- 200 MG Levodopa -- 200 MG Color:?Brown Red Shape:?Oval Imprint:??S200 Form:?Oral Tablet
[2024-11-09] MEDS: CARBIDOPA PO ×3 (14:09→21:14)
[2024-11-09] MEDS: LEVODOPA PO ×3 (14:09→21:14)
[2024-11-09] MEDS: ASPIRIN 81 MG CHEWABLE TABLET PO (14:09)
[2024-11-09] MEDS: ENTACAPONE PO ×3 (14:09→21:14)
[2024-11-09] MEDS: PERFLUTREN LIPID MICROSPHERES 1.5 ML VIAL DILUTED TO 10 ML TOTAL VOLUME IV PUSH (14:25)
--- NOTE | 2024-11-09 15:04 | PCPTNOTE ---
attempted PT eval, per RN pt currently getting echo and has another test after then is getting moved to another floor, will follow
--- NOTE | 2024-11-09 17:12 | PC.NURSE ---
Pt transferred to room 244 via bed. at bedside. Home meds and report given to Evelina MONACO
[2024-11-09] MEDS: SENNA/DOCUSATE SODIUM TABLET 1 TAB PO (21:13)
[2024-11-09] MEDS: QUEtiapine FUMARATE 12.5 MG TABLET PO (21:34)
[2024-11-10] VITALS (11 sets, daily range): BP systolic 132–149; BP diastolic 75–84; PULSE 62–71; RESP 16–20; TEMP 36.4–36.7; O2SAT 96–100
[2024-11-10 05:17] LABS: Hematocrit 36.9 % (42.0-52.0); Hemoglobin 12.3 g/dL (14.0-18.0); Immature Granulocyte Percent A 1.1 % (0-0.5); Lymphocytes Absolute Auto 0.67 K/mm3 (0.9-3.2); Mean Corpuscular HGB Conc 33.3 g/dl (32-36); Mean Corpuscular Hemoglobin 31.9 pg (26-34); Mean Corpuscular Volume 95.8 fl (80-100); Nucleated Red Blood Cells Absolute Auto 0.000 K/mm3 (0.0-0.012); Nucleated Red Blood Cells Perc 0.0 % (0.0-0.2); Platelet Count Result 193 k/mm3 (150-375); Red Blood Count 3.85 M/mm3 (4.6-6.20); White Blood Count 4.7 K/mm3 (4.5-10.0)
[2024-11-10 05:34] LABS: Anion Gap 5 mmol/L (4-12); Blood Urea Nitrogen 18 mg/dL (9-20); Calcium 9.1 mg/dL (8.4-10.2); Carbon Dioxide 31 mmol/L (22-30); Chloride 100 mmol/L (98-107); Estimated CRCL calculation 81 ml/min; Estimated Glomerular Filt Rate > 60; Glucose 104 mg/dL (65-110); Magnesium 2.3 mg/dL (1.6-2.3); Potassium 3.8 mmol/L (3.4-5.0); Sodium 136 mmol/L (137-145)
[2024-11-10] MEDS: CARBIDOPA/LEVODOPA 25/100 MG TABLET 1 TABLET PO ×4 (09:02→20:25)
[2024-11-10] MEDS: APALUTAMIDE 60 MG 1 EACH PO ×4 (09:02→20:25)
[2024-11-10] MEDS: ASPIRIN 81 MG CHEWABLE TABLET PO (09:02)
[2024-11-10] MEDS: RELUGOLIX 120 MG 1 EACH PO (09:03)
[2024-11-10] MEDS: ENTACAPONE PO ×4 (09:04→20:25)
[2024-11-10] MEDS: CARBIDOPA PO ×4 (09:04→20:25)
[2024-11-10] MEDS: LEVODOPA PO ×4 (09:04→20:25)
--- NOTE | 2024-11-10 15:04 | PM.IMPN ---
Progress Note: A&P Assessment and Plan (1) HTN (hypertension), benign: Code(s): I10 - Essential (primary) hypertension Status: Acute (2) CHF (congestive heart failure): Code(s): I50.9 - Heart failure, unspecified Status: Acute (3) Cardiac pacemaker: Code(s): Z95.0 - Presence of cardiac pacemaker Status: Acute (4) Abdominal aortic aneurysm: Qualifiers: Abdominal aorta location: unspecified Presence of rupture: without rupture Qualified Code(s): I71.40 - Abdominal aortic aneurysm, without rupture, unspecified Code(s): I71.40 - Abdominal aortic aneurysm, without rupture, unspecified Status: Acute (5) History of non-Hodgkin's lymphoma: Code(s): Z85.72 - Personal history of non-Hodgkin lymphomas Status: Acute (6) Prostate cancer metastatic to bone: Code(s): C61 - Malignant neoplasm of prostate; C79.51 - Secondary malignant neoplasm of bone Status: Acute (7) Fall: Code(s): W19.XXXA - Unspecified fall, initial encounter Status: Acute Plan Unable to complete orthostatic vital sign set x2. Patient unwilling to stand. Will restart his lisinopril 10 mg p.o. q.day which was decreased from 40 mg per the due to low blood pressures. Discussed the risk. Continue to attempt to obtain orthostatic blood pressures. PT OT. Transfer to [facility] but continue telemetry. Interrogated review pacemaker. Check carotid duplex and surface echocardiogram. 11/10/2024: Continue telemetry. Echo and carotid duplex results discussed with patient and . They would like to follow-up in the outpatient setting with vascular and Cardiology. Continue to monitor blood pressure, continue lisinopril 10 mg p.o. q.day. pending PT/OT evaluations, they are currently amenable to [facility] facility for rehab stay if necessary. Full code. Saline lock IV. Heart healthy diet. SCDs. Time Spent With Patient Time with patient: 25 - 35 minutes Subjective Date/time seen: 11/10/24 15:04 Interval history: No acute overnight events. is at bedside. Patient denies any complaints except that he is too weak to stand. Awaiting PT/OT evaluations. Review of Systems Review of Systems: All systems reviewed & are unremarkable except as noted in HPI and below (Subjective) Exam Narrative: Resting tremor Const: General: comfortable and no acute distress Other: A&O x3. Resting tremor. HENMT: Mouth: Yes moist mucous membranes Eyes: Pupils: Equal, round and reactive pupils present Neck: Neck: supple Resp: Effort & Inspection: normal respiratory effort Auscultation: clear to auscultation bilaterally Cardio: Rate: regular rate Rhythm: regular rhythm GI: GI Palp: Yes Soft to palpation Neuro: Other: Globally weak, symmetrical strength. Extrem: General: no edema Objective Data Vital Signs Vital Signs: Vital Signs - 24 hr 11/09/24 16:00 11/09/24 17:49 11/09/24 20:00 Temperature Pulse Rate 78 66 66 Respiratory Rate Blood Pressure Pulse Oximetry Oxygen Delivery 11/09/24 20:00 11/09/24 22:00 11/10/24 00:22 Temperature 97.6 F Pulse Rate 72 67 Respiratory Rate 18 Blood Pressure 155/89 H Pulse Oximetry 95 Oxygen Delivery Room Air 11/10/24 04:00 11/10/24 06:00 11/10/24 14:00 Temperature 97.6 F 97.8 F Pulse Rate 65 71 68 Respiratory Rate 18 16 Blood Pressure 149/81 H 132/84 Pulse Oximetry 96 100 Oxygen Delivery Intake/Output Intake/Output: Intake & Output 11/07/24 11/08/24 11/09/24 11/10/24 23:59 23:59 23:59 23:59 Intake Total 1240 1120 680 Output Total 3300 500 Balance 1240 -2180 180 Meds/Results Medications: Active Medications Generic Name Dose Route Start Last Admin Trade Name Jacielq PRN Reason Stop Dose Admin Acetaminophen 650 mg 11/08/24 13:05 Acetaminophen 325 Mg Tablet PO Q4H PRN Mild Pain (1-3) or Fever Hydrocodone Bitart/Acetaminophen 1 tab 11/08/24 16:40 Hydrocodone/Acetaminophen (*Crx) 5-325 Mg Tablet PO Q4H PRN Moderate Pain (4-6) Al Hydrox/Mg Hydrox/Simethicone 30 ml 11/08/24 17:00 Mag Hydrox/Al Hydrox/Simeth 30 Ml Udc PO Q6H PRN Indigestion Aspirin 81 mg 11/09/24 08:00 11/10/24 09:02 Aspirin 81 Mg Chewable Tablet PO 81 mg DAILY@0800 MELI Administration Carbidopa/Levodopa 1 tablet 11/09/24 09:00 11/10/24 09:02 Carbidopa/Levodopa 25/100 Mg Tablet PO 1 tablet QID MELI Administration Docusate Sodium 100 mg 11/08/24 17:00 11/09/24 16:53 Docusate Sodium 100 Mg Capsule PO 100 mg BID MELI Administration Home Med 1 each 11/09/24 09:10 11/10/24 09:03 Home Medication-Relugolix [Orgovyx] 120 Mg Tablet PO 12/09/24 09:09 1 each DAILY MELI Administration Home Med 1 each 11/09/24 10:25 11/10/24 09:02 Home Medication-Apalutamide [Erleada] 60 Mg Tab PO 12/09/24 10:24 1 each QID MELI Administration Lisinopril 10 mg 11/09/24 09:00 11/10/24 09:02 Lisinopril 10 Mg Tablet PO 10 mg DAILY MELI Administration Nitroglycerin 0.4 mg 11/08/24 17:00 Nitroglycerin Sl 0.4 Mg Tablet SUBLINGUAL Q5MIN PRN Chest Pain (Carbidopa/Levodopa/ 1 each 11/09/24 13:00 11/10/24 09:04 Entacapone 50 Mg-200 PO 12/09/24 12:59 1 each Mg-200 Mg Oral QID MELI Administration Tablet)Home Med Ondansetron HCl 4 mg 11/08/24 17:00 Ondansetron Inj 4 Mg/2 Ml Vial IV PUSH Q6H PRN Nausea And Vomiting Perflutren Lipid Microsphere 0 ml 11/09/24 08:30 Perflutren Lipid Microspheres 1.5 Ml Vial Diluted To 10 Ml Total Volume IV PUSH 11/12/24 08:30 ONCE PRN adequate visualization Protocol Quetiapine Fumarate 12.5 mg 11/09/24 21:00 11/09/24 21:34 Quetiapine Fumarate 12.5 Mg Tablet PO 12.5 mg HS MELI Administration Senna/Docusate Sodium 1 tab 11/09/24 21:00 11/09/24 21:13 Senna/Docusate Sodium Tablet PO 1 tab HS MELI Administration Radiology Results: ITS Impressions Chest X-Ray 11/08/24 10:35 IMPRESSION: No acute process. Head CT 11/08/24 10:57 Impression: No acute intracranial hemorrhage or suspicious mass effect. Cervical Spine CT 11/08/24 11:01 Impression: Degenerative disease, without acute fracture. Chest/Abdomen/Pelvis CTA 11/08/24 11:03 IMPRESSION: 1. No acute cardiopulmonary disease or acute intra-abdominal/pelvic process. 2. 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 Aorta is normal in caliber with no aneurysm or dissection. 3. Several new sclerotic bone lesions in the thoracic and lumbar spine suspicious for metastatic disease. Metallic densities in the prostate suggest treatment for prior prostate cancer suggesting a likely etiology. Correlate with clinical/surgical history and consider further evaluation with either bone scan or PMA PET as clinically indicated. ADDENDUM: 11/08/24 1234 ADDENDUM: Additional correlation is made with the intervening PET/CT dated 06/07/2024. Each of the sclerotic bone lesions are evident on the PET/CT from 06/07/2024-appearing subtly lytic and with increased uptake on prior PET/CT. The more sclerotic appearance in the current study likely reflects interval response to treatment. No lesions new since the prior PET/CT identified. Carotid Doppler Study 11/09/24 16:23 IMPRESSION: 1. <50% stenosis in the right internal carotid artery. 2. <50% stenosis in the left internal carotid artery. 2. Biphasic waveform in the left vertebral artery is of indeterminate etiology or significance with normal appearance of the visualized portions of the contrast opacified bilateral vertebral arteries at the base of the neck on the chest CT angiogram from one day prior. Labs Labs: Laboratory Results - last 24 hr 11/10/24 04:50 WBC 4.7 RBC 3.85 L Hgb 12.3 L Hct 36.9 L MCV 95.8 MCH 31.9 MCHC 33.3 RDW 12.5 Plt Count 193 MPV 10.2 Immature Gran % (Auto) 1.1 H Neut % (Auto) 67.0 Lymph % (Auto) 14.3 L [place] % (Auto) 14.9 H Eos % (Auto) 2.1 Baso % (Auto) 0.6 Lymph # (Auto) 0.67 L [place] # (Auto) 0.7 H Eos # (Auto) 0.1 Baso # (Auto) 0.0 Abs Immat Gran (auto) 0.05 H Absolute Neuts (auto) 3.1 Absolute Nucleated RBC 0.000 Nucleated RBC % 0.0 Sodium 136 L Potassium 3.8 Chloride 100 Carbon Dioxide 31 H Anion Gap 5 BUN 18 Creatinine 0.73 Estim Creat Clear Calc 81 Estimated GFR > 60 Glucose 104 Calcium 9.1 Magnesium 2.3
[2024-11-10] MEDS: DOCUSATE SODIUM 100 MG CAPSULE PO (18:59)
[2024-11-10] MEDS: SENNA/DOCUSATE SODIUM TABLET 1 TAB PO (20:24)
[2024-11-10] MEDS: QUEtiapine FUMARATE 12.5 MG TABLET PO (20:25)
[2024-11-11] VITALS (11 sets, daily range): BP systolic 99–154; BP diastolic 61–100; PULSE 62–103; RESP 18; TEMP 36.1–36.5; O2SAT 97–100
[2024-11-11] MEDS: ASPIRIN 81 MG CHEWABLE TABLET PO (10:37)
[2024-11-11] MEDS: CARBIDOPA/LEVODOPA 25/100 MG TABLET 1 TABLET PO ×4 (10:37→21:22)
[2024-11-11] MEDS: APALUTAMIDE 60 MG 1 EACH PO ×4 (10:37→21:21)
[2024-11-11] MEDS: DOCUSATE SODIUM 100 MG CAPSULE PO ×2 (10:37→17:21)
[2024-11-11] MEDS: RELUGOLIX 120 MG 1 EACH PO (10:38)
[2024-11-11] MEDS: ENTACAPONE PO ×4 (10:38→21:21)
[2024-11-11] MEDS: LEVODOPA PO ×4 (10:38→21:21)
[2024-11-11] MEDS: CARBIDOPA PO ×4 (10:38→21:21)
--- NOTE | 2024-11-11 11:39 | PM.IMPN ---
Progress Note: A&P Assessment and Plan (1) HTN (hypertension), benign: Code(s): I10 - Essential (primary) hypertension Status: Acute (2) CHF (congestive heart failure): Code(s): I50.9 - Heart failure, unspecified Status: Acute (3) Cardiac pacemaker: Code(s): Z95.0 - Presence of cardiac pacemaker Status: Acute (4) Abdominal aortic aneurysm: Qualifiers: Abdominal aorta location: unspecified Presence of rupture: without rupture Qualified Code(s): I71.40 - Abdominal aortic aneurysm, without rupture, unspecified Code(s): I71.40 - Abdominal aortic aneurysm, without rupture, unspecified Status: Acute (5) History of non-Hodgkin's lymphoma: Code(s): Z85.72 - Personal history of non-Hodgkin lymphomas Status: Acute (6) Prostate cancer metastatic to bone: Code(s): C61 - Malignant neoplasm of prostate; C79.51 - Secondary malignant neoplasm of bone Status: Acute (7) Fall: Code(s): W19.XXXA - Unspecified fall, initial encounter Status: Acute (8) Orthostatic hypotension: Code(s): I95.1 - Orthostatic hypotension Status: Acute Plan Unable to complete orthostatic vital sign set x2. Patient unwilling to stand. Will restart his lisinopril 10 mg p.o. q.day which was decreased from 40 mg per the due to low blood pressures. Discussed the risk. Continue to attempt to obtain orthostatic blood pressures. PT OT. Transfer to [facility] but continue telemetry. Interrogated review pacemaker. Check carotid duplex and surface echocardiogram. 11/10/2024: Continue telemetry. Echo and carotid duplex results discussed with patient and . They would like to follow-up in the outpatient setting with vascular and Cardiology. Continue to monitor blood pressure, continue lisinopril 10 mg p.o. q.day. pending PT/OT evaluations, they are currently amenable to [facility] for rehab stay if necessary. 11/11/2024: Finally able to complete orthostatic vitals. Positive for orthostatic hypotension. Discontinue lisinopril. Start waist high compression stockings and abdominal binder. They are amenable to being discharged to rehab as long as they can get to their urology appointment on 11/15/2024. Care coordination continuing to arrange. Full code. Saline lock IV. Heart healthy diet. SCDs. Time Spent With Patient Time with patient: 25 - 35 minutes Subjective Date/time seen: 11/11/24 11:39 Interval history: No acute overnight events. is at bedside. Patient did work PT. They are amenable to inpatient rehab. Review of Systems Review of Systems: All systems reviewed & are unremarkable except as noted in HPI and below (Subjective) Exam Narrative: Resting tremor Const: General: comfortable and no acute distress Other: A&O x3. Resting tremor. HENMT: Mouth: Yes moist mucous membranes Eyes: Pupils: Equal, round and reactive pupils present Neck: Neck: supple Resp: Effort & Inspection: normal respiratory effort Auscultation: clear to auscultation bilaterally Cardio: Rate: regular rate Rhythm: regular rhythm GI: GI Palp: Yes Soft to palpation Neuro: Other: Globally weak, symmetrical strength. Extrem: General: no edema Objective Data Vital Signs Vital Signs: Vital Signs - 24 hr 11/10/24 12:00 11/10/24 13:53 11/10/24 14:00 Temperature 97.8 F Pulse Rate 64 68 Respiratory Rate 16 Blood Pressure 132/84 Pulse Oximetry 100 Oxygen Delivery Room Air Fraction of Inspired Oxygen 11/10/24 16:00 11/10/24 19:58 11/10/24 20:00 Temperature Pulse Rate 65 67 63 Respiratory Rate 20 Blood Pressure Pulse Oximetry 97 Oxygen Delivery Room Air Fraction of Inspired Oxygen 21 11/10/24 20:00 11/10/24 22:00 11/11/24 04:00 Temperature 98.1 F Pulse Rate 62 68 Respiratory Rate 18 Blood Pressure 146/75 H Pulse Oximetry 100 Oxygen Delivery Room Air Fraction of Inspired Oxygen 11/11/24 06:00 11/11/24 09:43 11/11/24 11:29 Temperature 97.2 F L Pulse Rate 64 81 Respiratory Rate 18 Blood Pressure 154/84 H 133/68 Pulse Oximetry 99 97 Oxygen Delivery Room Air Fraction of Inspired Oxygen 11/11/24 11:30 11/11/24 11:30 Temperature Pulse Rate 80 81 Respiratory Rate Blood Pressure 130/69 99/64 L Pulse Oximetry 100 98 Oxygen Delivery Fraction of Inspired Oxygen Intake/Output Intake/Output: Intake & Output 07/10/25 07/11/25 07/12/25 07/13/25 23:59 23:59 23:59 23:59 Intake Total 1240 1120 1420 580 Output Total 3300 1300 1200 Balance 1240 -2180 120 -620 Meds/Results Medications: Active Medications Generic Name Dose Route Start Last Admin Trade Name Freq PRN Reason Stop Dose Admin Acetaminophen 650 mg 11/08/24 13:05 Acetaminophen 325 Mg Tablet PO Q4H PRN Mild Pain (1-3) or Fever Hydrocodone Bitart/Acetaminophen 1 tab 11/08/24 16:40 Hydrocodone/Acetaminophen (*Crx) 5-325 Mg Tablet PO Q4H PRN Moderate Pain (4-6) Al Hydrox/Mg Hydrox/Simethicone 30 ml 11/08/24 17:00 Mag Hydrox/Al Hydrox/Simeth 30 Ml Udc PO Q6H PRN Indigestion Aspirin 81 mg 11/09/24 08:00 11/11/24 10:37 Aspirin 81 Mg Chewable Tablet PO 81 mg DAILY@0800 MELI Administration Carbidopa/Levodopa 1 tablet 11/09/24 09:00 11/11/24 10:37 Carbidopa/Levodopa 25/100 Mg Tablet PO 1 tablet QID MELI Administration Docusate Sodium 100 mg 11/08/24 17:00 11/11/24 10:37 Docusate Sodium 100 Mg Capsule PO 100 mg BID MELI Administration Home Med 1 each 11/09/24 09:10 11/11/24 10:38 Home Medication-Relugolix [Orgovyx] 120 Mg Tablet PO 12/09/24 09:09 1 each DAILY MELI Administration Home Med 1 each 11/09/24 10:25 11/11/24 10:37 Home Medication-Apalutamide [Erleada] 60 Mg Tab PO 12/09/24 10:24 1 each QID MELI Administration Lisinopril 10 mg 11/09/24 09:00 11/11/24 10:37 Lisinopril 10 Mg Tablet PO 10 mg DAILY MEIL Administration Nitroglycerin 0.4 mg 11/08/24 17:00 Nitroglycerin Sl 0.4 Mg Tablet SUBLINGUAL Q5MIN PRN Chest Pain (Carbidopa/Levodopa/ 1 each 11/09/24 13:00 11/11/24 10:38 Entacapone 50 Mg-200 PO 12/09/24 12:59 1 each Mg-200 Mg Oral QID MELI Administration Tablet)Home Med Ondansetron HCl 4 mg 11/08/24 17:00 Ondansetron Inj 4 Mg/2 Ml Vial IV PUSH Q6H PRN Nausea And Vomiting Perflutren Lipid Microsphere 0 ml 11/09/24 08:30 Perflutren Lipid Microspheres 1.5 Ml Vial Diluted To 10 Ml Total Volume IV PUSH 11/12/24 08:30 ONCE PRN adequate visualization Protocol Quetiapine Fumarate 12.5 mg 11/09/24 21:00 11/10/24 20:25 Quetiapine Fumarate 12.5 Mg Tablet PO 12.5 mg HS MELI Administration Senna/Docusate Sodium 1 tab 11/09/24 21:00 11/10/24 20:24 Senna/Docusate Sodium Tablet PO 1 tab HS MELI Administration Radiology Results: ITS Impressions Chest X-Ray 11/08/24 10:35 IMPRESSION: No acute process. Head CT 11/08/24 10:57 Impression: No acute intracranial hemorrhage or suspicious mass effect. Cervical Spine CT 11/08/24 11:01 Impression: Degenerative disease, without acute fracture. Chest/Abdomen/Pelvis CTA 11/08/24 11:03 IMPRESSION: 1. No acute cardiopulmonary disease or acute intra-abdominal/pelvic process. 2. 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 Aorta is normal in caliber with no aneurysm or dissection. 3. Several new sclerotic bone lesions in the thoracic and lumbar spine suspicious for metastatic disease. Metallic densities in the prostate suggest treatment for prior prostate cancer suggesting a likely etiology. Correlate with clinical/surgical history and consider further evaluation with either bone scan or PMA PET as clinically indicated. ADDENDUM: 11/08/24 1234 ADDENDUM: Additional correlation is made with the intervening PET/CT dated 06/07/2024. Each of the sclerotic bone lesions are evident on the PET/CT from 06/07/2024-appearing subtly lytic and with increased uptake on prior PET/CT. The more sclerotic appearance in the current study likely reflects interval response to treatment. No lesions new since the prior PET/CT identified. Carotid Doppler Study 11/09/24 16:23 IMPRESSION: 1. <50% stenosis in the right internal carotid artery. 2. <50% stenosis in the left internal carotid artery. 2. Biphasic waveform in the left vertebral artery is of indeterminate etiology or significance with normal appearance of the visualized portions of the contrast opacified bilateral vertebral arteries at the base of the neck on the chest CT angiogram from one day prior. Labs Labs: Laboratory Results - last 24 hr 11/10/24 04:50 WBC 4.7 RBC 3.85 L Hgb 12.3 L Hct 36.9 L MCV 95.8 MCH 31.9 MCHC 33.3 RDW 12.5 Plt Count 193 MPV 10.2 Immature Gran % (Auto) 1.1 H Neut % (Auto) 67.0 Lymph % (Auto) 14.3 L [place] % (Auto) 14.9 H Eos % (Auto) 2.1 Baso % (Auto) 0.6 Lymph # (Auto) 0.67 L [place] # (Auto) 0.7 H Eos # (Auto) 0.1 Baso # (Auto) 0.0 Abs Immat Gran (auto) 0.05 H Absolute Neuts (auto) 3.1 Absolute Nucleated RBC 0.000 Nucleated RBC % 0.0 Sodium 136 L Potassium 3.8 Chloride 100 Carbon Dioxide 31 H Anion Gap 5 BUN 18 Creatinine 0.73 Estim Creat Clear Calc 81 Estimated GFR > 60 Glucose 104 Calcium 9.1 Magnesium 2.3
[2024-11-11] MEDS: SENNA/DOCUSATE SODIUM TABLET 1 TAB PO (21:21)
[2024-11-11] MEDS: QUEtiapine FUMARATE 12.5 MG TABLET PO (21:21)
[2024-11-12] VITALS (9 sets, daily range): BP systolic 110–151; BP diastolic 66–100; PULSE 62–67; RESP 16–18; TEMP 36.2–36.4; O2SAT 97–100
[2024-11-12] MEDS: CARBIDOPA/LEVODOPA 25/100 MG TABLET 1 TABLET PO ×3 (08:18→17:11)
[2024-11-12] MEDS: ASPIRIN 81 MG CHEWABLE TABLET PO (08:18)
[2024-11-12] MEDS: DOCUSATE SODIUM 100 MG CAPSULE PO ×2 (08:18→17:12)
[2024-11-12] MEDS: APALUTAMIDE 60 MG 1 EACH PO ×3 (08:19→17:11)
[2024-11-12] MEDS: LEVODOPA PO ×3 (08:19→17:11)
[2024-11-12] MEDS: CARBIDOPA PO ×3 (08:19→17:11)
[2024-11-12] MEDS: RELUGOLIX 120 MG 1 EACH PO (08:19)
[2024-11-12] MEDS: ENTACAPONE PO ×3 (08:19→17:11)
--- NOTE | 2024-11-12 15:12 | P.PNIM_ITS ---
Progress Note: A&P Assessment and Plan (1) HTN (hypertension), benign: Code(s): I10 - Essential (primary) hypertension Status: Acute (2) CHF (congestive heart failure): Code(s): I50.9 - Heart failure, unspecified Status: Acute (3) Cardiac pacemaker: Code(s): Z95.0 - Presence of cardiac pacemaker Status: Acute (4) Abdominal aortic aneurysm: Qualifiers: Abdominal aorta location: unspecified Presence of rupture: without rupture Qualified Code(s): I71.40 - Abdominal aortic aneurysm, without rupture, unspecified Code(s): I71.40 - Abdominal aortic aneurysm, without rupture, unspecified Status: Acute (5) History of non-Hodgkin's lymphoma: Code(s): Z85.72 - Personal history of non-Hodgkin lymphomas Status: Acute (6) Prostate cancer metastatic to bone: Code(s): C61 - Malignant neoplasm of prostate; C79.51 - Secondary malignant neoplasm of bone Status: Acute (7) Fall: Code(s): W19.XXXA - Unspecified fall, initial encounter Status: Acute (8) Orthostatic hypotension: Code(s): I95.1 - Orthostatic hypotension Status: Acute Plan Unable to complete orthostatic vital sign set x2. Patient unwilling to stand. Will restart his lisinopril 10 mg p.o. q.day which was decreased from 40 mg per the due to low blood pressures. Discussed the risk. Continue to attempt to obtain orthostatic blood pressures. PT OT. Transfer to [facility] but continue telemetry. Interrogated review pacemaker. Check carotid duplex and surface echocardiogram. 11/10/2024: Continue telemetry. Echo and carotid duplex results discussed with patient and . They would like to follow-up in the outpatient setting with vascular and Cardiology. Continue to monitor blood pressure, continue lisinopril 10 mg p.o. q.day. pending PT/OT evaluations, they are currently amenable to nursing home facility for rehab stay if necessary. 11/11/2024: Finally able to complete orthostatic vitals. Positive for or thostatic hypotension. Discontinue lisinopril. Start waist high compression stockings and abdominal binder. They are amenable to being discharged to rehab as long as they can get to their urology appointment on 11/15/2024. Care coordination continuing to arrange. 11/12/2024: Patient has positive orthostatics but with the discontinuation of his lisinopril and with slowly standing and being patient with physical therapy he is doing well. He states that he is not having any more dizzy spells. He is wearing compression stockings and abdominal binder that seemed to help. Waiting on evaluation from [facility] for placement. Full code. Saline lock IV. Heart healthy diet. SCDs. Subjective Date/time seen: 11/12/24 15:12 Interval history: Patient doing well with no concerns today. Waiting for [facility] evaluation. Exam Narrative: GENERAL: Comfortable, no acute distress HENMT: moist mucous membranes RESPIRATORY: clear to auscultation, no increased respiratory effort CARDIO: Regular rate and rhythm SKIN/EXTREMITIES: no rashes, no edema, no redness or tenderness NEURO: PROM intact, answers questions appropriately. Objective Data Vital Signs Vital Signs: Vital Signs - 24 hr 11/11/24 20:00 11/11/24 20:51 11/11/24 20:51 Temperature 97.7 F Pulse Rate 64 62 62 Respiratory Rate 18 Blood Pressure 151/100 H 151/100 H Pulse Oximetry 99 11/11/24 20:53 11/11/24 20:55 11/12/24 00:00 Temperature Pulse Rate 65 103 H 63 Respiratory Rate Blood Pressure 149/98 H 145/92 H Pulse Oximetry 11/12/24 04:00 11/12/24 05:59 11/12/24 09:19 Temperature 97.6 F Pulse Rate 63 65 Respiratory Rate 16 Blood Pressure 143/100 H 119/66 Pulse Oximetry 100 11/12/24 09:22 Temperature Pulse Rate Respiratory Rate Blood Pressure 110/93 H Pulse Oximetry Intake/Output Intake/Output: Intake & Output 11/09/24 11/10/24 11/11/24 11/12/24 23:59 23:59 23:59 23:59 Intake Total 1120 1420 2560 780 Output Total 3300 1300 2800 1000 Balance -2180 120 -240 -220 Meds/Results Medications: Active Medications Generic Name Dose Route Start Last Admin Trade Name Freq PRN Reason Stop Dose Admin Acetaminophen 650 mg 11/08/24 13:05 Acetaminophen 325 Mg Tablet PO Q4H PRN Mild Pain (1-3) or Fever Hydrocodone Bitart/Acetaminophen 1 tab 11/08/24 16:40 Hydrocodone/Acetaminophen (*Crx) 5-325 Mg Tablet PO Q4H PRN Moderate Pain (4-6) Al Hydrox/Mg Hydrox/Simethicone 30 ml 11/08/24 17:00 Mag Hydrox/Al Hydrox/Simeth 30 Ml Udc PO Q6H PRN Indigestion Aspirin 81 mg 11/09/24 08:00 11/12/24 08:18 Aspirin 81 Mg Chewable Tablet PO 81 mg DAILY@0800 MELI Administration Carbidopa/Levodopa 1 tablet 11/09/24 09:00 11/12/24 13:08 Carbidopa/Levodopa 25/100 Mg Tablet PO 1 tablet QID MELI Administration Docusate Sodium 100 mg 11/08/24 17:00 11/12/24 08:18 Docusate Sodium 100 Mg Capsule PO 100 mg BID MELI Administration Home Med 1 each 11/09/24 09:10 11/12/24 08:19 Home Medication-Relugolix [Orgovyx] 120 Mg Tablet PO 12/09/24 09:09 1 each DAILY MELI Administration Home Med 1 each 11/09/24 10:25 11/12/24 13:10 Home Medication-Apalutamide [Erleada] 60 Mg Tab PO 12/09/24 10:24 1 each QID MELI Administration Nitroglycerin 0.4 mg 11/08/24 17:00 Nitroglycerin Sl 0.4 Mg Tablet SUBLINGUAL Q5MIN PRN Chest Pain (Carbidopa/Levodopa/ 1 each 11/09/24 13:00 11/12/24 13:10 Entacapone 50 Mg-200 PO 12/09/24 12:59 1 each Mg-200 Mg Oral QID MELI Administration Tablet)Home Med Ondansetron HCl 4 mg 11/08/24 17:00 Ondansetron Inj 4 Mg/2 Ml Vial IV PUSH Q6H PRN Nausea And Vomiting Quetiapine Fumarate 12.5 mg 11/09/24 21:00 11/11/24 21:21 Quetiapine Fumarate 12.5 Mg Tablet PO 12.5 mg HS MELI Administration Senna/Docusate Sodium 1 tab 11/09/24 21:00 11/11/24 21:21 Senna/Docusate Sodium Tablet PO 1 tab HS MELI Administration Radiology Results: ITS Impressions Chest X-Ray 11/08/24 10:35 IMPRESSION: No acute process. Head CT 11/08/24 10:57 Impression: No acute intracranial hemorrhage or suspicious mass effect. Cervical Spine CT 11/08/24 11:01 Impression: Degenerative disease, without acute fracture. Chest/Abdomen/Pelvis CTA 11/08/24 11:03 IMPRESSION: 1. No acute cardiopulmonary disease or acute intra-abdominal/pelvic process. 2. 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 Aorta is normal in caliber with no aneurysm or dissection. 3. Several new sclerotic bone lesions in the thoracic and lumbar spine suspicious for metastatic disease. Metallic densities in the prostate suggest treatment for prior prostate cancer suggesting a likely etiology. Correlate with clinical/surgical history and consider further evaluation with either bone scan or PMA PET as clinically indicated. ADDENDUM: 11/08/24 1234 ADDENDUM: Additional correlation is made with the intervening PET/CT dated 06/07/2024. Each of the sclerotic bone lesions are evident on the PET/CT from 06/07/2024-appearing subtly lytic and with increased uptake on prior PET/CT. The more sclerotic appearance in the current study likely reflects interval response to treatment. No lesions new since the prior PET/CT identified. Carotid Doppler Study 11/09/24 16:23 IMPRESSION: 1. <50% stenosis in the right internal carotid artery. 2. <50% stenosis in the left internal carotid artery. 2. Biphasic waveform in the left vertebral artery is of indeterminate etiology or significance with normal appearance of the visualized portions of the contrast opacified bilateral vertebral arteries at the base of the neck on the chest CT angiogram from one day prior.
--- NOTE | 2024-11-12 15:23 | PM.DS ---
DS: Admitting Diagnosis Discharge Date 11/12/24 Admitting Diagnosis Syncope, dizziness DS: Discharge Diagnosis Discharge Diagnosis (1) HTN (hypertension), benign: Code(s): I10 - Essential (primary) hypertension Status: Acute (2) CHF (congestive heart failure): Code(s): I50.9 - Heart failure, unspecified Status: Acute (3) Cardiac pacemaker: Code(s): Z95.0 - Presence of cardiac pacemaker Status: Acute (4) Abdominal aortic aneurysm: Qualifiers: Abdominal aorta location: unspecified Presence of rupture: without rupture Qualified Code(s): I71.40 - Abdominal aortic aneurysm, without rupture, unspecified Code(s): I71.40 - Abdominal aortic aneurysm, without rupture, unspecified Status: Acute (5) History of non-Hodgkin's lymphoma: Code(s): Z85.72 - Personal history of non-Hodgkin lymphomas Status: Acute (6) Prostate cancer metastatic to bone: Code(s): C61 - Malignant neoplasm of prostate; C79.51 - Secondary malignant neoplasm of bone Status: Acute (7) Fall: Code(s): W19.XXXA - Unspecified fall, initial encounter Status: Acute (8) Orthostatic hypotension: Code(s): I95.1 - Orthostatic hypotension Status: Acute DS: Summary Hospital Course Hospital Course: 74-year-old male past medical history pacemaker, non-Hodgkin's lymphoma, prostate cancer with metastases to bone, BPH, hypertension Parkinson's disease presents the hospital with syncope and chest pain. The states that the patient states that he did not feel right before he fell and that he was dizzy. Patient states that he just blacked out and fell. The states that he did not his head. Patient does not believe that the fall was caused by his Parkinson's disease. On 11/09 his lisinopril 10 mg p.o. q.day was restarted which was decreased from 40 mg per the due to low blood pressures. ECHO completed while hospitalized. 11/11/2024: Finally able to complete orthostatic vitals. Positive for orthostatic hypotension. Discontinue lisinopril. Start waist high compression stockings and abdominal binder. 11/12/2024: Patient has positive orthostatics but with the discontinuation of his lisinopril and with slowly standing and being patient with physical therapy he is doing well. He states that he is not having any more dizzy spells. He is wearing compression stockings and abdominal binder that seemed to help. Discharge to [facility]. Time Spent with Patient Time attestation: Total time spent providing and/or coordinating discharge services: Exam Narrative: GENERAL: Comfortable, no acute distress HENMT: moist mucous membranes RESPIRATORY: clear to auscultation, no increased respiratory effort CARDIO: Regular rate and rhythm SKIN/EXTREMITIES: no rashes, no edema, no redness or tenderness NEURO: PROM intact, answers questions appropriately. Discharge Plan Discharge Discharging Clinician: Krysta Zazueta Patient Disposition: Inpatient Rehab Facility Activity: as tolerated Diet: low sodium Discharge Instructions: Discharge disposition: Take medications as prescribed Monitor blood pressures Encouraged to continue with yearly vaccinations Return to the emergency department if he developed sudden shortness of breath, chest pain, nausea, vomiting, upset stomach or intractable diarrhea Return to the emergency department if you develop fever greater than 100.4 Follow-up with the primary care physician within 1-2 weeks Thank you for choosing [facility] for your healthcare needs Patient Language: Azeri Stand Alone Forms: General Discharge Information Follow-up/Referrals: Sanket Isbell MD [Primary Care Provider] - Discharge Medications: Continued Erleada 60 mg tablet 60 mg PO QID Orgovyx 120 mg tablet 120 mg PO DAILY carbidopa-levodopa [Sinemet] 25-100 mg tablet 1 tablet PO QID Qty: 360 3RF Rx Instructions: may increase to 1/2 tablets 4 times a day [id number] 50-200-200 mg tablet 1 tablet PO QID Qty: 120 12RF lisinopril 10 mg tablet 10 mg PO DAILY Qty: 90 1RF sennosides-docusate sodium [Senokot-S] 8.6-50 mg tablet 1 tab-cap PO HS quetiapine 25 mg tablet See Rx Instructions .ROUTE .COMPLEX Qty: 45 1RF Dose Instruction: TAKE ONE-HALF TABLET BY MOUTH EVERY EVENING Rx Instructions: TAKE ONE-HALF TABLET BY MOUTH EVERY EVENING Date of admission: 11/09/24 12:27 Primary Care Provider: Sanket Isbell Admitting Provider: Silvestre Jimenez Attending physician on admission: Silvestre Jimenez Condition: Stable
== END 2024-11-12 17:55 | DRG 312 ==
LOC: ANHED 13:04 → ANHIMU 14:17 → ANH2MED 11-09 17:26
PROVIDERS: Emergency Medicine; General Practice; Nurse Practitioner Gerontology; Admitting Provider Internal Medicine; Emergency Provider Physician Assistant; PCP Family Medicine; Visit Provider Internal Medicine Critical Care Medicine
DX: I95.1 Orthostatic hypotension (principal); C79.51 Secondary malignant neoplasm of bone; E87.1 Hypo-osmolality and hyponatremia; C61 Malignant neoplasm of prostate; I11.0 Hypertensive heart disease with heart failure; I50.9 Heart failure, unspecified; I71.40 Abdominal aortic aneurysm, without rupture, unspecified; W19.XXXA Unspecified fall, initial encounter; E78.5 Hyperlipidemia, unspecified; N40.1 Benign prostatic hyperplasia with lower urinary tract symptoms; G20.A1 Parkinson's disease without dyskinesia, without mention of fluctuations; Z95.0 Presence of cardiac pacemaker; Z85.72 Personal history of non-Hodgkin lymphomas; Z96.652 Presence of left artificial knee joint
CPT/HCPCS: 36415; 70450; 71046; 71275; 72125; 73030; 73090; 73502; 74174; 80048; 80053; 81003; 83735; 83880; 84484; 85025; 85610; 85730; 93005; 93880; 96374; 97110; 97161; 97165; 97530; 97535; 99285; A9270; C8929; G0378; J7030; Q9957; Q9967

== ENCOUNTER 2024-11-20 19:50 | Emergency (ER) | payer MEDICARE, SELFPAY ==
--- NOTE | ~2024-11-20 | CT_ITS ---
EXAMINATION: CT brain wo con DATE: 11/20/2024 21:15 INDICATION: AMS . TECHNIQUE: Computed tomography (CT) of the head was performed without intravenous contrast. The mA wa s adjusted according to patient size. Iterative reconstruction technique was employed. The dose-lengt h product was 681.00 mGy-cm. COMPARISON: 11/08/2024. FINDINGS: No acute intracranial hemorrhage or extra-axial fluid collection. No hydrocephalus, mass, or herniation. No acute ischemic infarct. Unremarkable dural venous sinus attenuation. No acute osseous abnormality. Complete opacification of the left mastoid air cells, with middle ear fluid. Small retention cyst or polyp in the left sphenoid sinus and bilateral inferior maxillary sinuses, the remaining aerated spac es are clear. Mild chronic white matter change. Bilateral lens replacements. IMPRESSION: No acute intracranial process. Left middle ear and mastoid opacification, correlate for clinical findings of otomastoiditis. Reviewed, dictated and finalized at location K. IMPRESSION: No acute intracranial process. Left middle ear and mastoid opacification, correlate for clinical findings of o tomastoiditis.
[2024-11-20 20:06] VITALS: BP 119/73; PULSE 87; RESP 24; TEMP 36.2; O2SAT 95
--- NOTE | 2024-11-20 20:07 | ECG_ITS ---
Test Date: 2024-11-20 20:22:22 Measurements Intervals [place] Rate: 80 P: 19 AL: 235 QRS: -29 QRSD: 158 T: 140 QT: 442 QTc: 511 Interpretive Statements SINUS RHYTHM WITH ELECTRONIC VENTRICULAR PACEMAKER ATYPICAL ECG Electronically Signed On 11-21-2024 10:02:43 CDT by Bowen Pedroza M.D.
[2024-11-20 20:16] LABS: Hematocrit 33.3 % (42.0-52.0); Hemoglobin 11.6 g/dL (14.0-18.0); Immature Granulocyte Percent A 0.8 % (0-0.5); Lymphocytes Absolute Auto 0.41 K/mm3 (0.9-3.2); Mean Corpuscular HGB Conc 34.8 g/dl (32-36); Mean Corpuscular Hemoglobin 32.1 pg (26-34); Mean Corpuscular Volume 92.2 fl (80-100); Nucleated Red Blood Cells Absolute Auto 0.000 K/mm3 (0.0-0.012); Nucleated Red Blood Cells Perc 0.0 % (0.0-0.2); Platelet Count Result 181 k/mm3 (150-375); Red Blood Count 3.61 M/mm3 (4.6-6.20); White Blood Count 4.9 K/mm3 (4.5-10.0)
[2024-11-20 20:27] LABS: Alanine Aminotransferase 11 U/L (6-50); Albumin Level 3.8 g/dL (3.5-5.1); Alkaline Phosphatase 54 U/L (38-126); Anion Gap 8 mmol/L (4-12); Aspartate Amino Transferase 26 U/L (17-59); Bilirubin,Total 0.4 mg/dL (0.2-1.3); Blood Urea Nitrogen 19 mg/dL (9-20); Calcium 9.0 mg/dL (8.4-10.2); Carbon Dioxide 24 mmol/L (22-30); Chloride 96 mmol/L (98-107); Estimated CRCL calculation 75 ml/min; Estimated Glomerular Filt Rate > 60; Glucose 147 mg/dL (65-110); INR 1.1; Potassium 3.6 mmol/L (3.4-5.0); Prothrombin Time 14.2 Seconds (11.1-14.7); Sodium 128 mmol/L (137-145); Total Protein 6.9 g/dL (6.3-8.2)
[2024-11-20 20:28] LABS: Partial Thromboplastin Time 27.1 Seconds (22.3-36.8)
[2024-11-20 20:34] LABS: Add Urine Microscopic? YES; Appearance Urine Clear (Clear); Glucose Urine UA Negative (Negative); Leukocyte Esterase Ur Negative LEU/UL (Negative); Nitrate Urine Negative (Negative); Specific Grav Ur 1.017 (1.001-1.035)
--- OUTSIDE RECORDS SUMMARY | 2024-11-20 20:42 | XMS_ITS | Patient Health Record ---
Author Organization [facility] Address [address] [place], [place] [id number] Care Team Providers Care Rock Star Name Role Phone YANNI DOMINGUEZ Unavailable [phone] Sanket Isbell Unavailable Unavailable Allergies No Known Allergies Reason For Referral No Information Immunizations Vaccine Route Administration Date Status Comme nts Influenza, high dose seasonal Unknown 02/21/2023 Admini stered Vital Signs Height-cm 182.88 cm 11/05/2024 Weight-kg 91.63 kg 11/05/2024 Height 72.00 in 11/05/2024 Weight 202 lbs 11/05/2024 BMI 27.39 kg/m2 11/05/2024 Encounters Encounter Location Date Provider Diagnosis [facility] [address] [place], [place] [id number] 11/05/2024 YANNI SNOOK Tinea unguium B35.1 ; Pain in right toe(s) M79.674 ; Pain in left toe(s) M79.675 and 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, bilateral legs I70.213 [facility] Junaid Murray [address] [place], [place] [id number] 12/26/2023 YANNI SNOOK Tinea unguium B35.1 ; Pain in right toe(s) M79.674 ; Pain in left toe(s) M79.675 and 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, bilateral legs I70.213 [facility] Junaid Murray [address] [place], [place] [phone] 03/05/2024 YANNI SNOOK Tinea unguium B35.1 ; Pain in right toe(s) M79.674 ; Pain in left toe(s) M79.675 and 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, bilateral legs I70.213 [facility] [address] [place] [id number] 06/11/2024 YANNI SNOOK Tinea unguium B35.1 ; Pain in right foot M79.671 ; Pain in left foot M79.672 ; 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, bilateral legs I70.213 and Acquired keratosis [keratoderma] palmaris et plantaris L85.1 [facility] [address] [place] [id number] 08/20/2024 YANNI SNOOK Tinea unguium B35.1 ; Pain in right toe(s) M79.674 ; Pain in left toe(s) M79.675 and 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, bilateral [...] any subungual debris and necrotic tissue removed 11/05/2024 Pain in right toe(s) (ICD-10 - M79.674) 11/05/2024 Pain in left toe(s) (ICD-10 - M79.675) 08/20/2024 Pain in left toe(s) (ICD-10 - M79.675) 06/11/2024 Pain in left foot (ICD-10 - M79.672) 03/05/2024 Pain in left toe(s) (ICD-10 - M79.675) 12/26/2023 Pain in left toe(s) (ICD-10 - M79.675) 12/26/2023 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, bilateral legs (ICD-10 - I70.213) 03/05/2024 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, bilateral legs (ICD-10 - I70.213) 06/11/2024 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, bilateral legs (ICD-10 - I70.213) 08/20/2024 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, bilateral legs (ICD-10 - I70.213) 11/05/2024 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, bilateral legs (ICD-10 - I70.213) 06/11/2024 Acquired keratosis [keratoderma] palmaris et plantaris (ICD-10 - L85.1) A total of 2 corns or calluses, as described in the note above, were cut and pared utilizing a #15 blade Plan Of Treatment Next Appt Details Provider Name:YANNI DOMINGUEZ, 11:10:00 AM, [address], [facility], [place], [place], [id number], Insurance Providers Payer Name Payer Address Payer Phone Subscriber Number Group Number Insured Name Patient Relationship to Insured Coverage Start Date Coverage End Date Medicare Part B [facility] [address] [place] [address] [id number] AUGUST KING JR Self - patient is the insured [facility] Insurance [address] [place] [address] [id number] AUGUST KING JR Self - patient is the insured 4
--- OUTSIDE RECORDS SUMMARY | 2024-11-20 20:42 | XMS_ITS | Data Portability ---
Author Organization [place] [facility], Main Office Address [address] [place] [address] Care Team Providers Care Embroiderer Name Role Phone JANELLE HAWKINS Primary Care Provider JANELLE HAWKINS Referring Provider [phone] Assessment Encounter Date Assessment Date Assessment LastModified [...] about where to get this online or vcwt-pyq-vuimnfx. We also talked in detail about different puez-loc-ruxtimg treatment including Tylenol Arthritis extended relief and [...] have to have medical clearance through his land development manager and his urologist in order to proceed. [...] DO Not Attach Compendium, Do Not Delete/merge, 58570 5 13:07:27 knee aspiration/ injection (PROC) 2023 024 [email or web address] In-Office Order, Internal Use Only DO Not Attach Compendium DO Not Attach Compendium, Do Not Delete/merge, 05566 4 10:18:42 knee aspiration/ injection (PROC) 2023 024 [email or web address] In-Office Order, Internal Use Only DO Not Attach Compendium DO Not Attach Compendium, Do Not Delete/merge, 23372 4 10:19:53 knee aspiration/ injection (PROC) 2023 024 [email or web address] In-Office Order, Internal Use Only DO Not Attach Compendium DO Not Attach Compendium, Do Not Delete/merge, [id number] 4 10:27:12 knee aspiration/ injection (PROC) 2023 024 [email or web address] In-Office Order, Internal Use Only DO Not Attach Compendium DO Not Attach Compendium, Do Not Delete/merge, 52912 4 10:14:47 Surgeries None recorded. Imaging XR, knee 2024 025 [email or web address] [facility] [place], [address], [place], [address], 5 13:16:18 Medication Orders bupivacaine HCl 0.5 % (5 mg/mL) injection solution 2024 025 [email or web address] [facility] [address] [place] [place], [address], 5 13:16:18 Kenalog 10 mg/mL suspension for injection 2024 025 [email or web address] [facility] [address], [address], 5 13:16:18 ORTHOVISC 30 mg/2 mL intra-artic ular syringe 2023 024 [email or web address] [facility] [address], [address], 5 11:25:08 ORTHOVISC 30 mg/2 mL intra-artic ular syringe 2023 024 [email or web address] [facility] [address], [address], 5 11:25:08 ORTHOVISC 30 mg/2 mL intra-artic ular syringe 2023 024 [email or web address] [facility] [address], [address], 5 11:25:08 ORTHOVISC 30 mg/2 mL intra-artic ular syringe 2023 024 [email or web address] [facility] [address], [address], 5 11:25:08 Patient TargetsNo targets recorded. Patient InstructionsNo instructions recorded. Reason for Referral None Reported. Results Created Date Observation Date Name Description Value Unit Range Abnormal Flag Note LastModifiedBy Organization Detail LastModifiedTime 09/08/19 24 XR, knee No observ ation record ed. [email or web address] [facility] [address], [place], [address], 09/08/2023 11:19:04 10/27/19 25 XR, knee No observ ation record ed. [email or web address] [facility] [place] [address], [address], 10/26/2024 13:04:42 Result Notes None recorded. Problems Name Problem SNOMED Code Status Onset Date Resolution Date Notes Provider Name and Address Organization Details Recorded Time Osteoarthr itis of knee 186308068 Active [facility] 02[facility]42 Osteoarthr itis 218923297 Active [facility] Available [facility] 02:54:42 Spinal stenosis in cervical region 06851616 Active Not Available [facility] 02:54:42 Contusion of right shoulder 0419109052235 9100 Active 2021 Not Available [facility] 02:54:41 Pain of right shoulder joint 4387693606036 9100 Active 2021 Not Available [facility] 02:54:41 Osteoarthr itis of right knee joint 9326512182978 00 Active 2021 Not Available [facility] 02:54:42 Pain of right knee joint 8062400646258 00 Active 2021 Not Available [facility] 02:54:42 Problem Notes None recorded. Procedures Surgical History Date Name Laterality Status Provider Name and Address Organization Details Recorded Time Knee Replacement completed Not Available [facility] 06/30/2022 02:45:24 Imaging Results None recorded. Procedure Notes None recorded. Medical Equipment None Reported. Allergies Allergen ID Allergen Name Allergen Category Reaction Reaction Severity Criticality Documentation Date Start Date Code Code System Note Provider Name and Address Organization Details Recorded Time 49779 Benadryl medicatio n Not available Not available Not available 10/26/202404986 7 RxNorm RADHA Hebert null, [place] [facility] 11:24:02 Medications Name Sig Start Date Stop [...] 2 mL by injection route. 2024 active [facility]: 0003- 0494- 20 Not Available Not Available [...] office by the doctor 08/03 completed NDC: [address] -1 Not Available Not Available Not [...] Updated DateTime 09/22/2023 182.88 cm 24.3 kg/m2 65908.03 g Dasia Ellistalat [facility] 09/22/2023 10:13:15 Date Recorded Body height Body mass index (BMI) Body weight Provider Name and Address Organization Details Last Updated DateTime 10/26/2024 182.88 cm 25.4 kg/m2 05679.77 g Chacha Daley [facility] 10/26/2024 11:23:27 Date Recorded Body height Body mass index (BMI) Body weight Provider Name and Address Organization Details Last Updated DateTime 04/02/2024 182.88 cm 24.4 kg/m2 32923.63 g Dasia Ellisatlat [facility] [employer] [facility] 04/02/2024 10:25:50 Date Recorded Body height Body mass index (BMI) Body weight Provider Name and Address Organization Details Last Updated DateTime 04/09/2024 182.88 cm 24.7 kg/m2 93218.81 g Dasia Ellistalat [facility] 04/09/2024 10:18:38 Date Recorded Body height Provider Name an d Address Organization Details Last Updated DateTime 04/16/2024 182.88 cm Anel AnandLucile [facility] [employer] [facility] 04/16/2024 10:15:29 Social History Question Answer Notes LastModified by Organizat ion Details LastModified Time Tobacco Smoking Status Never Smoker Not Available [facility] 06/30/2022 02:37:04 What Was The Date Of Your Most Recent Tobacco Screening? 10/26/2024 [email or web address] Information not available 10/26/2024 Sex: Unknown Functional Status Question Answer Note LastModified by Organizat ion Details LastModified Time What is your level of alcohol consumption? None [id number] Information not available 06/30/2022 Mental Status None recorded. Family History Relationship Description Onset Age of this Age Resolved Age Notes LastModified by Organization Details LastModified Time Mother Hypertensive disorder [email or web address] Not available 09/07 10:53:44 Mother Diabetes mellitus [email or web address] Not available 2024 11:26:19 Medical History Condition Response ARTHRITIS Y CANCER: SPECIFY Y URINARY/BLADDER/KIDNEY PROBLEMS Y HYPERTENSION Y Past Encounters Encounter ID Performer Location Encounter Start Date Encounter Closed Date Diagnosis/Indication Diagnosis SNOMED-CT Code Diagnosis ICD10 Code Diagnosis Note [id number] [facility] _[facility]_M IGR[facility]_ DEFAULT_1 _1 , 08/04/2020 00:00:00 08/04/2020 11:49:03 [id number] [facility] _[facility]HENA_M IGRATION_ DEFAULT_1 _1 , 08/18/2020 00:00:00 08/18/2020 10:52:14 [id number] [facility] _ATHENA_M IGRATION_ DEFAULT_1 _1 , 08/25/2020 00:00:00 08/25/2020 10:56:37 [id number] [facility] _[facility]HENA_M IGR[facility]_ DEFAULT_1 _1 , 09/01/2020 00:00:00 09/01/2020 11:31:31 [id number] [facility] _[facility]HENA_M IGR[facility]_ DEFAULT_1 _1 , 09/08/2020 00:00:00 09/08/2020 11:58:14 [id number] Eric Arechiga MD [facility] [address] [place] [address] 03/05/2021 00:00:00 03/05/2021 13:37:43 [id number] MD SUMEET [facility] [place] [address] [place] [address] 03/12/2021 00:00:00 03/12/2021 10:19:13 [id number] Peter Hawk, MD [facility] [address] [place] [address] 03/19/2021 00:00:00 03/19/2021 11:31:06 [id number] Eric Arechiga MD [facility] [address] [place] [address] 03/24/2021 00:00:00 03/24/2021 15:45:32 [id number] Eric Arechiga MD [facility] [address] [place] [address] 03/31/2021 00:00:00 03/31/2021 16:31:36 [id number] Eric Arechiga MD [facility] [address] [place] [address] 11/05/2021 00:00:00 11/05/2021 10:23:40 [id number] Eric Arechiga MD [facility] [address] [place] [address] 11/12/2021 00:00:00 11/12/2021 10:25:26 [id number] Eric Arechiga MD [facility] [address] [place] [address] 11/19/2021 00:00:00 11/19/2021 10:12:51 [id number] Eric Arechiga MD [facility] [address] [place] [address] 08/03/2022 14:22:16 08/03/2022 15:39:58 Osteoarthritis of right knee joint 7486502160 03633 M17.11 Pain of ri ght knee joint 0802270175 56894 M25.561 [id number] Eric Arechiga MD [facility] [address] [place] [address] 08/10/2022 15:22:35 08/10/2022 16:02:52 Pain of right knee joint 7159834943 33299 M25.561 Osteoarthr itis of right knee joint 5186822252 99214 M17.11 [id number] Eric Arechiga MD [facility] [address] [place] [address] 08/17/2022 15:28:35 08/17/2022 16:08:32 Osteoarthritis of right knee joint 4685257485 69881 M17.11 Pain of ri ght knee joint 5706310937 53696 M25.345 [id number] Humberto Clark MD [facility] [address] [place] [address] 02/17/2023 11:53:58 02/17/2023 13:20:03 Osteoarthritis of right knee joint 0117739602 58443 M17.11 Pain of ri ght knee joint 0027387089 75471 M25.831 [id number] Humberto Clark MD [facility] [address] [place] [address] 02/24/2023 11:46:41 02/24/2023 12:00:25 Osteoarthritis of right knee joint 1582302049 17241 M17.11 Pain of ri ght knee joint 5135724648 64223 M25.145 [id number] Humberto Clark MD [facility] [address] [place] [address] 03/03/2023 11:55:17 03/03/2023 13:23:12 Osteoarthritis of right knee joint 6501402062 68870 M17.11 Pain of ri ght knee joint 1383334694 81190 M25.952 [id number] Farrukh Rico MD [facility] [address] [place] [address] 09/08/2023 10:33:30 09/08/2023 11:21:21 Osteoarthritis of right knee joint 7458475322 58559 M17.11 History of left total knee replacement 2443486054 918908 Z96.456 [id number] Farrukh Rico MD [facility] [address] [place] [address] 09/15/2023 10:14:45 09/15/2023 11:01:53 Osteoarthritis of right knee joint 0496771577 04375 M17.11 History of left total knee replacement 0611247846 314819 Z96.286 [id number] Farrukh Rico MD [facility] [address] [place] [address] 09/22/2023 10:11:03 09/22/2023 10:30:30 Osteoarthritis of right knee joint 8059502758 68495 M17.11 Pain of ri ght knee joint 9356697250 40055 M25.583 [id number] Farrukh Rico MD [facility] [address] [place] [address] 04/02/2024 10:21:08 04/02/2024 11:21:08 Osteoarthritis of right knee joint 7936654194 93080 M17.11 Pain of ri ght knee joint 0818356548 10045 M25.545 [id number] Farrukh Rico MD [facility] [address] [place] [address] 04/09/2024 10:17:01 04/09/2024 11:13:23 Osteoarthritis of right knee joint 1109999951 10106 M17.11 Pain of ri ght knee joint 8936527447 27331 M25.596 [id number] Farrukh Rico MD [facility] [address] [place] [address] 04/16/2024 10:12:43 04/16/2024 10:32:33 Osteoarthritis of right knee joint 3607480842 69780 M17.11 Pain of ri ght knee joint 7172424012 48145 M25.457 [id number] Farrukh Rico MD [facility] [address] [place] [address] 10/26/2024 10:54:44 10/26/2024 12:47:23 Osteoarthritis of right knee joint 0586516020 57027 M17.11 Pain of ri ght knee joint 3281980857 14681 M25.561 History of operative procedure on knee 851195787 Z96.652 Health Concerns Section Related Observation LastModified by Organization Detai ls LastModified Time None Recorded Concern Status LastModified by Organization Details LastModified Time None Recorded Advance Directives Directive None Recorded Payers Insurance Date Sequence Insurance Name Policy Number Policy Mix Covered Member ID Mix Member ID Guarantor Name 10/23/2024 2 [employer] (MEDICARE SUPPLEMENT) Aquilino Trujillo [id number] Aquilino Ronnie 10/24/2024 1 [place] Aquilino Ronnie Jr [id number] Aquilino Trujillo 10/23/2024 2 [place] [id number] Aquilino Laurag [id number] Aquilino Ronnie Notes Date Note Type Note [...] with moderately severe primary osteoarthritis. FERNANDO Hogue [address] [place] [address], [facility] [address], [place], [address], [facility] [employer] 09/22/2023 10:26:47 04/02/2024 text/html The patient retu [...] the right knee. Occasionally he does take aags-fcx-isgbapp anti-inflammatory medication this helps somewhat. Has had no recent trauma or injury to the knee denies any effusion or swelling no erythema heat or other signs of infection.The patient's past medical history changes are noted above otherwise he has been fairly stable. Has been doing well with his recent pacemaker. FERNANDO Hogue [address], [place], [address], [employer] [facility] 04/02/2024 10:48:50 04/09/2024 text/html The patient retu [...] FERNANDO Hogue [address], [place], [address], [employer] 04/09/2024 10:30:08 04/16/2024 text/html Patient returns for [...] FERNANDO Hogue [address], [place], [address], [employer] [facility] 04/16/2024 10:39:10 10/26/2024 text/html The patient retu [...] the patient and his . FERNANDO Hogue [address] [place] [address], [facility] [address], [place], [address], [place] [facility] 10/26/2024 13:16:15
--- OUTSIDE RECORDS SUMMARY | 2024-11-20 20:42 | XMS_ITS | Referral Summary ---
Author Organization [facility] [address] [place] [address] [address] [place] [address] Care Team Providers Care Voltage Tester Name Role Phone Sanket Isbell MD Primary Care Provider Encounters Date Type Department Care Team Description 10/08/2024 Telephone [facility] Card[facility] [address] [place] [address] Tomy Pretty MD 09/04/2024 9:30 AM CDT Ancillary Procedure [facility] Cardiology [address] [facility] [address] [place] [address] Complete heart block (HCC); Cardiac pacemaker [...] the results will send referral to Dr Bhavesh Fall precautions NPT today Potential medication side effects were discussed during the encounter. Assessment & Plan (04/06/2023 9:45 AM VENDOR RELATIONSHIP MANAGER): Mr. August King Jr is a 72 [...] and handed them our written description and hdvyijoslm-jgfzk-xqztokafg pertaining to the procedure. He would like [...] needed Assessment & Plan (03/26/2020 12:46 PM VENDOR RELATIONSHIP MANAGER): This is a 69 year old man [...] Frequency of Binge Drinking Not on file 110 05/2020 Personal Safety Answer Date Recorded Getting School Help Needed Not on file 04/12 Sex and Gender Information Value Date Recorded Sex Assigned at Not on file Legal Sex Male 3:51 AM VENDOR RELATIONSHIP MANAGER Gender Identity Not on file Sexual Orientation [...] impedances, pacing and sensing thresholds. 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 AP-19%, MANAGER HEART FAILURE-55%. No AT/AF episodes noted. No Ventricular high rate episodes detected. Medications: ASA 81 mg. See scanned report. Office pacemaker follow up: 05/29/2025. [employer] remote f/u 12/11/2024. Rosemary Guerrero RN us Tomy Pretty MD [facility] PROC EDURES Final Result from Last 3 Months Insurance MEDICARE [facility] MEDICARE [facility] Care Teams Voltage Tester Relationship Specialty Start Date End Date Sanket Isbell MD [address] [facility] [address] [place] [address] PCP - General 02/24/15
--- OUTSIDE RECORDS SUMMARY | 2024-11-20 20:42 | XMS_ITS ---
Author Organization [facility] Address [address] [place], [place] [id number] Care Team Providers Care On Awake Counselor Name Role Phone YANNI DOMINGUEZ Unavailable [phone] Sanket Isbell Unavailable Unavailable REASON FOR VISIT Patient presents for at-risk foot care . The patient has painful toenails that cause difficulty with ambulation and shoegear. The onset is gradual Vital Signs Height 72.00 in 11/05/2024 Weight 202 lbs 11/05/2024 BMI 27.39 kg/m2 11/05/2024 Height-cm 182.88 cm 11/05/2024 Weight-kg 91.63 kg 11/05/2024 Encounters Encounter Location Date Provider Diagnosis [facility] [place] [address] [place], [place] [id number] 11/05/2024 YANNI DOMINGUEZ Tinea unguium B35.1 ; Pain in right toe(s) M79.674 ; Pain in left toe(s) M79.675 and Atherosclerosis of telida arteries of extremities with intermittent claudication, bilateral [...] Pain in left toe(s) (ICD-10 - M79.675) 11/05/2024 Atherosclerosis of telida arteries of extremities with intermittent claudication, bilateral [...] Name:YANNI DOMINGUEZ, 11:10:00 AM, [address], [address], [id number], Progress Notes * DEREK KING JREDOB: 0 (74 yo M)Acc No.[id number]:11/05/2024 Patient: Jeremy AUGUST MEDINA JR Provider: Cat Dominguez DPM :1950 A ge:74 Y S ex:Male Date:11/05/2024 Address:[address] [place] [address], [address] [place], [place] [id number] Subjective: * Chief Complaints: * 1 . [...] Medications: N one Objective: * Vitals: W t:202lbs, Wt-k.63 kg, Ht: 72.00 in, Ht-cm: 182.88 [...] - M79.675 4 . A therosclerosis of telida arteries of extremities with intermittent claudication, bilateral legs - I70.213 Plan: * Treatment: * Immunizations: Immunization record has been reviewed and updated. * Procedure Codes: 1 1721 DEBRIDE NAIL, 6 OR MORE, Modifiers: Q8 * Follow Up: 1 0-12 Weeks (Reason: At Risk Foot care, sooner if problems arise) * Billing Information: * Visit Code: * Procedure Codes: 16474 DEBRIDE NAIL, 6 OR MORE. Modifiers: Q8 * Electronic signature of YANNI DOMINGUEZ DPM on 11/20/2024 at 08:42 PM CDT Sign off status: Pending * Provider: Cat Dominguez DPM Date: 0 11/05/2024 Generated for Cleo mi/Chris/eTransmitting on: 0 11/20/2024 08:42 PM CDT History and Physical Notes * [...]
--- OUTSIDE RECORDS SUMMARY | 2024-11-20 20:42 | XMS_ITS | Clinical Summary ---
Author Organization [facility] [place] [address] Address [address] [place] [address] Care Team Providers Care Automatic Mounter Name Role Phone Sanket Isbell MD Primary [...] encounter. Assessment & Plan (04/06/2023 9:45 AM SENIOR TAX ANALYST): Mr. August King Jr is a 72 [...] and handed them our written description and ougynsavas-sicua-rebvkatjc pertaining to the procedure. He would like [...] needed Assessment & Plan (03/26/2020 12:46 PM SENIOR TAX ANALYST): This is a 69 year old man [...] Type Department Care Team Description 10/08/2024 Telephone [facility] Cardiology [address] [place] [id number] Tomy Pretty MD 09/04/2024 9:30 AM CDT Ancillary Procedure [facility] Cardiology [address] [facility] [address] [place] [phone] Complete heart block (HCC); Cardiac pacemaker in situ from Last 3 Months Medical History Medical [...] on file Legal Sex Male 3:51 AM SENIOR TAX ANALYST Gender Identity Not on file Sexual Orientation [...] impedances, pacing and sensing thresholds. 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 No AT/AF episodes noted. No Ventricular high rate episodes detected. Medications: ASA 81 mg. See scanned report. Office pacemaker follow up: 05/29/2025. Biotronik remote f/u 12/11/2024. Rosemary Guerrero RN Tomy Pretty MD CV CARDIAC SERVICES PROC EDURES Final Result from Last 3 Months Insurance MEDICARE [facility] MEDICARE [facility] Care Teams Automatic Mounter Relationship Specialty Start Date End Date Sanket Isbell MD [address] [facility] [[email or web address] [address] [place] [address] PCP - General 02/24/15
--- OUTSIDE RECORDS SUMMARY | 2024-11-20 20:42 | XMS_ITS | Clinical Summary ---
Author Organization [facility] Address [address] [place] [address] Care Team Providers Care Lacer And Tier Name Role Phone Sanket Isbell MD Primary Care Provider [phone] Source Comments [facility],non-owned Affiliates and Associated Physician Practices is amultiple site organization consisting of ambulatory clinics and hospital sitesin [place], [place], [place] and [place]. This disclosure is being madepursuant to the Care Everywhere program and may not contain all information available regarding this patient. Last updated 18.[facility] Allergies No known active allergies Medications * [...] Comments Blood Pressure 126/72 04/10/2018 12:37 PM BRUSH MACHINE SETTER Pulse 71 04/10/2018 12:37 PM BRUSH MACHINE SETTER Temperature - - Respiratory Rate 18 04/10/2018 12:37 PM BRUSH MACHINE SETTER Oxygen Saturation 96% 04/10/2018 12:37 PM BRUSH MACHINE SETTER Inhaled Oxygen Concentration - - Weight 91.6 kg (202 lb) 04/10/2018 12:37 PM BRUSH MACHINE SETTER Height 182.9 cm (6') 04/10/2018 12:37 PM BRUSH MACHINE SETTER Body Mass Index 27.4 04/10/2018 12:37 PM BRUSH MACHINE SETTER Plan of Treatment Health Maintenance Due Date [...] age to complete this topic Insurance MEDICARE [facility] MEDICARE [facility] Member Subscriber Plan / Payer (Ef fective 2020-Present) Name:August King Jr Relation to Subscriber:Self Name:AUGUST KING Payer ID:[id number] (NAIC) Type:[facility] Address: [address] [place] [id number] Care Teams Lacer And Tier Relationship Specialty Start Date End Date Sanket Isbell MD [address] [place] [address] PCP - General Family Medicine 01/19/18
[2024-11-20] MEDS: SODIUM CHLORIDE 0.9% IV 1,000 ML 999 ML IV CONT (21:16)
[2024-11-20 21:54] VITALS: BP 136/71; PULSE 65; RESP 23; O2SAT 100
--- NOTE | 2024-11-20 22:38 | ED.AMS ---
HPI - Altered Mental Status General Chief Complaint: Altered Mental Status Stated Complaint: COMBATIVE W/ STAFF AT [facility] Time Seen by Provider: 11/20/24 19:59 History of Present Illness HPI narrative: 74-year-old male with a past medical history including Parkinson's disease and dementia, hypertension, hyperlipidemia, pacemaker. Patient presents from [facility] for concerns of combative behavior. Patient has been doing well at [facility] from his recent hospitalization here in the beginning of October. Patient states that he feels fine and was just upset at some of the staff members. Staff noted that he was repeatedly pressure his call light and call button. Patient has been otherwise doing well without any aggressive behaviors and is not a threat to himself or others. Patient denies any symptoms at this time. He is at his baseline mentation and his is present at bedside and states that she thinks his outburst today could have been related to stress or being overwhelmed as he is being discharged next few days and lots of life changes are happening. Patient denies any headache, vision changes, abdominal pain, back pain, urinary issues. No hearing loss or vision changes. No fever, chills. No falls or injury. Hospitalist note from this morning states that patient was doing well without any concerns. Doing well with physical therapy. 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 CHF (congestive heart failure) Falls frequently Prostate cancer metastatic to bone BPH w urinary obs/LUTS Non-Hodgkin lymphoma in remission Kidney stones Hypertension Parkinsons Parkinson disease Surgical History Surgical History Cardiac pacemaker H/O prostate biopsy S/P total knee arthroplasty left Social History Social History Social History: Smoking status: Never smoker Second hand tobacco smoke exposure: No Alcohol intake: never Substance use: never Substance use type: does not use Do You Feel Safe in your Home?: Yes Lack of Transportation: No Lack of Food: Never True Current Housing: I Have Housing Concerned About Future Housing: No Difficulty Paying Gas/Electric Bills: No Difficulty Paying for Meds: No Currently Unemployed: No Education: Trade/Vocational Certificate Difficulty w/ Childcare or Family Care: No Living arrangements: with family Occupation/Education: retired Additional occupation/education comments: [employer], [employer] Gender identity (if verbalized by the patient): Male Sexual Orientation (if Verbalized by the Patient): Straight or Heterosexual Spiritual care concerns: No Course Vital Signs Vital signs: Vital Signs Temperature 36.2 C L 11/20/24 20:06 Pulse Rate 87 11/20/24 20:06 Respiratory Rate 24 H 11/20/24 20:06 Blood Pressure 119/73 11/20/24 20:06 Pulse Oximetry 95 11/20/24 20:06 Oxygen Delivery Room Air 11/20/24 20:06 Temperature 36.2 C L 11/20/24 20:06 Pulse Rate 69 11/20/24 23:25 Respiratory Rate 21 H 11/20/24 23:25 Blood Pressure 135/97 H 11/20/24 23:25 Pulse Oximetry 97 11/20/24 23:25 Oxygen Delivery Room Air 11/20/24 20:06 MDM - Altered Mental Status MDM Narrative Medical decision making narrative: 74-year-old male with a past medical history including Parkinson's disease and dementia, hypertension, hyperlipidemia, pacemaker. Patient presents from [facility] for concerns of combative behavior. Patient has been doing well at [facility] from his recent hospitalization here in the beginning of October. Patient states that he feels fine and was just upset at some of the staff members. Staff noted that he was repeatedly pressure his call light and call button. Patient has been otherwise doing well without any aggressive behaviors and is not a threat to himself or others. Patient denies any symptoms at this time. He is at his baseline mentation and his is present at bedside and states that she thinks his outburst today could have been related to stress or being overwhelmed as he is being discharged next few days and lots of life changes are happening. Patient denies any headache, vision changes, abdominal pain, back pain, urinary issues. No hearing loss or vision changes. No fever, chills. No falls or injury. Hospitalist note from this morning states that patient was doing well without any concerns. Doing well with physical therapy. Patient is hemodynamically stable with normal vital signs here, no tachycardia, hypotension, hypertension, hypoxia or fever. He has an unremarkable neurological assessment and is alert oriented x3. Moving all extremities. Clear breath sounds throughout. No visible signs of trauma. No complaints during assessment. Family present at bedside during encounter. Broad workup was ordered to rule out any potential causes such as dehydration, electrolyte abnormalities, infection, intracranial pathology although very unlikely. CT of the head was ordered, urinalysis and labs obtained. Workup shows no leukocytosis or anemia worse than his chronic baseline. Normal platelet count. Coagulation panel is normal. Electrolytes shows some dehydration with slightly low sodium and chloride but otherwise not severe and not contributing to his mentation most likely. Patient given a L of normal saline here to replenished. Normal creatinine and BUN. Unremarkable glucose. Normal LFTs. Normal anion gap and no acidosis. Urinalysis has trace ketones and no signs of infection. Points towards mild dehydration. Head CT shows no acute intracranial abnormality. There is some left middle ear effusion which was noted. We did correlate clinically and he has no signs of otitis or mastoiditis on examination. No proptosis or middle ear bulging, redness, erythema or purulent drainage. Patient was made aware of the fluid in his left middle ear and will have ENT referral for outpatient follow-up. Patient felt better after the fluids and had no further complaints. Mental status workup was unrevealing and he can be safely discharged back to his rehab. Ambulance was arranged. Report called. Family comfortable with the plan for discharge back to his facility. Medical Records Attestation: I reviewed the patient's medical records. Lab Data Attestation: I reviewed the patient's lab results. 11/20/24 20:10 11/20/24 20:10 Labs: Lab Results 07/22/25 07/22/25 Range/Units 20:10 20:28 WBC 4.9 (4.5-10.0) K/mm3 RBC 3.61 L (4.6-6.20) M/mm3 Hgb 11.6 L (14.0-18.0) g/dL Hct 33.3 L (42.0-52.0) % MCV 92.2 (80-100) fl MCH 32.1 (26-34) pg MCHC 34.8 (32-36) g/dl RDW 12.3 (11.5-14.5) % Plt Count 181 (150-375) k/mm3 MPV 9.5 (7.4-10.4) fl Immature Gran % (Auto) 0.8 H (0-0.5) % Neut % (Auto) 76.2 H (45.5-73.1) % Lymph % (Auto) 8.4 L (18.3-44.2) % Grayson % (Auto) 12.8 H (2.6-8.5) % Eos % (Auto) 1.4 (0-4.4) % Baso % (Auto) 0.4 (0.2-1.2) % Lymph # (Auto) 0.41 L (0.9-3.2) K/mm3 Grayson # (Auto) 0.6 (0.1-0.6) K/mm3 Eos # (Auto) 0.1 (0-0.3) K/mm3 Baso # (Auto) 0.0 (0.0-0.1) K/mm3 Abs Immat Gran (auto) 0.04 H (0.00-0.031) K/mm3 Absolute Neuts (auto) 3.7 (1.3-6.7) K/mm3 Absolute Nucleated RBC 0.000 (0.0-0.012) K/mm3 Nucleated RBC % 0.0 (0.0-0.2) % PT 14.2 (11.1-14.7) Seconds INR 1.1 APTT 27.1 (22.3-36.8) Seconds Sodium 128 L (137-145) mmol/L Potassium 3.6 (3.4-5.0) mmol/L Chloride 96 L (98-107) mmol/L Carbon Dioxide 24 (22-30) mmol/L Anion Gap 8 (4-12) mmol/L BUN 19 (9-20) mg/dL Creatinine 0.79 (0.7-1.3) mg/dL Estim Creat Clear Calc 75 ml/min Estimated GFR > 60 (59 - ) Glucose 147 H (65-110) mg/dL Calcium 9.0 (8.4-10.2) mg/dL Total Bilirubin 0.4 (0.2-1.3) mg/dL AST 26 (17-59) U/L ALT 11 (6-50) U/L Alkaline Phosphatase 54 (38-126) U/L Total Protein 6.9 (6.3-8.2) g/dL Albumin 3.8 (3.5-5.1) g/dL Urine Color Dark yellow (Yellow) Urine Appearance Clear (Clear) Urine pH 5.5 (5.0-9.0) Ur Specific [place] 1.017 (1.001-1.035) Urine Protein Negative (Negative) mg/dL Urine Glucose (UA) Negative (Negative) mg/dL Urine Ketones Trace H (Negative) mg/dL Ur Blood (Man) Negative (Negative) Urine Nitrate Negative (Negative) Urine Bilirubin Negative (Negative) Urine Urobilinogen 0.2 (<2.0) mg/dL Leukocyte Esterase Rfl Negative (Negative) DONNA/UL Imaging Data Attestation: I personally reviewed and interpreted this imaging study as follows: My impression: Impressions Head CT 11/20/24 21:23 IMPRESSION: No acute intracranial process. Left middle ear and mastoid opacification, correlate for clinical findings of otomastoiditis. Discharge Plan Discharge Clinical Impression: Dehydration, mild, Aggressive behavior, Acute SHAWN (middle ear effusion) Patient Disposition: Home Condition: Stable Instructions: Antibiotic Form, Fluid In The Ear (Serous Otitis Media) (ED) Additional Instructions: Your laboratory studies show some very minor dehydration which we corrected here with fluids. Your CT scan shows no abnormalities aside from some fluid in the left ear which does not appear to be clinically infected. Likely some congestion your sinuses. We will refer you to ENT on outpatient basis for that evaluation. Return with any emergent concerns otherwise follow-up with regular doctors. Patient Language: Guatemalan Prescriptions: No Action Orgovyx 120 mg tablet 120 mg PO DAILY carbidopa-levodopa [Sinemet] 25-100 mg tablet 1 tablet PO QID Qty: 360 3RF Rx Instructions: may increase to 1/2 tablets 4 times a day pfpiqvkhf-zgthogxo-qevdrgbyjk 50-200-200 mg tablet 1 tablet PO QID Qty: 120 12RF sennosides-docusate sodium [Senokot-S] 8.6-50 mg tablet 1 tab-cap PO HS quetiapine 25 mg tablet See Rx Instructions .ROUTE .COMPLEX Qty: 45 1RF Dose Instruction: TAKE ONE-HALF TABLET BY MOUTH EVERY EVENING Rx Instructions: TAKE ONE-HALF TABLET BY MOUTH EVERY EVENING midodrine 5 mg Tablet 5 mg PO TID PRN (Reason: hypotension) Qty: 90 0RF Erleada 60 mg tablet 60 mg PO QID Qty: 120 0RF Follow-up/Referrals: Sanket Isbell MD [Primary Care Provider] - Jf Silva MD [Physician] - 1 Week (effusion left ear) Time of Disposition: 22:46
[2024-11-20 23:25] VITALS: BP 135/97; PULSE 69; RESP 21; O2SAT 97
== END 2024-11-20 23:28 ==
PROVIDERS: Emergency Provider Student in an Organized Health Care Education/Training Program; PCP Family Medicine
DX: E86.0 Dehydration (principal); H74.8X2 Other specified disorders of left middle ear and mastoid; R46.89 Other symptoms and signs involving appearance and behavior; F03.90 Unspecified dementia, unspecified severity, without behavioral disturbance, psychotic disturbance, mood disturbance, and anxiety; G20.B1 Parkinson's disease with dyskinesia, without mention of fluctuations; I50.9 Heart failure, unspecified; I11.0 Hypertensive heart disease with heart failure; C85.9A Non-Hodgkin lymphoma, unspecified, in remission; Z87.442 Personal history of urinary calculi; Z85.830 Personal history of malignant neoplasm of bone; Z85.46 Personal history of malignant neoplasm of prostate; Z95.0 Presence of cardiac pacemaker; Z79.899 Other long term (current) drug therapy
CPT/HCPCS: 36415; 70450; 80053; 81001; 85025; 85610; 85730; 93005; 96360; 99284; J7030

== ENCOUNTER 2025-02-14 00:27 | Day surgery (SDC) | payer MEDICARE, SELFPAY ==
--- OUTSIDE RECORDS SUMMARY | 2025-02-11 06:10 | XMS_ITS ---
Author Organization [facility] Address [address] [place], [place] [id number] Care Team Providers Care Homeland Security Program Specialist Name Role Phone ANGELICA YANNI Unavailable [phone] Sanket Isbell Unavailable Unavailable Allergies No Known Allergies REASON FOR VISIT Patient presents for at-risk foot care . The patient has painful toenails that cause difficulty with ambulation and shoegear. The onset is gradual Vital Signs Height 72.00 in 02/11/2025 Weight 202 lbs 02/11/2025 BMI 27.39 kg/m2 02/11/2025 Height-cm 182.88 cm 02/11/2025 Weight-kg 91.63 kg 02/11/2025 Encounters Encounter Location Date Provider Diagnosis [facility] [address] [place], [place] [id number] 02/11/2025 YANNI DOMINGUEZ Tinea unguium B35.1 Assessments Encounter Date Diagnosis (ICD Code) Assessment Notes Treatment Notes Treatment Clinical Notes Section Notes 02/11/2025 Tinea unguium (ICD-10 - B35.1) FUNGAL TOENAILS: [...] problems arise Provider Name:YANNI DOMINGUEZ, 11:10:00 AM, [address] [facility], [address], [place], [place], [phone], Progress Notes * DEREK KING JREDOB: 0 (74 yo M)Acc No.[id number]:02/11/2025 Patient: Jeremy AUGUST MEDINA JR Provider: Cat Dominguez DPM :1950 A ge:74 Y S ex:Male Date:02/11/2025 Address:[address] [place] [address], [address] [place], [place] [id number] Subjective: * Chief Complaints: * 1 . [...] Date last seen by Dr. Isbell was 12/2024., Initials nd. sample. * Medical History: N o Reported Medical History.Medical History Verified. * Surgical History: D enies Past Surgical History. * Hospitalization/Major Diagno stic Procedure: D enies Past Hospitalization. * Family History: N o Family History documented.. * Social History: M igrated Social History: M igrated Social History: History of tobacco use : , Smoking Status : Never smoked. * Medications: N one * Allergies: N .K.D.A. Objective: * Vitals: W t:lbs, Wt-k.63 kg, [...] extremities. ? Assessment: * Assessment: 1. T aby cabral - B35.1 (Primary) Plan: * Treatment: * Follow Up: 1 0-12 Weeks (Reason: At Risk Foot care, sooner if problems arise) * Billing Information: * Visit Code: * Procedure Codes: * Electronic signature of YANNI DOMINGUEZ DPM on 02/14/2025 at 12:29 AM CDT Sign off status: Pending * Provider: Cat Dominguez DPM Date: Generated for Cleo Ruggiero/Javier on: 12:29 AM CDT History and Physical Notes * [...] Date last seen by Dr. Isbell was 12/2024., Initials nd sample Examination Category Sub-Category Detail Notes Category [...]
[2025-02-11 13:58] VITALS: BMI 25.7
--- OUTSIDE RECORDS SUMMARY | 2025-02-14 00:30 | XMS_ITS | Patient Health Record ---
Author Organization [facility] Address [address] [place], [place] [id number] Care Team Providers Care Teacher Of Family And Consumer Science Name Role Phone YANNI DOMINGUEZ Unavailable [phone] Sanket Isbell Unavailable Unavailable Allergies No Known Allergies Reason For Referral No Information Immunizations Vaccine Route Administration Date Status Comme nts Influenza, high dose seasonal Unknown 02/21/2023 Admini stered Vital Signs Height-cm 182.88 cm 02/11/2025 Weight-kg 91.63 kg 02/11/2025 Height 72.00 in 02/11/2025 Weight 202 lbs 02/11/2025 BMI 27.39 kg/m2 02/11/2025 Encounters Encounter Location Date Provider Diagnosis [facility] [place] [address] [place] [id number] 02/11/2025 YANNI SNOOK Tinea unguium B35.1 [facility] [place] [address] [place] [id number] 03/05/2024 YANNI SNOOK Tinea unguium B35.1 ; Pain in right toe(s) M79.674 ; Pain in left toe(s) M79.675 and Atherosclerosis of [place] arteries of extremities with intermittent claudication, bilateral legs I70.213 [facility] [place] [address] [place], [place] [id number] 06/11/2024 YANNI SNOOK Tinea unguium B35.1 ; Pain in right foot M79.671 ; Pain in left foot M79.672 ; Atherosclerosis of sw[place]om[place] arteries of extremities with intermittent claudication, bilateral legs I70.213 and Acquired keratosis [keratoderma] palmaris et plantaris L85.1 [facility] [place] [address] [place] [id number] 08/20/2024 YANNI SNOOK Tinea unguium B35.1 ; Pain in right toe(s) M79.674 ; Pain in left toe(s) M79.675 and Atherosclerosis of [place] arteries of extremities with intermittent claudication, bilateral legs I70.213 [facility] [place] [address] [place] [id number] 11/05/2024 YANNI SNOOK Tinea unguium B35.1 ; Pain in right toe(s) M79.674 ; Pain in left toe(s) M79.675 and Atherosclerosis of [place] arteries of extremities with intermittent claudication, bilateral [...] Pain in right toe(s) (ICD-10 - M79.674) 02/11/2025 Tinea unguium (ICD-10 - B35.1) FUNGAL TOENAILS: Discussed various treatment options for fungal toenails including debridement, topical antifungals, oral antifungals, toenail avulsion, or toenail matrixectomy. NAIL DEBRIDEMENT: Nails 1-5 Bilateral were debrided extensively with nail nippers and emery board, reducing length and girth to pink healthy tissue with any subungual debris and necrotic tissue removed 11/05/2024 Pain in left toe(s) (ICD-10 - M79.675) 08/20/2024 Pain in left toe(s) (ICD-10 - M79.675) 06/11/2024 Pain in left foot (ICD-10 - M79.672) 03/05/2024 Pain in left toe(s) (ICD-10 - M79.675) 03/05/2024 Atherosclerosis of swinom[place] arteries of extremities with intermittent claudication, bilateral legs (ICD-10 - I70.213) 06/11/2024 Atherosclerosis of sw[place]om[place] arteries of extremities with intermittent claudication, bilateral legs (ICD-10 - I70.213) 08/20/2024 Atherosclerosis of sw[place] arteries of extremities with intermittent claudication, bilateral legs (ICD-10 - I70.213) 11/05/2024 Atherosclerosis of swinom[place] arteries of extremities with intermittent claudication, bilateral legs (ICD-10 - I70.213) 06/11/2024 Acquired keratosis [keratoderma] palmaris et plantaris (ICD-10 - L85.1) A total of 2 corns or calluses, as described in the note above, were cut and pared utilizing a #15 blade Plan Of Treatment Next Appt Details Provider Name:YANNI DOMINGUEZ, 11:10:00 AM, [address] [facility], [place], [place], [phone], Insurance Providers Payer Name Payer Address Payer Phone Subscriber Number Group Number Insured Name Patient Relationship to Insured Coverage Start Date Coverage End Date Medicare Part B [facility] [address] [place] [phone] [id number] AUGUST KING JR Self - patient is the insured [facility] Insurance [address] [facility] [place] [place] [id number] AUGUST KING JR Self - patient is the insured 4
--- OUTSIDE RECORDS SUMMARY | 2025-02-14 00:30 | XMS_ITS | Clinical Summary ---
Author Organization [facility] [place] [address] Address [address] [place] [address] Care Team Providers Care Manager Operations Research Name Role Phone Sanket Isbell MD Primary [...] 25-100 mg per tabletIndicatio ns:PD (Parkinson's disease) Take 4 tablets by mouth every 4 (four) hours 2160 tablet 3 09/06/2023 Active ofloxacin (OCUFLOX) 0.3 % ophthalmic solution INSTILL 1 DROP INTO EACH EYE FOUR TIMES DAILY 01/27/2024 Active QUEtiapine (SEROquel) 25 mg tablet Take 1 tablet (25 mg total) by mouth nightly 01/27/2024 Active Senexon-S 8.6-50 mg Take 2 tablets by mouth 2 (two) times a day 01/27/2024 Active carbidopa-levod opa-entacapone (STALEVO) 50-200-200 mg per tablet Take 1 tablet by mouth 4 (four) times a day Active Erleada 60 mg tablet 01/08/2025 Active Orgovyx 120 mg tablet Take 1 tablet every day by oral route. 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 Discussed findings with the patient and his with recommendation for ongoing surveillance. Continue risk factor modification with ASA statin therapy and good blood pressure control. Follow up in 1 year with repeat surveillance imaging Complete heart block 02/23/2024 Cardiac pacemaker in [...] encounter. 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 August King Jr is a 72 [...] on carbidopa/levodopa IR. with good response. In 2018, he developed motor fluctuations with wearing off [...] and handed them our written description and [id number] pertaining to the procedure. 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): This is a 69 year old man [...] Encounters Date Type Department Care Team Description 01/09/2025 8:45 AM CDT Office Visit [facility] at [address] [place] [address] Beto Molina MD Celiac artery aneurysm (Primary Dx); Primary hypertension; Mixed hyperlipidemia 01/09/2025 Orders Only [facility] at [address] [place] [address] Beto Molina MD Celiac artery aneurysm (Primary Dx) 12/13/2024 Telephone [facility] [address] [facility] [address] [place] [address] Tomy Pretty MD 12/11/2024 8:45 AM CDT Ancillary Procedure [facility] [address] [facility] [address] [place] [id number] Complete heart block (HCC); Cardiac pacemaker [...] of Binge Drinking Not on file 05/2020 Sex and Gender Information Value Date Recorded Sex Assigned at Not on file Legal Sex Male 3:51 AM 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 Gender Identity Not on file Sexual Orientation Not on file Obstetrics History Last Filed Vital Signs Vital Sign Reading Time Taken Comments Blood Pressure 147/83 01/09/2025 8:48 AM CDT Pulse 70 01/09/2025 8:48 AM CDT Temperature 36.7 C (98 F) 07/15/2021 2:47 PM CDT Respiratory Rate - - Oxygen Saturation 98% 01/09/2025 8:48 AM CDT Inhaled Oxygen Concentration - - Weight 83.5 kg (184 lb) 01/09/2025 8:48 AM CDT Height 180.3 cm (5' 11) 01/09/2025 8:48 AM CDT Body Mass Index 25.66 01/09/2025 8:48 AM CDT Plan of Treatment Health Maintenance Due Date Last Done Comments Colon Cancer Screening-Colonoscopy 1950 Fall Risk Assessment 1950 Hepatitis C Screening 1950 DTaP/Tdap/Td Vaccine (1 - Tdap) 1960 Hepatitis B Screening 1967 Pneumococcal vaccine 65+ (1 of 2 - PCV) 1968 Zoster Vaccine (1 of 2) 1968 Well Visit 65+ 2014 Covid-19 Vaccine (2 - Moderna risk series) 04/12/2021 03/15/2021 Depression Screening 08/04/2024 08/05/2023 Influenza Vaccine (#1) 2024 02/21/2023 Procedures Procedure Name Priority Date/Time Associated Diagnosis Comments DEVICE CHECK - REMOTE Routine 12/11/2024 10:13 AM CDT Complete heart block (HCC) Cardiac pacemaker in situ from Last 3 Months Results * DEVICE CHECK - REMOTE (12/11/2024 10:13 AM CDT) Anatomical Region Laterality Modality Other Narrative 01/04/2025 12:40 PM CDT [employer] Amvia Edge Dual Pacemaker. Dx; Sinus Node Disease. DOI 01/16/2024-Maria De Jesus. [employer] home monitoring. Routine DDD Pacemaker Remote. Transmission attached. Battery status: Ok, 95% remaining battery life to [place]. Stable lead impedances, pacing and sensing thresholds. Presenting rhythm: LOG BUNCHER. AP-13%, LOG BUNCHER-45%. No AT/AF episodes noted. No Ventricular high rate episodes detected. Medications: ASA 81 mg. See scanned report. Office pacemaker follow up: 05/29/2025. [employer] remote f/u 03/19/2025. Rosemary Guerrero RN us Tomy Pretty MD [facility] PROC EDURES Final Result from Last 3 Months Insurance MEDICARE [facility] MEDICARE [employer] Care Teams Manager Operations Research Relationship Specialty Start Date End Date Sanket Isbell MD [address] [facility] [address] [place] [address] PCP - General 02/24/15
--- OUTSIDE RECORDS SUMMARY | 2025-02-14 00:30 | XMS_ITS | Data Portability ---
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 His was asking about that today. She agrees they need to give it more time to see how his prostate cancer treatment goes. The patient and his voiced understanding and agrees with the above plan they will call for any further problems difficulties or questions. Not available 10/26/2024 13:03:10 12/14/2024 12/14/2024 The patient has severe primary osteoarthritis of the right knee joint as described. His request under sterile conditions I injected the patient's right knee joint in the office today with Orthovisc injection number 1. I will see him back next week for the 2nd injection right knee. He voiced understanding and agreed with the above plan he will call for any further problems difficulties or questions. Not available 12/14/2024 10:55:41 12/21/2024 12/21/2024 The patient has severe primary osteoarthritis of the right knee joint as described. Under sterile conditions I injected the patient's right knee joint in the office today with Orthovisc injection number 2. I will see him back next week for the 3rd injection left knee. The patient voiced understanding agrees above plan call for any further problems difficulties or questions. Not available 12/21/2024 11:16:40 12/28/2024 12/28/2024 The patient has severe primary osteoarthritis of the right knee joint as described. Under sterile conditions I injected the patient's right knee joint in the office with Orthovisc injection number 3. The patient tolerated the procedure well. I have told the patient and his that we could do this again in 6 months if necessary versus cortisone in between if necessary. The patient and his voiced understanding and agreed with the above plan they will call for any further problems difficulties or questions. Today he states his knee feels great and he is quite pleased with the results. Not available 12/28/2024 13:05:22 Plan of Treatment Reminders Order Date Submit Date Provider Last Modified By Organization Details Last Modified Time Details Appointments None recorded. Lab None recorded. Referral None recorded. Procedures knee aspiration/ injection (PROC) 2024 025 [email or web address] In-Office Order, Internal Use Only DO Not Attach Compendium DO Not Attach Compendium, Do Not Delete/merge, [id number] 5 11:06:19 knee aspiration/ injection (PROC) 2024 025 [email or web address] In-Office Order, Internal Use Only DO Not Attach Compendium DO Not Attach Compendium, Do Not Delete/merge, [id number] 5 10:35:42 knee aspiration/ injection (PROC) 2024 025 [email or web address] In-Office Order, Internal Use Only DO Not Attach Compendium DO Not Attach Compendium, Do Not Delete/merge, [id number] 5 10:18:45 injection/a spiration joint/bursa (PROC) 2024 025 [email or web address] In-Office Order, Internal Use Only DO Not Attach Compendium DO Not Attach Compendium, Do Not Delete/merge, [id number] 5 13:07:27 knee aspiration/ injection (PROC) 2023 024 [email or web address] In-Office Order, Internal Use Only DO Not Attach Compendium DO Not Attach Compendium, Do Not Delete/merge, [id number] 4 10:18:42 Surgeries None recorded. Imaging XR, knee 2024 025 [email or web address] [facility] [place], [address], [place], [address], 5 13:16:18 Medication Orders ORTHOVISC 30 mg/2 mL intra-artic ular syringe 2024 025 [email or web address] [facility], [address] [place], [address], 5 15:10:47 ORTHOVISC 30 mg/2 mL intra-artic ular syringe 2024 025 [email or web address] [facility], [address] [place], [address], 5 12:22:50 ORTHOVISC 30 mg/2 mL intra-artic ular syringe 2024 025 [email or web address] [facility], [address], [place], [address], 5 13:00:14 bupivacaine HCl 0.5 % (5 mg/mL) injection solution 2024 025 [email or web address] [facility], [address], [place], [address], 5 13:16:18 Kenalog 10 mg/mL suspension for injection 2024 025 [email or web address] [facility], [address], [place], [address], 5 13:16:18 ORTHOVISC 30 mg/2 mL intra-artic ular syringe 2023 024 [email or web address] [facility], [address] [place], [address], 5 11:25:08 Patient TargetsNo targets recorded. Patient InstructionsNo instructions recorded. Reason for Referral None Reported. Results Created Date Observation Date Name Description Value Unit Range Abnormal Flag Note LastModifiedBy Organization Detail LastModifiedTime 10/27/19 25 XR, knee No observ ation record ed. [email or web address] [facility] [place] [address], [place], [address], 10/26/2024 13:04:42 Result Notes None recorded. Problems Name Problem SNOMED Code Status Onset Date Resolution Date Notes Provider Name and Address Organization Details Recorded Time Osteoarthr itis of knee 586895308 Active Not Available [facility] 3 02:54:42 Osteoarthr itis 084680526 Active Not Available [facility] 3 02:54:42 Spinal stenosis in cervical region 00321339 Active Not Available [facility] 3 02:54:42 Contusion of right shoulder 9313375078869 9100 Active 2021 Not Available [facility] 3 02:54:41 Pain of right shoulder joint 0869610366164 9100 Active 2021 Not Available [facility] 3 02:54:41 Osteoarthr itis of right knee joint 7469319913299 00 Active 2021 Not Available [facility] 3 02:54:42 Pain of right knee joint 6425339478223 00 Active 2021 Not Available [facility] 3 02:54:42 Problem Notes None recorded. Procedures Surgical History Date Name Laterality Status Provider Name and Address Organization Details Recorded Time Knee Replacement completed Not Available [facility] 06/30/2022 02:45:24 Imaging Results None recorded. Procedure Notes None recorded. Medical Equipment None Reported. Allergies Allergen ID Allergen Name Allergen Category Reaction Reaction Severity Criticality Documentation Date Start Date Code Code System Note Provider Name and Address Organization Details Recorded Time 65918 Benadryl medicatio n Not available Not available Not available 10/26/202482634 7 RxNorm RADHA [place] [facility] 5 11:24:02 Medications Name Sig Start Date Stop [...] Not Available Not Available No t Available donepezil 5 mg tablet TAKE 1 TABLET BY MOUTH DAILY IN THE MORNING active Not Available Not Available No t [...] Not Available Not Available Not Avai lable midodrine 5 mg tablet TAKE 1 TABLET BY MOUTH 3 TIMES A DAY NEEDED FOR LOW BLOOD PRESSURE active Not Available Not Available No t Available amlodipine 5 mg tablet TAKE 1 [...] 2 mL by injection route. 2024 active [facility]: 0003- 0494- 20 Not Available Not Available [...] 875 mg-potassiu m clavulanate 125 mg tablet TAKE 1 TABLET BY MOUTH EVERY 12 HOURS active Not Available Not Available No t Available neomycin 3.5 mg/g-polymy jeanne B 10,000 [...] mL every week by intra-art icular route. 2024 active Not Available Not Available [...] the office by the doctor 08/03 completed [facility]: [address] -1 Not Available Not Available Not Available Fluzone High-Dose Quad 2020- (PF) 240 mcg/0.7 mL IM syringe TO BE ADMINISTE RED BY PHARMACIS T FOR IMMUNIZAT ION 03/05 completed Not Available Not Available Not Available Orgovyx 120 mg tablet Take 1 tablet every day by oral route. active Not Available Not Available No t Available Vitals Date Recorded Body height Body mass index (BMI) Body weight Pain severity - 0-10 verbal numeric rating [Score] - Reported Provider Name and Address Organization Details Last Updated DateTime 10/26/2024 182.88 cm 25.4 kg/m2 83379.77 g 6 RADHA Hebert [facility] 10/26/2024 11:23:30 Date Recorded Body height Body mass index (BMI) Body weight Provider Name and Address Organization Details Last Updated DateTime 12/14/2024 180.34 cm 25.7 kg/m2 40485 g Dasia Kumar CNA [facility] 12/14/2024 10:16:59 Date Recorded Body height Body mass index (BMI) Body weight Provider Name and Address Organization Details Last Updated DateTime 12/21/2024 180.34 cm 25.7 kg/m2 41120 g Dasia Kumar CNA [facility] 12/21/2024 10:34:08 Date Recorded Body height Body mass index (BMI) Body weight Provider Name and Address Organization Details Last Updated DateTime 12/28/2024 180.34 cm 25.7 kg/m2 86392 g Dasia JoséNOEL gilliland [facility] 12/28/2024 11:04:34 Date Recorded Body height Provider Name an d Address Organization Details Last Updated DateTime 04/16/2024 182.88 cm Anel Hernandez [facility] 04/16/2024 10:15:29 Social History Question Answer Notes LastModified by [email or web address] Details LastModified Time Tobacco Smoking Status Never Smoker Not Available [facility] 06/30/2022 02:37:04 What Was The Date Of Your Most Recent Tobacco Screening? 12/28/2024 [email or web address] Information not available 12/28/2024 Sex: Unknown Functional Status Question Answer Note LastModified by 1Rebel Details LastModified Time What is your level of alcohol consumption? None [id number] Information not available 06/30/2022 Mental Status None recorded. Family History Relationship Description Onset Age of this Age Resolved Age Notes LastModified by Organization Details LastModified Time Mother Hypertensive disorder [email or web address] Not available 09/07 10:53:44 Mother Diabetes mellitus [email or web address] Not available 2024 11:26:19 Medical History Condition Response URINARY/BLADDER/KIDNEY PROBLEMS Y ARTHRITIS Y HYPERTENSION Y CANCER: SPECIFY Y Past Encounters Encounter ID Performer Location Encounter Start Date Encounter Closed Date Diagnosis/Indication Diagnosis SNOMED-CT Code Diagnosis ICD10 Code Diagnosis IMO Codes Diagnosis Note [id number] [facility]_ DEFAULT_1 _1 , 08/04/2020 00:00:00 08/04/2020 11:49:03 [id number] [facility]_ DEFAULT_1 _1 , 08/18/2020 00:00:00 08/18/2020 10:52:14 [id number] [facility]_ DEFAULT_1 _1 , 08/25/2020 00:00:00 08/25/2020 10:56:37 [id number] [facility]_ DEFAULT_1 _1 , 09/01/2020 00:00:00 09/01/2020 11:31:31 [id number] [facility]_ DEFAULT_1 _1 , 09/08/2020 00:00:00 09/08/2020 11:58:14 [id number] Eric Arechiga MD [facility] [place] [address] [place] [address] 03/05/2021 00:00:00 03/05/2021 13:37:43 [id number] Eric Arechiga MD [facility] [place] [address] [place] [address] 03/12/2021 00:00:00 03/12/2021 10:19:13 [id number] Eric Arechiga MD [facility] [place] [address] [place] [address] 03/19/2021 00:00:00 03/19/2021 11:31:06 [id number] Eric Arechiga MD [facility] [place] [address] [place] [address] 03/24/2021 00:00:00 03/24/2021 15:45:32 [id number] Eric Arechiga MD [facility] [place] [address] [place] [address] 03/31/2021 00:00:00 03/31/2021 16:31:36 [id number] Eric Arechiga MD [facility] [place] [address] [place] [address] 11/05/2021 00:00:00 11/05/2021 10:23:40 [id number] Eric Arechiga MD [facility] [place] [address] [place] [address] 11/12/2021 00:00:00 11/12/2021 10:25:26 [id number] Eric Arechiga MD [facility] [place] [address] [place] [address] 11/19/2021 00:00:00 11/19/2021 10:12:51 [id number] Eric Arechiga MD [facility] [place] [address] [place] [address] 08/03/2022 14:22:16 08/03/2022 15:39:58 Osteoarthritis of right knee joint 3761275318 53143 M17.11 Pain of ri ght knee joint 4067483808 70036 M25.561 [id number] Eric Arechiga MD [facility] [place] [address] [place] [address] 08/10/2022 15:22:35 08/10/2022 16:02:52 Pain of right knee joint 7610334528 86269 M25.561 Osteoarthr itis of right knee joint 2917228789 33974 M17.11 [id number] Eric Arechiga MD [facility] [place] [address] [place] [address] 08/17/2022 15:28:35 08/17/2022 16:08:32 Osteoarthritis of right knee joint 5030350803 90699 M17.11 Pain of ri ght knee joint 0472567068 83994 M25.053 [id number] Humberto Clark MD [facility] [place] [address] [place] [address] 02/17/2023 11:53:58 02/17/2023 13:20:03 Osteoarthritis of right knee joint 8521087421 68642 M17.11 Pain of ri ght knee joint 6719084298 67757 M25.517 [id number] Humberto Clark MD [facility] [place] [address] [place] [address] 02/24/2023 11:46:41 02/24/2023 12:00:25 Osteoarthritis of right knee joint 8314710325 11781 M17.11 Pain of ri ght knee joint 3753072933 73290 M25.919 [id number] Humberto Clark MD [facility] [place] [address] [place] [address] 03/03/2023 11:55:17 03/03/2023 13:23:12 Osteoarthritis of right knee joint 8563314937 79000 M17.11 Pain of ri ght knee joint 9947647962 62548 M25.221 [id number] Farrukh Rico MD [facility] [place] [address] [place] [address] 09/08/2023 10:33:30 09/08/2023 11:21:21 Osteoarthritis of right knee joint 5573135349 20771 M17.11 History of left total knee replacement 1946300806 485148 Z96.439 [id number] Farrukh Rico MD [facility] [place] [address] [place] [address] 09/15/2023 10:14:45 09/15/2023 11:01:53 Osteoarthritis of right knee joint 6325150257 33439 M17.11 History of left total knee replacement 6228099818 767811 Z96.519 [id number] Farrukh Rico MD [facility] [place] [address] [place] [address] 09/22/2023 10:11:03 09/22/2023 10:30:30 Osteoarthritis of right knee joint 0913380988 89157 M17.11 Pain of ri ght knee joint 2667133379 75932 M25.879 [id number] Farrukh Rico MD [facility] [place] [address] [place] [address] 04/02/2024 10:21:08 04/02/2024 11:21:08 Osteoarthritis of right knee joint 9075394092 79326 M17.11 Pain of ri ght knee joint 5540633006 05926 M25.826 [id number] Farrukh Rico MD [facility] [place] [address] [place] [address] 04/09/2024 10:17:01 04/09/2024 11:13:23 Osteoarthritis of right knee joint 8047335717 19863 M17.11 Pain of ri ght knee joint 6206624390 14475 M25.584 [id number] Farrukh Rico MD [facility] [place] [address] [place] [address] 04/16/2024 10:12:43 04/16/2024 10:32:33 Osteoarthritis of right knee joint 6019722972 99115 M17.11 Pain of ri ght knee joint 1304827695 36715 M25.691 [id number] Farrukh Rico MD [facility] [place] [address] [place] [address] 10/26/2024 10:54:44 10/26/2024 12:47:23 Osteoarthritis of right knee joint 4512299819 75081 M17.11 Pain of ri ght knee joint 5881955203 93361 M25.561 History of operative procedure on knee 782388659 Z96.652 [id number] Farrukh Rico MD [facility] [place] [address] [place] [address] 12/14/2024 10:09:37 12/14/2024 11:30:31 Osteoarthritis of right knee joint 6942548274 82835 M17.11 Pain of ri ght knee joint 4758479592 10444 M25.561 History of left total knee replacement 0633754448 454141 Z96.652 [id number] Farrukh Rico MD [facility] [place] [address] [place] [address] 12/21/2024 10:30:29 12/21/2024 10:49:21 Osteoarthritis of right knee joint 0000686779 37920 M17.11 Pain of ri ght knee joint 0244565621 56408 M25.561 History of left total knee replacement 1392623359 463980 Z96.652 [id number] Farrukh Rico MD [facility] [place] [address] [place] [address] 12/28/2024 10:55:59 12/28/2024 11:33:13 Osteoarthritis of right knee joint 5535537952 05976 M17.11 Pain of ri ght knee joint 2396093997 10732 M25.561 History of left total knee replacement 4688158512 861663 Z96.652 [id number] Health Concerns Section Related Observation LastModified by Organization Detai ls LastModified Time None Recorded Concern Status LastModified by Organization Details LastModified Time None Recorded Advance Directives Directive None Recorded Payers Insurance Date Sequence Insurance Name Policy Number Policy Mix Covered Member ID Mix Member ID Guarantor Name 10/23/2024 2 [employer] (MEDICARE SUPPLEMENT) Aquilino Trujillo [id number] Aquilino Trujillo 12/11/2024 1 [place] Aquilino Trujillo Jr [id number] Aquilino Trujillo 10/23/2024 2 [place] [id number] Aquilino Trujillo [id number] Aquilino Trujillo Notes Date Note Type Note Provider Name and Address Organization Details Recorded Time 04/16/2024 text/html Patient returns for Orthovisc injection number 3 right knee. The patient has severe primary osteoarthritis of the right knee joint not a good candidate for total knee arthroplasty due to medical issues. States he is getting along well with the 1st 2 rounds of injections and getting good relief. Denies any complaints or problems today with the right knee. FERNANDO Hogue [address] [place] [address], [facility] [address], [place], [address], [facility] Myla 04/16/2024 10:39:10 10/26/2024 text/html The patient returns with right knee pain. I have seen [...] the patient and his . FERNANDO Hogue [address], [place], [address], [place] [facility] 10/26/2024 13:16:15 12/14/2024 text/html The patient returns for Orthovisc injection number 1 right knee. The patient has severe primary osteoarthritis right knee joint with only about a mm of joint space remaining in the medial compartment patellofemoral articulation also shows significant narrowing as well as small marginal osteophytes noted off the lateral and medial facets. He does have a total knee arthroplasty in excellent alignment no problems there. He is trying to put off a right total knee arthroplasty due to other medical conditions including issues with his blood pressure, Parkinson's disease in the pacemaker recently. He also has a history of prostate cancer. The patient is getting by with conservative measures typically gel shots worked very well for him. It has been 6 months since his last gel shots he wants to proceed again today. Denies any new problems no new trauma or injury no erythema effusion or signs of infection. FERNANDO Hogue [address], [place], [address], [employer] 12/14/2024 10:56:14 12/21/2024 text/html The patient returns for Orthovisc injection number 2 right knee. The patient has severe primary osteoarthritis of the right knee joint with only about a mm joint space remaining in the medial compartment and the patellofemoral articulation also shows significant narrowing as well with marginal osteophytes noted off the lateral medial facets. The patient has medical conditions including hypertension Parkinson's disease and a pacemaker recently he also had history of prostate cancer that he has been treated for recently. So surgery is not a great option for him at this time. He would rather get by with conservative measures he is already starting to get some good relief from the 1st injection last week he comes in today for the 2nd 1. FERNANDO Hogue [address], [place], [address], [employer] [facility] 12/21/2024 11:16:58 12/28/2024 text/html The patient returns for Orthovisc injection 3. Right knee. The patient has severe primary osteoarthritis of the right knee joint he is trying to get by with conservative measures. He has had some recent significant and multiple medical issues that make him a higher risk for surgery. The right knee joint shows only about a mm joint space remaining in the medial compartment in the patellofemoral articulation also shows significant narrowing with marginal osteophytes noted off the lateral and medial facets. He is getting excellent relief from the 1st 2 rounds of injections he comes in today for the 3rd 1. FERNANDO Hogue [address], [place], [address], [employer] [facility] 12/28/2024 13:06:05
--- OUTSIDE RECORDS SUMMARY | 2025-02-14 00:30 | XMS_ITS | Clinical Summary ---
Author Organization [facility] Address [address] [place] [address] Care Team Providers Care Haulage Engine Operator Name Role Phone Sanket Isbell MD Primary Care Provider [phone] Source Comments [facility],non-owned Affiliates and Associated Physician Practices is amultiple site organization consisting of ambulatory clinics and hospital sitesin [place], [place], [place] and [place]. This disclosure is being madepursuant to the Care Everywhere program and may not contain all information available regarding this patient. Last updated 18.[facility] Allergies No known active allergies Medications * [...] Comments Blood Pressure 126/72 04/10/2018 12:37 PM HISTORIOGRAPHER Pulse 71 04/10/2018 12:37 PM HISTORIOGRAPHER Temperature - - Respiratory Rate 18 04/10/2018 12:37 PM HISTORIOGRAPHER Oxygen Saturation 96% 04/10/2018 12:37 PM HISTORIOGRAPHER Inhaled Oxygen Concentration - - Weight 91.6 kg (202 lb) 04/10/2018 12:37 PM HISTORIOGRAPHER Height 182.9 cm (6') 04/10/2018 12:37 PM HISTORIOGRAPHER Body Mass Index 27.4 04/10/2018 12:37 PM HISTORIOGRAPHER Plan of Treatment Health Maintenance Due Date [...] of 2) 1999 SCREENING FOR DIABETES 01/19/2018 DEPRESSION SCREENING 05/02/2024 Respiratory Syncytial Virus (RSV) Vaccine Pt: or over 60 yrs (1 - 1-dose 75+ series) 2024 COVID-19 VACCINE ( - 2023-2 5 season) 2024 INFLUENZA VACCINE (#1) 2024 HEPATITIS B [...] age to complete this topic Insurance MEDICARE [facility] MEDICARE [facility] Care Teams Haulage Engine Operator Relationship Specialty Start Date End Date Sanket Isbell MD [address] [place] [address] PCP - General Family Medicine 01/19/18
[2025-02-14 09:41] VITALS: BP 112/69; PULSE 91; RESP 16; TEMP 35.8; O2SAT 96; BMI 25.6
[2025-02-14] MEDS: LACTATED RINGERS 1,000 ML 150 ML IV CONT (09:50)
--- NOTE | 2025-02-14 10:15 | WPDANESEPPF ---
Anes - Initial Pre Proc Eval Procedure: Operation Date: 02/14/25 11:00 Proposed Procedures p Screening Colonoscopy - Braxton Howell MD Date/Time: 02/14/25 10:15 Surgeon: Braxton Howell MD Pre Op Diagnosis: Personal history of colon polyps, unspecified Patient Data Age: 74 Gender: M Height: 1.8 m Weight: 83.4 kg Last Vital Signs Temp 96.5 F L 02/14/25 09:41 Pulse 91 02/14/25 09:41 Resp 16 02/14/25 09:41 BP 112/69 02/14/25 09:41 Pulse Ox 96 02/14/25 09:41 O2 Del Method Room Air 02/14/25 09:41 Allergies Allergy/AdvReac Type Severity Reaction Status Date / Time diphenhydramine AdvReac Intermediate palpatation Verified 02/14/25 09:40 s Home Medications ?Medication ?Instructions ?Recorded ?Confirmed ?Type relugolix 120 mg tablet (Orgovyx) 120 mg PO DAILY 07/11/24 02/14/25 History sennosides 8.6 mg-docusate sodium 1 tab-cap PO HS 11/08/24 02/14/25 History 50 mg tablet (Senokot-S) apalutamide 60 mg tablet (Erleada) 60 mg PO QID #120 tabs 11/20/24 02/14/25 Rx midodrine 5 mg tablet 5 mg PO TID PRN hypotension #90 11/20/24 02/11/25 Rx tabs donepezil 5 mg tablet (Aricept) 5 mg PO DAILY #90 tabs 11/22/24 02/14/25 Rx quetiapine 25 mg tablet See Rx Instructions .Route 01/15/25 02/14/25 Rx .COMPLEX #45 tabs carbidopa 25 mg-levodopa 100 mg 1 tablet PO QID #360 tabs 02/11/25 02/14/25 Rx tablet (Sinemet) carbidopa 50 mg-levodopa 200 1 tablet PO QID #120 tabs 02/11/25 02/14/25 Rx mg-entacapone 200 mg tablet Patient hx anesthesia problems: none Family hx anesthesia problems: none Results Review: All pre-operative results and documents have been reviewed as part of the pre-operative evaluation. 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 CHF (congestive heart failure) Falls frequently Prostate cancer metastatic to bone BPH w urinary obs/LUTS Non-Hodgkin lymphoma in remission Kidney stones Hypertension Parkinsons Parkinson disease Surgical History Surgical History Cardiac pacemaker H/O prostate biopsy S/P total knee arthroplasty left Social History Social History Social History: Smoking status: Never smoker Second hand tobacco smoke exposure: No Alcohol intake: never Substance use: never Substance use type: does not use Do You Feel Safe in your Home?: Yes Lack of Transportation: No Lack of Food: Never True Current Housing: I Have Housing Concerned About Future Housing: No Difficulty Paying Gas/Electric Bills: No Difficulty Paying for Meds: No Currently Unemployed: No Education: Trade/Vocational Certificate Difficulty w/ Childcare or Family Care: No Living arrangements: with family Occupation/Education: retired Additional occupation/education comments: [employer], [employer] Gender identity (if verbalized by the patient): Male Sexual Orientation (if Verbalized by the Patient): Straight or Heterosexual Spiritual care concerns: No Anes - Eval Final PreProcedure Day of Procedure 02/14/25 10:15 Patient weight: normal Heart: regular rate and rhythm Lungs: clear to auscultation Airway: Mallampati scale class II Neurological: alert and oriented Last oral intake: >/= 8 hours ASA classification: III Emergent: no Anesthetic plan: proceed Anesthesia type and monitoring: general GIVS and standard monitoring Results Review: All pre-operative results and documents have been reviewed as part of the pre-operative evaluation. Informed Consent: The patient's anesthetic plan and its attendant risks and benefits were discussed with the patient/family/POA. Questions were solicited and answers provided to the satisfaction of the patient/family/POA.
--- NOTE | 2025-02-14 10:47 | PM.IMHP ---
H&P: HPI History of Present Illness Date/Time: 02/14/25 10:47 Chief Complaint: History of colon polyps Narrative: The patient has a history of colonic polyps, the last colonoscopy was 5 years ago. However, the colon was not deemed appropriately prepped. The patient has longstanding history of Parkinson disease and takes carbidopa levodopa. 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 CHF (congestive heart failure) Falls frequently Prostate cancer metastatic to bone BPH w urinary obs/LUTS Non-Hodgkin lymphoma in remission Kidney stones Hypertension Parkinsons Parkinson disease Surgical History Surgical History Cardiac pacemaker H/O prostate biopsy S/P total knee arthroplasty left Social History Social History Social History: Smoking status: Never smoker Second hand tobacco smoke exposure: No Alcohol intake: never Substance use: never Substance use type: does not use Do You Feel Safe in your Home?: Yes Lack of Transportation: No Lack of Food: Never True Current Housing: I Have Housing Concerned About Future Housing: No Difficulty Paying Gas/Electric Bills: No Difficulty Paying for Meds: No Currently Unemployed: No Education: Trade/Vocational Certificate Difficulty w/ Childcare or Family Care: No Living arrangements: with family Occupation/Education: retired Additional occupation/education comments: [employer], [employer] Gender identity (if verbalized by the patient): Male Sexual Orientation (if Verbalized by the Patient): Straight or Heterosexual Spiritual care concerns: No Meds Home Medications and Allergies Home Medications ?Medication ?Instructions ?Recorded ?Confirmed ?Type relugolix 120 mg tablet (Orgovyx) 120 mg PO DAILY 07/11/24 02/14/25 History sennosides 8.6 mg-docusate sodium 1 tab-cap PO HS 11/08/24 02/14/25 History 50 mg tablet (Senokot-S) apalutamide 60 mg tablet (Erleada) 60 mg PO QID #120 tabs 11/20/24 02/14/25 Rx midodrine 5 mg tablet 5 mg PO TID PRN hypotension #90 11/20/24 02/11/25 Rx tabs donepezil 5 mg tablet (Aricept) 5 mg PO DAILY #90 tabs 11/22/24 02/14/25 Rx quetiapine 25 mg tablet See Rx Instructions .Route 01/15/25 02/14/25 Rx .COMPLEX #45 tabs carbidopa 25 mg-levodopa 100 mg 1 tablet PO QID #360 tabs 02/11/25 02/14/25 Rx tablet (Sinemet) carbidopa 50 mg-levodopa 200 1 tablet PO QID #120 tabs 02/11/25 02/14/25 Rx mg-entacapone 200 mg tablet Allergies Allergy/AdvReac Type Severity Reaction Status Date / Time diphenhydramine AdvReac Intermediate palpatation Verified 02/14/25 09:40 s Vital Signs Vital Signs - 24 hr 02/14/25 09:41 Temperature 96.5 F L Pulse Rate 91 Respiratory Rate 16 Blood Pressure 112/69 Pulse Oximetry 96 Oxygen Delivery Room Air Exam Const: General: cooperative and healthy appearing Resp: Effort & Inspection: normal respiratory effort and able to speak in complete sentences Auscultation: clear to auscultation bilaterally Cardio: Rate: regular rate Rhythm: regular rhythm GI: Inspection: normal to inspection GI Palp: No No hepatosplenomegaly present Auscultation: normal bowel sounds Rectal Exam: deferred Skin: General skin exam: normal color Psych: Appearance: grossly normal Mental Status: mental status grossly normal Assessment and Plan Assessment and plan (1) Colon cancer screening: Code(s): Z12.11 - Encounter for screening for malignant neoplasm of colon Status: Acute Assessment and Plan: The patient is deemed a good candidate for the procedure. Consent signed. Will proceed.
[2025-02-14 10:56] VITALS: BP 132/72; PULSE 66; RESP 14; O2SAT 96
[2025-02-14 11:06] VITALS: BP 133/78; PULSE 64; RESP 16; O2SAT 96
[2025-02-14 11:16] VITALS: BP 133/75; PULSE 64; RESP 19; O2SAT 96
== END 2025-02-14 11:40 | disposition home or self-care (01) ==
PROVIDERS: PCP Family Medicine; Referring Provider Internal Medicine Gastroenterology; Visit Provider Internal Medicine Gastroenterology
PROC: 0DJD8ZZ Inspection of Lower Intestinal Tract, Via Natural or Artificial Opening Endoscopic (ICD-10-PCS; CPT 45378; principal; 2025-02-14 11:00)
DX: Z12.11 Encounter for screening for malignant neoplasm of colon (principal); Z53.8 Procedure and treatment not carried out for other reasons; I95.1 Orthostatic hypotension; G62.9 Polyneuropathy, unspecified; G20.B2 Parkinson's disease with dyskinesia, with fluctuations; I11.0 Hypertensive heart disease with heart failure; I50.9 Heart failure, unspecified; N40.1 Benign prostatic hyperplasia with lower urinary tract symptoms; Z98.890 Other specified postprocedural states; Z95.0 Presence of cardiac pacemaker; Z86.0100 Personal history of colon polyps, unspecified; Z87.442 Personal history of urinary calculi; Z92.21 Personal history of antineoplastic chemotherapy; Z85.72 Personal history of non-Hodgkin lymphomas; Z85.46 Personal history of malignant neoplasm of prostate
CPT/HCPCS: G0105; J2003; J2704; J7120